=== PATIENT | male | born 1940 | race Caucasian/White ===

== ENCOUNTER 2022-01-01 10:52 | Emergency (ER) | payer MEDICARE, SELFPAY ==
[2022-01-01 11:00] VITALS: O2SAT 91
[2022-01-01 11:46] VITALS: BP 137/76; PULSE 91; RESP 20; TEMP 36.6; O2SAT 86; BMI 37.1
[2022-01-01 12:03] VITALS: BP 133/77; PULSE 85; RESP 20; O2SAT 94
--- NOTE | 2022-01-01 12:06 | ED.GENADULT ---
HPI - General Adult General Time Seen by Provider: 12:06 Date Seen: 01/01/22 Chief complaint: Shortness of Breath/Dyspnea Stated complaint: Frequent urination,right arm pain,short of breath Time Seen by Provider: 01/01/22 11:38 Source: patient, family, RN notes reviewed and old records reviewed Mode of arrival: wheelchair History of Present Illness HPI narrative: 81-year-old male who comes in today with urinary frequency. Overnight. Patient was up every hour hour and half with sensation of needing to void. Spouse who takes care of and primarily thinks that he voided about half the time. He has not had any fever chills, no nausea, vomiting, or diarrhea. No abdominal pain. He does complain of a headache on the top of his head, no fall or injury. Patient also has a right forearm injury which occurred while ago and they have been taking care of. He denies chest pain and shortness of breath, no cough. Patient has history of Lewy body dementia and most of the history is provided by spouse. Related Data Home Medications Medication Instructions Recorded Confirmed carbidopa 25 mg-levodopa 100 mg tab 01/01/22 tablet clonazepam 0.5 mg tablet mg 01/01/22 donepezil 10 mg tablet mg 01/01/22 insulin aspart U-100 100 unit/mL SUBCUT 01/01/22 (3 mL) subcutaneous pen (Novolog Flexpen U-100 Insulin aspart) insulin glargine 100 unit/mL (3 unit SUBCUT 01/01/22 mL) subcutaneous pen (Lantus Solostar U-100 Insulin) meclizine 25 mg tablet mg 01/01/22 metformin 500 mg tablet mg 01/01/22 oxybutynin chloride 15 mg mg PO 01/01/22 tablet,extended release 24 hr quetiapine 25 mg tablet mg 01/01/22 rosuvastatin 20 mg tablet mg 01/01/22 sertraline 20 mg/mL oral mg 01/01/22 concentrate Previous Rx's Medication Instructions Recorded cephalexin 250 mg/5 mL oral 500 mg (10 mL) PO BID 7 Days #140 01/01/22 suspension ml phenazopyridine 100 mg tablet 100 mg PO BID PRN 2 Days #4 tab 01/01/22 (Pyridium) Allergies Allergy/AdvReac Type Severity Reaction Status Date / Time bacitracin Allergy Intermediate Verified 01/01/22 11:53 Review of Systems Status of ROS: Reports: 10 or more systems reviewed and unremarkable except as noted in History and below [facility] Medical History (Updated 01/01/22 @ 12:58 by Efraín Singh MD) CKD (chronic kidney disease) Diabetes Hypercholesteremia Hypertension Lewy body dementia MAYA (obstructive sleep apnea) Parkinson disease Prostate cancer Reflux gastritis Spinal stenosis Social History Smoking Status: Unknown if ever smoked How often do you have a drink containing alcohol: never AUDIT-C Alcohol total score: 0 Non-prescribed substance use: denies use Exam Const: Vital Signs, click to edit/add: Vital Signs - 24 hr 01/01/22 11:46 Temperature 98 F Pulse Rate [Pulse Oximeter] 91 Respiratory Rate 20 Blood Pressure [Ri ght Upper Arm] 137/76 Pulse Oximetry 86 L Documenting provider has reviewed patient's vital signs: yes Common normals: no apparent distress, oriented x3, alert and well nourished HENMT: Common normals: normocephalic, head/scalp atraumatic, external ears normal and external nose normal Head and scalp: normocephalic and atraumatic Nose: external nose normal External ear: external ears normal Eye: Common normals: PERRL and conjunctivae normal Conjunctiva: conjunctiva(e) normal Pupil: PERRL Neck & C-Spine: Common normals: full ROM, no lymphadenopathy and supple Chest: Common normals: palpation of chest normal Resp: Common normals: normal respiratory effort and clear to auscultation bilaterally Auscultation: clear to auscultation bilaterally Cardio: Common normals: regular rate, regular rhythm and no murmurs Rate: regular rate Rhythm: regular rhythm GI: Common normals: Normal to inspection, nondistended, normoactive bowel sounds present, soft to palpation and non-tender Palpation: soft : Common normals: no CVA tenderness Bladder/kidney exam: no CVA tenderness Back & Pelvis: Common normals: no CVA tenderness and thoracic and lumbar spine normal to inspection Extremity: Common normals: normal to inspection, full ROM and no pedal edema Other: Right forearm laceration healing well. Intertrigo which actually appears quite good today. Neuro: Common normals: oriented x3, CN's II-XII intact bilaterally and no focal motor deficits Sensorium/orientation: alert Psych: Common normals: mental status grossly normal Skin: Common normals: no rashes or lesions noted General skin exam: no rashes or lesions noted Course Reevaluation(s) Reevaluation #1: Urinalysis today is negative for infection, cultures ordered as on prior visit, urine culture was also negative and throughout greater than 100,000 E coli. Patient will be started on Keflex in the meantime. Stable for discharge Time: 12:54 Vital Signs Vital signs: Initial Vital Signs Temperature 98 F 01/01/22 11:46 Temperature Source Temporal Artery Scan 01/01/22 11:46 Pulse Rate 91 01/01/22 11:46 Respiratory Rate 20 01/01/22 11:46 Blood Pressure 137/76 01/01/22 11:46 Blood Pressure Mean 96 01/01/22 11:46 Blood Pressure Position Supine 01/01/22 11:46 Pulse Oximetry 86 L 01/01/22 11:46 Oxygen Delivery Method 01/01/22 11:46 Vital Signs Temperature 98 F 01/01/22 11:46 Pulse Rate 91 01/01/22 11:46 Respiratory Rate 20 01/01/22 11:46 Blood Pressure 137/76 01/01/22 11:46 Pulse Oximetry 86 L 01/01/22 11:46 Temperature 98 F 01/01/22 11:46 Pulse Rate 91 01/01/22 11:46 Respiratory Rate 20 01/01/22 11:46 Blood Pressure 137/76 01/01/22 11:46 Pulse Oximetry 86 L 01/01/22 11:46 Medical Decision Making MDM Narrative Medical decision making narrative: Patient seen and examined, prior records reviewed. Patient presents with urinary frequency today, concern for UTI and so urinalysis is ordered. No abdominal pain or distension, no tenderness on exam, urinary retention is less likely. Straight cath for sample and so will evaluate output to make sure patient is not retaining. Initial triage complaint including shortness of breath which patient and spouse deny, they do note that he became a little short of breath when he got in the car to come in but he has to have this with anxiety currently has no complaints. Chronic lab 3 L of oxygen and no respiratory distress with clear lungs today. Medical Records Medical records reviewed: Yes I reviewed the patient's medical records Lab Data Lab results reviewed: Yes I reviewed the patient's lab results Labs: Lab Results 01/01/22 Range/Units 12:15 Urine Color Yellow (Yellow) Urine Appearance Clear (Clear) Urine pH 8.5 (5.0-8.5) Ur Specific Fleming 1.015 (1.000-1.030) Urine Protein Trace A (Negative) Urine Glucose (UA) Negative (Negative) Urine Ketones Negative (Negative) Urine Blood Negative (Negative) Urine Nitrite Negative (Negative) Urine Bilirubin Negative (Negative) Urine Urobilinogen 1.0 (0.2-1.0) Ur Leukocyte Esterase Negative (Negative) Urine RBC 0-2 (0-2) Urine WBC 0-2 (0-5) Ur Squamous Epith Cells None (None-Few) Amorphous Sediment Few A (None) Other Sediment 0 (None) Urine Bacteria None (None) Urine Mucus (None) Discharge Plan Discharge Clinical Impression: Urinary frequency Patient Disposition: Home w/ Parent or Adult Condition: Stable Instructions: Urinary Urgency and Frequency (DC) Additional Instructions: Start antibiotics as prescribed. Take Pyridium as needed for frequency. Activity Level: No Restrictions Discharge Diet: Regular Prescriptions: New cephalexin 250 mg/5 mL suspension for reconstitution 500 mg PO BID 7 Days Qty: 140 0RF phenazopyridine [Pyridium] 100 mg tablet 100 mg PO BID PRN (Reason: urinary frequency) 2 Days Qty: 4 0RF No Action quetiapine 25 mg tablet 0RF metformin 500 mg tablet 0RF oxybutynin chloride 15 mg tablet extended release 24hr PO 0RF donepezil 10 mg tablet 0RF clonazepam 0.5 mg tablet 0RF meclizine 25 mg tablet 0RF carbidopa-levodopa 25-100 mg tablet 0RF Label Comments: TAKE ONE TABLET BY MOUTH THREE TIMES A DAY WITH FOOD sertraline 20 mg/mL concentrate 0RF insulin aspart U-100 [Novolog Flexpen U-100 Insulin] 100 unit/mL (3 mL) insulin pen SUBCUT 0RF rosuvastatin 20 mg tablet 0RF insulin glargine [Lantus Solostar U-100 Insulin] 100 unit/mL (3 mL) insulin pen SUBCUT 0RF Follow Up/Referrals: Joi Zavala MD [Primary Care Provider] - Stand Alone [facility]: [facility] Info Inst[facility]
[2022-01-01] MEDS: lidocaine HCL 2 % JELLY (TOP) STERILE 6 ML UR (12:15)
[2022-01-01 12:25] LABS: Appearance Urine Clear (Clear); Bilirubin Urine Negative (Negative); Blood Urine Negative (Negative); Color Urine Yellow (Yellow); Glucose Urine Negative (Negative); Ketones Urine Negative (Negative); Leukocyte Esterase Urine Negative (Negative); Nitrite Urine Negative (Negative); Protein Urine Trace (Negative); Specific Gravity Urine 1.015 (1.000-1.030); pH Urine 8.5 (5.0-8.5)
[2022-01-01 12:40] LABS: Amorphous Sediment Urine Few; Other Sediment Urine 0; RBC Urine 0-2 (0-2); WBC Urine 0-2 (0-5)
[2022-01-01 13:00] VITALS: BP 137/69; PULSE 88; RESP 20; O2SAT 95
--- NOTE | 2022-01-01 13:28 | ED.NURSE ---
pt heavy assist of 2, attempted to use urinal but did not urinate. changed depends, dressed pt, pt to vehicle via wheelchair.
== END 2022-01-01 13:25 | disposition home or self-care (01) ==
PROVIDERS: Emergency Provider Family Medicine; PCP Family Medicine
DX: R35.0 Frequency of micturition (principal); R06.02 Shortness of breath; Z99.81 Dependence on supplemental oxygen; F41.9 Anxiety disorder, unspecified
CPT/HCPCS: 51701; 81001; 87086; 99283; 99284

== ENCOUNTER 2022-02-14 18:50 | Inpatient (IN) | payer MEDICARE, SELFPAY ==
[2022-02-14] VITALS (7 sets, daily range): BP systolic 148–180; BP diastolic 89–106; PULSE 51–67; RESP 16; TEMP 36.3; O2SAT 98–100; BMI 37.1
--- NOTE | 2022-02-14 20:35 | CRLHL7_ITS ---
For Patients: As a result of the Century Cures Act, medical imaging exams and procedure reports are released immediately into your electronic medical record. You may view this report before your referring provider. If you have questions, please contact your health care provider. INDICATION: Right arm weakness. COMPARISON: CT of the head without contrast from 07/25/2019 TECHNIQUE: CT examination of the head is performed after the CT pulmonary angiogram and intravenous contrast is seen in the vascular pole. This makes it difficult to exclude acute thrombosis of the arterial system in the brain. This examination should be considered a contrast enhanced CT of the head for diagnostic purposes. CT examination of the head was performed with 3 mm thick axial sections without additional intravenous contrast. Images were obtained from the vertex of the skull through the skull base, and I examined the images with the brain and bone windows. Please note that all CT scans at this facility use dose modulation, iterative reconstruction, and/or weight-based dosing when appropriate to reduce radiation dose to as low as reasonably achievable. FINDINGS: The contrast enhanced brain is normal in appearance for the patient`s age on today`s study, with no sign of mass lesion, mass effect, hemorrhage, or edema. There is stable mild dilatation of the ventricles and sulci representing stable mild, age-appropriate atrophy. There is stable mild patchy periventricular and subcortical white matter hypodensity from mild, age-appropriate small-vessel ischemia. The visualized portions of the orbits are normal in appearance. The visualized paranasal sinuses and mastoids are clear. The osseous structures are normal in their appearance with no sign of abnormality in the skull base or calvarium. IMPRESSION: No sign of acute injury to the brain. Stable mild, age-appropriate atrophy and mild, age-appropriate small-vessel ischemic change. Intravenous contrast is present from the proceeding CT pulmonary angiogram. Please note that all CT scans at this facility use dose modulation, iterative reconstruction, and/or weight-based dosing when appropriate to reduce radiation dose to as low as reasonably achievable. Dictated by Estevan Walker MD @ 02/15/2022 12:32:59 AM (Electronically Signed)
--- NOTE | 2022-02-14 20:54 | ED_ITS ---
HPI - General Adult General Chief complaint: Unspecified Complaint, Adult <Leonardo Parks MD - Last Filed: 02/15/22 00:03> Stated complaint: Shortness of Breath Right arm mobility problems <Leonardo Parks MD - Last Filed: 02/15/22 00:03> Time Seen by Provider: 02/14/22 20:22 <Leonardo Parks MD - Last Filed: 02/15/22 00:03> History of Present Illness HPI narrative: P is a 81 year old gentleman with a history of Parkinson's with Lewy Body Dementia who presents with increased generalized weakness. He also states that he has had increased difficulty with movement of his R hand over the past 2 days. He attributes the difficulty to trouble with his right shoulder which is chronic. Of note, he has good dexterity of the right hand and fingers but does not have the leverage to move his arm up. Pt has had no fever, chills or lower extremity edema. No rashes. No cough. Pt is chronically on 2 liters of oxygen which is unchanged. Pt still is able to get around with a walker but is having increased difficulty. No pain. <Leonardo Parks MD - Last Filed: 02/15/22 00:03> Related Data Home medications: Home Medications Medication Instructions Recorded Confirmed carbidopa 25 mg-levodopa 100 mg tab 01/01/22 tablet clonazepam 0.5 mg tablet mg 01/01/22 donepezil 10 mg tablet mg 01/01/22 insulin aspart U-100 100 unit/mL subcut 01/01/22 (3 mL) subcutaneous pen (Novolog Flexpen U-100 Insulin aspart) insulin glargine 100 unit/mL (3 unit subcut 01/01/22 mL) subcutaneous pen (Lantus Solostar U-100 Insulin) meclizine 25 mg tablet mg 01/01/22 metformin 500 mg tablet mg 01/01/22 oxybutynin chloride 15 mg mg PO 01/01/22 tablet,extended release 24 hr quetiapine 25 mg tablet mg 01/01/22 rosuvastatin 20 mg tablet mg 01/01/22 sertraline 20 mg/mL oral mg 01/01/22 concentrate aspirin 81 mg tablet,delayed 81 mg PO DAILY 02/14/22 02/14/22 release (Adult Aspirin Regimen) glycopyrrolate 1 mg tablet mg 02/14/22 Previous Rx's Medication Instructions Recorded cephalexin 250 mg/5 mL oral 500 mg (10 mL) PO BID 7 days #140 01/01/22 suspension mL phenazopyridine 100 mg tablet 100 mg PO BID PRN urinary 01/01/22 (Pyridium) frequency 2 days #4 tabs <Leonardo Parks MD - Last Filed: 02/15/22 00:03> Allergies/adverse reactions: Allergies Allergy/AdvReac Type Severity Reaction Status Date / Time bacitracin Allergy Intermediate Verified 02/14/22 23:44 <Leonardo Parks MD - Last Filed: 02/15/22 00:03> Review of Systems Status of ROS: Reports: 10 or more systems reviewed and unremarkable except as noted in History and below <Leonardo Parks MD - Last Filed: 02/15/22 00:03> [facility] Medical History: Medical History (Updated 01/16/22 @ 00:01 by ) CKD (chronic kidney disease) Diabetes Hypercholesteremia Hypertension Lewy body dementia MAYA (obstructive sleep apnea) Parkinson disease Prostate cancer Reflux gastritis Spinal stenosis <Leonardo Parks MD - Last Filed: 02/15/22 00:03> Social History: Social History Smoking Status: Former smoker How often do you have a drink containing alcohol: never AUDIT-C Alcohol total score: 0 Non-prescribed substance use: denies use <Leonardo Parks MD - Last Filed: 02/15/22 00:03> Exam Narrative: Exam Narrative: EXAM GENERAL: Patient appears elderly and frail. No tremor. EYES: No scleral icterus. THYROID: no thyroid nodules or thyromegaly. LYMPH: No supraclavicular or cervical lymphadenopathy. SKIN: Visible skin seen during exam normal or with benign process only. EXT: No dependent lower extremity pedal edema. HEART: Regular rate and rhythm with no murmurs, rubs, or gallops. LUNGS: Clear to auscultation bilaterally with no crackles or wheezes. ABD: Soft, non tender, non distended. PSYCH: Good eye contact, speech is not pressured. Neuro: Chronic parkinson's noted. Pt has good sensation and movement of hand and wrist but difficulty abducting the right arm. No other neurological findings. <Leonardo Parks MD - Last Filed: 02/15/22 00:03> Const: Vital Signs, click to edit/add: Vital Signs - 24 hr 02/14/22 19:42 02/14/22 21:16 02/14/22 21:30 Temperature 97.3 F L Pulse Rate Pulse Rate [Right Pulse Oximeter] 67 54 L 56 L Respiratory Rate 16 Blood Pressure Blood Pressure [Ri ght Upper Arm] 176/106 H 180/90 H 175/95 H Pulse Oximetry 99 99 100 Oxygen Delivery Me thod Nasal Cannula Nasal Cannula Nasal Cannula Oxygen Flow Rate 3 3 02/14/22 22:30 02/14/22 22:30 02/14/22 23:00 Temperature Pulse Rate 63 60 Pulse Rate [Right Pulse Oximeter] Respiratory Rate Blood Pressure Blood Pressure [Ri ght Upper Arm] 153/89 H Pulse Oximetry 100 100 Oxygen Delivery Me thod Nasal Cannula Oxygen Flow Rate 3 02/14/22 23:30 02/14/22 23:41 02/15/22 00:00 Temperature Pulse Rate 51 L 54 L 51 L Pulse Rate [Right Pulse Oximeter] Respiratory Rate Blood Pressure 148/97 H Blood Pressure [Ri ght Upper Arm] Pulse Oximetry 100 98 100 Oxygen Delivery Me thod Nasal Cannula Nasal Cannula Oxygen Flow Rate 3 3 02/15/22 00:01 02/15/22 00:02 02/15/22 00:30 Temperature Pulse Rate 52 L 51 L 52 L Pulse Rate [Right Pulse Oximeter] Respiratory Rate Blood Pressure 138/94 H Blood Pressure [Ri ght Upper Arm] Pulse Oximetry 99 99 99 Oxygen Delivery Me thod Nasal Cannula Oxygen Flow Rate 3 02/15/22 00:31 Temperature Pulse Rate 53 L Pulse Rate [Right Pulse Oximeter] Respiratory Rate Blood Pressure 140/93 H Blood Pressure [Ri ght Upper Arm] Pulse Oximetry 99 Oxygen Delivery Me thod Oxygen Flow Rate <Leonardo Parks MD - Last Filed: 02/15/22 00:03> Vital Signs, click to edit/add: Vital Signs - 24 hr 02/14/22 19:42 02/14/22 21:16 02/14/22 21:30 Temperature 97.3 F L Pulse Rate Pulse Rate [Right Pulse Oximeter] 67 54 L 56 L Respiratory Rate 16 Blood Pressure Blood Pressure [Ri ght Upper Arm] 176/106 H 180/90 H 175/95 H Pulse Oximetry 99 99 100 Oxygen Delivery Me thod Nasal Cannula Nasal Cannula Nasal Cannula Oxygen Flow Rate 3 3 02/14/22 22:30 02/14/22 22:30 02/14/22 23:00 Temperature Pulse Rate 63 60 Pulse Rate [Right Pulse Oximeter] Respiratory Rate Blood Pressure Blood Pressure [Ri ght Upper Arm] 153/89 H Pulse Oximetry 100 100 Oxygen Delivery Me thod Nasal Cannula Oxygen Flow Rate 3 02/14/22 23:30 02/14/22 23:41 02/15/22 00:00 Temperature Pulse Rate 51 L 54 L 51 L Pulse Rate [Right Pulse Oximeter] Respiratory Rate Blood Pressure 148/97 H Blood Pressure [Ri ght Upper Arm] Pulse Oximetry 100 98 100 Oxygen Delivery Me thod Nasal Cannula Nasal Cannula Oxygen Flow Rate 3 3 02/15/22 00:01 02/15/22 00:02 02/15/22 00:30 Temperature Pulse Rate 52 L 51 L 52 L Pulse Rate [Right Pulse Oximeter] Respiratory Rate Blood Pressure 138/94 H Blood Pressure [Ri ght Upper Arm] Pulse Oximetry 99 99 99 Oxygen Delivery Me thod Nasal Cannula Oxygen Flow Rate 3 02/15/22 00:31 Temperature Pulse Rate 53 L Pulse Rate [Right Pulse Oximeter] Respiratory Rate Blood Pressure 140/93 H Blood Pressure [Ri ght Upper Arm] Pulse Oximetry 99 Oxygen Delivery Me thod Oxygen Flow Rate <Bucky Reid MD - Last Filed: 02/15/22 01:14> Course Course Hospital Course: CT of head with CT angio head and neck, BNP, D dimer, cbc, ua, bmp, lactate ordered. Pt resting comfortably <Leonardo Parks MD - Last Filed: 02/15/22 00:03> Reevaluation(s) Reevaluation #1: Pt unchanged. Unable to do CTA head and neck as we need to do PE study due to high D-dimer. Radiology states too much contrast to do both. I choose to do PE study as CTA would be lower yield due to chronic nature of right arm weakness. <Leonardo Parks MD - Last Filed: 02/15/22 00:03> Time: 23:07 <Leonardo Parks MD - Last Filed: 02/15/22 00:03> Reevaluation #2: Pt medically stable. Labs show D dimer of 3.37, negative COVID, BNP 641, Hgb 13.2. Case signed out end of shift. <Leonardo Parks MD - Last Filed: 02/15/22 00:03> Reevaluation #3: CT of the head came back unremarkable. CT of the chest shows pulmonary emboli in all three lobes of the right lung. Clot burden is moderate. No pulmonary infarction. Patient is not hypoxic. Is chronically on 2 L of oxygen to treat obstructive sleep apnea, excessive drooling, and dementia. No known lung disease. Decision was made to admit the patient. I spoke with the E hospitalist who agrees. He is started on IV heparin. <Bucky Reid MD - Last Filed: 02/15/22 01:14> Vital Signs Vital signs: Initial Vital Signs Temperature 97.3 F L 02/14/22 19:42 Temperature Source Temporal Artery Scan 02/14/22 19:42 Pulse Rate 67 02/14/22 19:42 Respiratory Rate 16 02/14/22 19:42 Blood Pressure 176/106 H 02/14/22 19:42 Blood Pressure Mean 129 02/14/22 19:42 Blood Pressure Position Sitting 02/14/22 19:42 Pulse Oximetry 99 02/14/22 19:42 Oxygen Delivery Method 02/14/22 19:42 Vital Signs Temperature 97.3 F L 02/14/22 19:42 Pulse Rate 67 02/14/22 19:42 Respiratory Rate 16 02/14/22 19:42 Blood Pressure 176/106 H 02/14/22 19:42 Pulse Oximetry 99 02/14/22 19:42 Oxygen Delivery Method 02/14/22 19:42 Temperature 97.3 F L 02/14/22 19:42 Pulse Rate 53 L 02/15/22 00:31 Respiratory Rate 16 02/14/22 19:42 Blood Pressure 140/93 H 02/15/22 00:31 Pulse Oximetry 99 02/15/22 00:31 Oxygen Delivery Method 02/15/22 00:01 Oxygen Flow Rate 3 02/15/22 00:01 <Leonardo Parks MD - Last Filed: 02/15/22 00:03> Initial Vital Signs Temperature 97.3 F L 02/14/22 19:42 Temperature Source Temporal Artery Scan 02/14/22 19:42 Pulse Rate 67 02/14/22 19:42 Respiratory Rate 16 02/14/22 19:42 Blood Pressure 176/106 H 02/14/22 19:42 Blood Pressure Mean 129 02/14/22 19:42 Blood Pressure Position Sitting 02/14/22 19:42 Pulse Oximetry 99 02/14/22 19:42 Oxygen Delivery Method 02/14/22 19:42 Vital Signs Temperature 97.3 F L 02/14/22 19:42 Pulse Rate 67 02/14/22 19:42 Respiratory Rate 16 02/14/22 19:42 Blood Pressure 176/106 H 02/14/22 19:42 Pulse Oximetry 99 02/14/22 19:42 Oxygen Delivery Method 02/14/22 19:42 Temperature 97.3 F L 02/14/22 19:42 Pulse Rate 53 L 02/15/22 00:31 Respiratory Rate 16 02/14/22 19:42 Blood Pressure 140/93 H 02/15/22 00:31 Pulse Oximetry 99 02/15/22 00:31 Oxygen Delivery Method 02/15/22 00:01 Oxygen Flow Rate 3 02/15/22 00:01 <Bucky Reid MD - Last Filed: 02/15/22 01:14> Medical Decision Making Lab Data Labs: Lab Results 02/14/22 02/14/22 02/14/22 Range/Units 20:40 21:00 21:00 WBC 9.46 (4.50-11.00) K/uL RBC 4.33 (4.30-5.90) m/uL Hgb 13.2 L (13.5-17.5) gm/dL Hct 41.1 (37.0-53.0) % MCV 95 (80-100) fL MCH 31 (26-34) pg MCHC 32 (32-36) gm/dL RDW Coeff of Jorge 14.1 (11.5-15.5) % Plt Count 191 (140-440) K/uL Neut % (Auto) 49.7 (42.0-72.0) % Lymph % (Auto) 42.0 (20-44) % [place] % (Auto) 6.4 (0.0-11.0) % Eos % (Auto) 1.4 (0.0-7.0) % Baso % (Auto) 0.2 (0.0-3.0) % Neut # (Auto) 4.70 (1.7-7.0) K/uL Lymph # (Auto) 3.97 H (0.90-2.90) K/uL [place] # (Auto) 0.60 (0.00-0.90) K/UL Eos # (Auto) 0.13 (0.00-0.50) K/uL Baso # (Auto) 0.02 (0.00-0.30) K/uL Abs Immat Gran (auto) 0.03 (0.00-0.30) K/uL D-Dimer Quant (PE/DVT) (0.00-0.50) ug/ml Sodium (135-149) mmol/L Potassium (3.6-5.1) mmol/L Chloride (96-114) mmol/L Carbon Dioxide (20-32) mmol/L BUN (7-30) mg/dL Creatinine (0.5-1.5) mg/dL Estimated Creat Clear Estimated GFR ml/min Glucose (60-115) mg/dL Lactate 1.8 (0.5-1.9) mmol/L Calcium (8.4-10.6) mg/dL NT-Pro-B Natriuret Pep (0-450) PG/mL Urine Color (Yellow) Urine Appearance (Clear) Urine pH (5.0-8.5) Ur Specific [place] (1.000-1.030) Urine Protein (Negative) Urine Glucose (UA) (Negative) Urine Ketones (Negative) Urine Blood (Negative) Urine Nitrite (Negative) Urine Bilirubin (Negative) Urine Urobilinogen (0.2-1.0) Ur Leukocyte Esterase (Negative) Urine RBC (0-2) Urine WBC (0-5) Ur Squamous Epith Cells (None-Few) Urine Bacteria (None) SARS-CoV-2 (PCR) Negative SARS-CoV-2 (Negative) Influenza Type A (PCR) Negative PCR FLU A (Negative) Influenza Type B (PCR) Negative PCR FLU B (Negative) 02/14/22 02/14/22 02/14/22 Range/Units 21:00 21:00 23:49 WBC (4.50-11.00) K/uL RBC (4.30-5.90) m/uL Hgb (13.5-17.5) gm/dL Hct (37.0-53.0) % MCV (80-100) fL MCH (26-34) pg MCHC (32-36) gm/dL RDW Coeff of Jorge (11.5-15.5) % Plt Count (140-440) K/uL Neut % (Auto) (42.0-72.0) % Lymph % (Auto) (20-44) % [place] % (Auto) (0.0-11.0) % Eos % (Auto) (0.0-7.0) % Baso % (Auto) (0.0-3.0) % Neut # (Auto) (1.7-7.0) K/uL Lymph # (Auto) (0.90-2.90) K/uL [place] # (Auto) (0.00-0.90) K/UL Eos # (Auto) (0.00-0.50) K/uL Baso # (Auto) (0.00-0.30) K/uL Abs Immat Gran (auto) (0.00-0.30) K/uL D-Dimer Quant (PE/DVT) 3.37 H (0.00-0.50) ug/ml Sodium 139 (135-149) mmol/L Potassium 4.8 (3.6-5.1) mmol/L Chloride 101 (96-114) mmol/L Carbon Dioxide 30 (20-32) mmol/L BUN 24 (7-30) mg/dL Creatinine 1.0 (0.5-1.5) mg/dL Estimated Creat Clear 53.17 Estimated GFR 76 ml/min Glucose 223 H (60-115) mg/dL Lactate (0.5-1.9) mmol/L Calcium 8.5 (8.4-10.6) mg/dL NT-Pro-B Natriuret Pep 641 H (0-450) PG/mL Urine Color Yellow (Yellow) Urine Appearance Clear (Clear) Urine pH 7.0 (5.0-8.5) Ur Specific [place] 1.015 (1.000-1.030) Urine Protein Trace A (Negative) Urine Glucose (UA) Negative (Negative) Urine Ketones Negative (Negative) Urine Blood Negative (Negative) Urine Nitrite Negative (Negative) Urine Bilirubin Negative (Negative) Urine Urobilinogen 1.0 (0.2-1.0) Ur Leukocyte Esterase Negative (Negative) Urine RBC 0-2 (0-2) Urine WBC 0-2 (0-5) Ur Squamous Epith Cells Few (None-Few) Urine Bacteria None (None) SARS-CoV-2 (PCR) (Negative) Influenza Type A (PCR) (Negative) Influenza Type B (PCR) (Negative) <Leonardo Parks MD - Last Filed: 02/15/22 00:03> Lab Results 02/14/22 02/14/22 02/14/22 Range/Units 20:40 21:00 21:00 WBC 9.46 (4.50-11.00) K/uL RBC 4.33 (4.30-5.90) m/uL Hgb 13.2 L (13.5-17.5) gm/dL Hct 41.1 (37.0-53.0) % MCV 95 (80-100) fL MCH 31 (26-34) pg MCHC 32 (32-36) gm/dL RDW Coeff of Jorge 14.1 (11.5-15.5) % Plt Count 191 (140-440) K/uL Neut % (Auto) 49.7 (42.0-72.0) % Lymph % (Auto) 42.0 (20-44) % [place] % (Auto) 6.4 (0.0-11.0) % Eos % (Auto) 1.4 (0.0-7.0) % Baso % (Auto) 0.2 (0.0-3.0) % Neut # (Auto) 4.70 (1.7-7.0) K/uL Lymph # (Auto) 3.97 H (0.90-2.90) K/uL [place] # (Auto) 0.60 (0.00-0.90) K/UL Eos # (Auto) 0.13 (0.00-0.50) K/uL Baso # (Auto) 0.02 (0.00-0.30) K/uL Abs Immat Gran (auto) 0.03 (0.00-0.30) K/uL D-Dimer Quant (PE/DVT) (0.00-0.50) ug/ml Sodium (135-149) mmol/L Potassium (3.6-5.1) mmol/L Chloride (96-114) mmol/L Carbon Dioxide (20-32) mmol/L BUN (7-30) mg/dL Creatinine (0.5-1.5) mg/dL Estimated Creat Clear Estimated GFR ml/min Glucose (60-115) mg/dL Lactate 1.8 (0.5-1.9) mmol/L Calcium (8.4-10.6) mg/dL NT-Pro-B Natriuret Pep (0-450) PG/mL Urine Color (Yellow) Urine Appearance (Clear) Urine pH (5.0-8.5) Ur Specific [place] (1.000-1.030) Urine Protein (Negative) Urine Glucose (UA) (Negative) Urine Ketones (Negative) Urine Blood (Negative) Urine Nitrite (Negative) Urine Bilirubin (Negative) Urine Urobilinogen (0.2-1.0) Ur Leukocyte Esterase (Negative) Urine RBC (0-2) Urine WBC (0-5) Ur Squamous Epith Cells (None-Few) Urine Bacteria (None) SARS-CoV-2 (PCR) Negative SARS-CoV-2 (Negative) Influenza Type A (PCR) Negative PCR FLU A (Negative) Influenza Type B (PCR) Negative PCR FLU B (Negative) 02/14/22 02/14/22 02/14/22 Range/Units 21:00 21:00 23:49 WBC (4.50-11.00) K/uL RBC (4.30-5.90) m/uL Hgb (13.5-17.5) gm/dL Hct (37.0-53.0) % MCV (80-100) fL MCH (26-34) pg MCHC (32-36) gm/dL RDW Coeff of Jorge (11.5-15.5) % Plt Count (140-440) K/uL Neut % (Auto) (42.0-72.0) % Lymph % (Auto) (20-44) % [place] % (Auto) (0.0-11.0) % Eos % (Auto) (0.0-7.0) % Baso % (Auto) (0.0-3.0) % Neut # (Auto) (1.7-7.0) K/uL Lymph # (Auto) (0.90-2.90) K/uL [place] # (Auto) (0.00-0.90) K/UL Eos # (Auto) (0.00-0.50) K/uL Baso # (Auto) (0.00-0.30) K/uL Abs Immat Gran (auto) (0.00-0.30) K/uL D-Dimer Quant (PE/DVT) 3.37 H (0.00-0.50) ug/ml Sodium 139 (135-149) mmol/L Potassium 4.8 (3.6-5.1) mmol/L Chloride 101 (96-114) mmol/L Carbon Dioxide 30 (20-32) mmol/L BUN 24 (7-30) mg/dL Creatinine 1.0 (0.5-1.5) mg/dL Estimated Creat Clear 53.17 Estimated GFR 76 ml/min Glucose 223 H (60-115) mg/dL Lactate (0.5-1.9) mmol/L Calcium 8.5 (8.4-10.6) mg/dL NT-Pro-B Natriuret Pep 641 H (0-450) PG/mL Urine Color Yellow (Yellow) Urine Appearance Clear (Clear) Urine pH 7.0 (5.0-8.5) Ur Specific [place] 1.015 (1.000-1.030) Urine Protein Trace A (Negative) Urine Glucose (UA) Negative (Negative) Urine Ketones Negative (Negative) Urine Blood Negative (Negative) Urine Nitrite Negative (Negative) Urine Bilirubin Negative (Negative) Urine Urobilinogen 1.0 (0.2-1.0) Ur Leukocyte Esterase Negative (Negative) Urine RBC 0-2 (0-2) Urine WBC 0-2 (0-5) Ur Squamous Epith Cells Few (None-Few) Urine Bacteria None (None) SARS-CoV-2 (PCR) (Negative) Influenza Type A (PCR) (Negative) Influenza Type B (PCR) (Negative) <Bucky Reid MD - Last Filed: 02/15/22 01:14> Discharge Plan Discharge Prescriptions: No Action aspirin [Adult Aspirin Regimen] 81 mg tablet,delayed release (DR/EC) 81 mg PO DAILY glycopyrrolate 1 mg tablet quetiapine 25 mg tablet metformin 500 mg tablet oxybutynin chloride 15 mg tablet extended release 24hr PO donepezil 10 mg tablet clonazepam 0.5 mg tablet meclizine 25 mg tablet carbidopa-levodopa 25-100 mg tablet Label Comments: TAKE ONE TABLET BY MOUTH THREE TIMES A DAY WITH FOOD sertraline 20 mg/mL concentrate insulin aspart U-100 [Novolog Flexpen U-100 Insulin] 100 unit/mL (3 mL) insulin pen SUBCUT rosuvastatin 20 mg tablet insulin glargine [Lantus Solostar U-100 Insulin] 100 unit/mL (3 mL) insulin pen SUBCUT cephalexin 250 mg/5 mL suspension for reconstitution 500 mg PO BID 7 Days Qty: 140 0RF phenazopyridine [Pyridium] 100 mg tablet 100 mg PO BID PRN (Reason: urinary frequency) 2 Days Qty: 4 0RF <Leonardo Parks MD - Last Filed: 02/15/22 00:03> Follow Up/Referrals: Joi Zavala MD [Primary Care Provider] - <Leonardo Parks MD - Last Filed: 02/15/22 00:03>
[2022-02-14 21:10] LABS: Lactate* 1.8 mmol/L (0.5-1.9)
[2022-02-14 21:13] LABS: Basophils Absolute Auto 0.02 K/uL (0.00-0.30); Basophils Percent Auto 0.2 % (0.0-3.0); Eosinophils Absolute Auto 0.13 K/uL (0.00-0.50); Eosinophils Percent Auto 1.4 % (0.0-7.0); Hematocrit 41.1 % (37.0-53.0); Hemoglobin* 13.2 gm/dL (13.5-17.5); Immature Granulocytes Abs Auto 0.03 K/uL (0.00-0.30); Lymphocytes Absolute Auto 3.97 K/uL (0.90-2.90); Mean Corpuscular HGB Conc 32 gm/dL (32-36); Mean Corpuscular Hemoglobin 31 pg (26-34); Mean Corpuscular Volume 95 fL (80-100); Monocytes Percent Auto 6.4 % (0.0-11.0); Neutrophils Percent Auto 49.7 % (42.0-72.0); Platelet Count* 191 K/uL (140-440); RDW Coefficient of Variation % 14.1 % (11.5-15.5); Red Blood Count 4.33 m/uL (4.30-5.90); White Blood Count* 9.46 K/uL (4.50-11.00)
[2022-02-14 21:18] LABS: Slide Review Reflex No
[2022-02-14 21:28] LABS: PCR FLU A Negative PCR FLU A (Negative); PCR FLU B Negative PCR FLU B (Negative)
[2022-02-14 21:31] LABS: Chloride* 101 mmol/L (96-114); Potassium* 4.8 mmol/L (3.6-5.1); Sodium* 139 mmol/L (135-149)
[2022-02-14 21:34] LABS: Blood Urea Nitrogen* 24 mg/dL (7-30); Carbon Dioxide* 30 mmol/L (20-32); Est. Creatinine Clearance* 53.17; Estimated Glomerular Filt Rate 76 ml/min; Glucose* 223 mg/dL (60-115)
[2022-02-14 21:35] LABS: Calcium* 8.5 mg/dL (8.4-10.6)
[2022-02-14 21:36] LABS: D Dimer Quantitative* 3.37 ug/ml (0.00-0.50)
[2022-02-14 21:43] LABS: NT Pro B Type NatriureticPept* 641 PG/mL (0-450)
[2022-02-14 21:47] LABS: SARS PCR* Negative SARS-CoV-2 (Negative)
--- NOTE | 2022-02-14 21:52 | CRLHL7_ITS ---
For Patients: As a result of the Century Cures Act, medical imaging exams and procedure reports are released immediately into your electronic medical record. You may view this report before your referring provider. If you have questions, please contact your health care provider. INDICATION: Right arm weakness. Elevated D-dimer. COMPARISON: CT of the chest, abdomen, and pelvis without contrast from 11/27/2021 TECHNIQUE: CT examination of the chest was performed with the uneventful intravenous administration of 95 cc of Isovue 370 while 1.5 mm thick axial sections were obtained from above the apices of the lungs through the mid renal level. Please note that all CT scans at this facility use dose modulation, iterative reconstruction, and/or weight-based dosing when appropriate to reduce radiation dose to as low as reasonably achievable. FINDINGS: : There is moderate pulmonary embolism involving the right lung, with nonocclusive thrombus seen in the right upper, middle, and lower lobe pulmonary arteries. Thrombus extends into the medial and posterior basilar segments of the right lower lobe and the medial segment of the right middle lobe. There is no sign of pulmonary infarction. Clot burden is moderate. There is no sign of right ventricular strain, with a normal RV/LV ratio of 0.87. There is mild patchy atelectasis in the dependent portions of both lower lobes. There is mild linear atelectasis in the posterior-lateral left lower lobe. The lungs are otherwise clear. There is no sign of mediastinal or hilar mass or adenopathy. There is no change in mild triple-vessel coronary calcification. The heart remains normal in size. There is age appropriate appearance of the thoracic aorta and ascending great vessels. There is no sign of supraclavicular or axillary mass or adenopathy. The visualized superior liver, spleen, pancreas, and adrenals are normal in appearance. The osseous structures are normal in appearance for the patient`s age. IMPRESSION: Moderate pulmonary embolism involving the right lung. No sign of right ventricular strain. Mild patchy atelectasis in the dependent portions of both lower lobes, with no sign of any active infiltrates or pulmonary infarction. Please note that all CT scans at this facility use dose modulation, iterative reconstruction, and/or weight-based dosing when appropriate to reduce radiation dose to as low as reasonably achievable. Dictated by Estevan Walker MD @ 02/15/2022 12:26:37 AM (Electronically Signed)
--- NOTE | 2022-02-14 23:53 | ED.NURSE ---
Pt assisted to sit at the bedside, then assisted to stand to use urinal. UA collected. Pt very weak and unsteady, unable to sit up or stand without assist of 2. notified.
[2022-02-14 23:57] LABS: Appearance Urine Clear (Clear); Bilirubin Urine Negative (Negative); Blood Urine Negative (Negative); Color Urine Yellow (Yellow); Glucose Urine Negative (Negative); Ketones Urine Negative (Negative); Leukocyte Esterase Urine Negative (Negative); Nitrite Urine Negative (Negative); Protein Urine Trace (Negative); Specific Gravity Urine 1.015 (1.000-1.030)
[2022-02-15] VITALS (23 sets, daily range): BP systolic 138–177; BP diastolic 66–94; PULSE 50–61; RESP 14–20; TEMP 36.1–36.6; O2SAT 92–100; BMI 32.7
[2022-02-15 00:14] LABS: RBC Urine 0-2 (0-2); Squamous Epithelial Cell Urine Few (None-Few); WBC Urine 0-2 (0-5)
--- NOTE | 2022-02-15 01:18 | W.PC.EDHO ---
Primary Language: Preferred Language: Orientation Status: [x] Alert & Oriented [] Slight Confusion [] Known Dx Dementia Transfers By: [] Assist of 1 [x] Assist of 2 [] Lift Description of Symptoms ED Triage Present Problem sob getting worse last 2-3 weeks, uses walker, is Description getting more sob with activity. difficulty at stairway for example. today woke with R arm unable to lift, did work yesterday. has 'junk' shoulder, however concerned about stroke. at breakfast this am didn't eat because R arm didn't work and isn't L handed. blood sugar was found to be 50. admin glucose. bs is 163 now in waiting room. chronically supposed to use oxygen per [place] 3L, didn't bring to breakfast this am. also whatever is going on, voice is raspy. pt was weak to get into vehicle. IV Insertion/Site Date of IV Line Insertion [ 02/14/22 Left Antecubital] Date of IV Line Insertion [ 02/14/22 Left Antecubital] Oxygen Administration Pulse Oximetry 99 Pulse Oximetry 99 Pulse Oximetry 99 Pulse Oximetry 99 Pulse Oximetry 100 Pulse Oximetry 98 Pulse Oximetry 100 Pulse Oximetry 100 Pulse Oximetry 100 Pulse Oximetry 100 Pulse Oximetry 99 Pulse Oximetry 99 Oxygen Delivery Method Nasal Cannula Oxygen Delivery Method Nasal Cannula Oxygen Delivery Method Nasal Cannula Oxygen Delivery Method Nasal Cannula Oxygen Delivery Method Nasal Cannula Oxygen Delivery Method Nasal Cannula Oxygen Delivery Method Nasal Cannula Oxygen Flow Rate 3 Oxygen Flow Rate 3 Oxygen Flow Rate 3 Oxygen Flow Rate 3 Oxygen Flow Rate 3 Oxygen Flow Rate 3
[2022-02-15] MEDS: HEPARIN 25,000 UNIT/500 ML BAG 30 UNIT IV (02:03)
[2022-02-15 02:10] LABS: INR 0.87 (0.91-1.10); Partial Thromboplastin Time* 29 Seconds (23-33); Prothrombin Time 12.3 Seconds
[2022-02-15] MEDS: HEPARIN 5,000 UNIT/0.5 ML INJ 8300 UNIT IVP (02:13)
--- NOTE | 2022-02-15 04:04 | PM.IMCN1 ---
Date of Consult Consult date: 02/15/22 Primary Care Provider: Joi Zavala MD Consult Narrative Narrative: [facility] Hospitalist ADMISSION SUPPORT NOTE eHospitalist was contacted by Dr. Reid with request of admission support. Chief complaint: SOB HPI: The history was obtained from the patient and his were present at bedside. On Sunday the patient just seemed less active and seemed weaker. Today he had more difficulty raising his right arm. At baseline he is unable to abduct his right arm above the 90 degree angle however he was not even able to feed himself which she is able to do normally. He felt that his right leg was a bit more unsteady than usual. His reports he seemed short of breath and complained of indigestion. Within the past 6 weeks he has had about 2 falls and she does report that over the past several months he has been progressively more weak. He seemed more unsteady on his feet with difficulty ambulating today. CT scan of chest revealed pulmonary embolism with moderate clot burden. Review of systems other mention above is negative. Home Medications/Pertinent Medical History/Pertinent Social History: Reviewed see EMR for details Review of Systems Status of ROS: Reports: 10 or more systems reviewed and unremarkable except as noted in History and below [facility] Medical History (Updated 02/15/22 @ 05:48 by Ara Shields MD) CKD (chronic kidney disease) Diabetes Hypercholesteremia Hypertension Lewy body dementia MAYA (obstructive sleep apnea) Parkinson disease Prostate cancer Reflux gastritis Spinal stenosis Social History Highest level of school completed/degree received: 12th grade, no diploma Smoking Status: Former smoker Do you use any of these nicotine containing products: None Second hand tobacco smoke exposure: No How often do you have a drink containing alcohol: never How often do you have six or more drinks on one occasion: Never AUDIT-C Alcohol total score: 0 Non-prescribed substance use: marijuana (any form) Non-prescribed substance use details: Marijuana in liquid form orally Caffeine: Yes service: Yes Meds Home Medications and Allergies Home Medications Medication Instructions Recorded Confirmed Type carbidopa 25 mg-levodopa 100 mg tab 01/01/22 History tablet clonazepam 0.5 mg tablet mg 01/01/22 History donepezil 10 mg tablet mg 01/01/22 History insulin aspart U-100 100 unit/mL subcut 01/01/22 History (3 mL) subcutaneous pen (Novolog Flexpen U-100 Insulin aspart) insulin glargine 100 unit/mL (3 unit subcut 01/01/22 History mL) subcutaneous pen (Lantus Solostar U-100 Insulin) meclizine 25 mg tablet mg 01/01/22 History metformin 500 mg tablet mg 01/01/22 History oxybutynin chloride 15 mg mg PO 01/01/22 History tablet,extended release 24 hr quetiapine 25 mg tablet mg 01/01/22 History rosuvastatin 20 mg tablet mg 01/01/22 History sertraline 20 mg/mL oral mg 01/01/22 History concentrate aspirin 81 mg tablet,delayed 81 mg PO DAILY 02/14/22 02/14/22 History release (Adult Aspirin Regimen) glycopyrrolate 1 mg tablet mg 02/14/22 History Allergies Allergy/AdvReac Type Severity Reaction Status Date / Time bacitracin Allergy Intermediate Verified 02/14/22 23:44 Exam Narrative: Exam Narrative: Exam (performed via interactive video with assistance of bedside nurse): General: Alert, cooperative, no acute distress HEENT: Oral mucosa pink and moist without erythema, dentures Lungs: Clear to auscultation bilaterally without crackle or wheeze CV: Regular rate and rhythm without loud murmur rub or gallop, distant heart sounds Ext: No pitting edema noted Skin: Skin tear on buttocks per bedside nurse report, purpura on arms, skin tear on right hand, erythema around lower leg which is chronic per report Neuro: Alert, oriented x 3. CN III -VII, XI, XII grossly intact, strength in bilateral lower extremity 4/5, upper extremity strength was weaker on the right appreciated by nurse Const: Vital Signs, click to edit/add: Vital Signs - 24 hr 02/14/22 19:42 02/14/22 21:16 02/14/22 21:30 Temperature 97.3 F L Pulse Rate Pulse Rate [Right Pulse Oximeter] 67 54 L 56 L Respiratory Rate 16 Blood Pressure Blood Pressure [Ri ght Upper Arm] 176/106 H 180/90 H 175/95 H Pulse Oximetry 99 99 100 Oxygen Delivery Me thod Nasal Cannula Nasal Cannula Nasal Cannula Oxygen Flow Rate 3 3 02/14/22 22:30 02/14/22 22:30 02/14/22 23:00 Temperature Pulse Rate 63 60 Pulse Rate [Right Pulse Oximeter] Respiratory Rate Blood Pressure Blood Pressure [Ri ght Upper Arm] 153/89 H Pulse Oximetry 100 100 Oxygen Delivery Me thod Nasal Cannula Oxygen Flow Rate 3 02/14/22 23:30 02/14/22 23:41 02/15/22 00:00 Temperature Pulse Rate 51 L 54 L 51 L Pulse Rate [Right Pulse Oximeter] Respiratory Rate Blood Pressure 148/97 H Blood Pressure [Ri ght Upper Arm] Pulse Oximetry 100 98 100 Oxygen Delivery Me thod Nasal Cannula Nasal Cannula Oxygen Flow Rate 3 3 02/15/22 00:01 02/15/22 00:02 02/15/22 00:30 Temperature Pulse Rate 52 L 51 L 52 L Pulse Rate [Right Pulse Oximeter] Respiratory Rate Blood Pressure 138/94 H Blood Pressure [Ri ght Upper Arm] Pulse Oximetry 99 99 99 Oxygen Delivery Me thod Nasal Cannula Oxygen Flow Rate 3 02/15/22 00:31 02/15/22 00:32 02/15/22 01:13 Temperature Pulse Rate 53 L 52 L 58 L Pulse Rate [Right Pulse Oximeter] Respiratory Rate Blood Pressure 140/93 H Blood Pressure [Ri ght Upper Arm] Pulse Oximetry 99 98 99 Oxygen Delivery Me thod Oxygen Flow Rate 02/15/22 01:30 02/15/22 02:00 02/15/22 02:30 Temperature Pulse Rate 55 L 54 L 57 L Pulse Rate [Right Pulse Oximeter] Respiratory Rate Blood Pressure Blood Pressure [Ri t Upper Arm] Pulse Oximetry 100 99 99 Oxygen Delivery Me thod Oxygen Flow Rate Labs Labs: Short CBC 02/14/22 Range/Units 21:00 WBC 9.46 (4.50-11.00) K/uL Hgb 13.2 L (13.5-17.5) gm/dL Hct 41.1 (37.0-53.0) % Plt Count 191 (140-440) K/uL BMP 02/14/22 21:00 Sodium 139 Potassium 4.8 Chloride 101 Carbon Dioxide 30 BUN 24 Creatinine 1.0 Glucose 223 H Calcium 8.5 Urine 02/14/22 Range/Units 23:49 Urine Color Yellow (Yellow) Urine Appearance Clear (Clear) Urine pH 7.0 (5.0-8.5) Ur Specific [place] 1.015 (1.000-1.030) Urine Protein Trace A (Negative) Urine Glucose (UA) Negative (Negative) Assessment and Plan Assessment and plan (1) Pulmonary embolism: Status: Acute Plan Assessment and Plan: 1. Pulmonary embolism-moderate clot burden. Oxygen at baseline. Likely secondary to limited mobility. Continue heparin drip. Rounding provider to place on oral anticoagulants. 2. Right upper extremity weakness-I think this is more a peripheral nerve injury. Per report he was sleeping on his right side significantly before the weakness occurred. Physical therapy can assess and then rounding provider can determine whether they think this essentially do further work-up to rule out stroke. 3. DM2-continue Lantus and placed on sliding scale insulin 4. Chronic hypoxemic respiratory failure-at baseline. Continue supplemental oxygen 5. Hypertension-documented in chart however not on any antihypertensive agents 6. Parkinson's disease-stable continue Sinemet 7. Reflux gastritis-documented in chart however not on Protonix 8. Urinary incontinence-stable continue oxybutynin 9. Dyslipidemia-stable on rosuvastatin 10. Depression/depression-stable on Seroquel, sertraline, clonazepam 11. Dementia-stable on Aricept 12. DVT prophylaxis-current thromboembolism on heparin 13. CODE STATUS full code per documentation Chart review was performed as well as evaluation of the patient via video. Thank you for involving ehospitalist. Please contact [phone] if further assistance is needed.
[2022-02-15] MEDS: CARBIDOPA-LEVODOPA 25-100 TABLET 1 TAB PO ×3 (05:07→21:12)
--- NOTE | 2022-02-15 06:14 | PC.NURSE ---
Shift 7p-7a: Pt. AO, cooperative, following commands, VSS on 3L NC (chronic). Pt. admitted to unit on heparin gtt @ 1500 units/hr, recheck PTT scheduled for 8AM. Pt.'s at bedside, helped give pt. admission history. Pt. non-laborered breathing, diminshed LS in bases, sleeping comfortably in room. Pt. states he has been non-ambulatory and sits in a recliner all day at home since the past 6 weeks. Prior to that, pt. was ambulatory with wheelchair/walker assist. Pt. reports he also fell at home 2 weeks ago, CT head (-) for hemorrhage/stroke. Pt. reports RT arm weakness, states he was able to feed himself until yesterday evening, unable to lift above shoulder. Dr. Shields on [facility], noted deficits. Pt. has LT arm blood glucose monitor, BGL 128 covered with insulin. Pt. incontinent x2 with diaper on, no BM noted. Pt. on Tele and continuous pulse ox monitoring. MD noted LT hand skin tear, sacral skin tear covered with Mepilex dressing, LT lower extremity redness which pt.'s reports has been there for several weeks.
[2022-02-15 08:28] LABS: Basophils Percent Auto 0.3 % (0.0-3.0); Hematocrit 46.2 % (37.0-53.0); Hemoglobin* 14.9 gm/dL (13.5-17.5); Immature Granulocytes Abs Auto 0.02 K/uL (0.00-0.30); Lymphocytes Percent Auto 40.7 % (20-44); Mean Corpuscular HGB Conc 32 gm/dL (32-36); Mean Corpuscular Hemoglobin 30 pg (26-34); Mean Corpuscular Volume 94 fL (80-100); Monocytes Percent Auto 6.1 % (0.0-11.0); Neutrophils Percent Auto 51.7 % (42.0-72.0); Platelet Count* 198 K/uL (140-440); White Blood Count* 11.46 K/uL (4.50-11.00)
[2022-02-15 08:45] LABS: Slide Review Reflex No
[2022-02-15 09:01] LABS: Albumin* 4.5 g/dL (3.3-5.0); Chloride* 99 mmol/L (96-114); INR 1.08 (0.91-1.10); Prothrombin Time 14.4 Seconds; Sodium* 138 mmol/L (135-149)
[2022-02-15 09:02] LABS: Potassium* 3.9 mmol/L (3.6-5.1)
[2022-02-15 09:04] LABS: Alkaline Phosphatase* 118 U/L (40-150); Aspartate Amino Transferase* 19 U/L (12-35); Bilirubin Total* 0.5 mg/dL (0.1-1.5); Blood Urea Nitrogen* 19 mg/dL (7-30); Carbon Dioxide* 27 mmol/L (20-32); Creatinine* 0.9 mg/dL (0.5-1.5); Est. Creatinine Clearance* 53.17; Estimated Glomerular Filt Rate 86 ml/min; Total Protein* 7.5 g/dL (6.0-8.3)
[2022-02-15 09:05] LABS: Alanine Aminotransferase* 5 U/L (4-50); Calcium* 8.7 mg/dL (8.4-10.6); Glucose* 237 mg/dL (60-115)
[2022-02-15 09:32] LABS: Magnesium* 1.5 mg/dL (1.5-2.6)
[2022-02-15 09:35] LABS: C Reactive Protein* 1.4 mg/dL (0.5-1.0)
[2022-02-15 09:35] LABS: HCO3 VBG 31 mmol/L (21-28); Ionized Calcium* 1.03 mmol/L (1.11-1.30); Lactate* 1.7 mmol/L (0.5-1.9); PCO2 VBG 49 mmHG (40-50); PO2 VBG 42.5 mmHG (25-47)
[2022-02-15 09:44] LABS: Troponin I* 0.05 ng/mL (0.01-0.04)
[2022-02-15 10:03] LABS: pH VBG 7.403 (7.32-7.43)
--- NOTE | 2022-02-15 10:09 | P.IMHP_ITS ---
Hospitalist- H&P: HPI History of Present Illness Date Seen: 02/15/22 Chief complaint: Shortness of Breath Right arm mobility problems Narrative: Bucky Turpin is a 81 year old male who presented to the emergency room with his on 02/14 evaluation of 2-3 days of weakness. There were no other notable associated symptoms; patient specifically denies chest pain or dyspnea. He is chronically oxygen dependent on 2-3 L by nasal cannula at home for history of restrictive lung disease and OHS, and home oxygen saturations had been stable. No evidence of acute infectious process or other concerning symptoms. Patient's right side seemed to be primarily affected for his weakness (history of right-sided weakness secondary to Lewy body dementia). ER course and findings: - elevated D-dimer - CTA of chest exhibited moderate right-sided pulmonary embolism Patient was initiated on heparin by ER physician, admitted overnight by the E- Hospitalist. This morning, he denies any concerns for the hospitalist team. and daughter are present for H&P and assist with history and medication reconciliation. Deejay's notable past medical history includes progressive Lewy body dementia. He is a fall risk, is primary caregiver at home. Follows with Neurology as an outpatient. He also has insulin-dependent type 2 diabetes (most recent A1c 6.8), prostate cancer (2018, s/p XRT and hormone therapy), CKD, CLL, and primary open-angle glaucoma, in addition to comorbidities noted below. PCP is Dr. Zavala locally. 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 She would be his primary decision maker if needed, and he requests full code status. Deejay has 5 adult children, quit smoking in 1995. Review of Systems Status of ROS: Reports: 10 or more systems reviewed and unremarkable except as noted in History and below [facility] Medical History (Updated 02/15/22 @ 12:55 by Madison Pizarro MD) CKD (chronic kidney disease) Diabetes Hypercholesteremia Hypertension Insulin dependent type 2 diabetes mellitus Lewy body dementia MAYA (obstructive sleep apnea) Parkinson disease Prostate cancer Reflux gastritis Spinal stenosis Social History Highest level of school completed/degree received: 12th grade, no diploma Smoking Status: Former smoker Do you use any of these nicotine containing products: None Second hand tobacco smoke exposure: No How often do you have a drink containing alcohol: never How often do you have six or more drinks on one occasion: Never AUDIT-C Alcohol total score: 0 Non-prescribed substance use: marijuana (any form) Non-prescribed substance use details: Marijuana in liquid form orally Caffeine: Yes service: Yes Meds Home Medications and Allergies Home Medications Medication Instructions Recorded Confirmed Type carbidopa 25 mg-levodopa 100 mg 1 tab PO TID 01/01/22 02/15/22 History tablet clonazepam 0.5 mg tablet 0.5 mg PO HS 01/01/22 02/15/22 History donepezil 10 mg tablet 10 mg PO HS 01/01/22 02/15/22 History insulin aspart U-100 100 unit/mL 5 - 6 unit subcut BID@08,12 01/01/22 02/15/22 History (3 mL) subcutaneous pen (Novolog Flexpen U-100 Insulin aspart) insulin glargine 100 unit/mL (3 12 unit subcut HS 01/01/22 02/15/22 History mL) subcutaneous pen (Lantus Solostar U-100 Insulin) meclizine 25 mg tablet 25 mg PO BID 01/01/22 02/15/22 History metformin 500 mg tablet 500 mg PO BIDWM 01/01/22 02/15/22 History oxybutynin chloride 15 mg 15 mg PO DAILY PRN 01/01/22 02/15/22 History tablet,extended release 24 hr quetiapine 25 mg tablet 50 mg PO HS 01/01/22 02/15/22 History rosuvastatin 20 mg tablet 20 mg PO HS 01/01/22 02/15/22 History glycopyrrolate 1 mg tablet 1 mg PO DAILY 02/14/22 02/15/22 History Lactobacillus acidophilus 10 10 mg PO DAILY 02/15/22 02/15/22 History billion cell capsule (Probiotic) aspirin 81 mg chewable tablet 81 mg PO DAILY 02/15/22 02/15/22 History (Aspirin Childrens) cyanocobalamin (vitamin B-12) 1,000 mcg PO DAILY 02/15/22 02/15/22 History 1,000 mcg tablet nystatin 100,000 unit/gram topical 1 applic topical BID 02/15/22 02/15/22 History ointment Home Medication Comments: Confirmed with , medication reconciliation completed by pharmacist. Allergies Allergy/AdvReac Type Severity Reaction Status Date / Time bacitracin Allergy Intermediate Verified 02/14/22 23:44 Exam Narrative: Exam Narrative: GEN: Alert and oriented, answering questions appropriately HEENT: Normal external ears, EOMIs bilaterally, no scleral icterus. Dentition is poor without evidence of acute oral infection CV: RRR, No concerning murmurs, rubs, or gallops R: LCTA bilaterally without concerning wheezing, rales, or rhonchi. Air movement decreased but adequate Ext: wwp, mild edema bilateral ankles Skin: Erythematous changes of BLE consistent with PVD, no other concerning skin lesions or rashes on exposed skin. Wound on sacrum noted by nursing staff, no formally examined by me today Neuro: Mild right-sided weakness per baseline, gait not observed Psych: Appropriate for chronic conditions Const: Vital Signs, click to edit/add: Vital Signs - 24 hr 02/14/22 19:42 02/14/22 21:16 02/14/22 21:30 Temperature 97.3 F L Pulse Rate Pulse Rate [Left R adial] Pulse Rate [Pulse Oximeter] Pulse Rate [Right Pulse Oximeter] 67 54 L 56 L Respiratory Rate 16 Blood Pressure Blood Pressure [Ri ght Arm] Blood Pressure [Ri ght Upper Arm] 176/106 H 180/90 H 175/95 H Pulse Oximetry 99 99 100 Oxygen Delivery Me thod Nasal Cannula Nasal Cannula Nasal Cannula Oxygen Flow Rate 3 3 02/14/22 22:30 02/14/22 22:30 02/14/22 23:00 Temperature Pulse Rate 63 60 Pulse Rate [Left R adial] Pulse Rate [Pulse Oximeter] Pulse Rate [Right Pulse Oximeter] Respiratory Rate Blood Pressure Blood Pressure [Ri ght Arm] Blood Pressure [Ri ght Upper Arm] 153/89 H Pulse Oximetry 100 100 Oxygen Delivery Me thod Nasal Cannula Oxygen Flow Rate 3 02/14/22 23:30 02/14/22 23:41 02/15/22 00:00 Temperature Pulse Rate 51 L 54 L 51 L Pulse Rate [Left R adial] Pulse Rate [Pulse Oximeter] Pulse Rate [Right Pulse Oximeter] Respiratory Rate Blood Pressure 148/97 H Blood Pressure [Ri ght Arm] Blood Pressure [Ri ght Upper Arm] Pulse Oximetry 100 98 100 Oxygen Delivery Me thod Nasal Cannula Nasal Cannula Oxygen Flow Rate 3 3 02/15/22 00:01 02/15/22 00:02 02/15/22 00:30 Temperature Pulse Rate 52 L 51 L 52 L Pulse Rate [Left R adial] Pulse Rate [Pulse Oximeter] Pulse Rate [Right Pulse Oximeter] Respiratory Rate Blood Pressure 138/94 H Blood Pressure [Ri ght Arm] Blood Pressure [Ri ght Upper Arm] Pulse Oximetry 99 99 99 Oxygen Delivery Me thod Nasal Cannula Oxygen Flow Rate 3 02/15/22 00:31 02/15/22 00:32 02/15/22 01:13 Temperature Pulse Rate 53 L 52 L 58 L Pulse Rate [Left R adial] Pulse Rate [Pulse Oximeter] Pulse Rate [Right Pulse Oximeter] Respiratory Rate Blood Pressure 140/93 H Blood Pressure [Ri ght Arm] Blood Pressure [Ri ght Upper Arm] Pulse Oximetry 99 98 99 Oxygen Delivery Me thod Oxygen Flow Rate 02/15/22 01:30 02/15/22 02:00 02/15/22 02:30 Temperature Pulse Rate 55 L 54 L 57 L Pulse Rate [Left R adial] Pulse Rate [Pulse Oximeter] Pulse Rate [Right Pulse Oximeter] Respiratory Rate Blood Pressure Blood Pressure [Ri ght Arm] Blood Pressure [Ri ght Upper Arm] Pulse Oximetry 100 99 99 Oxygen Delivery Me thod Oxygen Flow Rate 02/15/22 03:44 02/15/22 03:44 02/15/22 04:04 Temperature 97.7 F 97.7 F Pulse Rate Pulse Rate [Left R adial] Pulse Rate [Pulse Oximeter] 50 L 55 L Pulse Rate [Right Pulse Oximeter] Respiratory Rate 16 16 16 Blood Pressure Blood Pressure [Ri ght Arm] 177/89 H 177/89 H Blood Pressure [Ri ght Upper Arm] Pulse Oximetry 98 98 98 Oxygen Delivery Me thod Nasal Cannula Nasal Cannula Nasal Cannula Oxygen Flow Rate 3 3 3 02/15/22 04:07 02/15/22 04:09 02/15/22 04:09 Temperature Pulse Rate 55 L Pulse Rate [Left R adial] Pulse Rate [Pulse Oximeter] Pulse Rate [Right Pulse Oximeter] Respiratory Rate 18 Blood Pressure Blood Pressure [Ri ght Arm] Blood Pressure [Ri ght Upper Arm] Pulse Oximetry 98 98 Oxygen Delivery Me thod Nasal Cannula Oxygen Flow Rate 3 02/15/22 08:12 02/15/22 08:16 02/15/22 08:57 Temperature 97.6 F Pulse Rate 57 L Pulse Rate [Left R adial] 56 L 56 L Pulse Rate [Pulse Oximeter] Pulse Rate [Right Pulse Oximeter] Respiratory Rate 14 Blood Pressure Blood Pressure [Ri ght Arm] 152/66 H Blood Pressure [Ri ght Upper Arm] Pulse Oximetry 98 Oxygen Delivery Me thod Nasal Cannula Oxygen Flow Rate 3 Hospitalist - H&P: Result Labs Labs: Short CBC 02/14/22 02/15/22 Range/Units 21:00 08:16 WBC 9.46 11.46 H (4.50-11.00) K/uL Hgb 13.2 L 14.9 (13.5-17.5) gm/dL Hct 41.1 46.2 (37.0-53.0) % Plt Count 191 198 (140-440) K/uL BMP 02/14/22 02/15/22 21:00 08:16 Sodium 139 138 Potassium 4.8 3.9 Chloride 101 99 Carbon Dioxide 30 27 BUN 24 19 Creatinine 1.0 0.9 Glucose 223 H 237 H Calcium 8.5 8.7 Cardiac Enzymes 02/15/22 Range/Units 08:16 Troponin I 0.05 H (0.01-0.04) ng/mL Liver Function 02/15/22 Range/Units 08:16 Total Bilirubin 0.5 (0.1-1.5) mg/dL AST 19 (12-35) U/L ALT 5 (4-50) U/L Alkaline Phosphatase 118 (40-150) U/L Albumin 4.5 (3.3-5.0) g/dL Urine 02/14/22 Range/Units 23:49 Urine Color Yellow (Yellow) Urine Appearance Clear (Clear) Urine pH 7.0 (5.0-8.5) Ur Specific [place] 1.015 (1.000-1.030) Urine Protein Trace A (Negative) Urine Glucose (UA) Negative (Negative) Assessment and Plan Assessment and plan (1) Pulmonary embolism: Status: Acute Assessment and Plan: Reviewed anticoagulant options with family. Initiate Xarelto today, stop heparin drip. Patient remains hemodynamically stable. (2) Insulin dependent type 2 diabetes mellitus: Status: Acute Assessment and Plan: Accu-Cheks and sliding scale insulin, in addition to home insulin therapy. (3) Skin breakdown: Status: Acute Assessment and Plan: Referral to wound care. (4) Lewy body dementia: Status: Acute Assessment and Plan: At baseline. (5) Elevated troponin: Status: Acute Assessment and Plan: No chest pain or evidence of cardiac strain on imaging; will continue to follow and obtain TTE. Plan Per above. Xarelto for prophylaxis. Patient hopes to return home when medically stable. Appreciate input from PT, OT, and social work.
[2022-02-15] MEDS: NYSTATIN CREAM 30 GM 1 APPLIC TOPICAL ×3 (11:09→21:14)
--- NOTE | 2022-02-15 11:10 | PC.SOCIAL ---
Went into pt room with OT worker, Randee. Had a conversation with pt, pt's , and pt's daughter. Discussed the concern that pt is transferring with 2 to 3 assist and if the family is able to safely care for pt at home. Pt's daughter states that she lives nearby and has been helping with transferring. Family stated that the plan was to take pt home with them and have family assist. OT will do an assessment on how pt is transferring today and update social work.
[2022-02-15] MEDS: RIVAROXABAN 10 MG TABLET 15 MG PO ×2 (12:03→21:13)
[2022-02-15 15:30] LABS: Troponin I* 0.04 ng/mL (0.01-0.04)
--- NOTE | 2022-02-15 15:58 | PM.WSCN ---
Date of Consult Consult date: 02/15/22 Requesting Physician: Hospitalist Primary Care Provider: Joi Zavala MD Consult Narrative Reason for consult: New admission with skin breakdown Narrative: Bucky Turpin is a 81 year old male newly admitted to hospital for PEs to right lung. Type 2 diabetic. Being seen by wound services for skin exam/evaluation of wounds- part of admission to hospital. who is at bedside confers skin breakdown was present prior to admission, community acquired. Parkinson, incontinence. shares patient has utilizing compression wraps to BLE in the past. Review of Systems Const: Reports: fatigue Endo: Reports: fatigue PFSH PFSH Medical History CKD (chronic kidney disease) Diabetes Hypercholesteremia Hypertension Insulin dependent type 2 diabetes mellitus Lewy body dementia MAYA (obstructive sleep apnea) Parkinson disease Prostate cancer Reflux gastritis Spinal stenosis Social History Highest level of school completed/degree received: 12th grade, no diploma Smoking Status: Former smoker Do you use any of these nicotine containing products: None Second hand tobacco smoke exposure: No How often do you have a drink containing alcohol: never How often do you have six or more drinks on one occasion: Never AUDIT-C Alcohol total score: 0 Non-prescribed substance use: marijuana (any form) Non-prescribed substance use details: Marijuana in liquid form orally Caffeine: Yes service: Yes Meds Home Medications and Allergies Home Medications Medication Instructions Recorded Confirmed Type carbidopa 25 mg-levodopa 100 mg 1 tab PO TID 01/01/22 02/15/22 History tablet clonazepam 0.5 mg tablet 0.5 mg PO HS 01/01/22 02/15/22 History donepezil 10 mg tablet 10 mg PO HS 01/01/22 02/15/22 History meclizine 25 mg tablet 25 mg PO BID 01/01/22 02/15/22 History metformin 500 mg tablet 500 mg PO BIDWM 01/01/22 02/15/22 History oxybutynin chloride 15 mg 15 mg PO DAILY PRN 01/01/22 02/15/22 History tablet,extended release 24 hr quetiapine 25 mg tablet 50 mg PO HS 01/01/22 02/15/22 History rosuvastatin 20 mg tablet 20 mg PO HS 01/01/22 02/15/22 History glycopyrrolate 1 mg tablet 1 mg PO DAILY 02/14/22 02/15/22 History Lactobacillus acidophilus 10 10 mg PO DAILY 02/15/22 02/15/22 History billion cell capsule (Probiotic) cyanocobalamin (vitamin B-12) 1,000 mcg PO DAILY 02/15/22 02/15/22 History 1,000 mcg tablet nystatin 100,000 unit/gram topical 1 applic topical BID 02/15/22 02/15/22 History ointment Allergies Allergy/AdvReac Type Severity Reaction Status Date / Time bacitracin Allergy Intermediate Verified 02/14/22 23:44 Exam Narrative: Exam Narrative: General: NAD, fatigued Head: NC/AT, wearing glasses. Pulmonary: Nasal canula in place, unlabored breathing. Skin: Coccyx/sacral stage 2 Pressure ulcer, measuring 2cmX0.3cmX0.2 cm, periwound with diffuse erythema without induration. Drainage serosanguineous, small amount. Fungal related intertriginous dermatis to abd and groin folds: superficial diffuse erythema with scaling and satellite lesions Bilateral heels with blanchable erythema, likely evolving DTIs. Lower extremities: pedal pulses palpable, cap refill WNL. BLE with generalized 2+ edema, hemosiderin staining with hyperkeratosis-consistent with chronic venous insufficiency lymphedema cutaneous manifestations. Const: Vital Signs, click to edit/add: Vital Signs - 24 hr 02/14/22 19:42 02/14/22 21:16 02/14/22 21:30 Temperature 97.3 F L Pulse Rate Pulse Rate [Left R adial] Pulse Rate [Pulse Oximeter] Pulse Rate [Right Pulse Oximeter] 67 54 L 56 L Respiratory Rate 16 Blood Pressure Blood Pressure [Ri ght Arm] Blood Pressure [Ri ght Upper Arm] 176/106 H 180/90 H 175/95 H Pulse Oximetry 99 99 100 Oxygen Delivery Me thod Nasal Cannula Nasal Cannula Nasal Cannula Oxygen Flow Rate 3 3 02/14/22 22:30 02/14/22 22:30 02/14/22 23:00 Temperature Pulse Rate 63 60 Pulse Rate [Left R adial] Pulse Rate [Pulse Oximeter] Pulse Rate [Right Pulse Oximeter] Respiratory Rate Blood Pressure Blood Pressure [Ri ght Arm] Blood Pressure [Ri ght Upper Arm] 153/89 H Pulse Oximetry 100 100 Oxygen Delivery Me thod Nasal Cannula Oxygen Flow Rate 3 02/14/22 23:30 02/14/22 23:41 02/15/22 00:00 Temperature Pulse Rate 51 L 54 L 51 L Pulse Rate [Left R adial] Pulse Rate [Pulse Oximeter] Pulse Rate [Right Pulse Oximeter] Respiratory Rate Blood Pressure 148/97 H Blood Pressure [Ri ght Arm] Blood Pressure [Ri ght Upper Arm] Pulse Oximetry 100 98 100 Oxygen Delivery Me thod Nasal Cannula Nasal Cannula Oxygen Flow Rate 3 3 02/15/22 00:01 02/15/22 00:02 02/15/22 00:30 Temperature Pulse Rate 52 L 51 L 52 L Pulse Rate [Left R adial] Pulse Rate [Pulse Oximeter] Pulse Rate [Right Pulse Oximeter] Respiratory Rate Blood Pressure 138/94 H Blood Pressure [Ri ght Arm] Blood Pressure [Ri ght Upper Arm] Pulse Oximetry 99 99 99 Oxygen Delivery Me thod Nasal Cannula Oxygen Flow Rate 3 02/15/22 00:31 02/15/22 00:32 02/15/22 01:13 Temperature Pulse Rate 53 L 52 L 58 L Pulse Rate [Left R adial] Pulse Rate [Pulse Oximeter] Pulse Rate [Right Pulse Oximeter] Respiratory Rate Blood Pressure 140/93 H Blood Pressure [Ri ght Arm] Blood Pressure [Ri ght Upper Arm] Pulse Oximetry 99 98 99 Oxygen Delivery Me thod Oxygen Flow Rate 02/15/22 01:30 02/15/22 02:00 02/15/22 02:30 Temperature Pulse Rate 55 L 54 L 57 L Pulse Rate [Left R adial] Pulse Rate [Pulse Oximeter] Pulse Rate [Right Pulse Oximeter] Respiratory Rate Blood Pressure Blood Pressure [Ri ght Arm] Blood Pressure [Ri ght Upper Arm] Pulse Oximetry 100 99 99 Oxygen Delivery Me thod Oxygen Flow Rate 02/15/22 03:44 02/15/22 03:44 02/15/22 04:04 Temperature 97.7 F 97.7 F Pulse Rate Pulse Rate [Left R adial] Pulse Rate [Pulse Oximeter] 50 L 55 L Pulse Rate [Right Pulse Oximeter] Respiratory Rate 16 16 16 Blood Pressure Blood Pressure [Ri ght Arm] 177/89 H 177/89 H Blood Pressure [Ri ght Upper Arm] Pulse Oximetry 98 98 98 Oxygen Delivery Me thod Nasal Cannula Nasal Cannula Nasal Cannula Oxygen Flow Rate 3 3 3 02/15/22 04:07 02/15/22 04:09 02/15/22 04:09 Temperature Pulse Rate 55 L Pulse Rate [Left R adial] Pulse Rate [Pulse Oximeter] Pulse Rate [Right Pulse Oximeter] Respiratory Rate 18 Blood Pressure Blood Pressure [Ri ght Arm] Blood Pressure [Ri ght Upper Arm] Pulse Oximetry 98 98 Oxygen Delivery Me thod Nasal Cannula Oxygen Flow Rate 3 02/15/22 08:12 02/15/22 08:16 02/15/22 08:57 Temperature 97.6 F Pulse Rate 57 L Pulse Rate [Left R adial] 56 L 56 L Pulse Rate [Pulse Oximeter] Pulse Rate [Right Pulse Oximeter] Respiratory Rate 14 Blood Pressure Blood Pressure [Ri ght Arm] 152/66 H Blood Pressure [Ri ght Upper Arm] Pulse Oximetry 98 Oxygen Delivery Me thod Nasal Cannula Oxygen Flow Rate 3 02/15/22 11:19 02/15/22 14:33 02/15/22 15:26 Temperature 97.5 F L 97 F L Pulse Rate 54 L Pulse Rate [Left R adial] 61 60 Pulse Rate [Pulse Oximeter] Pulse Rate [Right Pulse Oximeter] Respiratory Rate 18 14 Blood Pressure Blood Pressure [Ri ght Arm] 170/89 H 177/84 H Blood Pressure [Ri ght Upper Arm] Pulse Oximetry 93 94 Oxygen Delivery Me thod Nasal Cannula Nasal Cannula Oxygen Flow Rate 3 3 Chest: Chest: symmetrical chest wall rise Labs Labs: Short CBC 02/14/22 02/15/22 Range/Units 21:00 08:16 WBC 9.46 11.46 H (4.50-11.00) K/uL Hgb 13.2 L 14.9 (13.5-17.5) gm/dL Hct 41.1 46.2 (37.0-53.0) % Plt Count 191 198 (140-440) K/uL BMP 02/14/22 02/15/22 21:00 08:16 Sodium 139 138 Potassium 4.8 3.9 Chloride 101 99 Carbon Dioxide 30 27 BUN 24 19 Creatinine 1.0 0.9 Glucose 223 H 237 H Calcium 8.5 8.7 Cardiac Enzymes 02/15/22 02/15/22 Range/Units 08:16 14:41 Troponin I 0.05 H 0.04 (0.01-0.04) ng/mL Liver Function 02/15/22 Range/Units 08:16 Total Bilirubin 0.5 (0.1-1.5) mg/dL AST 19 (12-35) U/L ALT 5 (4-50) U/L Alkaline Phosphatase 118 (40-150) U/L Albumin 4.5 (3.3-5.0) g/dL Urine 02/14/22 Range/Units 23:49 Urine Color Yellow (Yellow) Urine Appearance Clear (Clear) Urine pH 7.0 (5.0-8.5) Ur Specific Candor 1.015 (1.000-1.030) Urine Protein Trace A (Negative) Urine Glucose (UA) Negative (Negative) Assessment and Plan Assessment and plan (1) Insulin dependent type 2 diabetes mellitus: Status: Chronic (2) Stage 2 skin ulcer of sacral region: Status: Acute (3) Venous insufficiency of both lower extremities: Status: Acute (4) Lymphedema: Status: Acute (5) Intertriginous dermatitis associated with moisture: Status: Acute (6) Pressure-induced deep tissue damage of right heel: Status: Acute (7) Pressure-induced deep tissue damage of left heel: Status: Acute Plan Offloading will be wood along with increased nutrition intake of protein, vitamin C, Zinc, etc. Consider protein supplement. Reposition Q2hrs. Coccyx with stage 2 Pressure ulcer: cleanse, apply medihoney, and cover with Mepilex. Change EOD & PRN if soiled. Fungal related intertriginous dermatis to abd and groin folds: Cleanse with normal saline, dry area well, apply nystatin powder TID to folds. Consider interdry to deep folds leaving a tail to wick, change EOD. Bilateral heels with blanchable erythema, likely evolving DTIs. Please float heels, cover with foam dressing to protect if unable to procure heel pillows. Change every EOD & PRN Venous insufficiency/lymphedema: keep legs elevated, encourage walking 3x daily. 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 Encourage blood sugars to be kept below 170, ideally 150 at all times to help facilitate wound healing. plan discussed with bedside nursing, patient and his .
[2022-02-15] MEDS: CARBOXYMETHYLCELLULOSE (REFRESH PLUS) TEARS 1 DROP EYE-BOTH (16:30)
[2022-02-15] MEDS: METFORMIN 500 MG TABLET PO (17:41)
--- NOTE | 2022-02-15 17:44 | PC.NURSE ---
Shift Summary: Patient pleasant and cooperative. in room and is supportive. Requiring two assist with walker and gait belt to BS and recliner for meals. No longer has heparin drip going. Wound clinic consult earlier, recommended medihoney over coccyx with mepilex, groin cleansed and covered with nystatin cream and intradry between folds, heels floated with two pillows and mepilex applied with tubigrip as compression. O2 sats dropped to 85% this afternoon, encouraged to cough and do incentive spirometer, treatment was effective in getting o2 sats >90% again. Continues to have o2 @ 3L/NC. Lung sounds clear, slightly diminished in lower lobes due to inability to take a deep breath.
[2022-02-15] MEDS: DONEPEZIL 10 MG TABLET PO (21:12)
[2022-02-15] MEDS: MECLIZINE HCL 25 MG TABLET PO (21:12)
[2022-02-15] MEDS: clonazePAM 0.5 MG TABLET PO (21:12)
[2022-02-15] MEDS: QUETIAPINE 25 MG TABLET 50 MG PO (21:12)
[2022-02-15] MEDS: ROSUVASTATIN CALCIUM 10 MG TABLET 20 MG PO (21:13)
[2022-02-16] VITALS (9 sets, daily range): BP systolic 116–161; BP diastolic 60–84; PULSE 47–97; RESP 16–20; TEMP 36.3–36.6; O2SAT 90–98; BMI 32.5
[2022-02-16 05:03] LABS: Partial Thromboplastin Time* > 120 Seconds (23-33)
--- NOTE | 2022-02-16 05:07 | PC.NURSE ---
[id number]: patient turn and repo in bed approx. Q2H, offload heals with pillows. HR sinus christina most of the night with rates 40s-50s. 3L NC overnight with sats ranging from low 90s to high 90s. slept in recliner overnight at the patients bedside.
[2022-02-16 07:41] LABS: Albumin* 3.7 g/dL (3.3-5.0); Chloride* 102 mmol/L (96-114); Sodium* 135 mmol/L (135-149)
[2022-02-16 07:44] LABS: Alanine Aminotransferase* 4 U/L (4-50); Alkaline Phosphatase* 72 U/L (40-150); Aspartate Amino Transferase* 30 U/L (12-35); Bilirubin Total* 0.9 mg/dL (0.1-1.5); Blood Urea Nitrogen* 19 mg/dL (7-30); Carbon Dioxide* 22 mmol/L (20-32); Creatinine* 0.8 mg/dL (0.5-1.5); Est. Creatinine Clearance* 53.17; Estimated Glomerular Filt Rate 89 ml/min; Glucose* 167 mg/dL (60-115); Total Protein* 6.7 g/dL (6.0-8.3)
[2022-02-16 07:45] LABS: Calcium* 8.6 mg/dL (8.4-10.6)
[2022-02-16 07:48] LABS: Basophils Percent Auto 0.3 % (0.0-3.0); Eosinophils Percent Auto 1.3 % (0.0-7.0); Hematocrit 43.4 % (37.0-53.0); Hemoglobin* 14.3 gm/dL (13.5-17.5); Immature Granulocytes Abs Auto 0.15 K/uL (0.00-0.30); Lymphocytes Percent Auto 49.1 % (20-44); Mean Corpuscular HGB Conc 33 gm/dL (32-36); Mean Corpuscular Hemoglobin 30 pg (26-34); Mean Corpuscular Volume 92 fL (80-100); Monocytes Percent Auto 12.3 % (0.0-11.0); Neutrophils Percent Auto 35.8 % (42.0-72.0); Platelet Count* 179 K/uL (140-440); RDW Coefficient of Variation % 13.7 % (11.5-15.5); Red Blood Count 4.73 m/uL (4.30-5.90); White Blood Count* 12.94 K/uL (4.50-11.00)
[2022-02-16 08:02] LABS: Slide Review Reflex Yes
[2022-02-16 08:16] LABS: Slide Review Acceptable Review (Acceptable)
[2022-02-16] MEDS: GLYCOPYRROLATE 1 MG TABLET PO (08:43)
[2022-02-16] MEDS: CYANOCOBALAMIN (VITAMIN B-12) 500 MCG TABLET 1000 MCG PO (08:43)
[2022-02-16] MEDS: LACTOBACILLUS ACIDOPHILUS 1 TABLET 1 TAB PO (08:44)
[2022-02-16] MEDS: METFORMIN 500 MG TABLET PO ×2 (08:44→17:56)
[2022-02-16] MEDS: MECLIZINE HCL 25 MG TABLET PO ×2 (08:44→20:12)
[2022-02-16] MEDS: CARBIDOPA-LEVODOPA 25-100 TABLET 1 TAB PO ×3 (08:44→20:11)
[2022-02-16] MEDS: RIVAROXABAN 10 MG TABLET 15 MG PO ×2 (08:46→20:13)
[2022-02-16] MEDS: SODIUM CHLORIDE 0.9 % (FLUSH) 10 ML SYRINGE 5 ML IVF ×2 (08:47→23:42)
[2022-02-16 08:48] LABS: Potassium* 4.3 mmol/L (3.6-5.1)
[2022-02-16 09:04] LABS: Troponin I* 0.02 ng/mL (0.01-0.04)
--- NOTE | 2022-02-16 09:25 | PM.IMPN1 ---
Progress Note: A&P Assessment and plan (1) Pulmonary embolism: Problem details: Started on Rivaroxaban on 02/15 Status: Acute Assessment and Plan: Remains hemodynamically stable, on baseline oxygen (on 3 L per nasal cannula as an outpatient for history of chronic restrictive lung disease). (2) Weakness: Status: Acute Assessment and Plan: Appreciate input from PT, OT, and SW regarding dispo. Considering SNF placement. (3) Insulin dependent type 2 diabetes mellitus: Status: Acute Assessment and Plan: BG 126-213, continue home insulin + SSI. (4) Stage 2 skin ulcer of sacral region: Status: Acute Assessment and Plan: Appreciate input from wound care. Nutrition consult today as well. (5) Elevated troponin: Problem details: Peak at 0.05 Status: Acute Assessment and Plan: TTE today. (6) Lewy body dementia: Status: Acute Assessment and Plan: At baseline, minimal deficits with no behavioral concerns. Plan Per above. Rivaroxaban for prophylaxis. Likely discharge to SNF when medically stable. Subjective Date Seen: 02/16/22 Interval history: No acute events overnight. VS have remained stable. Deejay has no concerns of CP, dyspnea, or pain for hospitalist. His and daughter are present for visit today, they also have no questions for hospitalist team. They would like to talk with the social work team regarding SNF placement. Seen by wound care team yesterday for PVD, sacral skin tear, and intertrigo. Exam Narrative: Exam Narrative: GEN: Alert and oriented, answering questions appropriately. Sitting comfortably in bedside chair HEENT: Normal external ears, EOMIs bilaterally, no scleral icterus.? Dentition poor, baseline CV: RRR, No concerning murmurs, rubs, or gallops R: LCTA bilaterally without concerning wheezing. Rhonchi bilateral bases Ext: wwp, 1+ edema bilateral ankles Skin: Erythematous changes of BLE consistent with PVD, scattered bruising of extremities. Formal skin exam performed by wound care team yesterday Neuro:? Mild right-sided weakness per baseline, gait not observed Psych: Appropriate for chronic conditions Const: Vital Signs, click to edit/add: Vital Signs - 24 hr 02/15/22 11:19 02/15/22 14:33 02/15/22 15:26 Temperature 97.5 F L 97 F L Pulse Rate 54 L Pulse Rate [Left R adial] 61 60 Pulse Rate [Pulse Oximeter] Respiratory Rate 18 14 Blood Pressure [Ri ght Arm] 170/89 H 177/84 H Pulse Oximetry 93 94 Oxygen Delivery Me thod Nasal Cannula Nasal Cannula Oxygen Flow Rate 3 3 02/15/22 19:00 02/15/22 19:45 02/15/22 23:00 Temperature 97.9 F Pulse Rate 60 Pulse Rate [Left R adial] 58 L Pulse Rate [Pulse Oximeter] 58 L Respiratory Rate 20 Blood Pressure [Ri ght Arm] 143/76 H Pulse Oximetry 98 93 Oxygen Delivery Me thod Nasal Cannula Oxygen Flow Rate 3 02/15/22 23:00 02/15/22 23:00 02/16/22 00:13 Temperature 97.6 F Pulse Rate 50 L Pulse Rate [Left R adial] 53 L 53 L Pulse Rate [Pulse Oximeter] 53 L 53 L Respiratory Rate 20 20 Blood Pressure [Ri ght Arm] 138/68 Pulse Oximetry 92 Oxygen Delivery Me thod Nasal Cannula Oxygen Flow Rate 3 02/16/22 02:47 02/16/22 07:32 02/16/22 07:32 Temperature 97.7 F Pulse Rate Pulse Rate [Left R adial] 51 L 47 L Pulse Rate [Pulse Oximeter] 51 L Respiratory Rate 20 Blood Pressure [Ri ght Arm] 116/60 Pulse Oximetry 90 97 Oxygen Delivery Me thod Nasal Cannula Oxygen Flow Rate 3 02/16/22 07:32 02/16/22 08:04 Temperature 97.5 F L Pulse Rate 50 L Pulse Rate [Left R adial] 47 L Pulse Rate [Pulse Oximeter] Respiratory Rate 16 Blood Pressure [Ri ght Arm] 122/75 Pulse Oximetry 97 Oxygen Delivery Me thod Nasal Cannula Oxygen Flow Rate 3 Labs Labs: Laboratory Results - last 24 hr 02/15/22 02/15/22 02/15/22 08:16 08:16 09:24 WBC RBC Hgb Hct MCV MCH MCHC RDW Coeff of Jorge Plt Count Neut % (Auto) Lymph % (Auto) [place] % (Auto) Eos % (Auto) Baso % (Auto) Neut # (Auto) Lymph # (Auto) [place] # (Auto) Eos # (Auto) Baso # (Auto) Abs Immat Gran (auto) Diff Slide Review APTT > 120 H* VBG pH 7.403 VBG pCO2 49 VBG pO2 42.5 VBG HCO3 31 H Sodium Potassium Chloride Carbon Dioxide BUN Creatinine Estimated Creat Clear Estimated GFR Glucose Lactate 1.7 Calcium Ionized Calcium Fadi 1.03 L Magnesium 1.5 Total Bilirubin AST ALT Alkaline Phosphatase Troponin I 0.05 H C-Reactive Protein 1.4 H Total Protein Albumin TSH 02/15/22 02/15/22 02/16/22 09:24 14:41 07:06 WBC 12.94 H RBC 4.73 Hgb 14.3 Hct 43.4 MCV 92 MCH 30 MCHC 33 RDW Coeff of Jorge 13.7 Plt Count 179 Neut % (Auto) 35.8 L Lymph % (Auto) 49.1 H [place] % (Auto) 12.3 H Eos % (Auto) 1.3 Baso % (Auto) 0.3 Neut # (Auto) 4.60 Lymph # (Auto) 6.40 H [place] # (Auto) 1.60 H Eos # (Auto) 0.20 Baso # (Auto) 0.00 Abs Immat Gran (auto) 0.15 Diff Slide Review Acceptable Review APTT VBG pH VBG pCO2 VBG pO2 VBG HCO3 Sodium Potassium Chloride Carbon Dioxide BUN Creatinine Estimated Creat Clear Estimated GFR Glucose Lactate Calcium Ionized Calcium Fadi Magnesium Total Bilirubin AST ALT Alkaline Phosphatase Troponin I 0.04 C-Reactive Protein Total Protein Albumin TSH 2.720 02/16/22 02/16/22 07:06 08:18 WBC RBC Hgb Hct MCV MCH MCHC RDW Coeff of Jorge Plt Count Neut % (Auto) Lymph % (Auto) [place] % (Auto) Eos % (Auto) Baso % (Auto) Neut # (Auto) Lymph # (Auto) [place] # (Auto) Eos # (Auto) Baso # (Auto) Abs Immat Gran (auto) Diff Slide Review APTT VBG pH VBG pCO2 VBG pO2 VBG HCO3 Sodium 135 Potassium 6.0 H 4.3 Chloride 102 Carbon Dioxide 22 BUN 19 Creatinine 0.8 Estimated Creat Clear 53.17 Estimated GFR 89 Glucose 167 H Lactate Calcium 8.6 Ionized Calcium Fadi Magnesium Total Bilirubin 0.9 AST 30 ALT 4 Alkaline Phosphatase 72 Troponin I Cancelled 0.02 C-Reactive Protein Total Protein 6.7 Albumin 3.7 TSH
--- NOTE | 2022-02-16 10:42 | CRLHL7_ITS ---
For Patients: As a result of the Century Cures Act, medical imaging exams and procedure reports are released immediately into your electronic medical record. You may view this report before your referring provider. If you have questions, please contact your health care provider. INDICATION: Pulmonary embolus. COMPARISON: The data examination clerk image of a CT dated February 14, 2022 TECHNIQUE: A single view was acquired. FINDINGS: TUBES AND LINES: None. HEART AND MEDIASTINUM: The heart size is normal. The mediastinal contour appears normal for patient age. LUNGS AND PLEURAL SPACES: Bibasilar airspace process, left greater than right, probably atelectasis.No pleural effusion or pneumothorax. OSSEOUS STRUCTURES: Age-appropriate appearance. No acute focal finding. IMPRESSION: Bibasilar airspace process, left greater than right, probably atelectasis. No pleural effusion or pneumothorax. Dictated by Eric Bradford MD @ 02/16/2022 11:47:39 AM (Electronically Signed)
[2022-02-16] MEDS: NYSTATIN CREAM 30 GM 1 APPLIC TOPICAL ×3 (11:14→20:12)
--- NOTE | 2022-02-16 11:59 | PC.SOCIAL ---
Met with patient's daughter and pt in the room. Daughter states that the family would like pt to go to SNF for short-term rehab. Preferences are in [place] and [place] area. Daughter states that [place] closest to the pt's home. Phone call to [facility] in [place] and spoke with admissions. Admissions states they do have an open bed and requested a referral to be faxed to them. Sent initial information to [facility] at fax #[phone].
--- NOTE | 2022-02-16 13:15 | PC.SOCIAL ---
Phone call to [facility] in [place] at [phone]. Left a voicemail with the music coordinator inquiring if they had any open beds for pt.
--- NOTE | 2022-02-16 13:21 | PC.SOCIAL ---
Discharge planning- phone call to [facility] at [phone] to inquire on open beds. Celeste in Admissions informed that they have one opening and will assess for admission if the initial information is faxed to the facility. Sent initial pt information to [facility] at [phone].
--- NOTE | 2022-02-16 14:07 | PC.NURSE ---
Shift Summary: Patient pleasant and cooperative. Continues to require two assist, walker and gait belt with transfer and ambulation. Tolerating regular diet, good appetite. Denies nausea or pain. Continues to have nystatin and intradry applied to groin. O2 sats >90% with o2 @ 3L/NC. Vitals stable and WNL.
--- NOTE | 2022-02-16 14:40 | PC.SOCIAL ---
Phone call from Celeste in Admissions at [facility]. Celeste informed that she is declining admission for pt due to not having staffing to meet pt's needs.
--- NOTE | 2022-02-16 14:43 | PC.SOCIAL ---
Met with pt, pt's , and pt's daughters in pt's room. Provided an update on placement referrals. Daughter stated she would also be interested in SNF placement at [facility] in [place]. Family requested for pt to be placed on the waiting list for [facility]. Completed form for waiting list for [facility].
--- NOTE | 2022-02-16 16:44 | PC.SOCIAL ---
Received a phone call from [facility] in [place]. [facility] has an open bed and will accept initial information via fax ([phone]) to assess for possible admission. Sent fax of initial information on pt to [facility]. Made a phone call to [facility] in [place] to inquire on bed availability. There are no open beds at this time. Made a phone call to [facility] and left a voicemail with Ruthie inquiring on bed availability.
[2022-02-16] MEDS: clonazePAM 0.5 MG TABLET PO (20:12)
[2022-02-16] MEDS: DONEPEZIL 10 MG TABLET PO (20:12)
[2022-02-16] MEDS: QUETIAPINE 25 MG TABLET 50 MG PO (20:13)
[2022-02-16] MEDS: ACETAMINOPHEN 325 MG TABLET 650 MG PO (20:14)
[2022-02-16] MEDS: ROSUVASTATIN CALCIUM 10 MG TABLET 20 MG PO (20:14)
[2022-02-17] VITALS (10 sets, daily range): BP systolic 137–154; BP diastolic 59–75; PULSE 49–79; RESP 16–18; TEMP 36.4–36.7; O2SAT 96–996
[2022-02-17] MEDS: ACETAMINOPHEN 325 MG TABLET 650 MG PO (03:17)
--- NOTE | 2022-02-17 06:02 | PC.NURSE ---
Shift note 23-: Pt rested comfortably w/ supportive @ bedside. Repositioned Q2h, refuses side-lying d/t back surgeries, Tylenol given x1 to promote comfort. Hopes to DC to [facility] today.
[2022-02-17 07:00] LABS: Basophils Absolute Auto 0.02 K/uL (0.00-0.30); Basophils Percent Auto 0.2 % (0.0-3.0); Eosinophils Absolute Auto 0.13 K/uL (0.00-0.50); Eosinophils Percent Auto 1.6 % (0.0-7.0); Hematocrit 42.9 % (37.0-53.0); Hemoglobin* 13.9 gm/dL (13.5-17.5); Immature Granulocytes Abs Auto 0.02 K/uL (0.00-0.30); Lymphocytes Absolute Auto 3.61 K/uL (0.90-2.90); Lymphocytes Percent Auto 43.1 % (20-44); Mean Corpuscular HGB Conc 32 gm/dL (32-36); Mean Corpuscular Hemoglobin 30 pg (26-34); Mean Corpuscular Volume 94 fL (80-100); Monocytes Percent Auto 7.3 % (0.0-11.0); Neutrophils Absolute Auto 3.99 K/uL (1.7-7.0); Neutrophils Percent Auto 47.6 % (42.0-72.0); Platelet Count* 178 K/uL (140-440); RDW Coefficient of Variation % 13.7 % (11.5-15.5); Red Blood Count 4.58 m/uL (4.30-5.90); White Blood Count* 8.38 K/uL (4.50-11.00)
[2022-02-17 07:13] LABS: Albumin* 3.9 g/dL (3.3-5.0); Chloride* 99 mmol/L (96-114); Sodium* 135 mmol/L (135-149)
[2022-02-17 07:15] LABS: Creatinine* 0.9 mg/dL (0.5-1.5); Est. Creatinine Clearance* 53.17; Estimated Glomerular Filt Rate 86 ml/min
[2022-02-17 07:16] LABS: Alanine Aminotransferase* 7 U/L (4-50); Alkaline Phosphatase* 98 U/L (40-150); Aspartate Amino Transferase* 17 U/L (12-35); Bilirubin Total* 0.5 mg/dL (0.1-1.5); Blood Urea Nitrogen* 18 mg/dL (7-30); Calcium* 8.6 mg/dL (8.4-10.6); Carbon Dioxide* 27 mmol/L (20-32); Glucose* 143 mg/dL (60-115); Total Protein* 6.5 g/dL (6.0-8.3)
[2022-02-17 07:27] LABS: Slide Review Reflex No
[2022-02-17] MEDS: RIVAROXABAN 10 MG TABLET 15 MG PO ×2 (09:18→21:30)
[2022-02-17] MEDS: CARBIDOPA-LEVODOPA 25-100 TABLET 1 TAB PO ×3 (09:18→21:30)
[2022-02-17] MEDS: MECLIZINE HCL 25 MG TABLET PO ×2 (09:19→21:29)
[2022-02-17] MEDS: CYANOCOBALAMIN (VITAMIN B-12) 500 MCG TABLET 1000 MCG PO (09:19)
[2022-02-17] MEDS: LACTOBACILLUS ACIDOPHILUS 1 TABLET 1 TAB PO (09:19)
[2022-02-17] MEDS: NYSTATIN CREAM 30 GM 1 APPLIC TOPICAL ×3 (09:20→20:30)
[2022-02-17] MEDS: METFORMIN 500 MG TABLET PO ×2 (09:20→18:27)
[2022-02-17] MEDS: GLYCOPYRROLATE 1 MG TABLET PO (09:20)
--- NOTE | 2022-02-17 10:28 | P.IMPN_ITS ---
Progress Note: A&P Assessment and plan (1) Pulmonary embolism: Problem details: Started on Rivaroxaban on 02/15 Status: Acute Assessment and Plan: Hemodynamically stable, on baseline oxygen (on 3 L per nasal cannula as an outpatient for history of chronic restrictive lung disease). No CP. Continue rivaroxaban. (2) Weakness: Status: Acute Assessment and Plan: Due to weakness, which is newer, will need SNF and rehab. Seeking SNF placement. Currently no safe discharge option. (3) Insulin dependent type 2 diabetes mellitus: Status: Acute Assessment and Plan: BG within reasonable levels for inpatient, 120's to low 200's, continue home insulin + SSI. (4) Stage 2 skin ulcer of sacral region: Status: Acute Assessment and Plan: Appreciate wound and nutrition consults. (5) Elevated troponin: Problem details: Peak at 0.05 Status: Acute Assessment and Plan: TTE 02/15/2022 Normal LV size, moderately increased wall thickness, estimated EF 65-70%. No significant valve disease detected. No significant pericardial effusion detected. No subcostal window. Troponin has now normalized. Suspect this was secondary to PE. (6) Lewy body dementia: Status: Acute Assessment and Plan: At baseline, no behavioral concerns. (7) Hypocalcemia: Status: Acute Assessment and Plan: May be contributing to weakness. Replace IV and start oral replacement. Recheck ionized calcium in am. Check Mg level. Subjective Time Seen by Provider: 10:10 Date Seen: 02/17/22 Interval history: Deejay was at the end of his physical therapy session when I arrived. He seemed worn out and the therapist and nurse helped get him from a chair into his recliner. His , Serena, was also in the room and had some questions about rehab and insurance. I advised her to call his insurance providers regarding her questions. He denied pain. He noted that his right arm seemed a bit stronger than when he came in. He had a normal BM yesterday. Exam Narrative: Exam Narrative: General: Fatigued, no respiratory distress. Awake, oriented x3. No pallor. No jaundice. Oropharynx: Clear. Mucous membranes moist. Cardiovascular: Regular rate and rhythm. No murmurs, gallops, or rubs. Respiratory: Clear to auscultation bilaterally. No wheezes or crackles. Abdomen: Bowel sounds present. Soft, nondistended, nontender. Extremities: 1+ bilateral pretibial edema. Const: Vital Signs, click to edit/add: Vital Signs - 24 hr 02/16/22 11:25 02/16/22 15:00 02/16/22 15:00 Temperature 97.5 F L Pulse Rate Pulse Rate [Left R adial] 85 97 Pulse Rate [Pulse Oximeter] Respiratory Rate 16 16 Blood Pressure [Ri ght Arm] 142/84 H Pulse Oximetry 98 96 Oxygen Delivery Me thod Nasal Cannula Oxygen Flow Rate 3 02/16/22 15:00 02/16/22 16:00 02/16/22 19:00 Temperature 97.9 F 97.9 F Pulse Rate 97 Pulse Rate [Left R adial] 62 53 L Pulse Rate [Pulse Oximeter] 62 53 L Respiratory Rate 16 16 Blood Pressure [Ri ght Arm] 129/78 161/78 H Pulse Oximetry 96 97 Oxygen Delivery Me thod Nasal Cannula Nasal Cannula Oxygen Flow Rate 3 3 02/17/22 00:00 02/17/22 03:00 Temperature 97.9 F Pulse Rate 49 L Pulse Rate [Left R adial] Pulse Rate [Pulse Oximeter] 50 L Respiratory Rate 16 Blood Pressure [Ri ght Arm] 145/63 H Pulse Oximetry 97 Oxygen Delivery Me thod Nasal Cannula Oxygen Flow Rate 3 Labs Labs: Laboratory Results - last 24 hr 02/17/22 02/17/22 06:29 06:29 WBC 8.38 RBC 4.58 Hgb 13.9 Hct 42.9 MCV 94 MCH 30 MCHC 32 RDW Coeff of Jorge 13.7 Plt Count 178 Neut % (Auto) 47.6 Lymph % (Auto) 43.1 [place] % (Auto) 7.3 Eos % (Auto) 1.6 Baso % (Auto) 0.2 Neut # (Auto) 3.99 Lymph # (Auto) 3.61 H [place] # (Auto) 0.60 Eos # (Auto) 0.13 Baso # (Auto) 0.02 Abs Immat Gran (auto) 0.02 Sodium 135 Potassium 4.0 Chloride 99 Carbon Dioxide 27 BUN 18 Creatinine 0.9 Estimated Creat Clear 53.17 Estimated GFR 86 Glucose 143 H Calcium 8.6 Total Bilirubin 0.5 AST 17 ALT 7 Alkaline Phosphatase 98 Total Protein 6.5 Albumin 3.9
[2022-02-17] MEDS: CALCIUM CARBONATE 500 MG TABLET PO ×2 (11:12→21:29)
--- NOTE | 2022-02-17 17:43 | PC.SOCIAL ---
Met with Pt, pt's , pt's daughter (Bella Galan- [phone]), and pt's son in pt's room. Provided an update to family that [facility] declined admission because they did not feel they could meet the pt's needs due to staffing. Discussed options of other SNF facilities in the area. Family is ok with sending referrals to [facility] in [place], [facility], [place], and [facility]. The following contacts were made. 1. Phone call to Cha in Admissions at [facility] in [place]. Cha states there will be an opening next week on Sunday/Sunday. Faxed initial information to [facility] at [phone]. 2. Phone call to Jose in Admissions at [facility]. Left a voicemail and faxed referral of initial information to [phone]. 3. Phone call to Admissions at [facility]. There are open beds. Faxed referral of initial information to [phone]. 4. Phone call to [facility] at [phone] and left a voicemail with [employer], Joselin inquiring on open beds. Still waiting for replies from the following SNF's. 1. [facility] - Open beds and information was faxed on 02-16-22. 2. [facility] - Open beds and information was faxed on 02-16-22. *Family has stated that they do not want information sent to [facility]. Family also stated they are not impressed with the reviews from [facility] in [place]. Informed family that there are a limited number of beds in SNF's in the area.
[2022-02-17] MEDS: DONEPEZIL 10 MG TABLET PO (21:29)
[2022-02-17] MEDS: SENNOSIDES/DOCUSATE TABLET 1 TAB PO (21:30)
[2022-02-17] MEDS: clonazePAM 0.5 MG TABLET PO (21:30)
[2022-02-17] MEDS: ROSUVASTATIN CALCIUM 10 MG TABLET 20 MG PO (21:30)
[2022-02-17] MEDS: QUETIAPINE 25 MG TABLET 50 MG PO (21:30)
[2022-02-17] MEDS: SODIUM CHLORIDE 0.9 % (FLUSH) 10 ML SYRINGE 5 ML IVF (21:33)
[2022-02-18] VITALS (7 sets, daily range): BP systolic 105–145; BP diastolic 53–77; PULSE 61–88; RESP 16–18; TEMP 36.4–36.9; O2SAT 92–99
--- NOTE | 2022-02-18 05:40 | PC.NURSE ---
Shift note 19-: Pt pleasant and cooperative with POC, VSS, afebrile, denies pain, tolerating frequent repositioning well. Pt frequently repositioned and off loaded of coccyx with heels floated. See eMAR for medication administration.
[2022-02-18 06:52] LABS: Ionized Calcium* 1.17 mmol/L (1.11-1.30)
[2022-02-18 07:16] LABS: Magnesium* 1.5 mg/dL (1.5-2.6)
[2022-02-18] MEDS: METFORMIN 500 MG TABLET PO ×2 (08:30→18:09)
[2022-02-18] MEDS: RIVAROXABAN 10 MG TABLET 15 MG PO ×2 (08:30→21:22)
[2022-02-18] MEDS: CALCIUM CARBONATE 500 MG TABLET PO ×2 (08:31→21:22)
[2022-02-18] MEDS: CYANOCOBALAMIN (VITAMIN B-12) 500 MCG TABLET 1000 MCG PO (08:31)
[2022-02-18] MEDS: MECLIZINE HCL 25 MG TABLET PO ×2 (08:31→21:25)
[2022-02-18] MEDS: CARBIDOPA-LEVODOPA 25-100 TABLET 1 TAB PO ×3 (08:31→21:23)
[2022-02-18] MEDS: LACTOBACILLUS ACIDOPHILUS 1 TABLET 1 TAB PO (08:31)
[2022-02-18] MEDS: GLYCOPYRROLATE 1 MG TABLET PO (08:32)
[2022-02-18] MEDS: SODIUM CHLORIDE 0.9 % (FLUSH) 10 ML SYRINGE 5 ML IVF ×3 (08:32→21:35)
[2022-02-18] MEDS: SENNOSIDES/DOCUSATE TABLET 1 TAB PO (08:33)
[2022-02-18] MEDS: NYSTATIN CREAM 30 GM 1 APPLIC TOPICAL ×3 (08:33→21:33)
--- NOTE | 2022-02-18 14:19 | PM.IMPN1 ---
Progress Note: A&P Assessment and plan (1) Pulmonary embolism: Problem details: Started on Rivaroxaban on 02/15 Status: Acute Assessment and Plan: Hemodynamically stable, on baseline oxygen (on 3 L per nasal cannula as an outpatient for history of chronic restrictive lung disease). No CP. Continue rivaroxaban. (2) Weakness: Status: Acute Assessment and Plan: Due to weakness, which is newer, will need SNF and rehab. Seeking SNF placement. Currently no safe discharge option. (3) Insulin dependent type 2 diabetes mellitus: Status: Acute Assessment and Plan: BG within reasonable levels for inpatient, 120's to low 190's, continue home insulin + SSI. (4) Stage 2 skin ulcer of sacral region: Status: Acute Assessment and Plan: Appreciate wound and nutrition consults. (5) Elevated troponin: Problem details: Peak at 0.05 Status: Acute Assessment and Plan: TTE 02/15/2022 Normal LV size, moderately increased wall thickness, estimated EF 65-70%. No significant valve disease detected. No significant pericardial effusion detected. No subcostal window. Troponin has now normalized. Suspect this was secondary to PE. (6) Lewy body dementia: Status: Acute Assessment and Plan: At baseline, no behavioral concerns. (7) Hypocalcemia: Status: Acute Assessment and Plan: Resolved. Subjective Time Seen by Provider: 11:00 Date Seen: 02/18/22 Interval history: Deejay tells me he is feeling a bit better today. He did have a long nap this morning, so I had to stop by several times before I could see him while awake. He wants to take [place] plus twice a day here because he uses that at home for his sinuses and phlegm. EXAM General: NAD, no respiratory distress. Awake, oriented x3. No pallor. No jaundice. Oropharynx: Clear. Mucous membranes moist. Cardiovascular: Regular rate and rhythm. No murmurs, gallops, or rubs. Respiratory: Clear to auscultation bilaterally. No wheezes or crackles. Abdomen: Bowel sounds present. Soft, nondistended, nontender. Extremities: 1+ bilateral pretibial edema. Exam Const: Vital Signs, click to edit/add: Vital Signs - 24 hr 02/17/22 15:00 02/17/22 15:00 02/17/22 15:00 Temperature 98.0 F Pulse Rate Pulse Rate [Left R adial] Pulse Rate [Pulse Oximeter] 78 78 Respiratory Rate 18 18 Blood Pressure [Ri ght Arm] 145/75 H Pulse Oximetry 96 99 Oxygen Delivery Me thod Nasal Cannula Oxygen Flow Rate 3 02/17/22 16:00 02/17/22 19:00 02/17/22 21:56 Temperature 97.7 F 98.0 F Pulse Rate 73 Pulse Rate [Left R adial] Pulse Rate [Pulse Oximeter] 57 L 56 L Respiratory Rate 16 16 Blood Pressure [Ri ght Arm] 154/70 H 145/59 H Pulse Oximetry 97 96 Oxygen Delivery Me thod Nasal Cannula Nasal Cannula Oxygen Flow Rate 3 3 02/17/22 22:52 02/18/22 03:00 02/18/22 07:00 Temperature 97.5 F L Pulse Rate Pulse Rate [Left R adial] 61 63 Pulse Rate [Pulse Oximeter] 56 L Respiratory Rate 16 16 18 Blood Pressure [Ri ght Arm] 139/53 L 129/77 Pulse Oximetry 92 92 Oxygen Delivery Me thod Nasal Cannula Nasal Cannula Oxygen Flow Rate 3 3 02/18/22 07:00 02/18/22 11:00 Temperature 97.5 F L Pulse Rate Pulse Rate [Left R adial] 63 88 Pulse Rate [Pulse Oximeter] Respiratory Rate 18 18 Blood Pressure [Ri ght Arm] 127/70 Pulse Oximetry 99 Oxygen Delivery Me thod Nasal Cannula Oxygen Flow Rate 3 Labs Labs: Laboratory Results - last 24 hr 02/18/22 02/18/22 06:12 06:12 Ionized Calcium Fadi 1.17 Magnesium 1.5
--- NOTE | 2022-02-18 18:57 | PC.NURSE ---
End of Shift: Patient pleasant and cooperative. Afebrile. Denies pain. Up to chair and BSC with 2 assist, walker and gait belt. Tolerating regular diet with no nausea.
[2022-02-18] MEDS: clonazePAM 0.5 MG TABLET PO (21:23)
[2022-02-18] MEDS: QUETIAPINE 25 MG TABLET 50 MG PO (21:24)
[2022-02-18] MEDS: ROSUVASTATIN CALCIUM 10 MG TABLET 20 MG PO (21:25)
[2022-02-18] MEDS: DONEPEZIL 10 MG TABLET PO (21:32)
[2022-02-19] VITALS (8 sets, daily range): BP systolic 123–160; BP diastolic 48–75; PULSE 54–74; RESP 16–20; TEMP 36.2–36.8; O2SAT 93–99
--- NOTE | 2022-02-19 04:42 | PC.NURSE ---
Pt rested well this night in chair. stayed in bed. No pain reported. Pt cooperative and pleasant. Afebrile. On 3L NC. A2 to Stand and pivot.
[2022-02-19] MEDS: METFORMIN 500 MG TABLET PO ×2 (09:31→18:05)
[2022-02-19] MEDS: MECLIZINE HCL 25 MG TABLET PO ×2 (09:31→20:48)
[2022-02-19] MEDS: CYANOCOBALAMIN (VITAMIN B-12) 500 MCG TABLET 1000 MCG PO (09:32)
[2022-02-19] MEDS: CALCIUM CARBONATE 500 MG TABLET PO ×2 (09:32→20:48)
[2022-02-19] MEDS: CARBIDOPA-LEVODOPA 25-100 TABLET 1 TAB PO ×3 (09:32→20:48)
[2022-02-19] MEDS: NYSTATIN CREAM 30 GM 1 APPLIC TOPICAL ×3 (09:33→20:54)
[2022-02-19] MEDS: SENNOSIDES/DOCUSATE TABLET 1 TAB PO ×2 (09:33→20:48)
[2022-02-19] MEDS: RIVAROXABAN 10 MG TABLET 15 MG PO ×2 (09:33→20:48)
[2022-02-19] MEDS: LACTOBACILLUS ACIDOPHILUS 1 TABLET 1 TAB PO (09:33)
[2022-02-19] MEDS: GLYCOPYRROLATE 1 MG TABLET PO (09:34)
[2022-02-19] MEDS: SODIUM CHLORIDE 0.9 % (FLUSH) 10 ML SYRINGE 5 ML IVF ×2 (09:35→23:55)
--- NOTE | 2022-02-19 10:12 | P.IMPN_ITS ---
Progress Note: A&P Assessment and plan (1) Pulmonary embolism: Problem details: Started on Rivaroxaban on 02/15 Status: Acute Assessment and Plan: Hemodynamically stable, on baseline oxygen (on 3 L per nasal cannula as an outpatient for history of chronic restrictive lung disease). No CP. Continue rivaroxaban. (2) Weakness: Status: Acute Assessment and Plan: Continue PT/OT. SNF placement. Awaiting SNF bed. Currently no safe discharge option. (3) Insulin dependent type 2 diabetes mellitus: Status: Acute Assessment and Plan: BG within reasonable levels for inpatient, 120's, in am. Higher, into the 190- 250's in afternoon/evening. Increase noon mealtime insulin and long acting insulin. Continue supper aspart at current dose and ISS at current level. (4) Stage 2 skin ulcer of sacral region: Status: Acute Assessment and Plan: Appreciate wound and nutrition consults and recommendations. Continue Offloading and frequent repositioning. Will adjust insulin for tighter glucose control. Nutrition's recommendations: Diabetic diet, and live or snacks such as crackers and cheese, yogurt, cottage cheese, etc. once a day to help meet estimated protein needs for wound healing. Wound Care's recommendations: Offloading will be wood along with increased nutrition intake of protein, vitamin C, Zinc, etc. Consider protein supplement. Reposition Q2hrs. Coccyx with stage 2 Pressure ulcer: cleanse, apply medihoney, and cover with Mepilex. Change EOD & PRN if soiled. Fungal related intertriginous dermatis to abd and groin folds: Cleanse with normal saline, dry area well, apply nystatin powder TID to folds. Consider interdry to deep folds leaving a tail to wick, change EOD. Bilateral heels with blanchable erythema, likely evolving DTIs. Please float heels, cover with foam dressing to protect if unable to procure heel pillows. Change every EOD & PRN Venous insufficiency/lymphedema: keep legs elevated, encourage walking 3x daily. 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 Encourage blood sugars to be kept below 170, ideally 150 at all times to help facilitate wound healing. (5) Elevated troponin: Problem details: Peak at 0.05 Status: Acute Assessment and Plan: TTE 02/15/2022 Normal LV size, moderately increased wall thickness, estimated EF 65-70%. No significant valve disease detected. No significant pericardial effusion detected. No subcostal window. Troponin has now normalized. Suspect this was secondary to PE. (6) Lewy body dementia: Status: Acute Assessment and Plan: At baseline, no behavioral concerns. (7) Hypocalcemia: Status: Acute Assessment and Plan: Resolved. Subjective Time Seen by Provider: 08:44 Date Seen: 02/19/22 Interval history: Deejay says he is just waking up and still feels tired, but otherwise okay. He has an itchy scalp which is not unusual for him and for which he uses ketoconazole shampoo at home. His brought that in for him to use. He and his are anticipating him going to SNF tomorrow. EXAM General: NAD, no respiratory distress. Sleepy, arousable, oriented x 3. No pallor. No jaundice. Oropharynx: Clear. Mucous membranes moist. Cardiovascular: Regular rate and rhythm. No murmurs, gallops, or rubs. Respiratory: Clear to auscultation bilaterally. No wheezes or crackles. Exam Const: Vital Signs, click to edit/add: Vital Signs - 24 hr 02/18/22 11:00 02/18/22 15:00 02/18/22 15:00 Temperature 97.5 F L 98.0 F Pulse Rate [Left R adial] 88 Pulse Rate [Pulse Oximeter] 88 88 Respiratory Rate 18 18 18 Blood Pressure [Ri [facility] Arm] 127/70 124/72 Pulse Oximetry 99 96 Oxygen Delivery Me thod Nasal Cannula Nasal Cannula Oxygen Flow Rate 3 3 02/18/22 19:37 02/18/22 23:14 02/18/22 23:19 Temperature 98.4 F 97.6 F Pulse Rate [Left R adial] 76 64 64 Pulse Rate [Pulse Oximeter] 84 Respiratory Rate 16 16 16 Blood Pressure [Ri t Arm] 145/76 H 105/58 L Pulse Oximetry 96 93 Oxygen Delivery Me thod Nasal Cannula Nasal Cannula Oxygen Flow Rate 3 3 02/19/22 02:29 Temperature 97.2 F L Pulse Rate [Left R adial] Pulse Rate [Pulse Oximeter] 58 L Respiratory Rate 16 Blood Pressure [Ri t Arm] 131/75 Pulse Oximetry 95 Oxygen Delivery Me thod Nasal Cannula Oxygen Flow Rate 3
--- NOTE | 2022-02-19 11:30 | P.DS_ITS ---
DS: Providers Provider Time Seen by Provider: 08:25 Date Seen: 02/21/22 Date of admission: 02/15/22 01:25 Primary care physician: Joi Zavala MD Admitting Clinician: Adilson Bray MD Consults: 02/15/22 04:25 Consult to Physical Therapy [CONS] Routine Comment: Reason(s) for PT Consult:: Evaluate and Treat Any Restrictions?:: No Restrictions 02/15/22 04:34 Consult to Occupational Therapy [CONS] Routine Comment: Reason(s) for OT Consult:: Difficulty Managing ADLs Any Restrictions?:: No Restrictions Consult to Physical Therapy [CONS] Routine Comment: Reason(s) for PT Consult:: Recent Falls Any Restrictions?:: No Restrictions 02/15/22 11:00 Consult to Wound Care [CONS] Routine Comment: Consulting Provider: Cecy Tan 02/15/22 17:28 Consult to Automatic Bow Maker Machine Tender [CONS] Routine Comment: Reason for Consult:: Discharge Planning Needs 02/16/22 09:02 Consult to Nutrition [CONS] Routine Comment: Reason for consult:: Nutritional Consult Comment: wound on sacrum, high protein options Attending Physician on discharge: Kell Obrien MD Date of Discharge: 02/21/22 DS: Diagnosis Discharge Diagnosis (1) Pulmonary embolism: Status: Acute Problem details: Started on Rivaroxaban on 02/15 (2) Hypocalcemia: Status: Acute (3) Lewy body dementia: Status: Chronic Problem details: Very pleasant. No behavioral problems. 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 He is chronically oxygen dependent with 2-3 liters/minute by nasal cannula continuously. Although he has a history of right-sided weakness secondary to Lewy body dementia, his right side seem weaker than usual. He had an elevated D-dimer, CT head showed nothing acute, CT chest showed a right-sided pulmonary embolism. He was initially started on heparin drip, and then transition to Xarelto after further discussion with the family and admitted to the hospital. A TTE was a obtained. He had skin breakdown that was present on admission, and known about prior to admission. Wound care and nutrition were consulted for that reason. Recommendations are below. He and his family would like for him to be in a jail facility. Over the weekend weakness remained stable with some slight improvement especially on the right side. Status at Discharge Functional status at discharge: uses cane/walker Overall status at discharge: patient is progressing back to baseline Time Spent with Patient Time attestation: Total time spent providing and/or coordinating discharge services: Exam Narrative: Exam Narrative: General: No acute distress, no respiratory distress. Awake, oriented x3. No pallor. No jaundice. Oropharynx: Clear. Mucous membranes moist. Cardiovascular: Regular rate and rhythm. No murmurs, gallops, or rubs. Respiratory: Clear to auscultation bilaterally. No wheezes or crackles. Abdomen: Bowel sounds present. Soft, nondistended, nontender. Back: Linear sacral ulcer without drainage or erythema, stage 2. Extremities: 1+ bilateral pretibial edema. Const: Vital Signs, click to edit/add: Vital Signs - 24 hr 02/18/22 15:00 02/18/22 15:00 02/18/22 19:37 Temperature 98.0 F 98.4 F Pulse Rate [Left R adial] 76 Pulse Rate [Pulse Oximeter] 88 88 Respiratory Rate 18 18 16 Blood Pressure [Ri t Arm] 124/72 145/76 H Pulse Oximetry 96 96 Oxygen Delivery Me thod Nasal Cannula Nasal Cannula Oxygen Flow Rate 3 3 02/18/22 23:14 02/18/22 23:19 02/19/22 02:29 Temperature 97.6 F 97.2 F L Pulse Rate [Left R adial] 64 64 Pulse Rate [Pulse Oximeter] 84 58 L Respiratory Rate 16 16 16 Blood Pressure [Ri ght Arm] 105/58 L 131/75 Pulse Oximetry 93 95 Oxygen Delivery Me thod Nasal Cannula Nasal Cannula Oxygen Flow Rate 3 3 02/19/22 10:40 02/19/22 07:00 02/19/22 07:00 Temperature 97.4 F L Pulse Rate [Left R adial] 74 74 Pulse Rate [Pulse Oximeter] Respiratory Rate 20 20 18 Blood Pressure [Ri ght Arm] 160/62 H Pulse Oximetry 93 Oxygen Delivery Me thod Room Air Nasal Can nula OxyMask Nasal Cannula Oxygen Flow Rate 2 3 DS: Data Data Completed and Pending Completed studies during hospitalization: Ordering Physician: Leonardo Parks M.D. Date of Service: 02/14/22 Procedure(s): CT head/brain wo con Accession Number(s): [id number] cc: Leonardo Parks M.D.; Joi Zavala M.D.~ For Patients: As a result of the Cures Act, medical imaging exams and procedure reports are released immediately into your electronic medical record. You may view this report before your referring provider. If you have questions, please contact your health care provider. INDICATION: Right arm weakness. COMPARISON: CT of the head without contrast from 07/25/2019 TECHNIQUE: CT examination of the head is performed after the CT pulmonary angiogram and intravenous contrast is seen in the vascular pole. This makes it difficult to exclude acute thrombosis of the arterial system in the brain. This examination should be considered a contrast enhanced CT of the head for diagnostic purposes. CT examination of the head was performed with 3 mm thick axial sections without additional intravenous contrast. Images were obtained from the vertex of the skull through the skull base, and I examined the images with the brain and bone windows. Please note that all CT scans at this facility use dose modulation, iterative reconstruction, and/or weight-based dosing when appropriate to reduce radiation dose to as low as reasonably achievable. FINDINGS: The contrast enhanced brain is normal in appearance for the patient`s age on today`s study, with no sign of mass lesion, mass effect, hemorrhage, or edema. There is stable mild dilatation of the ventricles and sulci representing stable mild, age-appropriate atrophy. There is stable mild patchy periventricular and subcortical white matter hypodensity from mild, age-appropriate small-vessel ischemia. The visualized portions of the orbits are normal in appearance. The visualized paranasal sinuses and mastoids are clear. The osseous structures are normal in their appearance with no sign of abnormality in the skull base or calvarium. IMPRESSION: No sign of acute injury to the brain. Stable mild, age-appropriate atrophy and mild, age-appropriate small-vessel ischemic change. Intravenous contrast is present from the proceeding CT pulmonary angiogram. Please note that all CT scans at this facility use dose modulation, iterative reconstruction, and/or weight-based dosing when appropriate to reduce radiation dose to as low as reasonably achievable. Dictated by Estevan Walker MD @ 02/15/2022 12:32:59 AM (Electronically Signed) Ordering Physician: Leonardo Parks M.D. Date of Service: 02/14/22 Procedure(s): CT angio chest PE protocol Accession Number(s): [id number] cc: Leonardo Parks M.D.; Joi Zavala M.D.~ For Patients: As a result of the Cures Act, medical imaging exams and procedure reports are released immediately into your electronic medical record. You may view this report before your referring provider. If you have questions, please contact your health care provider. INDICATION: Right arm weakness. Elevated D-dimer. COMPARISON: CT of the chest, abdomen, and pelvis without contrast from 11/27/2021 TECHNIQUE: CT examination of the chest was performed with the uneventful intravenous administration of 95 cc of Isovue 370 while 1.5 mm thick axial sections were obtained from above the apices of the lungs through the mid renal level. Please note that all CT scans at this facility use dose modulation, iterative reconstruction, and/or weight-based dosing when appropriate to reduce radiation dose to as low as reasonably achievable. FINDINGS: : There is moderate pulmonary embolism involving the right lung, with nonocclusive thrombus seen in the right upper, middle, and lower lobe pulmonary arteries. Thrombus extends into the medial and posterior basilar segments of the right lower lobe and the medial segment of the right middle lobe. There is no sign of pulmonary infarction. Clot burden is moderate. There is no sign of right ventricular strain, with a normal RV/LV ratio of 0.87. There is mild patchy atelectasis in the dependent portions of both lower lobes. There is mild linear atelectasis in the posterior-lateral left lower lobe. The lungs are otherwise clear. There is no sign of mediastinal or hilar mass or adenopathy. There is no change in mild triple-vessel coronary calcification. The heart remains normal in size. There is age appropriate appearance of the thoracic aorta and ascending great vessels. There is no sign of supraclavicular or axillary mass or adenopathy. The visualized superior liver, spleen, pancreas, and adrenals are normal in appearance. The osseous structures are normal in appearance for the patient`s age. IMPRESSION: Moderate pulmonary embolism involving the right lung. No sign of right ventricular strain. Mild patchy atelectasis in the dependent portions of both lower lobes, with no sign of any active infiltrates or pulmonary infarction. Please note that all CT scans at this facility use dose modulation, iterative reconstruction, and/or weight-based dosing when appropriate to reduce radiation dose to as low as reasonably achievable. Dictated by Estevan Walker MD @ 02/15/2022 12:26:37 AM (Electronically Signed) 02/16/2022 Echocardiogram: Normal LV size, moderately increased wall thickness, estimated EF of 65-70%. No significant valve disease detected. No significant pericardial effusion detected. No subcostal window. Ordering Physician: Madison Pizarro M.D. Date of Service: 02/16/22 Procedure(s): XR chest 1V portable Accession Number(s): [id number] cc: Madison Pizarro M.D.; Joi Zavala M.D.~ For Patients: As a result of the Century Cures Act, medical imaging exams and procedure reports are released immediately into your electronic medical record. You may view this report before your referring provider. If you have questions, please contact your health care provider. INDICATION: Pulmonary embolus. COMPARISON: The brown sourer image of a CT dated February 14, 2022 TECHNIQUE: A single view was acquired. FINDINGS: TUBES AND LINES: None. HEART AND MEDIASTINUM: The heart size is normal. The mediastinal contour appears normal for patient age. LUNGS AND PLEURAL SPACES: Bibasilar airspace process, left greater than right, probably atelectasis.No pleural effusion or pneumothorax. OSSEOUS STRUCTURES: Age-appropriate appearance. No acute focal finding. IMPRESSION: Bibasilar airspace process, left greater than right, probably atelectasis. No pleural effusion or pneumothorax. Dictated by Eric Bradford MD @ 02/16/2022 11:47:39 AM (Electronically Signed) Discharge Plan Discharge Disposition: Xfer Other Date of Admission: 02/15/22 01:25 Attending Provider on Discharge: Kell Obrien Consulting Providers: Cecy Tan Primary Care Provider: Joi Zavala Condition: Stable Discharge Medications: New Xarelto 10 mg Tablet 15 mg PO BID 19 Days Qty: 57 0RF Rx Instructions: AFTER 03/08, WILL NEED TO START 20mg ONCE/DAY. WILL NEED A NEW RX FROM PCP FOR THIS insulin aspart U-100 [Novolog Flexpen U-100 Insulin] 100 unit/mL (3 mL) Insulin Pen 6 unit subcut DAILY@1800 Qty: 15 0RF insulin aspart U-100 [Novolog Flexpen U-100 Insulin] 100 unit/mL (3 mL) Insulin Pen See Rx Instructions .ROUTE .COMPLEX Qty: 15 0RF Rx Instructions: Blood Glucose 150 or less No coverage Blood Glucose 151-200 1 unit Blood Glucose 201-250 2 units Blood Glucose 251-300 3 units Blood Glucose 301-350 4 units Blood Glucose 351 to 400 5 units Blood Glucose 401 and greater 6 units and recheck in 2 hours nystatin 100,000 unit/gram Powder 1 applic topical TID Qty: 15 0RF sennosides-docusate sodium [Stool Softener-Laxative] 8.6-50 mg Tablet 1 tab PO BID Qty: 60 0RF insulin aspart U-100 [Novolog Flexpen U-100 Insulin] 100 unit/mL (3 mL) Insulin Pen 6 unit subcut DAILY@1200 Qty: 15 0RF insulin aspart U-100 [Novolog Flexpen U-100 Insulin] 100 unit/mL (3 mL) Insulin Pen 8 unit subcut DAILY@0800 Qty: 15 0RF Levemir FlexTouch U-100 Insuln 100 unit/mL (3 mL) Insulin Pen 16 unit subcut HS Qty: 3 0RF Continued glycopyrrolate 1 mg tablet 1 mg PO DAILY nystatin 100,000 unit/gram ointment 1 applic TOPICAL BID Rx Instructions: MIXED WITH DESITIN AND A0 OINTMENT cyanocobalamin (vitamin B-12) 1,000 mcg tablet 1,000 mcg PO DAILY Probiotic 10 billion cell capsule 10 mg PO DAILY quetiapine 25 mg tablet 50 mg PO HS metformin 500 mg tablet 500 mg PO BIDWM oxybutynin chloride 15 mg tablet extended release 24hr 15 mg PO DAILY PRN donepezil 10 mg tablet 10 mg PO HS clonazepam 0.5 mg tablet 0.5 mg PO HS meclizine 25 mg tablet 25 mg PO BID carbidopa-levodopa 25-100 mg tablet 1 tab PO TID rosuvastatin 20 mg tablet 20 mg PO HS Discontinued aspirin [Aspirin Childrens] 81 mg tablet,chewable 81 mg PO DAILY insulin aspart U-100 [Novolog Flexpen U-100 Insulin] 100 unit/mL (3 mL) insulin pen 5 - 6 unit SUBCUT BID@08,12 Rx Instructions: 6 UNITS IN AM, 5 UNITS AT NOON, PLUS SLIDING SCALE 1 UNIT FOR > 200 BG insulin glargine [Lantus Solostar U-100 Insulin] 100 unit/mL (3 mL) insulin pen 12 unit SUBCUT HS Discharge Orders: Discharge Order (Routine); Ordered 02/21/22 Ordered By: Kell Obrien Activity Restrictions/Additional Instructions: Wound Care's recommendations: Offloading will be wood along with increased nutrition intake of protein, vitamin C, Zinc, etc. Consider protein supplement. Reposition Q2hrs. Coccyx with stage 2 Pressure ulcer: cleanse, apply medihoney, and cover with Mepilex. Change EOD & PRN if soiled. Fungal related intertriginous dermatis to abd and groin folds: Cleanse with normal saline, dry area well, apply nystatin powder TID to folds. Consider interdry to deep folds leaving a tail to wick, change EOD. Bilateral heels with blanchable erythema, likely evolving DTIs. Please float heels, cover with foam dressing to protect if unable to procure heel pillows. Change every EOD & PRN Venous insufficiency/lymphedema: keep legs elevated, encourage walking 3x daily. Tubi-combat systems engineer compressions to BLE, daily. Encourage blood sugars to be kept below 170, ideally 150 at all times to help facilitate wound healing. Activity Level: Up with assist and Use Walker Discharge Diet: Diabetic Diet Detail: Nutrition's recommendations: Diabetic diet, and live or snacks such as crackers and cheese, yogurt, cottage cheese, etc. once a day to help meet estimated protein needs for wound healing. Follow Up Appointments: Joi Zavala MD [Primary Care Provider] - Forms: [employer] Info Instructions Hospital Course: This is an 81-year-old male with Lewy body dementia who has been living at home with his caring for him and presented through the emergency department for 2-3 days of weakness. He is chronically oxygen dependent with 2-3 liters/minute by nasal cannula continuously. Although he has a history of right-sided weakness secondary to Lewy body dementia, his right side seem weaker than usual. He had an elevated D-dimer, CT head showed nothing acute, CT chest showed a right-sided pulmonary embolism. He was initially started on heparin drip, and then transition to Xarelto after further discussion with the family and admitted to the hospital. A TTE was a obtained. He had skin breakdown that was present on admission, and known about prior to admission. Wound care and nutrition were consulted for that reason. Recommendations are below. He and his family would like for him to be in a jail facility. Over the weekend weakness remained stable with some slight improvement especially on the right side.
--- NOTE | 2022-02-19 19:22 | PC.NURSE ---
End of Shift: Patient pleasant and cooperative. Afebrile. Denies pain. Up to chair and BSC with 2 assist, walker and gait belt. Tolerating regular diet with no nausea. Patient had a shower this afternoon and dressings changed to coccyx and left hand. Skin folds cleansed, dried, and nystatin and interdry applied.
[2022-02-19] MEDS: DONEPEZIL 10 MG TABLET PO (20:48)
[2022-02-19] MEDS: clonazePAM 0.5 MG TABLET PO (20:48)
[2022-02-19] MEDS: QUETIAPINE 25 MG TABLET 50 MG PO (20:48)
[2022-02-19] MEDS: ROSUVASTATIN CALCIUM 10 MG TABLET 20 MG PO (20:53)
[2022-02-20] VITALS (9 sets, daily range): BP systolic 114–149; BP diastolic 51–79; PULSE 57–91; RESP 18–20; TEMP 36.4–36.9; O2SAT 93–97
--- NOTE | 2022-02-20 05:50 | PC.NURSE ---
Shift Note 19-: Pt pleasant and cooperative, VSS, afbrile, denies pain, denies SOB, intermittent cough. Pt slept in recliner, reposition and off-loading Q2h throughout the night, Pt tolerated well. See eMAR for medication administration. present in room.
[2022-02-20] MEDS: METFORMIN 500 MG TABLET PO ×2 (08:07→17:45)
[2022-02-20] MEDS: SENNOSIDES/DOCUSATE TABLET 1 TAB PO ×2 (09:17→21:11)
[2022-02-20] MEDS: LACTOBACILLUS ACIDOPHILUS 1 TABLET 1 TAB PO (09:17)
[2022-02-20] MEDS: CARBIDOPA-LEVODOPA 25-100 TABLET 1 TAB PO ×3 (09:17→21:12)
[2022-02-20] MEDS: CALCIUM CARBONATE 500 MG TABLET PO ×2 (09:17→21:11)
[2022-02-20] MEDS: CYANOCOBALAMIN (VITAMIN B-12) 500 MCG TABLET 1000 MCG PO (09:17)
[2022-02-20] MEDS: MECLIZINE HCL 25 MG TABLET PO ×2 (09:17→21:11)
[2022-02-20] MEDS: RIVAROXABAN 10 MG TABLET 15 MG PO ×2 (09:17→21:11)
[2022-02-20] MEDS: GLYCOPYRROLATE 1 MG TABLET PO (09:18)
[2022-02-20] MEDS: NYSTATIN CREAM 30 GM 1 APPLIC TOPICAL ×2 (09:18→14:08)
[2022-02-20] MEDS: SODIUM CHLORIDE 0.9 % (FLUSH) 10 ML SYRINGE 5 ML IVF ×2 (09:19→21:36)
--- NOTE | 2022-02-20 13:38 | PM.IMPN1 ---
Progress Note: A&P Assessment and plan (1) Pulmonary embolism: Problem details: Started on Rivaroxaban on 02/15 Status: Acute Assessment and Plan: Stable. Continue rivaroxaban. (2) Weakness: Status: Acute Assessment and Plan: Continue PT/OT. SNF placement. Awaiting SNF bed. Currently no safe discharge option. 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 Will increase LA insulin and adjust mealtime insulin. (4) Stage 2 skin ulcer of sacral region: Status: Acute Assessment and Plan: Appreciate wound and nutrition consults and recommendations. Continue Offloading and frequent repositioning. Will adjust insulin for tighter glucose control. Nutrition's recommendations: Diabetic diet, and live or snacks such as crackers and cheese, yogurt, cottage cheese, etc. once a day to help meet estimated protein needs for wound healing. Wound Care's recommendations: Offloading will be wood along with increased nutrition intake of protein, vitamin C, Zinc, etc. Consider protein supplement. Reposition Q2hrs. Coccyx with stage 2 Pressure ulcer: cleanse, apply medihoney, and cover with Mepilex. Change EOD & PRN if soiled. Fungal related intertriginous dermatis to abd and groin folds: Cleanse with normal saline, dry area well, apply nystatin powder TID to folds. Consider interdry to deep folds leaving a tail to wick, change EOD. Bilateral heels with blanchable erythema, likely evolving DTIs. Please float heels, cover with foam dressing to protect if unable to procure heel pillows. Change every EOD & PRN Venous insufficiency/lymphedema: keep legs elevated, encourage walking 3x daily. Tubi-field representative/health education compressions to BLE, daily. Encourage blood sugars to be kept below 170, ideally 150 at all times to help facilitate wound healing. (5) Elevated troponin: Problem details: Peak at 0.05 Status: Acute Assessment and Plan: TTE 02/15/2022 Normal LV size, moderately increased wall thickness, estimated EF 65-70%. No significant valve disease detected. No significant pericardial effusion detected. No subcostal window. Troponin has now normalized. Suspect this was secondary to PE. (6) Lewy body dementia: Status: Chronic Assessment and Plan: At baseline, no behavioral concerns. (7) Hypocalcemia: Status: Acute Assessment and Plan: Resolved. Subjective Time Seen by Provider: 08:45 Date Seen: 02/20/22 Interval history: Deejay has no complaints. His , Serena, and daughter, Jose, were in the room with him today. EXAM General: NAD, no respiratory distress. Awake, alert, oriented x 3. No pallor. No jaundice. Oropharynx: Clear. Mucous membranes moist. Cardiovascular: Regular rate and rhythm. No murmurs, gallops, or rubs. Respiratory: Clear to auscultation bilaterally. No wheezes or crackles. Exam Const: Vital Signs, click to edit/add: Vital Signs - 24 hr 02/19/22 15:00 02/19/22 16:00 02/19/22 20:00 Temperature 98.1 F 98.2 F Pulse Rate [Pulse Oximeter] 56 L 56 L 54 L Respiratory Rate 20 18 18 Blood Pressure [Ri ght Arm] 148/62 H 149/63 H Pulse Oximetry 96 99 Oxygen Delivery Me thod Nasal Cannula Nasal Cannula Oxygen Flow Rate 3 3 02/19/22 23:35 02/19/22 23:53 02/20/22 04:32 Temperature Pulse Rate [Pulse Oximeter] 54 L 57 L 57 L Respiratory Rate 18 20 18 Blood Pressure [Ri ght Arm] 123/48 L 122/51 L Pulse Oximetry 97 96 Oxygen Delivery Me thod Room Air Room Air Oxygen Flow Rate 02/20/22 07:00 02/20/22 07:55 02/20/22 07:55 Temperature 98.2 F Pulse Rate [Pulse Oximeter] 57 L 70 70 Respiratory Rate 18 20 20 Blood Pressure [Ri ght Arm] 149/77 H Pulse Oximetry 95 Oxygen Delivery Me thod Room Air Oxygen Flow Rate 3 02/20/22 11:32 Temperature 97.6 F Pulse Rate [Pulse Oximeter] 70 Respiratory Rate 18 Blood Pressure [Ri ght Arm] 114/64 Pulse Oximetry 93 Oxygen Delivery Me thod Nasal Cannula Oxygen Flow Rate 3
[2022-02-20] MEDS: polyethylene glycoL 3350 17 GM PACK PO (15:48)
--- NOTE | 2022-02-20 16:24 | PC.SOCIAL ---
Discharge planning: Called facilities faxed or called regarding referral on Sunday for decision on admit with the following results: 1. [facility] received information but did not evaluate as the next available bed is not until Sunday. 2. [facility] does not have a bed. 3. [facility] did not receive the fax on Sunday but can assess for a bed. Re-sent information and confirmed receipt. Awaiting decision on admit. 4. [facility] ([facility]), called and left message and awaiting call back. 5. [facility] ([facility]), did not receive information sent Sunday. Information was re-faxed today. Awaiting decision on admit. 6. [facility], left message and awaiting call back. Family is not interested in this facility at this time. 7. [facility], no beds available. 8. [facility], called but call to multiple facility numbers did not go through. machine operator farmworker called [facility], and shared update on which facilities are evaluating pt for admission. Turnerr states she has no other facilities to add to the list at this time. Sccial worker to continue to follow up as needed.
--- NOTE | 2022-02-20 17:29 | PC.NURSE ---
PATIENT PLEASANT AND COOPERATIVE, HX DEMENTIA BUT ANSWERS QUESTIONS APPROPRIATELY, TOLERATING REGULAR DIET DOES NEED TO BE FED, HIS HAS BEEN AT BEDSIDE AND WILLING TO HELP AND PATIENT PREFERS HIS 'S HELP WITH FOOD, INCONTINENT OF BLADDER, UP TO BSC WITHOUT ANY BM ONCE MIRALAX ORDER GIVEN, DRESSING INTACT TO BOTTOM, GROIN FOLDS CLEANSED AND INTERDRY PLACED ALONG WITH NYSTATIN, OFF LOADING COCCYX IN CHAIR, PATIENT DECLINING TO GET INTO BED THE CHAIR IS MORE COMFORTABLE.
[2022-02-20] MEDS: ROSUVASTATIN CALCIUM 10 MG TABLET 20 MG PO (21:11)
[2022-02-20] MEDS: QUETIAPINE 25 MG TABLET 50 MG PO (21:11)
[2022-02-20] MEDS: clonazePAM 0.5 MG TABLET PO (21:11)
[2022-02-20] MEDS: DONEPEZIL 10 MG TABLET PO (21:12)
[2022-02-20] MEDS: NYSTATIN POWDER 1 APPLIC TOPICAL (21:12)
[2022-02-21] VITALS (11 sets, daily range): BP systolic 103–138; BP diastolic 52–69; PULSE 61–100; RESP 16–20; TEMP 36.3–36.8; O2SAT 90–94
--- NOTE | 2022-02-21 06:19 | NUTR.NU ---
Alert and oriented x3. vitals are stable. Pain managed with repositioning. Stable blood sugars; no signs of hypo/hyperglycemia. Refused last night Levemir full dosing; will discuss with MD today. Agreed to going to bed after sitting up for the most part of the night. No concerns noted
[2022-02-21] MEDS: METFORMIN 500 MG TABLET PO ×2 (09:33→18:10)
[2022-02-21] MEDS: CALCIUM CARBONATE 500 MG TABLET PO ×2 (09:37→20:34)
[2022-02-21] MEDS: CARBIDOPA-LEVODOPA 25-100 TABLET 1 TAB PO ×3 (09:38→20:35)
[2022-02-21] MEDS: GLYCOPYRROLATE 1 MG TABLET PO (09:38)
[2022-02-21] MEDS: LACTOBACILLUS ACIDOPHILUS 1 TABLET 1 TAB PO (09:39)
[2022-02-21] MEDS: MECLIZINE HCL 25 MG TABLET PO ×2 (09:39→20:34)
[2022-02-21] MEDS: RIVAROXABAN 10 MG TABLET 15 MG PO ×2 (09:40→20:33)
[2022-02-21] MEDS: CYANOCOBALAMIN (VITAMIN B-12) 500 MCG TABLET 1000 MCG PO (09:41)
[2022-02-21] MEDS: SENNOSIDES/DOCUSATE TABLET 1 TAB PO ×2 (09:43→20:33)
[2022-02-21] MEDS: SODIUM CHLORIDE 0.9 % (FLUSH) 10 ML SYRINGE 5 ML IVF (09:43)
[2022-02-21] MEDS: NYSTATIN POWDER 1 APPLIC TOPICAL ×3 (09:44→20:33)
--- NOTE | 2022-02-21 15:31 | PC.SOCIAL ---
Discharge planning: Followed up on referrals made to [facility] facilities yesterday for rehab placement. The only facility with a bed available and able to accept pt is [facility]. Met with dtr, and pt regarding acceptance to [facility] and discharge plan. Answered questions on facility and discharge. Pt has been accepted to a shared room at [facility] with the option of moving to a private room next week when a private room opens up. Pt appears to meet criteria for non-emergency transport as he is requiring significant assistance and oxygen for transport. Family is requesting hospital arrange for transport at discharge and is aware of private pay cost if not covered by insurance. Provided family with copy of Important Message from Medicare and explained the appeal process. Family decided to accept discharge to [facility] today and will not appeal discharge. During confirmation with [facility] regarding discharge timing today, was informed by the outpatient coordinator that they are no longer able to accept pt today due to IT connection problems that are preventing them from receiving faxed or emailed information needed to complete process prior to admission. Per facility, pt can be admitted tomorrow morning at 10:00am. If anything changes and they are able to accept pt today, facility will contact social worker clinical. Informed family of this situation. Family is aware pt may still be transferred today or may be transferred tomorrow when problem at accepting facility is resolved. BIGG completed and submitted, confirmation #[id number]. drying can worker to follow up as needed.
--- NOTE | 2022-02-21 16:08 | PC.NURSE ---
This service writer gave nurse to nurse report to Shante at [facility].
--- NOTE | 2022-02-21 18:13 | PC.SOCIAL ---
Discharge planning: Received call back from Topher at [facility] stating the IT issue has been resolved and requesting pt be sent today for admit. Discharge orders were faxed and transportation was arranged for non-emergency ambulance transport at 7:00pm. Met with and pt who are aware and agree with this plan. RN provided nurse to nurse report. Called facility and informed admissions of transportation arrangements.
[2022-02-21] MEDS: ACETAMINOPHEN 325 MG TABLET 650 MG PO (19:07)
--- NOTE | 2022-02-21 19:29 | PC.NURSE ---
End of Shift: Patient pleasant and cooperative. Patient vitally stable, lungs clear, BS WNL, IV removed catheter intact. Patient sleeping today, ate less than usual but drank a good amount of fluids. Syringe used for drinking when not able to suck from straw. Patient urinating and had 1 mod BM, incontinent. Patient is not clear if pain is present when asked. Tylenol given once for headache. Wound cleaned and changed. Nystatin and interdry applied to abdominal fold. Patient on 3 L of oxygen with sats in low 90s. Discharge form and belongings sheet signed. Patient awaiting EMS.
[2022-02-21] MEDS: ROSUVASTATIN CALCIUM 10 MG TABLET 20 MG PO (20:33)
[2022-02-21] MEDS: clonazePAM 0.5 MG TABLET PO (20:34)
[2022-02-21] MEDS: DONEPEZIL 10 MG TABLET PO (20:34)
[2022-02-21] MEDS: QUETIAPINE 25 MG TABLET 50 MG PO (20:34)
[2022-02-22 04:00] VITALS: BP 117/57; PULSE 66; RESP 16; TEMP 36.7; O2SAT 89
--- NOTE | 2022-02-22 06:54 | PC.NURSE ---
No new neuro changes noted overnight. Vitals stable. Too late to discharge last night. SNF had a cut-off time of 2100. Transport was not here past 2100 so was called to cancel. Plan is to reschedule transport this morning. No further concerns noted
[2022-02-22 07:00] VITALS: PULSE 81; RESP 16
[2022-02-22 08:00] VITALS: BP 147/61; PULSE 81; RESP 16; TEMP 36.4; O2SAT 89
[2022-02-22] MEDS: CALCIUM CARBONATE 500 MG TABLET PO (08:41)
[2022-02-22] MEDS: CARBIDOPA-LEVODOPA 25-100 TABLET 1 TAB PO (08:41)
[2022-02-22] MEDS: LACTOBACILLUS ACIDOPHILUS 1 TABLET 1 TAB PO (08:41)
[2022-02-22] MEDS: RIVAROXABAN 10 MG TABLET 15 MG PO (08:41)
[2022-02-22] MEDS: CYANOCOBALAMIN (VITAMIN B-12) 500 MCG TABLET 1000 MCG PO (08:41)
[2022-02-22] MEDS: METFORMIN 500 MG TABLET PO (08:42)
[2022-02-22] MEDS: MECLIZINE HCL 25 MG TABLET PO (08:42)
[2022-02-22] MEDS: GLYCOPYRROLATE 1 MG TABLET PO (08:45)
[2022-02-22] MEDS: LIDOCAINE 5% PATCH 1 PATCH TRANSDERMA (08:45)
[2022-02-22] MEDS: NYSTATIN POWDER 1 APPLIC TOPICAL (09:03)
[2022-02-22] MEDS: SODIUM CHLORIDE 0.9 % (FLUSH) 10 ML SYRINGE 5 ML IVF (09:07)
[2022-02-22] MEDS: SENNOSIDES/DOCUSATE TABLET 1 TAB PO (09:11)
--- NOTE | 2022-02-22 09:41 | PM.IMPN1 ---
Progress Note: A&P Assessment and plan (1) Pulmonary embolism: Problem details: Started on Rivaroxaban on 02/15 Status: Acute Assessment and Plan: Stable. Continue rivaroxaban. (2) Weakness: Status: Acute Assessment and Plan: SNF today, continue PT/OT there. 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 Will increase LA insulin and adjust mealtime insulin. (4) Stage 2 skin ulcer of sacral region: Status: Acute Assessment and Plan: Recommendations sent to [facility] as part of discharge orders. Nutrition's recommendations: Diabetic diet, and live or snacks such as crackers and cheese, yogurt, cottage cheese, etc. once a day to help meet estimated protein needs for wound healing. Wound Care's recommendations: Offloading will be wood along with increased nutrition intake of protein, vitamin C, Zinc, etc. Consider protein supplement. Reposition Q2hrs. Coccyx with stage 2 Pressure ulcer: cleanse, apply medihoney, and cover with Mepilex. Change EOD & PRN if soiled. Fungal related intertriginous dermatis to abd and groin folds: Cleanse with normal saline, dry area well, apply nystatin powder TID to folds. Consider interdry to deep folds leaving a tail to wick, change EOD. Bilateral heels with blanchable erythema, likely evolving DTIs. Please float heels, cover with foam dressing to protect if unable to procure heel pillows. Change every EOD & PRN Venous insufficiency/lymphedema: keep legs elevated, encourage walking 3x daily. Tubi-molder punch compressions to BLE, daily. Encourage blood sugars to be kept below 170, ideally 150 at all times to help facilitate wound healing. (5) Elevated troponin: Problem details: Peak at 0.05 TTE 02/15/2022 Normal LV size, moderately increased wall thickness, estimated EF 65-70%. No significant valve disease detected. No significant pericardial effusion detected. No subcostal window. Troponin has now normalized. Suspect this was secondary to PE. Status: Acute (6) Lewy body dementia: Problem details: Very pleasant. No behavioral problems. Status: Chronic Assessment and Plan: At baseline, no behavioral concerns. (7) Hypocalcemia: Status: Acute Assessment and Plan: Resolved. Plan SNF today. Subjective Time Seen by Provider: : Date Seen: 02/22/22 Interval history: Deejay is feeling much better again today. Got caught back up on sleep. Almost back to his usual self, according to his . She mentioned that he hasn't really been up moving much in the last 24 hours. The ambulance arrived while I was with him to take him to rehab at [facility]. EXAM General: NAD, no respiratory distress. Awake, alert, oriented x 3. No pallor. No jaundice. Oropharynx: Clear. Mucous membranes moist. Cardiovascular: Regular rate and rhythm. No murmurs, gallops, or rubs. Respiratory: Clear to auscultation bilaterally. No wheezes or crackles. Exam Const: Vital Signs, click to edit/add: Vital Signs - 24 hr 02/21/22 12:00 02/21/22 15:00 02/21/22 16:00 Temperature 97.4 F L 97.5 F L Pulse Rate Pulse Rate [Pulse Oximeter] 61 71 69 Respiratory Rate 16 20 16 Blood Pressure Blood Pressure [Ri ght Arm] 126/63 117/55 L Pulse Oximetry 90 91 Oxygen Delivery Me thod Nasal Cannula Nasal Cannula Oxygen Flow Rate 3 3 02/21/22 18:26 02/21/22 20:51 02/21/22 20:00 Temperature 97.5 F L 97.5 F L 97.5 F L Pulse Rate 69 Pulse Rate [Pulse Oximeter] 62 Respiratory Rate 16 16 Blood Pressure 117/55 L Blood Pressure [Ri ght Arm] 138/66 Pulse Oximetry 91 Oxygen Delivery Me thod Nasal Cannula Oxygen Flow Rate 3 02/21/22 23:00 02/21/22 23:33 02/22/22 04:00 Temperature 98.1 F 98.1 F Pulse Rate Pulse Rate [Pulse Oximeter] 64 64 66 Respiratory Rate 16 16 16 Blood Pressure Blood Pressure [Ri ght Arm] 103/52 L 117/57 L Pulse Oximetry 91 89 Oxygen Delivery Me thod Nasal Cannula Nasal Cannula Oxygen Flow Rate 3 3
--- NOTE | 2022-02-22 09:53 | PC.NURSE ---
EMS transport arrived for d/c at 919. 8U insulin given this AM with breakfast tray. Lido patch to left flank/low back. Spouse present for d/c. pt discharged at 924 to [facility] in [place]. Supervisor [employer] placed call to facility at [phone] for nurse to nurse, left message with front desk receptionist for call back if there are any questions. Pt was initially to d/c yesterday 02/21 so nurse to nurse was called yesterday as well as SS speaking to facility today prior to pt d/c. Pt and spouse denied questions at d/c. pt off unit at 924.
== END 2022-02-22 09:25 | DRG 176 ==
LOC: ED 21:06 → MEDSURG 02-15 01:26
PROVIDERS: Family Medicine; Internal Medicine; Admitting Provider Internal Medicine; Emergency Provider Internal Medicine; PCP Family Medicine; Visit Provider Internal Medicine
DX: I26.99 Other pulmonary embolism without acute cor pulmonale (principal); J96.11 Chronic respiratory failure with hypoxia; F02.80 Dementia in other diseases classified elsewhere, unspecified severity, without behavioral disturbance, psychotic disturbance, mood disturbance, and anxiety; G31.83 Neurocognitive disorder with Lewy bodies; G47.33 Obstructive sleep apnea (adult) (pediatric); E11.9 Type 2 diabetes mellitus without complications; Z79.4 Long term (current) use of insulin; Z79.84 Long term (current) use of oral hypoglycemic drugs; Z99.81 Dependence on supplemental oxygen; L89.152 Pressure ulcer of sacral region, stage 2; R53.1 Weakness; E83.51 Hypocalcemia; L30.4 Erythema intertrigo; I89.0 Lymphedema, not elsewhere classified; I87.2 Venous insufficiency (chronic) (peripheral); L89.626 Pressure-induced deep tissue damage of left heel; L89.616 Pressure-induced deep tissue damage of right heel; I12.9 Hypertensive chronic kidney disease with stage 1 through stage 4 chronic kidney disease, or unspecified chronic kidney disease; E11.22 Type 2 diabetes mellitus with diabetic chronic kidney disease; N18.9 Chronic kidney disease, unspecified; F32.A Depression, unspecified; R32 Unspecified urinary incontinence; K29.70 Gastritis, unspecified, without bleeding; E78.00 Pure hypercholesterolemia, unspecified; K21.9 Gastro-esophageal reflux disease without esophagitis
CPT/HCPCS: 36415; 70450; 71045; 71260; 80048; 80053; 81003; 81015; 82330; 82803; 82947; 82962; 83605; 83735; 83880; 84132; 84443; 84484; 85025; 85027; 85379; 85610; 85730; 86140; 87631; 87635; 93306; 94664; 94761; 97110; 97116; 97162; 97165; 97530; 97535; 99285; A9270; J0610; J1644; Q9967

== ENCOUNTER 2022-02-22 09:18 | Outpatient (CLI) | payer MEDICARE, SELFPAY | END 2022-02-22 09:19 | disposition home or self-care (01) | LOC: AMB 03-22 16:10 | PROVIDERS: PCP Family Medicine; Visit Provider Family Medicine | DX: I26.99 Other pulmonary embolism without acute cor pulmonale (principal); E83.51 Hypocalcemia; G31.83 Neurocognitive disorder with Lewy bodies; R53.1 Weakness | CPT/HCPCS: A0425; A0428 ==

== ENCOUNTER 2022-05-24 12:15 | Emergency (ER) | payer MEDICARE, SELFPAY ==
[2022-05-24 12:23] VITALS: BP 143/67; PULSE 76; RESP 20; TEMP 36.6; O2SAT 93; BMI 34.9
--- NOTE | 2022-05-24 13:21 | ED_ITS ---
HPI - General Adult General Time Seen by Provider: 13:21 Date Seen: 05/24/22 Chief complaint: Diabetic Related Problem Stated complaint: Weak, high blood sugar Time Seen by Provider: 05/24/22 13:20 Source: patient, RN notes reviewed and old records reviewed Mode of arrival: ambulatory Limitations: no limitations History of Present Illness HPI narrative: Bucky is a very pleasant gentleman with a history of PE on anticoagulation, Lewy body dementia, diabetes who comes to the emergency room with his for evaluation regarding persistently elevated blood sugars. They have noted at home that Bucky has had elevated blood sugars on his stents or and backed up by Accu-Cheks in the 200s. They note this is been going on for 2 weeks. They spoke to Sayra and Sayra sent into the [facility] ER. Now in the ER patient also notes that he has had urinary frequency but no pain with urination. He has not had any respiratory symptoms to include runny nose sore throat or cough. He does have history of skin irritation treated with topical steroids in the past month but nothing by mouth. He also has a history of skin breakdown on his sacrum but they have not noticed any infection. He has not had any fever chills vomiting or diarrhea. Patient has lost 100 lb over the last year. He has had no recent changes in his other medications. He typically takes 16 units of Lantus daily NovoLog for meals with added dosing based on a sliding scale. Bucky's tells me about a Sensor that had been malfunctioning after having been hospitalized here in February for PE, discharged from transitional care into respite care. That issue has now been resolved and unfortunately the elevated blood sugars are persistent and true. Patient does have chronically edematous lower extremities. Usually uses Lasix on an as needed basis. Typically this is about once a week. Tends to not use it if he is going out as this causes urinary frequency. Related Data Home Medications Medication Instructions Recorded Confirmed carbidopa 25 mg-levodopa 100 mg 1 tab PO TID 01/01/22 02/15/22 tablet clonazepam 0.5 mg tablet 0.5 mg PO HS 01/01/22 02/15/22 donepezil 10 mg tablet 10 mg PO HS 01/01/22 02/15/22 meclizine 25 mg tablet 25 mg PO BID 01/01/22 02/15/22 metformin 500 mg tablet 500 mg PO BIDWM 01/01/22 02/15/22 oxybutynin chloride 15 mg 15 mg PO DAILY PRN 01/01/22 02/15/22 tablet,extended release 24 hr quetiapine 25 mg tablet 50 mg PO HS 01/01/22 02/15/22 rosuvastatin 20 mg tablet 20 mg PO HS 01/01/22 02/15/22 glycopyrrolate 1 mg tablet 1 mg PO DAILY 02/14/22 02/15/22 Lactobacillus acidophilus 10 10 mg PO DAILY 02/15/22 02/15/22 billion cell capsule (Probiotic) cyanocobalamin (vitamin B-12) 1,000 mcg PO DAILY 02/15/22 02/15/22 1,000 mcg tablet nystatin 100,000 unit/gram topical 1 applic topical BID 02/15/22 02/15/22 ointment Previous Rx's Medication Instructions Recorded rivaroxaban 10 mg tablet (Xarelto) 15 mg PO BID 19 days #57 tabs 02/16/22 insulin aspart U-100 100 unit/mL 6 unit (0.06 mL) subcut DAILY@1200 02/21/22 (3 mL) subcutaneous pen (Novolog #15 mL Flexpen U-100 Insulin aspart) insulin aspart U-100 100 unit/mL 6 unit (0.06 mL) subcut DAILY@1800 02/21/22 (3 mL) subcutaneous pen (Novolog #15 mL Flexpen U-100 Insulin aspart) insulin aspart U-100 100 unit/mL 8 unit (0.08 mL) subcut DAILY@0800 02/21/22 (3 mL) subcutaneous pen (Novolog #15 mL Flexpen U-100 Insulin aspart) insulin aspart U-100 100 unit/mL See Rx Instructions .Route 02/21/22 (3 mL) subcutaneous pen (Novolog .COMPLEX #15 mL Flexpen U-100 Insulin aspart) insulin detemir U-100 100 unit/mL 16 unit (0.16 mL) subcut HS #3 mL 02/21/22 (3 mL) subcutaneous pen (Levemir FlexTouch U-100 Insulin) nystatin 100,000 unit/gram topical 1 applic topical TID #15 grams 02/21/22 powder sennosides 8.6 mg-docusate sodium 1 tab PO BID #60 tabs 02/21/22 50 mg tablet (Stool Softener-Laxative) lidocaine 5 % topical patch 1 patch topical DAILY #30 ea 02/22/22 Allergies Allergy/AdvReac Type Severity Reaction Status Date / Time bacitracin Allergy Intermediate Verified 02/14/22 23:44 Review of Systems Status of ROS: Reports: 6 or more systems reviewed and unremarkable except as noted in History and below Const: Denies: fever or chills Eyes: Denies: change in vision ENMT: Denies: throat pain or hoarseness Cardio: Reports: edema (Chronic); Denies: chest pain or shortness of breath with exertion Resp: Denies: shortness of breath, cough or wheezing GI: Denies: abdominal pain, nausea, vomiting or diarrhea : Reports: urinary frequency and urinary urgency; Denies: painful urination Musculo: Denies: back pain Integ/Breast: Denies: rash Allergy/Immuno: Denies: wheezing PFSH PFSH Medical History CKD (chronic kidney disease) Diabetes Hypercholesteremia Hypertension Insulin dependent type 2 diabetes mellitus Lewy body dementia MAYA (obstructive sleep apnea) Parkinson disease Prostate cancer Reflux gastritis Spinal stenosis Social History Highest level of school completed/degree received: 12th grade, no diploma Smoking Status: Former smoker Do you use any of these nicotine containing products: None Second hand tobacco smoke exposure: No How often do you have a drink containing alcohol: never How often do you have six or more drinks on one occasion: Never AUDIT-C Alcohol total score: 0 Non-prescribed substance use: marijuana (any form) Non-prescribed substance use details: Marijuana in liquid form orally Caffeine: Yes service: Yes Exam Narrative: Exam Narrative: Patient is awake and oriented. Very pleasant. Makes good eye contact. Head is atraumatic normocephalic. Neck is supple. Heart with regular rate and rhythm. Lungs show decreased breath sounds in the bases but otherwise no crackles. Abdomen is soft and nontender. No chest wall pain with palpation. Pelvis is stable. Lower extremities with scant peripheral edema. With assistance from nursing staff we do roll patient. I do not see any evidence of skin breakdown but do see is small scar above the gluteal cleft. I do have Bucky's also look to ensure I am not missing any areas of erythema. Examination of the abdomen does show a few areas of redness more consistent with the skin pannus irritation rather than an infection. Removal of the stockings note patient to have a red left 2nd toe. There is dried blood at the distal aspect. It is not markedly swollen. It is not more warm to the touch than the other skin. It does not appear to be tender. On the lower shins there is areas of erythema and I do consult with Bucky's and she states that this is been the same for quite some time and is not abnormal. The area of erythema on the anterior shins especially on the left is not warm to the touch. Const: Vital Signs, click to edit/add: Vital Signs - 24 hr 05/24/22 12:23 05/24/22 15:50 Temperature 97.8 F 97.2 F L Pulse Rate [Right Pulse Oximeter] 76 Respiratory Rate 20 18 Blood Pressure [Ri ght Upper Arm] 143/67 H 130/72 Pulse Oximetry 93 91 Oxygen Delivery Me thod Room Air Room Air Documenting provider has reviewed patient's vital signs: yes Course Course Hospital Course: At this time we do confirm that patient has not been taking any oral steroids. He has no history of infections but we will be of course checking a chest x-ray, COVID/influenza/RSV swab as well as checking a urine. Will check a CBC, comprehensive panel and CRP as well. Reevaluation(s) Reevaluation #1: Patient continues to do well. Vital Signs Vital signs: Initial Vital Signs Temperature 97.8 F 05/24/22 12:23 Temperature Source Temporal Artery Scan 05/24/22 12:23 Pulse Rate 76 05/24/22 12:23 Respiratory Rate 20 05/24/22 12:23 Blood Pressure 143/67 H 05/24/22 12:23 Blood Pressure Mean 92 05/24/22 12:23 Blood Pressure Position Semi-Fowlers 05/24/22 12:23 Pulse Oximetry 93 05/24/22 12:23 Oxygen Delivery Method 05/24/22 12:23 Vital Signs Temperature 97.8 F 05/24/22 12:23 Pulse Rate 76 05/24/22 12:23 Respiratory Rate 20 05/24/22 12:23 Blood Pressure 143/67 H 05/24/22 12:23 Pulse Oximetry 93 05/24/22 12:23 Oxygen Delivery Method 05/24/22 12:23 Temperature 97.2 F L 05/24/22 15:50 Pulse Rate 76 05/24/22 12:23 Respiratory Rate 18 05/24/22 15:50 Blood Pressure 130/72 05/24/22 15:50 Pulse Oximetry 91 05/24/22 15:50 Oxygen Delivery Method 05/24/22 15:50 Medical Decision Making MDM Narrative Medical decision making narrative: 1. Hyperglycemia-at this time we have done an extensive look at possible infection being the underlying reason that patient's blood sugars have been elevated. Chest x-ray, COVID/influenza test, is white count all reassuring. In addition patient has a normal urinalysis. CRP slightly elevated at 1.3. The only abnormality that we have found is a slightly reddened 2nd toe. Will have Bucky's increase Lantus to 18 units tonight. I would suggest continuing same dosing of NovoLog including the sliding scale. If this is indeed an infection issue I would have them monitor for decreasing blood sugar and go back down to 16 units as needed. 2. Cellulitis- Bucky's tells me that Bucky had a pedicure approximately 2 weeks ago. They note that the person doing the pedicure had slipped and actually caused an injury to his great toe. She does not remember that there was an injury to the 2nd toe but suddenly noted there was blood on it later during that time frame. The great toe looks fine at this time. The 2nd toe does not. An x-ray does not show any evidence of underlying osteomyelitis. Patient does have a history of previous MRSA infection. The toe looks more irritated than infected at this point but I do feel in light of corresponding possible injury, no other evidence of infection and increased blood sugar over the past 2 weeks we should treat for possible cellulitis. We will use doxycycline 100 mg p.o. b.i.d. in light of history of MRSA. Bucky's will continue to monitor this area and will follow up with primary MD if not improving. Of course, for fever, worsening symptoms, redness spreading onto the top of the foot would like them to return to the emergency room for evaluation. 3. Disposition-home at this time. Return to the emergency room for fever, worsening symptoms and as needed. Prior to discharge Bucky's has requested that we do an Accu-Chek in order to calibrate her stay sent sore and make sure that it is working. Medical Records Medical records reviewed: Yes I reviewed the patient's medical records Lab Data Lab results reviewed: Yes I reviewed the patient's lab results Labs: Lab Results 05/24/22 05/24/22 05/24/22 Range/Units 13:41 13:41 14:02 WBC 8.82 (4.50-11.00) K/uL RBC 4.21 L (4.30-5.90) m/uL Hgb 13.1 L (13.5-17.5) gm/dL Hct 40.1 (37.0-53.0) % MCV 95 (80-100) fL MCH 31 (26-34) pg MCHC 33 (32-36) gm/dL RDW Coeff of Jorge 13.6 (11.5-15.5) % Plt Count 199 (140-440) K/uL Neut % (Auto) 59.5 (42.0-72.0) % Lymph % (Auto) 31.6 (20-44) % [place] % (Auto) 6.3 (0.0-11.0) % Eos % (Auto) 2.3 (0.0-7.0) % Baso % (Auto) 0.2 (0.0-3.0) % Neut # (Auto) 5.24 (1.7-7.0) K/uL Lymph # (Auto) 2.79 (0.90-2.90) K/uL [place] # (Auto) 0.60 (0.00-0.90) K/UL Eos # (Auto) 0.20 (0.00-0.50) K/uL Baso # (Auto) 0.02 (0.00-0.30) K/uL Sodium (135-149) mmol/L Potassium (3.6-5.1) mmol/L Chloride (96-114) mmol/L Carbon Dioxide (20-32) mmol/L BUN (7-30) mg/dL Creatinine (0.5-1.5) mg/dL Estimated Creat Clear Estimated GFR ml/min Glucose (60-115) mg/dL Calcium (8.4-10.6) mg/dL Total Bilirubin (0.1-1.5) mg/dL AST (12-35) U/L ALT (4-50) U/L Alkaline Phosphatase (40-150) U/L C-Reactive Protein (0.5-1.0) mg/dL Total Protein (6.0-8.3) g/dL Albumin (3.3-5.0) g/dL Urine Color Yellow (Yellow) Urine Appearance Clear (Clear) Urine pH 5.5 (5.0-8.5) Ur Specific [place] 1.020 (1.000-1.030) Urine Protein Negative (Negative) Urine Glucose (UA) 2+ A (Negative) Urine Ketones Negative (Negative) Urine Blood Negative (Negative) Urine Nitrite Negative (Negative) Urine Bilirubin Negative (Negative) Urine Urobilinogen 0.2 (0.2-1.0) Ur Leukocyte Esterase Negative (Negative) Urine RBC 0-2 (0-2) Urine WBC 0-2 (0-5) Ur Squamous Epith Cells None (None-Few) Urine Bacteria None (None) SARS-CoV-2 (PCR) Negative SARS-CoV-2 (Negative) Influenza Type A (PCR) Negative PCR FLU A (Negative) Influenza Type B (PCR) Negative PCR FLU B (Negative) RSV (PCR) Negative PCR RSV (Negative) 05/24/22 05/24/22 Range/Units 14:02 14:02 WBC (4.50-11.00) K/uL RBC (4.30-5.90) m/uL Hgb (13.5-17.5) gm/dL Hct (37.0-53.0) % MCV (80-100) fL MCH (26-34) pg MCHC (32-36) gm/dL RDW Coeff of Jorge (11.5-15.5) % Plt Count (140-440) K/uL Neut % (Auto) (42.0-72.0) % Lymph % (Auto) (20-44) % [place] % (Auto) (0.0-11.0) % Eos % (Auto) (0.0-7.0) % Baso % (Auto) (0.0-3.0) % Neut # (Auto) (1.7-7.0) K/uL Lymph # (Auto) (0.90-2.90) K/uL [place] # (Auto) (0.00-0.90) K/UL Eos # (Auto) (0.00-0.50) K/uL Baso # (Auto) (0.00-0.30) K/uL Sodium 138 (135-149) mmol/L Potassium 4.8 (3.6-5.1) mmol/L Chloride 105 (96-114) mmol/L Carbon Dioxide 27 (20-32) mmol/L BUN 22 (7-30) mg/dL Creatinine 0.9 (0.5-1.5) mg/dL Estimated Creat Clear 53.17 Estimated GFR 86 ml/min Glucose 248 H (60-115) mg/dL Calcium 8.9 (8.4-10.6) mg/dL Total Bilirubin 0.6 (0.1-1.5) mg/dL AST 15 (12-35) U/L ALT 9 (4-50) U/L Alkaline Phosphatase 90 (40-150) U/L C-Reactive Protein 1.3 H (0.5-1.0) mg/dL Total Protein 6.7 (6.0-8.3) g/dL Albumin 4.1 (3.3-5.0) g/dL Urine Color (Yellow) Urine Appearance (Clear) Urine pH (5.0-8.5) Ur Specific [place] (1.000-1.030) Urine Protein (Negative) Urine Glucose (UA) (Negative) Urine Ketones (Negative) Urine Blood (Negative) Urine Nitrite (Negative) Urine Bilirubin (Negative) Urine Urobilinogen (0.2-1.0) Ur Leukocyte Esterase (Negative) Urine RBC (0-2) Urine WBC (0-5) Ur Squamous Epith Cells (None-Few) Urine Bacteria (None) SARS-CoV-2 (PCR) (Negative) Influenza Type A (PCR) (Negative) Influenza Type B (PCR) (Negative) RSV (PCR) (Negative) Imaging Data Chest x-ray: Attestation: I have reviewed the pertinent imaging results. My impression: No obvious infiltrates. Radiologist's impression: Cardiovascular and mediastinum:? Stable heart size and vasculature. Lungs and pleural spaces:? Low lung volumes. Lungs are clear.? No sign of infiltrate or mass.? No sign of pleural effusion.? No pneumothorax.? Bones and soft tissues:? No significant findings. IMPRESSION: No acute findings and no significant changes from the prior exam. Discharge Plan Discharge Clinical Impression: Hyperglycemia, Cellulitis of second toe of left foot Patient Disposition: Home w/ Parent or Adult Condition: Improved Additional Instructions: Start the antibiotic doxycycline tonight. Continue to watch toe. Please seek medical attention for fever, worsening redness traveling up the foot, discharge that looks like pus. Temporarily increase Lantus to 18 units. Use the same NovoLog dosing and sliding scale as needed. He if you notice blood sugars starting to come back town you may decrease the Lantus back to 16 units. Seek medical attention for fever, worsening symptoms and as needed. Prescriptions: No Action glycopyrrolate 1 mg tablet 1 mg PO DAILY nystatin 100,000 unit/gram ointment 1 applic TOPICAL BID Rx Instructions: MIXED WITH DESITIN AND A0 OINTMENT cyanocobalamin (vitamin B-12) 1,000 mcg tablet 1,000 mcg PO DAILY Probiotic 10 billion cell capsule 10 mg PO DAILY Xarelto 10 mg Tablet 15 mg PO BID 19 Days Qty: 57 0RF Rx Instructions: AFTER 03/08, WILL NEED TO START 20mg ONCE/DAY. WILL NEED A NEW RX FROM PCP FOR THIS insulin aspart U-100 [Novolog Flexpen U-100 Insulin] 100 unit/mL (3 mL) Insulin Pen 6 unit subcut DAILY@1800 Qty: 15 0RF insulin aspart U-100 [Novolog Flexpen U-100 Insulin] 100 unit/mL (3 mL) Insulin Pen See Rx Instructions .ROUTE .COMPLEX Qty: 15 0RF Rx Instructions: Blood Glucose 150 or less No coverage Blood Glucose 151-200 1 unit Blood Glucose 201-250 2 units Blood Glucose 251-300 3 units Blood Glucose 301-350 4 units Blood Glucose 351 to 400 5 units Blood Glucose 401 and greater 6 units and recheck in 2 hours nystatin 100,000 unit/gram Powder 1 applic topical TID Qty: 15 0RF sennosides-docusate sodium [Stool Softener-Laxative] 8.6-50 mg Tablet 1 tab PO BID Qty: 60 0RF insulin aspart U-100 [Novolog Flexpen U-100 Insulin] 100 unit/mL (3 mL) Insulin Pen 6 unit subcut DAILY@1200 Qty: 15 0RF insulin aspart U-100 [Novolog Flexpen U-100 Insulin] 100 unit/mL (3 mL) Insulin Pen 8 unit subcut DAILY@0800 Qty: 15 0RF Levemir FlexTouch U-100 Insuln 100 unit/mL (3 mL) Insulin Pen 16 unit subcut HS Qty: 3 0RF lidocaine 5 % adhesive patch,medicated 1 patch topical DAILY Qty: 30 0RF Rx Instructions: leave on most painful area for up to 12 hrs quetiapine 25 mg tablet 50 mg PO HS metformin 500 mg tablet 500 mg PO BIDWM oxybutynin chloride 15 mg tablet extended release 24hr 15 mg PO DAILY PRN donepezil 10 mg tablet 10 mg PO HS clonazepam 0.5 mg tablet 0.5 mg PO HS meclizine 25 mg tablet 25 mg PO BID carbidopa-levodopa 25-100 mg tablet 1 tab PO TID rosuvastatin 20 mg tablet 20 mg PO HS Follow Up/Referrals: Joi Zavala MD [Primary Care Provider] - Stand Alone Forms: [facility] Info Inst[facility]
--- NOTE | 2022-05-24 13:41 | CRLHL7_ITS ---
For Patients: As a result of the Cures Act, medical imaging exams and procedure reports are released immediately into your electronic medical record. You may view this report before your referring provider. If you have questions, please contact your health care provider. INDICATION: Elevated blood sugars. TECHNIQUE: Chest 1 views. COMPARISON: February 16, 2022. FINDINGS: Cardiovascular and mediastinum: Stable heart size and vasculature. Lungs and pleural spaces: Low lung volumes. Lungs are clear. No sign of infiltrate or mass. No sign of pleural effusion. No pneumothorax. Bones and soft tissues: No significant findings. IMPRESSION: No acute findings and no significant changes from the prior exam. Dictated by Luke Quan MD @ 05/24/2022 2:04:11 PM (Electronically Signed)
[2022-05-24 14:22] LABS: Basophils Absolute Auto 0.02 K/uL (0.00-0.30); Basophils Percent Auto 0.2 % (0.0-3.0); Eosinophils Percent Auto 2.3 % (0.0-7.0); Hematocrit 40.1 % (37.0-53.0); Hemoglobin* 13.1 gm/dL (13.5-17.5); Immature Granulocytes Abs Auto 0.01 K/uL (0.00-0.30); Immature Granulocytes Pct Auto 0.1 %; Lymphocytes Absolute Auto 2.79 K/uL (0.90-2.90); Lymphocytes Percent Auto 31.6 % (20-44); Mean Corpuscular HGB Conc 33 gm/dL (32-36); Mean Corpuscular Hemoglobin 31 pg (26-34); Mean Corpuscular Volume 95 fL (80-100); Monocytes Percent Auto 6.3 % (0.0-11.0); Neutrophils Absolute Auto 5.24 K/uL (1.7-7.0); Neutrophils Percent Auto 59.5 % (42.0-72.0); Platelet Count* 199 K/uL (140-440); RDW Coefficient of Variation % 13.6 % (11.5-15.5); Red Blood Count 4.21 m/uL (4.30-5.90); White Blood Count* 8.82 K/uL (4.50-11.00)
[2022-05-24 14:29] LABS: Albumin* 4.1 g/dL (3.3-5.0); Chloride* 105 mmol/L (96-114); Potassium* 4.8 mmol/L (3.6-5.1); Sodium* 138 mmol/L (135-149)
[2022-05-24 14:30] LABS: Slide Review Reflex No
[2022-05-24 14:31] LABS: Creatinine* 0.9 mg/dL (0.5-1.5); Est. Creatinine Clearance* 53.17; Estimated Glomerular Filt Rate 86 ml/min
[2022-05-24 14:32] LABS: Alanine Aminotransferase* 9 U/L (4-50); Alkaline Phosphatase* 90 U/L (40-150); Aspartate Amino Transferase* 15 U/L (12-35); Bilirubin Total* 0.6 mg/dL (0.1-1.5); Blood Urea Nitrogen* 22 mg/dL (7-30); Calcium* 8.9 mg/dL (8.4-10.6); Carbon Dioxide* 27 mmol/L (20-32); Glucose* 248 mg/dL (60-115); Total Protein* 6.7 g/dL (6.0-8.3)
[2022-05-24 14:49] LABS: PCR FLU A Negative PCR FLU A (Negative); PCR FLU B Negative PCR FLU B (Negative); PCR RSV Negative PCR RSV (Negative)
[2022-05-24 14:52] LABS: C Reactive Protein* 1.3 mg/dL (0.5-1.0)
[2022-05-24 15:05] LABS: SARS PCR* Negative SARS-CoV-2 (Negative)
[2022-05-24 15:50] VITALS: BP 130/72; RESP 18; TEMP 36.2; O2SAT 91
[2022-05-24 16:07] LABS: Appearance Urine Clear (Clear); Bilirubin Urine Negative (Negative); Blood Urine Negative (Negative); Color Urine Yellow (Yellow); Glucose Urine 2+ (Negative); Ketones Urine Negative (Negative); Leukocyte Esterase Urine Negative (Negative); Nitrite Urine Negative (Negative); Protein Urine Negative (Negative); Urobilinogen Urine 0.2 (0.2-1.0); pH Urine 5.5 (5.0-8.5)
--- NOTE | 2022-05-24 16:17 | CRLHL7_ITS ---
For Patients: As a result of the Cures Act, medical imaging exams and procedure reports are released immediately into your electronic medical record. You may view this report before your referring provider. If you have questions, please contact your health care provider. Indication: Erythema. Technique: Left 2nd toe, 3 views. Comparison: None. Findings: Bones: Alignment is normal. No fractures or bone lesions. Joint spaces: Moderate degenerative changes.. Soft tissues: Soft tissue swelling at the distal portion of the 2nd phalanx.. Impression: No acute fractures or dislocations. No erosive changes. Soft tissue swelling of the distal portion of the 2nd phalanx. Dictated by Geneva Ellis MD @ 05/24/2022 4:53:57 PM (Electronically Signed)
[2022-05-24 16:40] LABS: RBC Urine 0-2 (0-2); WBC Urine 0-2 (0-5)
== END 2022-05-24 18:10 | disposition home or self-care (01) ==
PROVIDERS: Emergency Provider Family Medicine; PCP Family Medicine
DX: E11.65 Type 2 diabetes mellitus with hyperglycemia (principal); Z79.4 Long term (current) use of insulin; L03.032 Cellulitis of left toe
CPT/HCPCS: 36415; 71045; 73660; 80053; 81001; 85025; 86140; 87502; 87634; 87635; 99284

== ENCOUNTER 2022-08-22 15:43 | Emergency (ER) | payer MEDICARE, SELFPAY ==
[2022-08-22] VITALS (12 sets, daily range): BP systolic 147–169; BP diastolic 86–114; PULSE 52–82; RESP 18; TEMP 36.4; O2SAT 94–97
--- NOTE | 2022-08-22 15:45 | ED_ITS ---
HPI - General Adult General Time Seen by Provider: 15:46 Date Seen: 08/22/22 Chief complaint: Weakness Stated complaint: headache Time Seen by Provider: 08/22/22 15:45 Source: patient and EMS Limitations: physical limitation History of Present Illness HPI narrative: Bucky is a 81-year-old male past medical history includes Lewy body dementia, diabetes mellitus type 2, PE on anticoagulation presents emerged department by EMS from physical therapy with a syncope and headache. Per , EMS staff staff at the physical therapy establishment, stated that he had an episode of blacking out or blank stare lasting a few seconds to minutes, eyes open not responding, no seizure activity. Per patient he goes to therapy every Sunday, he will ride the exercise bike, then he will do sitting up and down using his wheelchair. Last week had an episode where there was a blank stare, he had 1 prior as well. Patient does not remember this. He feels that when he gets up from his wheelchair in transfers he gets this void as he calls it. No history of any CAD, per he has had mini strokes in the past. He denied any chest pain, shortness of breath, he did have a headache which is resolved, he has some chest tightness that resolved. Denies any nausea vomiting, no diaphoresis, there was no postictal state, he did have a little bit of slurred speech coming to. Denies any focal weakness or numbness.. He has been eating and drinking normally, usually gets around with his wheelchair. No history of any seizure disorder. Patient is asymptomatic at this time. Related Data Home Medications Medication Instructions Recorded Confirmed carbidopa 25 mg-levodopa 100 mg 1 tab PO TID 01/01/22 02/15/22 tablet clonazepam 0.5 mg tablet 0.5 mg PO HS 01/01/22 02/15/22 donepezil 10 mg tablet 10 mg PO HS 01/01/22 02/15/22 meclizine 25 mg tablet 25 mg PO BID 01/01/22 02/15/22 metformin 500 mg tablet 500 mg PO BIDWM 01/01/22 02/15/22 oxybutynin chloride 15 mg 15 mg PO DAILY PRN 01/01/22 02/15/22 tablet,extended release 24 hr quetiapine 25 mg tablet 50 mg PO HS 01/01/22 02/15/22 rosuvastatin 20 mg tablet 20 mg PO HS 01/01/22 02/15/22 glycopyrrolate 1 mg tablet 1 mg PO DAILY 02/14/22 02/15/22 Lactobacillus acidophilus 10 10 mg PO DAILY 02/15/22 02/15/22 billion cell capsule (Probiotic) cyanocobalamin (vitamin B-12) 1,000 mcg PO DAILY 02/15/22 02/15/22 1,000 mcg tablet nystatin 100,000 unit/gram topical 1 applic topical BID 02/15/22 02/15/22 ointment Previous Rx's Medication Instructions Recorded rivaroxaban 10 mg tablet (Xarelto) 15 mg PO BID 19 days #57 tabs 02/16/22 insulin aspart U-100 100 unit/mL 6 unit (0.06 mL) subcut DAILY@1200 02/21/22 (3 mL) subcutaneous pen (Novolog #15 mL FlexPen U-100 Insulin aspart) insulin aspart U-100 100 unit/mL 6 unit (0.06 mL) subcut DAILY@1800 02/21/22 (3 mL) subcutaneous pen (Novolog #15 mL FlexPen U-100 Insulin aspart) insulin aspart U-100 100 unit/mL 8 unit (0.08 mL) subcut DAILY@0800 02/21/22 (3 mL) subcutaneous pen (Novolog #15 mL FlexPen U-100 Insulin aspart) insulin aspart U-100 100 unit/mL See Rx Instructions .Route 02/21/22 (3 mL) subcutaneous pen (Novolog .COMPLEX #15 mL FlexPen U-100 Insulin aspart) insulin detemir U-100 100 unit/mL 16 unit (0.16 mL) subcut HS #3 mL 02/21/22 (3 mL) subcutaneous pen (Levemir FlexTouch U-100 Insulin) nystatin 100,000 unit/gram topical 1 applic topical TID #15 grams 02/21/22 powder sennosides 8.6 mg-docusate sodium 1 tab PO BID #60 tabs 02/21/22 50 mg tablet (Stool Softener-Laxative) lidocaine 5 % topical patch 1 patch topical DAILY #30 ea 02/22/22 Allergies Allergy/AdvReac Type Severity Reaction Status Date / Time bacitracin Allergy Intermediate Verified 08/22/22 15:48 Review of Systems Status of ROS: Reports: 10 or more systems reviewed and unremarkable except as noted in History and below PFSH PFS Medical History CKD (chronic kidney disease) Diabetes Hypercholesteremia Hypertension Insulin dependent type 2 diabetes mellitus Lewy body dementia MAYA (obstructive sleep apnea) Parkinson disease Prostate cancer Reflux gastritis Spinal stenosis Social History Highest level of school completed/degree received: 12th grade, no diploma Smoking Status: Former smoker Do you use any of these nicotine containing products: None Second hand tobacco smoke exposure: No How often do you have a drink containing alcohol: never How often do you have six or more drinks on one occasion: Never AUDIT-C Alcohol total score: 0 Non-prescribed substance use: marijuana (any form) Non-prescribed substance use details: Marijuana in liquid form orally Caffeine: Yes service: Yes Exam Narrative: Exam Narrative: General: No obvious distress sitting comfortably HEENT: Pupils equal round reactive to light, extraocular muscles intact Neck supple full range of motion Lungs: Clear to auscultation bilaterally Heart: Normal sinus rhythm, S1-S2 Abdomen: Obese, nontender to palpation, bowel sounds positive Muscle skeletal: +2 pitting edema lower extremities bilaterally internal external rotation hips normal, nontender to palpation lower extremity Neuro: GCS 15, alert awake and oriented x3, NIH Stroke Scale of 0. Baseline per Const: Vital Signs, click to edit/add: Vital Signs - 24 hr 08/22/22 15:45 08/22/22 18:14 08/22/22 16:58 Temperature 97.5 F L Pulse Rate 54 L Pulse Rate [orthos tatic lying Apical ] 53 L Pulse Rate [orthos tatic standing] 82 Respiratory Rate 18 Blood Pressure Blood Pressure [Ri ght Upper Arm] 148/93 H Blood Pressure [or thostatic lying Ri ght Arm] 147/86 H Blood Pressure [or thostatic standing Right Arm] 169/114 H Pulse Oximetry 94 95 Oxygen Delivery Me thod Room Air 08/22/22 17:00 08/22/22 17:02 08/22/22 17:15 Temperature Pulse Rate 56 L 58 L 53 L Pulse Rate [orthos tatic lying Apical ] Pulse Rate [orthos tatic standing] Respiratory Rate Blood Pressure 155/97 H Blood Pressure [Ri ght Upper Arm] Blood Pressure [or thostatic lying Ri ght Arm] Blood Pressure [or thostatic standing Right Arm] Pulse Oximetry 94 96 94 Oxygen Delivery Me thod 08/22/22 17:30 08/22/22 17:32 08/22/22 17:45 Temperature Pulse Rate 55 L 54 L 52 L Pulse Rate [orthos tatic lying Apical ] Pulse Rate [orthos tatic standing] Respiratory Rate Blood Pressure 147/96 H Blood Pressure [Ri ght Upper Arm] Blood Pressure [or thostatic lying Ri ght Arm] Blood Pressure [or thostatic standing Right Arm] Pulse Oximetry 97 96 94 Oxygen Delivery Me thod 08/22/22 18:00 08/22/22 18:02 08/22/22 18:10 Temperature Pulse Rate 53 L 53 L Pulse Rate [orthos tatic lying Apical ] Pulse Rate [orthos tatic standing] Respiratory Rate Blood Pressure 147/86 H 169/114 H Blood Pressure [Ri ght Upper Arm] Blood Pressure [or thostatic lying Ri ght Arm] Blood Pressure [or thostatic standing Right Arm] Pulse Oximetry 95 97 Oxygen Delivery Me thod Course Course Hospital Course: 4:00 PM: AIDET performed, workup will include CT head without IV contrast, will obtain EKG orthostatics, CBC, troponin point of care, lactate CMP, 500 mL bolus, less likely CVA, possible arrhythmia versus seizure activity versus vasovagal, patient is asymptomatic at this time, back to baseline. Differential diagnosis include but not limited to life-threatening of cardiac arrhythmia, acute blood loss and or intracranial bleed. Other differential diagnosis include are vasovagal syncope, orthostatic syncope, seizure activity, as well as all etiologies. Reevaluation(s) Reevaluation #1: CT head without IV contrast: IMPRESSION: 1. No acute intracranial findings. 2. Mild to moderate generalized cerebral volume loss and mild chronic small vessel ischemic disease. CBC showed mild leukocytosis of 11.01, metabolic panel was within normal limits, lactate normal, eating seizure activity less likely, point of care troponin within normal limits, EKG did show a sinus bradycardia with first-degree AV block, right bundle-branch block, no comparisons, patient denied any chest pain. Patient was monitored in the emergency department and did well, is less likely PE since patient is on Xarelto and has been samaritan about taking his med ications, likely discharged with a Holter monitor during PT since this is when symptoms occur, still possibly related to vasovagal, patient was not orthostatic here in the emergency department. He has close follow-up early next month, return precautions given. Time: 17:33 Vital Signs Vital signs: Initial Vital Signs Temperature 97.5 F L 08/22/22 15:45 Temperature Source Temporal Artery Scan 08/22/22 15:45 Respiratory Rate 18 08/22/22 15:45 Blood Pressure 148/93 H 08/22/22 15:45 Blood Pressure Mean 111 08/22/22 15:45 Pulse Oximetry 94 08/22/22 15:45 Oxygen Delivery Method 08/22/22 15:45 Vital Signs Temperature 97.5 F L 08/22/22 15:45 Respiratory Rate 18 08/22/22 15:45 Blood Pressure 148/93 H 08/22/22 15:45 Pulse Oximetry 94 08/22/22 15:45 Oxygen Delivery Method 08/22/22 15:45 Temperature 97.5 F L 08/22/22 15:45 Pulse Rate 53 L 08/22/22 18:14 Respiratory Rate 18 08/22/22 15:45 Blood Pressure 147/86 H 08/22/22 18:14 Pulse Oximetry 97 08/22/22 18:02 Oxygen Delivery Method 08/22/22 15:45 Medical Decision Making Lab Data Labs: Lab Results 08/22/22 08/22/22 08/22/22 Range/Units 16:20 16:20 16:20 WBC 11.08 H (4.50-11.00) K/uL RBC 4.59 (4.30-5.90) m/uL Hgb 13.9 (13.5-17.5) gm/dL Hct 43.4 (37.0-53.0) % MCV 95 (80-100) fL MCH 30 (26-34) pg MCHC 32 (32-36) gm/dL RDW Coeff of Jorge 13.3 (11.5-15.5) % Plt Count 251 (140-440) K/uL Neut % (Auto) 62.8 (42.0-72.0) % Lymph % (Auto) 28.2 (20-44) % [facility] % (Auto) 7.3 (0.0-11.0) % Eos % (Auto) 1.2 (0.0-7.0) % Baso % (Auto) 0.3 (0.0-3.0) % Neut # (Auto) 7.00 (1.7-7.0) K/uL Lymph # (Auto) 3.10 H (0.90-2.90) K/uL [facility] # (Auto) 0.80 (0.00-0.90) K/UL Eos # (Auto) 0.10 (0.00-0.50) K/uL Baso # (Auto) 0.00 (0.00-0.30) K/uL Sodium 139 (135-149) mmol/L Potassium 4.8 (3.6-5.1) mmol/L Chloride 106 (96-114) mmol/L Carbon Dioxide 26 (20-32) mmol/L BUN 23 (7-30) mg/dL Creatinine 1.0 (0.5-1.5) mg/dL Estimated GFR 76 ml/min Glucose 157 H (60-115) mg/dL Lactate 1.3 (0.5-1.9) mmol/L Calcium 8.7 (8.4-10.6) mg/dL Total Bilirubin 0.4 (0.1-1.5) mg/dL AST 18 (12-35) U/L ALT 16 (4-50) U/L Alkaline Phosphatase 82 (40-150) U/L Total Protein 7.2 (6.0-8.3) g/dL Albumin 4.1 (3.3-5.0) g/dL POC Troponin I (0.01-0.04) ng/ml 08/22/22 08/22/22 Range/Units 16:20 18:22 WBC (4.50-11.00) K/uL RBC (4.30-5.90) m/uL Hgb (13.5-17.5) gm/dL Hct (37.0-53.0) % MCV (80-100) fL MCH (26-34) pg MCHC (32-36) gm/dL RDW Coeff of Jorge (11.5-15.5) % Plt Count (140-440) K/uL Neut % (Auto) (42.0-72.0) % Lymph % (Auto) (20-44) % [facility] % (Auto) (0.0-11.0) % Eos % (Auto) (0.0-7.0) % Baso % (Auto) (0.0-3.0) % Neut # (Auto) (1.7-7.0) K/uL Lymph # (Auto) (0.90-2.90) K/uL [facility] # (Auto) (0.00-0.90) K/UL Eos # (Auto) (0.00-0.50) K/uL Baso # (Auto) (0.00-0.30) K/uL Sodium (135-149) mmol/L Potassium (3.6-5.1) mmol/L Chloride (96-114) mmol/L Carbon Dioxide (20-32) mmol/L BUN (7-30) mg/dL Creatinine (0.5-1.5) mg/dL Estimated GFR ml/min Glucose (60-115) mg/dL Lactate (0.5-1.9) mmol/L Calcium (8.4-10.6) mg/dL Total Bilirubin (0.1-1.5) mg/dL AST (12-35) U/L ALT (4-50) U/L Alkaline Phosphatase (40-150) U/L Total Protein (6.0-8.3) g/dL Albumin (3.3-5.0) g/dL POC Troponin I 0.01 0.02 (0.01-0.04) ng/ml Discharge Plan Discharge Clinical Impression: Syncope, Lewy body dementia, Chronic anticoagulation Patient Disposition: Home, Self-Care Instructions: Syncope (ED) Additional Instructions: To reach out to primary care provider, have him set up a Holter monitor to be used during PT, follow-up with him as scheduled, return if worsening symptoms. Prescriptions: No Action glycopyrrolate 1 mg tablet 1 mg PO DAILY nystatin 100,000 unit/gram ointment 1 applic TOPICAL BID Rx Instructions: MIXED WITH DESITIN AND A0 OINTMENT cyanocobalamin (vitamin B-12) 1,000 mcg tablet 1,000 mcg PO DAILY Probiotic 10 billion cell capsule 10 mg PO DAILY Xarelto 10 mg Tablet 15 mg PO BID 19 Days Qty: 57 0RF Rx Instructions: AFTER 03/08, WILL NEED TO START 20mg ONCE/DAY. WILL NEED A NEW RX FROM PCP FOR THIS insulin aspart U-100 [Novolog FlexPen U-100 Insulin] 100 unit/mL (3 mL) Insulin Pen 6 unit subcut DAILY@1800 Qty: 15 0RF insulin aspart U-100 [Novolog FlexPen U-100 Insulin] 100 unit/mL (3 mL) Insulin Pen See Rx Instructions .ROUTE .COMPLEX Qty: 15 0RF Rx Instructions: Blood Glucose 150 or less No coverage Blood Glucose 151-200 1 unit Blood Glucose 201-250 2 units Blood Glucose 251-300 3 units Blood Glucose 301-350 4 units Blood Glucose 351 to 400 5 units Blood Glucose 401 and greater 6 units and recheck in 2 hours nystatin 100,000 unit/gram Powder 1 applic topical TID Qty: 15 0RF sennosides-docusate sodium [Stool Softener-Laxative] 8.6-50 mg Tablet 1 tab PO BID Qty: 60 0RF insulin aspart U-100 [Novolog FlexPen U-100 Insulin] 100 unit/mL (3 mL) Insulin Pen 6 unit subcut DAILY@1200 Qty: 15 0RF insulin aspart U-100 [Novolog FlexPen U-100 Insulin] 100 unit/mL (3 mL) Insulin Pen 8 unit subcut DAILY@0800 Qty: 15 0RF Levemir FlexTouch U-100 Insuln 100 unit/mL (3 mL) Insulin Pen 16 unit subcut HS Qty: 3 0RF lidocaine 5 % adhesive patch,medicated 1 patch topical DAILY Qty: 30 0RF Rx Instructions: leave on most painful area for up to 12 hrs quetiapine 25 mg tablet 50 mg PO HS metformin 500 mg tablet 500 mg PO BIDWM oxybutynin chloride 15 mg tablet extended release 24hr 15 mg PO DAILY PRN donepezil 10 mg tablet 10 mg PO HS clonazepam 0.5 mg tablet 0.5 mg PO HS meclizine 25 mg tablet 25 mg PO BID carbidopa-levodopa 25-100 mg tablet 1 tab PO TID rosuvastatin 20 mg tablet 20 mg PO HS Follow Up/Referrals: Joi Zavala MD [Primary Care Provider] - Stand Alone Forms: [facility] Info Instructions
--- NOTE | 2022-08-22 16:00 | CRLHL7_ITS ---
For Patients: As a result of the Cures Act, medical imaging exams and procedure reports are released immediately into your electronic medical record. You may view this report before your referring provider. If you have questions, please contact your health care provider. INDICATION: Syncope, slurred speech, history of Lewy body dementia. COMPARISON: CT head 02/14/2022. TECHNIQUE: CT of the head without IV contrast. Coronal and sagittal reconstructions. FINDINGS: No intracranial hemorrhage, mass effect, or evidence of acute infarct. No midline shift. No abnormal extra-axial fluid collections. Mild to moderate generalized cerebral and cerebellar volume loss with associated ex vacuo dilation of the lateral ventricles. Mild chronic small vessel ischemic disease. Orbits and extraocular muscles are symmetric. Opacification of a few right middle ethmoid air cells. Mild mucosal thickening in the right maxillary sinus. The mastoid air cells are clear. No acute fracture identified. Soft tissues are unremarkable. IMPRESSION: 1. No acute intracranial findings. 2. Mild to moderate generalized cerebral volume loss and mild chronic small vessel ischemic disease. Please note that all CT scans at this facility use dose modulation, iterative reconstruction, and/or weight-based dosing when appropriate to reduce radiation dose to as low as reasonably achievable. Dictated by Colette Garcia MD @ 08/22/2022 5:27:13 PM (Electronically Signed)
[2022-08-22 16:29] LABS: Lactate* 1.3 mmol/L (0.5-1.9)
[2022-08-22 16:31] LABS: Basophils Percent Auto 0.3 % (0.0-3.0); Eosinophils Percent Auto 1.2 % (0.0-7.0); Hematocrit 43.4 % (37.0-53.0); Hemoglobin* 13.9 gm/dL (13.5-17.5); Immature Granulocytes Pct Auto 0.2 %; Lymphocytes Percent Auto 28.2 % (20-44); Mean Corpuscular HGB Conc 32 gm/dL (32-36); Mean Corpuscular Hemoglobin 30 pg (26-34); Mean Corpuscular Volume 95 fL (80-100); Monocytes Percent Auto 7.3 % (0.0-11.0); Neutrophils Percent Auto 62.8 % (42.0-72.0); Platelet Count* 251 K/uL (140-440); RDW Coefficient of Variation % 13.3 % (11.5-15.5); Red Blood Count 4.59 m/uL (4.30-5.90); White Blood Count* 11.08 K/uL (4.50-11.00)
[2022-08-22 16:33] LABS: Slide Review Reflex No
[2022-08-22 16:37] LABS: Troponin, Point-of-Care* 0.01 ng/ml (0.01-0.04)
[2022-08-22 16:47] LABS: Albumin* 4.1 g/dL (3.3-5.0); Chloride* 106 mmol/L (96-114); Potassium* 4.8 mmol/L (3.6-5.1); Sodium* 139 mmol/L (135-149)
[2022-08-22 16:50] LABS: Alanine Aminotransferase* 16 U/L (4-50); Alkaline Phosphatase* 82 U/L (40-150); Aspartate Amino Transferase* 18 U/L (12-35); Bilirubin Total* 0.4 mg/dL (0.1-1.5); Blood Urea Nitrogen* 23 mg/dL (7-30); Carbon Dioxide* 26 mmol/L (20-32); Estimated Glomerular Filt Rate 76 ml/min; Glucose* 157 mg/dL (60-115); Total Protein* 7.2 g/dL (6.0-8.3)
[2022-08-22 16:51] LABS: Calcium* 8.7 mg/dL (8.4-10.6)
[2022-08-22] MEDS: 0.9 % SODIUM CHLORIDE 500 ML 500 ML IV (16:55)
--- NOTE | 2022-08-22 18:29 | ED.NURSE ---
is sitting on the side of the bed. dr oropeza was in to see. did order meal-eating sweet potatoes and meatloaf. uses adaptive silverware. is very loving and concerned.
[2022-08-22 18:48] LABS: Troponin, Point-of-Care* 0.02 ng/ml (0.01-0.04)
== END 2022-08-22 19:12 | disposition home or self-care (01) ==
PROVIDERS: Emergency Provider Student in an Organized Health Care Education/Training Program; PCP Family Medicine
DX: R55 Syncope and collapse (principal); G31.83 Neurocognitive disorder with Lewy bodies; F02.80 Dementia in other diseases classified elsewhere, unspecified severity, without behavioral disturbance, psychotic disturbance, mood disturbance, and anxiety; Z79.01 Long term (current) use of anticoagulants
CPT/HCPCS: 36415; 70450; 80053; 83605; 84484; 85025; 93005; 99283; 99284; J7120

== ENCOUNTER 2022-12-29 17:02 | Emergency (ER) | payer MEDICARE, SELFPAY ==
[2022-12-29 17:25] VITALS: BP 169/97; PULSE 52; RESP 18; TEMP 35.9; O2SAT 95; BMI 36.3
--- NOTE | 2022-12-29 17:37 | ED.MALEGU ---
HPI - Male Genitourinary General Time Seen by Provider: 17:37 Date Seen: 12/29/22 Chief complaint: Urogenital Problems, Male Stated complaint: Blood in urine Time Seen by Provider: 12/29/22 17:27 Source: patient, RN notes reviewed and old records reviewed Mode of arrival: ambulatory Limitations: no limitations History of Present Illness HPI Narrative: Patient is a very pleasant 82-year-old gentleman with history of PE on anticoagulation, history of Lewy body dementia who comes to the emergency room with his for evaluation of blood in his urine. He notes this is never happened to him in the past. He noticed this starting this morning and a healthcare consultant also noticed that he had some clots hanging from the rim of the toilet. He notes that it does cause some discomfort to urinate. He is only going small bits of urine at a time. He has had a history of prostate cancer and TURP. Patient denies fever chills vomiting abdominal pain or distension. Related Data Home Medications Medication Instructions Recorded Confirmed carbidopa 25 mg-levodopa 100 mg 1 tab PO TID 01/01/22 12/29/22 tablet clonazepam 0.5 mg tablet 0.5 mg PO HS 01/01/22 12/29/22 donepezil 10 mg tablet 10 mg PO HS 01/01/22 12/29/22 meclizine 25 mg tablet 25 mg PO BID 01/01/22 12/29/22 metformin 500 mg tablet 500 mg PO BIDWM 01/01/22 12/29/22 oxybutynin chloride 15 mg 15 mg PO DAILY PRN 01/01/22 12/29/22 tablet,extended release 24 hr quetiapine 25 mg tablet 50 mg PO HS 01/01/22 12/29/22 rosuvastatin 20 mg tablet 20 mg PO HS 01/01/22 12/29/22 glycopyrrolate 1 mg tablet 1 mg PO DAILY 02/14/22 02/15/22 Lactobacillus acidophilus 10 10 mg PO DAILY 02/15/22 02/15/22 billion cell capsule (Probiotic) cyanocobalamin (vitamin B-12) 1,000 mcg PO DAILY 02/15/22 12/29/22 1,000 mcg tablet nystatin 100,000 unit/gram topical 1 applic topical BID 02/15/22 02/15/22 ointment Previous Rx's Medication Instructions Recorded rivaroxaban 10 mg tablet (Xarelto) 15 mg (1.5 x 10 mg) PO BID 19 days 02/16/22 #57 tabs insulin aspart U-100 100 unit/mL 6 unit (0.06 mL) subcut DAILY@1200 02/21/22 (3 mL) subcutaneous pen (Novolog #15 mL FlexPen U-100 Insulin aspart) insulin aspart U-100 100 unit/mL 6 unit (0.06 mL) subcut DAILY@1800 02/21/22 (3 mL) subcutaneous pen (Novolog #15 mL FlexPen U-100 Insulin aspart) insulin aspart U-100 100 unit/mL 8 unit (0.08 mL) subcut DAILY@0800 02/21/22 (3 mL) subcutaneous pen (Novolog #15 mL FlexPen U-100 Insulin aspart) insulin aspart U-100 100 unit/mL See Rx Instructions .Route 02/21/22 (3 mL) subcutaneous pen (Novolog .COMPLEX #15 mL FlexPen U-100 Insulin aspart) insulin detemir U-100 100 unit/mL 16 unit (0.16 mL) subcut HS #3 mL 02/21/22 (3 mL) subcutaneous pen (Levemir FlexTouch U-100 Insulin) nystatin 100,000 unit/gram topical 1 applic topical TID #15 grams 02/21/22 powder sennosides 8.6 mg-docusate sodium 1 tab PO BID #60 tabs 02/21/22 50 mg tablet (Stool Softener-Laxative) lidocaine 5 % topical patch 1 patch topical DAILY #30 ea 02/22/22 Allergies Allergy/AdvReac Type Severity Reaction Status Date / Time bacitracin Allergy Intermediate Verified 08/22/22 15:48 Review of Systems Status of ROS: Reports: 10 or more systems reviewed and unremarkable except as noted in History and below Const: Denies: fever, chills or fatigue ENMT: Denies: difficulty swallowing Cardio: Denies: chest pain, lightheadedness or shortness of breath with exertion Resp: Denies: shortness of breath or cough GI: Denies: abdominal pain, nausea, vomiting or difficulty swallowing : Reports: painful urination, urinary frequency, urinary urgency and blood in urine Musculo: Denies: back pain Endo: Denies: fatigue PFSH PFS Medical History CKD (chronic kidney disease) Diabetes Hypercholesteremia Hypertension Insulin dependent type 2 diabetes mellitus Lewy body dementia MAYA (obstructive sleep apnea) Parkinson disease Prostate cancer Reflux gastritis Spinal stenosis Social History Highest level of school completed/degree received: 12th grade, no diploma Smoking Status: Former smoker Do you use any of these nicotine containing products: None Second hand tobacco smoke exposure: No How often do you have a drink containing alcohol: never How often do you have six or more drinks on one occasion: Never AUDIT-C Alcohol total score: 0 Non-prescribed substance use: marijuana (any form) Non-prescribed substance use details: Marijuana in liquid form orally Caffeine: Yes service: Yes Exam Narrative: Exam Narrative: Alert and oriented. No acute distress. Very pleasant gentleman. His is present very loving and supportive. EOM is full. Heart with a bradycardic rate but normal rhythm. Lungs are clear. Abdomen is soft nontender. Noted dribbling of bloody urine from penis. Moving all extremities. Const: Vital Signs, click to edit/add: Vital Signs - 24 hr 12/29/22 17:25 Temperature 96.6 F L Pulse Rate [Pulse Oximeter] 52 L Respiratory Rate 18 Blood Pressure [Ri ght Upper Arm] 169/97 H Pulse Oximetry 95 Oxygen Delivery Me thod Room Air Documenting provider has reviewed patient's vital signs: yes Course Course Hospital Course: Differential diagnosis includes UTI, bladder tumor, kidney stone. At this time patient has no back or abdominal pain. Urine may pearson appears to be the 1 thing that causes him discomfort. Given the amount of blood we are going to place a catheter after doing bladder scan. Will also check a CBC and basic panel as well as urinalysis. Uro jet ordered for placement of catheter. Reevaluation(s) Reevaluation #1: Per nursing report urinary retention was 89 but over 200 mL of urine drained as soon as the catheter was placed. Suspect mild urinary retention. Vital Signs Vital signs: Initial Vital Signs Temperature 96.6 F L 12/29/22 17:25 Temperature Source Temporal Artery Scan 12/29/22 17:25 Pulse Rate 52 L 12/29/22 17:25 Respiratory Rate 18 12/29/22 17:25 Blood Pressure 169/97 H 12/29/22 17:25 Blood Pressure Mean 121 H 12/29/22 17:25 Blood Pressure Position Supine 12/29/22 17:25 Pulse Oximetry 95 12/29/22 17:25 Oxygen Delivery Method Room Air 12/29/22 17:25 Vital Signs Temperature 96.6 F L 12/29/22 17:25 Pulse Rate 52 L 12/29/22 17:25 Respiratory Rate 18 12/29/22 17:25 Blood Pressure 169/97 H 12/29/22 17:25 Pulse Oximetry 95 12/29/22 17:25 Oxygen Delivery Method Room Air 12/29/22 17:25 Temperature 96.6 F L 12/29/22 17:25 Pulse Rate 52 L 12/29/22 17:25 Respiratory Rate 18 12/29/22 17:25 Blood Pressure 169/97 H 12/29/22 17:25 Pulse Oximetry 95 12/29/22 17:25 Oxygen Delivery Method Room Air 12/29/22 17:25 MDM - Male Genitourinary MDM Narrative Medical decision making narrative: 1. UTI-patient has both red and white cells noted on the urinalysis. Will treat with Keflex 500 mg p.o. t.i.d. x7 days. Will await the official culture and contact Bucky and his if we need to change that medication. Patient will need to return to the emergency room for vomiting, fever, worsening symptoms and as needed. 2. Urinary retention-although mild I do think that patient is forming clots in this may be inhibiting drainage. I did speak to them that the urinary retention was not a very large number but leaving the catheter in to ensure drainage with a UTI is an option. They have elected to leave the catheter in. Will convert to a leg bag. Recommend follow-up on SundayJanuary 01 her SundayJanuary 02 with their primary clinic for removal of the catheter. 3. Disposition-home at this time. Keflex via [employer]. Return as needed for worsening symptoms. Medical Records Attestation: I reviewed the patient's medical records. Lab Data Attestation: I reviewed the patient's lab results. Labs: Lab Results 12/29/22 12/29/22 Range/Units 18:20 18:28 WBC 8.49 (4.50-11.00) K/uL RBC 4.23 L (4.30-5.90) m/uL Hgb 13.1 L (13.5-17.5) gm/dL Hct 40.2 (37.0-53.0) % MCV 95 (80-100) fL MCH 31 (26-34) pg MCHC 33 (32-36) gm/dL RDW Coeff of Jorge 13.2 (11.5-15.5) % Plt Count 197 (140-440) K/uL Neut % (Auto) 53.2 (42.0-72.0) % Lymph % (Auto) 35.3 (20-44) % [place] % (Auto) 9.4 (0.0-11.0) % Eos % (Auto) 1.4 (0.0-7.0) % Baso % (Auto) 0.5 (0.0-3.0) % Neut # (Auto) 4.51 (1.7-7.0) K/uL Lymph # (Auto) 3.00 H (0.90-2.90) K/uL [place] # (Auto) 0.80 (0.00-0.90) K/UL Eos # (Auto) 0.12 (0.00-0.50) K/uL Baso # (Auto) 0.04 (0.00-0.30) K/uL Abs Immat Gran (auto) 0.02 (0.00-0.30) K/uL Imm/Tot Granulo (auto) 0.2 % Sodium 136 (135-149) mmol/L Potassium 4.1 (3.6-5.1) mmol/L Chloride 101 (96-114) mmol/L Carbon Dioxide 29 (20-32) mmol/L BUN 18 (7-30) mg/dL Creatinine 1.0 (0.5-1.5) mg/dL Estimated Creat Clear 52.28 Estimated GFR 76 ml/min Glucose 124 H (60-115) mg/dL Calcium 8.2 L (8.4-10.6) mg/dL C-Reactive Protein 1.5 H (0.5-1.0) mg/dL Urine Color Red A (Yellow) Urine Appearance Cloudy A (Clear) Urine pH 6.0 (5.0-8.5) Ur Specific [place] 1.025 (1.000-1.030) Urine Protein 3+ A (Negative) Urine Glucose (UA) Negative (Negative) Urine Ketones Negative (Negative) Urine Blood 3+ A (Negative) Urine Nitrite Negative (Negative) Urine Bilirubin Negative (Negative) Urine Urobilinogen 1.0 (0.2-1.0) Ur Leukocyte Esterase Negative (Negative) Urine RBC 10-25 A (0-2) Urine WBC 25-50 A (0-5) Ur Squamous Epith Cells None (None-Few) Urine Bacteria Few A (None) Urine Yeast Few A (None) Discharge Plan Discharge Clinical Impression: Acute UTI, Acute urinary retention Patient Disposition: Home, Self-Care Condition: Improved Additional Instructions: Start antibiotic Keflex tonight. We will wait on the urine culture and contact you if this antibiotic does not work against your particular type of infection. Increase her fluids so that your urine is more dilute. Return to the emergency room for fever, vomiting, catheter not draining, abdominal pain. Follow-up on Sunday or Sunday at the [facility] for removal of your catheter if symptoms are improved. Prescriptions: No Action glycopyrrolate 1 mg tablet 1 mg PO DAILY nystatin 100,000 unit/gram ointment 1 applic TOPICAL BID Rx Instructions: MIXED WITH DESITIN AND A0 OINTMENT cyanocobalamin (vitamin B-12) 1,000 mcg tablet 1,000 mcg PO DAILY Probiotic 10 billion cell capsule 10 mg PO DAILY Xarelto 10 mg Tablet 15 mg PO BID 19 Days Qty: 57 0RF Rx Instructions: AFTER 03/08, WILL NEED TO START 20mg ONCE/DAY. WILL NEED A NEW RX FROM PCP FOR THIS insulin aspart U-100 [Novolog FlexPen U-100 Insulin] 100 unit/mL (3 mL) Insulin Pen 6 unit subcut DAILY@1800 Qty: 15 0RF insulin aspart U-100 [Novolog FlexPen U-100 Insulin] 100 unit/mL (3 mL) Insulin Pen See Rx Instructions .ROUTE .COMPLEX Qty: 15 0RF Rx Instructions: Blood Glucose 150 or less No coverage Blood Glucose 151-200 1 unit Blood Glucose 201-250 2 units Blood Glucose 251-300 3 units Blood Glucose 301-350 4 units Blood Glucose 351 to 400 5 units Blood Glucose 401 and greater 6 units and recheck in 2 hours nystatin 100,000 unit/gram Powder 1 applic topical TID Qty: 15 0RF sennosides-docusate sodium [Stool Softener-Laxative] 8.6-50 mg Tablet 1 tab PO BID Qty: 60 0RF insulin aspart U-100 [Novolog FlexPen U-100 Insulin] 100 unit/mL (3 mL) Insulin Pen 6 unit subcut DAILY@1200 Qty: 15 0RF insulin aspart U-100 [Novolog FlexPen U-100 Insulin] 100 unit/mL (3 mL) Insulin Pen 8 unit subcut DAILY@0800 Qty: 15 0RF Levemir FlexTouch U100 Insulin 100 unit/mL (3 mL) Insulin Pen 16 unit subcut HS Qty: 3 0RF lidocaine 5 % adhesive patch,medicated 1 patch topical DAILY Qty: 30 0RF Rx Instructions: leave on most painful area for up to 12 hrs quetiapine 25 mg tablet 50 mg PO HS metformin 500 mg tablet 500 mg PO BIDWM oxybutynin chloride 15 mg tablet extended release 24hr 15 mg PO DAILY PRN donepezil 10 mg tablet 10 mg PO HS clonazepam 0.5 mg tablet 0.5 mg PO HS meclizine 25 mg tablet 25 mg PO BID carbidopa-levodopa 25-100 mg tablet 1 tab PO TID rosuvastatin 20 mg tablet 20 mg PO HS Follow Up/Referrals: Joi Zavala MD [Primary Care Provider] - Stand Alone Forms: [facility] Info Instructions
--- OUTSIDE RECORDS SUMMARY | 2022-12-29 18:00 | XMS_ITS | Continuity of Care Document ---
Author Name Unknown Organization [facility] Address [address] [place] [address] Phone Care Team Providers Care Patient Services Technician Name Role Phone Judy FERREIRA, PhD, John Paul Unavailable Unavai lable Allergies, Adverse Reactions, Alerts Substance Reaction Status Criticality MUPIROCIN CALCIUM Active No Informa tion mupirocin Active No Information bacitracin contact dermatitis Active No Inform ation Medications Medication Instructions Dosage Effective Dates (start - stop) Status Comments AMMONIUM LACTATE (unknown strength) Not Available - Active CLOTRIMAZOLE-BETAMETHAS ONE (unknown strength) Not Available - Active VITAMIN B-12 (unknown strength) Not Available - Active DITROPAN XL (unknown strength) Not Available - Active LACTULOSE (unknown strength) Not Available - Active LANTUS SOLOSTAR (unknown strength) Not Available - Active MECLIZINE HCL (unknown strength) Not Available - Active METOPROLOL SUCCINATE (unknown strength) Not Available - Active NYSTATIN (unknown strength) Not Available - Active NYSTATIN-TRIAMCINOLONE (unknown strength) Not Available - Active OZEMPIC (unknown strength) Not Available - Active PIOGLITAZONE HCL (unknown strength) Not Available - Active QUETIAPINE FUMARATE (unknown strength) Not Available - Active SILVER SULFADIAZINE (unknown strength) Not Available - Active TAMSULOSIN HCL (unknown strength) Not Available - Active TORSEMIDE (unknown strength) Not Available - Active TYLENOL EXTRA STRENGTH (unknown strength) Not Available - Active VITAMIN D2 (unknown strength) Not Available - Active RIOMET (unknown strength) Not Available - Active SIMVASTATIN (unknown strength) Not Available - Active NOVOLOG PENFILL (unknown strength) Not Available - Active Procedures Procedure Date Office/Outpatient Visit,[facility] [facility] [place] Advance Directives Directive Yes / No Effective Date File Name No Information Encounters Encounter Description Practice Location Reason(s) For Visit Diagnoses Date Provider Providers Copied on Encounter [facility], [address], [place], [place], [id number], [place] tel:[phone] [facility] No Information 9 Judy Coker. [facility] [place], [address], [place], [address], [place]. [phone] Office/Outpa tient Visit,[place], [place] [facility], [address], [place], [place], [id number], [place] tel:[phone] [facility] [place] Spinal stenosis, lumbar region with neurogenic claudication 9 Lit Richards. [facility] [place], [address] [place] [address] [address], [place], [place], [id number] , [place]. [phone] Referring Provider: Robbi Martin, [facility] [address], [place], [address]. [phone] [facility], [address], [place], [place], [id number], [place] [phone] [facility] [place] Radiculopathy , lumbar region 9 Judy Coker. [facility] [place], [address] [place] [address] [address], [place], [address], [place]. tel:[phone] Z [facility] [place], [address] [place], [place] [address], [place], [address], [place] [phone] [facility] [place] Diabetes Mellitus Type 2, Uncomplicated Hypercholeste rolemia 3 Mehbod Amir. [facility] [place], [address] [place] [address] [address], [place], [place], [id number] , [place]. [phone] Family History Family Member Type Diagnosis Age At Onset No Information Payers Payer name Insurance type Covered democrat ID Authoriza tion(s) No Information Social History Type Description Quantity Date Captured Comments Sex Male Smoking Status No Information Chief Complaint And Reason For Visit No Information Reason For Referral Reason For Referral No Information History Of Present Illness Encounter Date Complaint History Of Prese nt Illness No Information Functional Status Date Functional Assessmen t No Information Instructions Date Instruction Additional Infor mation No Information Assessments Type Assessment Date No Information Patient Care Teams Name Effective Dates (start - stop) Status Members No Information
[2022-12-29] MEDS: lidocaine HCL 2 % JELLY (TOP) STERILE 6 ML UR (18:10)
[2022-12-29 18:33] LABS: Basophils Absolute Auto 0.04 K/uL (0.00-0.30); Basophils Percent Auto 0.5 % (0.0-3.0); Eosinophils Absolute Auto 0.12 K/uL (0.00-0.50); Eosinophils Percent Auto 1.4 % (0.0-7.0); Hematocrit 40.2 % (37.0-53.0); Hemoglobin* 13.1 gm/dL (13.5-17.5); Immature Granulocytes Abs Auto 0.02 K/uL (0.00-0.30); Immature Granulocytes Pct Auto 0.2 %; Lymphocytes Percent Auto 35.3 % (20-44); Mean Corpuscular HGB Conc 33 gm/dL (32-36); Mean Corpuscular Hemoglobin 31 pg (26-34); Mean Corpuscular Volume 95 fL (80-100); Monocytes Percent Auto 9.4 % (0.0-11.0); Neutrophils Absolute Auto 4.51 K/uL (1.7-7.0); Neutrophils Percent Auto 53.2 % (42.0-72.0); Platelet Count* 197 K/uL (140-440); RDW Coefficient of Variation % 13.2 % (11.5-15.5); Red Blood Count 4.23 m/uL (4.30-5.90); White Blood Count* 8.49 K/uL (4.50-11.00)
[2022-12-29 18:35] LABS: Appearance Urine Cloudy (Clear); Bilirubin Urine Negative (Negative); Blood Urine 3+ (Negative); Color Urine Red (Yellow); Glucose Urine Negative (Negative); Ketones Urine Negative (Negative); Leukocyte Esterase Urine Negative (Negative); Nitrite Urine Negative (Negative); Protein Urine 3+ (Negative); Specific Gravity Urine 1.025 (1.000-1.030)
[2022-12-29 18:38] LABS: Slide Review Reflex No
[2022-12-29 18:45] LABS: Chloride* 101 mmol/L (96-114); Potassium* 4.1 mmol/L (3.6-5.1); Sodium* 136 mmol/L (135-149)
[2022-12-29 18:47] LABS: WBC Urine 25-50 (0-5)
[2022-12-29 18:48] LABS: Bacteria Urine Few
[2022-12-29 18:48] LABS: Est. Creatinine Clearance* 52.28; Estimated Glomerular Filt Rate 76 ml/min
[2022-12-29 18:49] LABS: Blood Urea Nitrogen* 18 mg/dL (7-30); Calcium* 8.2 mg/dL (8.4-10.6); Carbon Dioxide* 29 mmol/L (20-32); Glucose* 124 mg/dL (60-115)
[2022-12-29 18:51] LABS: C Reactive Protein* 1.5 mg/dL (0.5-1.0)
== END 2022-12-29 19:25 | disposition home or self-care (01) ==
PROVIDERS: Emergency Provider Family Medicine; PCP Family Medicine
DX: N39.0 Urinary tract infection, site not specified (principal); R33.9 Retention of urine, unspecified
CPT/HCPCS: 36415; 51702; 80048; 81001; 81003; 81015; 85025; 86140; 87086; 99283; 99284

== ENCOUNTER 2022-12-30 09:48 | Emergency (ER) | payer MEDICARE, SELFPAY ==
[2022-12-30] VITALS (18 sets, daily range): BP systolic 121–156; BP diastolic 66–106; PULSE 35–63; RESP 16; TEMP 36.1; O2SAT 85–98
[2022-12-30 10:38] LABS: Basophils Absolute Auto 0.02 K/uL (0.00-0.30); Basophils Percent Auto 0.2 % (0.0-3.0); Eosinophils Absolute Auto 0.12 K/uL (0.00-0.50); Eosinophils Percent Auto 1.2 % (0.0-7.0); Hematocrit 42.4 % (37.0-53.0); Hemoglobin* 13.8 gm/dL (13.5-17.5); Immature Granulocytes Abs Auto 0.02 K/uL (0.00-0.30); Immature Granulocytes Pct Auto 0.2 %; Lymphocytes Absolute Auto 2.67 K/uL (0.90-2.90); Lymphocytes Percent Auto 25.7 % (20-44); Mean Corpuscular HGB Conc 33 gm/dL (32-36); Mean Corpuscular Hemoglobin 31 pg (26-34); Mean Corpuscular Volume 94 fL (80-100); Monocytes Percent Auto 8.2 % (0.0-11.0); Neutrophils Absolute Auto 6.69 K/uL (1.7-7.0); Neutrophils Percent Auto 64.5 % (42.0-72.0); Platelet Count* 200 K/uL (140-440); RDW Coefficient of Variation % 13.1 % (11.5-15.5); White Blood Count* 10.37 K/uL (4.50-11.00)
[2022-12-30] MEDS: 0.9 % SODIUM CHLORIDE 1000 ml 1,000 ML IV ×2 (10:38→11:44)
--- OUTSIDE RECORDS SUMMARY | 2022-12-30 10:47 | XMS_ITS | Continuity of Care Document ---
Author Name Unknown Organization [facility] Address [address] [place] [address] Phone Care Team Providers Care Delicatessen Manager Name Role Phone Judy FERREIRA, PhD, John [...] Available - Active Procedures Procedure Date Office/Outpatient Visit,[facility] [place] 2018 Advance Directives Directive Yes / No Effective Date File Name No Information Encounters Encounter Description Practice Location Reason(s) For Visit Diagnoses Date Provider Providers Copied on Encounter [facility], [address], [place], [place], [id number], [place] tel:[phone] [facility] No Information 9 Judy Coker. [facility] [place], [address], [place], [address], [place]. [phone] Office/Outpa tient Visit,New, Mod [facility], [address], [place], [place], [id number], [place] tel:[phone] [facility] [place] Spinal stenosis, lumbar region with neurogenic claudication 9 Lit Richards. [facility] [place], [address] [place] [address] [address], [place], [place], [id number] , [place]. [phone] Referring Provider: Robbi Martin, [facility] [address], [place], [address]. [phone] [facility], [address], [place], [place], [id number], [place] [phone] [facility] [place] Radiculopathy , lumbar region 9 Judy Coker. [facility] [place], [address] [place] [address] [address], [place], [address], [place]. tel:[phone] Z [facility] [place], [address] [place], [place] [address], [place], [address], [place] [phone] [facility] [place] Diabetes Mellitus Type 2, Uncomplicated Hypercholeste rolemia 3 Mehbod Amir. [facility] [place], [address] [place] [address] [address], [place], [place], [id number] , [place]. [phone] Family History Family Member Type Diagnosis Age At Onset No Information Payers Payer name Insurance type Covered libertarian ID Authoriza tion(s) No Information Social History [...]
[2022-12-30 10:48] LABS: Slide Review Reflex No
[2022-12-30 10:54] LABS: Chloride* 101 mmol/L (96-114); Sodium* 137 mmol/L (135-149)
[2022-12-30 10:55] LABS: Potassium* 3.9 mmol/L (3.6-5.1)
[2022-12-30 10:57] LABS: Carbon Dioxide* 26 mmol/L (20-32); Estimated Glomerular Filt Rate 76 ml/min
[2022-12-30 10:58] LABS: Blood Urea Nitrogen* 17 mg/dL (7-30); Calcium* 8.6 mg/dL (8.4-10.6); Glucose* 200 mg/dL (60-115)
--- NOTE | 2022-12-30 11:02 | ED_ITS ---
HPI - Male Genitourinary General Date Seen: 12/30/22 Chief complaint: Urogenital Problems, Male Stated complaint: Blood in catheter Time Seen by Provider: 12/30/22 10:05 Source: patient and family Mode of arrival: ambulatory Limitations: no limitations History of Present Illness HPI Narrative: Patient is 82-year-old gentleman who was seen here yesterday for hematuria, catheter was placed, and he was also treated for a bladder infection. Since this is done he has had a little bit more blood coming out of his catheter, he has been changing his bags, and they appear to be not plugging, nor is the been clots he also felt a little bit of lower abdominal discomfort. He continues to take his Xarelto which he is on for pulmonary emboli which for greater than 6 months ago. No history previously of his urinary tract issues, bladder cancer. Denies any syncope weakness, chest pain shortness of breath or other issues Related Data Home Medications Medication Instructions Recorded Confirmed carbidopa 25 mg-levodopa 100 mg 1 tab PO TID 01/01/22 12/29/22 tablet clonazepam 0.5 mg tablet 0.5 mg PO HS 01/01/22 12/29/22 donepezil 10 mg tablet 10 mg PO HS 01/01/22 12/29/22 meclizine 25 mg tablet 25 mg PO BID 01/01/22 12/29/22 metformin 500 mg tablet 500 mg PO BIDWM 01/01/22 12/29/22 oxybutynin chloride 15 mg 15 mg PO DAILY PRN 01/01/22 12/29/22 tablet,extended release 24 hr quetiapine 25 mg tablet 50 mg PO HS 01/01/22 12/29/22 rosuvastatin 20 mg tablet 20 mg PO HS 01/01/22 12/29/22 glycopyrrolate 1 mg tablet 1 mg PO DAILY 02/14/22 02/15/22 Lactobacillus acidophilus 10 10 mg PO DAILY 02/15/22 02/15/22 billion cell capsule (Probiotic) cyanocobalamin (vitamin B-12) 1,000 mcg PO DAILY 02/15/22 12/29/22 1,000 mcg tablet nystatin 100,000 unit/gram topical 1 applic topical BID 02/15/22 02/15/22 ointment Previous Rx's Medication Instructions Recorded rivaroxaban 10 mg tablet (Xarelto) 15 mg (1.5 x 10 mg) PO BID 19 days 02/16/22 #57 tabs insulin aspart U-100 100 unit/mL 6 unit (0.06 mL) subcut DAILY@1200 02/21/22 (3 mL) subcutaneous pen (Novolog #15 mL FlexPen U-100 Insulin aspart) insulin aspart U-100 100 unit/mL 6 unit (0.06 mL) subcut DAILY@1800 02/21/22 (3 mL) subcutaneous pen (Novolog #15 mL FlexPen U-100 Insulin aspart) insulin aspart U-100 100 unit/mL 8 unit (0.08 mL) subcut DAILY@0800 02/21/22 (3 mL) subcutaneous pen (Novolog #15 mL FlexPen U-100 Insulin aspart) insulin aspart U-100 100 unit/mL See Rx Instructions .Route 02/21/22 (3 mL) subcutaneous pen (Novolog .COMPLEX #15 mL FlexPen U-100 Insulin aspart) insulin detemir U-100 100 unit/mL 16 unit (0.16 mL) subcut HS #3 mL 02/21/22 (3 mL) subcutaneous pen (Levemir FlexTouch U-100 Insulin) nystatin 100,000 unit/gram topical 1 applic topical TID #15 grams 02/21/22 powder sennosides 8.6 mg-docusate sodium 1 tab PO BID #60 tabs 02/21/22 50 mg tablet (Stool Softener-Laxative) lidocaine 5 % topical patch 1 patch topical DAILY #30 ea 02/22/22 Allergies Allergy/AdvReac Type Severity Reaction Status Date / Time bacitracin Allergy Intermediate Verified 12/30/22 10:00 Review of Systems Status of ROS: Reports: 10 or more systems reviewed and unremarkable except as noted in History and below [facility] Medical History Insulin dependent type 2 diabetes mellitus ?E11.9 - Type 2 diabetes mellitus without complications (ICD-10) ?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 (ICD-10) Prostate cancer ?C61 - Malignant neoplasm of prostate (ICD-10) CKD (chronic kidney disease) ?N18.9 - Chronic kidney disease, unspecified (ICD-10) MAYA (obstructive sleep apnea) ?G47.33 - Obstructive sleep apnea (adult) (pediatric) (ICD-10) Parkinson disease ?G20 - Parkinson's disease (ICD-10) Lewy body dementia ?G31.83 - Dementia with Lewy bodies (ICD-10) ?F02.80 - Dementia in other diseases classified elsewhere without behavioral disturbance (ICD-10) Spinal stenosis ?M48.00 - Spinal stenosis, site unspecified (ICD-10) Reflux gastritis ?K29.60 - Other gastritis without bleeding (ICD-10) Diabetes ?E11.9 - Type 2 diabetes mellitus without complications (ICD-10) Hypercholesteremia ?E78.00 - Pure hypercholesterolemia, unspecified (ICD-10) Hypertension ?I10 - Essential (primary) hypertension (ICD-10) Social History Highest level of school completed/degree received: 12th grade, no diploma Smoking Status: Former smoker Do you use any of these nicotine containing products: None Second hand tobacco smoke exposure: No How often do you have a drink containing alcohol: never How often do you have six or more drinks on one occasion: Never AUDIT-C Alcohol total score: 0 Non-prescribed substance use: marijuana (any form) Non-prescribed substance use details: Marijuana in liquid form orally Caffeine: Yes service: Yes Exam Narrative: Exam Narrative: On examination in room 6 he is in no apparent distress, right-sided facial droop is noted, which is chronic. His abdomen is soft, umbilical hernias noted, which is easily reducible. He has a catheter protruding from his penis, it is draining urine that is red stain, on that he has terence blood appears to be in his leg bag. Const: Vital Signs, click to edit/add: Vital Signs - 24 hr 12/30/22 10:00 12/30/22 10:36 12/30/22 10:45 Temperature 96.9 F L Pulse Rate 63 60 Pulse Rate [Pulse Oximeter] 61 Respiratory Rate 16 Blood Pressure Blood Pressure [Ri ght Upper Arm] 123/67 Pulse Oximetry 90 91 92 Oxygen Delivery Me thod Room Air 12/30/22 11:00 12/30/22 11:03 12/30/22 11:04 Temperature Pulse Rate 54 L 55 L 53 L Pulse Rate [Pulse Oximeter] Respiratory Rate Blood Pressure 136/73 Blood Pressure [Ri ght Upper Arm] Pulse Oximetry 95 95 95 Oxygen Delivery Me thod 12/30/22 11:15 12/30/22 11:30 12/30/22 11:32 Temperature Pulse Rate 51 L 54 L 53 L Pulse Rate [Pulse Oximeter] Respiratory Rate Blood Pressure 121/106 H Blood Pressure [Ri ght Upper Arm] Pulse Oximetry 97 98 98 Oxygen Delivery Me thod 12/30/22 11:45 12/30/22 12:00 12/30/22 12:02 Temperature Pulse Rate 52 L 48 L 48 L Pulse Rate [Pulse Oximeter] Respiratory Rate Blood Pressure 147/66 H Blood Pressure [Ri ght Upper Arm] Pulse Oximetry 98 94 94 Oxygen Delivery Me thod 12/30/22 12:15 12/30/22 12:32 12/30/22 13:02 Temperature Pulse Rate 52 L Pulse Rate [Pulse Oximeter] Respiratory Rate Blood Pressure 145/102 H 145/70 H Blood Pressure [Ri ght Upper Arm] Pulse Oximetry 95 Oxygen Delivery Me thod 12/30/22 13:32 12/30/22 14:02 12/30/22 14:21 Temperature Pulse Rate 35 L Pulse Rate [Pulse Oximeter] 60 Respiratory Rate Blood Pressure 156/75 H Blood Pressure [Ri ght Upper Arm] Pulse Oximetry 85 L Oxygen Delivery Me thod Course Reevaluation(s) Time of Reevaluation #1: 12:09 Reevaluation #1: Reexamined the patient, he is putting clearer urine of, although it is still very blood tinged. We will have to re ultrasound of the make sure that he is not having retention, but there clearly is more urine coming out. Will give a 2 L of fluid, I reassured him that his hemoglobin was normal, and no evidence of significant dehydration. I also think given the course of the bleeding, and what I know about his history we should probably have him hold his Xarelto for now. Vital Signs Vital signs: Initial Vital Signs Temperature 96.9 F L 12/30/22 10:00 Temperature Source Temporal Artery Scan 12/30/22 10:00 Pulse Rate 61 12/30/22 10:00 Respiratory Rate 16 12/30/22 10:00 Blood Pressure 123/67 12/30/22 10:00 Blood Pressure Mean 85 12/30/22 10:00 Blood Pressure Position Sitting 12/30/22 10:00 Pulse Oximetry 90 12/30/22 10:00 Oxygen Delivery Method Room Air 12/30/22 10:00 Vital Signs Temperature 96.9 F L 12/30/22 10:00 Pulse Rate 61 12/30/22 10:00 Respiratory Rate 16 12/30/22 10:00 Blood Pressure 123/67 12/30/22 10:00 Pulse Oximetry 90 12/30/22 10:00 Oxygen Delivery Method Room Air 12/30/22 10:00 Temperature 96.9 F L 12/30/22 10:00 Pulse Rate 60 12/30/22 14:21 Respiratory Rate 16 12/30/22 10:00 Blood Pressure 156/75 H 12/30/22 14:02 Pulse Oximetry 85 L 12/30/22 13:32 Oxygen Delivery Method Room Air 12/30/22 10:00 MDM - Male Genitourinary MDM Narrative Medical decision making narrative: This hemoglobin was 13.1 yesterday, we will recheck his hemoglobin today, I will give him a couple L of fluids, and see how this flushes out, we did do a residual in his bladder, that showed less than 50 mL so I think he is emptying, this was reassuring to him. Review of yesterday's visit is done. Medical Records Attestation: I reviewed the patient's medical records. Lab Data Attestation: I reviewed the patient's lab results. Labs: Lab Results 12/30/22 Range/Units 10:30 WBC 10.37 (4.50-11.00) K/uL RBC 4.50 (4.30-5.90) m/uL Hgb 13.8 (13.5-17.5) gm/dL Hct 42.4 (37.0-53.0) % MCV 94 (80-100) fL MCH 31 (26-34) pg MCHC 33 (32-36) gm/dL RDW Coeff of Jorge 13.1 (11.5-15.5) % Plt Count 200 (140-440) K/uL Neut % (Auto) 64.5 (42.0-72.0) % Lymph % (Auto) 25.7 (20-44) % [place] % (Auto) 8.2 (0.0-11.0) % Eos % (Auto) 1.2 (0.0-7.0) % Baso % (Auto) 0.2 (0.0-3.0) % Neut # (Auto) 6.69 (1.7-7.0) K/uL Lymph # (Auto) 2.67 (0.90-2.90) K/uL [place] # (Auto) 0.90 (0.00-0.90) K/UL Eos # (Auto) 0.12 (0.00-0.50) K/uL Baso # (Auto) 0.02 (0.00-0.30) K/uL Abs Immat Gran (auto) 0.02 (0.00-0.30) K/uL Imm/Tot Granulo (auto) 0.2 % Sodium 137 (135-149) mmol/L Potassium 3.9 (3.6-5.1) mmol/L Chloride 101 (96-114) mmol/L Carbon Dioxide 26 (20-32) mmol/L BUN 17 (7-30) mg/dL Creatinine 1.0 (0.5-1.5) mg/dL Estimated GFR 76 ml/min Glucose 200 H (60-115) mg/dL Calcium 8.6 (8.4-10.6) mg/dL Discharge Plan Discharge Clinical Impression: Hematuria, Acute UTI Patient Disposition: Home w/ Parent or Adult Condition: Improved Instructions: Urinary Tract Infection in Men (DC), Hematuria (ED) Additional Instructions: Home rest stop taking the Xarelto, follow-up early in the with her primary care physician or at least call them to figure out they can see you. Return here if there is nothing coming out of your catheter, is that it is likely plug, lots of general fluids!!! Activity Level: Light activity Prescriptions: No Action glycopyrrolate 1 mg tablet 1 mg PO DAILY nystatin 100,000 unit/gram ointment 1 applic TOPICAL BID Rx Instructions: MIXED WITH DESITIN AND A0 OINTMENT cyanocobalamin (vitamin B-12) 1,000 mcg tablet 1,000 mcg PO DAILY Probiotic 10 billion cell capsule 10 mg PO DAILY Xarelto 10 mg Tablet 15 mg PO BID 19 Days Qty: 57 0RF Rx Instructions: AFTER 03/08, WILL NEED TO START 20mg ONCE/DAY. WILL NEED A NEW RX FROM PCP FOR THIS insulin aspart U-100 [Novolog FlexPen U-100 Insulin] 100 unit/mL (3 mL) Insulin Pen 6 unit subcut DAILY@1800 Qty: 15 0RF insulin aspart U-100 [Novolog FlexPen U-100 Insulin] 100 unit/mL (3 mL) Insulin Pen See Rx Instructions .ROUTE .COMPLEX Qty: 15 0RF Rx Instructions: Blood Glucose 150 or less No coverage Blood Glucose 151-200 1 unit Blood Glucose 201-250 2 units Blood Glucose 251-300 3 units Blood Glucose 301-350 4 units Blood Glucose 351 to 400 5 units Blood Glucose 401 and greater 6 units and recheck in 2 hours nystatin 100,000 unit/gram Powder 1 applic topical TID Qty: 15 0RF sennosides-docusate sodium [Stool Softener-Laxative] 8.6-50 mg Tablet 1 tab PO BID Qty: 60 0RF insulin aspart U-100 [Novolog FlexPen U-100 Insulin] 100 unit/mL (3 mL) Insulin Pen 6 unit subcut DAILY@1200 Qty: 15 0RF insulin aspart U-100 [Novolog FlexPen U-100 Insulin] 100 unit/mL (3 mL) Insulin Pen 8 unit subcut DAILY@0800 Qty: 15 0RF Levemir FlexTouch U100 Insulin 100 unit/mL (3 mL) Insulin Pen 16 unit subcut HS Qty: 3 0RF lidocaine 5 % adhesive patch,medicated 1 patch topical DAILY Qty: 30 0RF Rx Instructions: leave on most painful area for up to 12 hrs quetiapine 25 mg tablet 50 mg PO HS metformin 500 mg tablet 500 mg PO BIDWM oxybutynin chloride 15 mg tablet extended release 24hr 15 mg PO DAILY PRN donepezil 10 mg tablet 10 mg PO HS clonazepam 0.5 mg tablet 0.5 mg PO HS meclizine 25 mg tablet 25 mg PO BID carbidopa-levodopa 25-100 mg tablet 1 tab PO TID rosuvastatin 20 mg tablet 20 mg PO HS Follow Up/Referrals: Joi Zavala MD [Primary Care Provider] - Stand Alone Forms: [facility] Info Instructions
--- NOTE | 2022-12-30 13:21 | ED.NURSE ---
Pt bladder scanned for 29mL of fluid. Catheter bag emptied with 775mL of bright red urine and clots. Dr. Medina present and aware.
--- NOTE | 2022-12-30 13:31 | ED.NURSE ---
Irrigated bladder gently with 60 cc normal saline, tolerated well. Small clots noted in the tubing. 775 ml output since arrival to the ER.
--- NOTE | 2022-12-30 13:51 | ED.NURSE ---
Changed leg beg to a new one, provided a night bag. Education completed with patient and .
== END 2022-12-30 14:32 | disposition home or self-care (01) ==
PROVIDERS: Emergency Provider Family Medicine; PCP Family Medicine
DX: R31.9 Hematuria, unspecified (principal); N39.0 Urinary tract infection, site not specified
CPT/HCPCS: 36415; 51702; 51798; 80048; 85025; 99283; 99284; J7030

== ENCOUNTER 2022-12-30 22:48 | Observation (INO) | payer MEDICARE, SELFPAY ==
[2022-12-30 23:03] VITALS: BP 135/74; PULSE 74; RESP 18; O2SAT 94; BMI 36.3
--- NOTE | 2022-12-31 01:08 | ED_ITS ---
HPI - General Adult General Chief complaint: Urogenital Problems, Male Stated complaint: catheter not running, bladder pain Time Seen by Provider: 12/30/22 23:38 History of Present Illness HPI narrative: 82-year-old man with a history of pulmonary emboli on Xarelto returns to the emergency department for his 3rd visit in about 30 hours with complaint of urinary catheter that was placed on initial visit being stopped up over the last 7 or 8 hours. And what I think is describing a spasms of pain. Has continued to bleed apparently. Was recommended on 2nd visit to stop Xarelto. Hemoglobin was stable last measured at 13.8. Was initiated on Keflex at 1st visit. Urine cultures are not available yet. It does not look as though there was ever any significant urinary retention but has been clotting off. At most maybe 200 mL. No fever. History of diabetes and Parkinson's. Worried about admission as they have an important event to attend tomorrow afternoon Related Data Home Medications Medication Instructions Recorded Confirmed carbidopa 25 mg-levodopa 100 mg 1 tab PO TID 01/01/22 12/29/22 tablet clonazepam 0.5 mg tablet 0.5 mg PO HS 01/01/22 12/29/22 donepezil 10 mg tablet 10 mg PO HS 01/01/22 12/29/22 meclizine 25 mg tablet 25 mg PO BID 01/01/22 12/29/22 metformin 500 mg tablet 500 mg PO BIDWM 01/01/22 12/29/22 oxybutynin chloride 15 mg 15 mg PO DAILY PRN 01/01/22 12/29/22 tablet,extended release 24 hr quetiapine 25 mg tablet 50 mg PO HS 01/01/22 12/29/22 rosuvastatin 20 mg tablet 20 mg PO HS 01/01/22 12/29/22 glycopyrrolate 1 mg tablet 1 mg PO DAILY 02/14/22 02/15/22 Lactobacillus acidophilus 10 10 mg PO DAILY 02/15/22 02/15/22 billion cell capsule (Probiotic) cyanocobalamin (vitamin B-12) 1,000 mcg PO DAILY 02/15/22 12/29/22 1,000 mcg tablet nystatin 100,000 unit/gram topical 1 applic topical BID 02/15/22 02/15/22 ointment Previous Rx's Medication Instructions Recorded rivaroxaban 10 mg tablet (Xarelto) 15 mg (1.5 x 10 mg) PO BID 19 days 02/16/22 #57 tabs insulin aspart U-100 100 unit/mL 6 unit (0.06 mL) subcut DAILY@1200 02/21/22 (3 mL) subcutaneous pen (Novolog #15 mL FlexPen U-100 Insulin aspart) insulin aspart U-100 100 unit/mL 6 unit (0.06 mL) subcut DAILY@1800 02/21/22 (3 mL) subcutaneous pen (Novolog #15 mL FlexPen U-100 Insulin aspart) insulin aspart U-100 100 unit/mL 8 unit (0.08 mL) subcut DAILY@0800 02/21/22 (3 mL) subcutaneous pen (Novolog #15 mL FlexPen U-100 Insulin aspart) insulin aspart U-100 100 unit/mL See Rx Instructions .Route 02/21/22 (3 mL) subcutaneous pen (Novolog .COMPLEX #15 mL FlexPen U-100 Insulin aspart) insulin detemir U-100 100 unit/mL 16 unit (0.16 mL) subcut HS #3 mL 02/21/22 (3 mL) subcutaneous pen (Levemir FlexTouch U-100 Insulin) nystatin 100,000 unit/gram topical 1 applic topical TID #15 grams 02/21/22 powder sennosides 8.6 mg-docusate sodium 1 tab PO BID #60 tabs 02/21/22 50 mg tablet (Stool Softener-Laxative) lidocaine 5 % topical patch 1 patch topical DAILY #30 ea 02/22/22 Allergies Allergy/AdvReac Type Severity Reaction Status Date / Time bacitracin Allergy Intermediate Verified 12/30/22 10:00 Review of Systems Status of ROS: Reports: 6 or more systems reviewed and unremarkable except as noted in History and below [facility] Medical History Insulin dependent type 2 diabetes mellitus ?E11.9 - Type 2 diabetes mellitus without complications (ICD-10) ?Z79.4 - shelter (current) 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 of insulin (ICD-10) Prostate cancer ?C61 - Malignant neoplasm of prostate (ICD-10) CKD (chronic kidney disease) ?N18.9 - Chronic kidney disease, unspecified (ICD-10) MAYA (obstructive sleep apnea) ?G47.33 - Obstructive sleep apnea (adult) (pediatric) (ICD-10) Parkinson disease ?G20 - Parkinson's disease (ICD-10) Lewy body dementia ?G31.83 - Dementia with Lewy bodies (ICD-10) ?F02.80 - Dementia in other diseases classified elsewhere without behavioral disturbance (ICD-10) Spinal stenosis ?M48.00 - Spinal stenosis, site unspecified (ICD-10) Reflux gastritis ?K29.60 - Other gastritis without bleeding (ICD-10) Diabetes ?E11.9 - Type 2 diabetes mellitus without complications (ICD-10) Hypercholesteremia ?E78.00 - Pure hypercholesterolemia, unspecified (ICD-10) Hypertension ?I10 - Essential (primary) hypertension (ICD-10) Social History Highest level of school completed/degree received: 12th grade, no diploma Smoking Status: Former smoker Do you use any of these nicotine containing products: None Second hand tobacco smoke exposure: No How often do you have a drink containing alcohol: never How often do you have six or more drinks on one occasion: Never AUDIT-C Alcohol total score: 0 Non-prescribed substance use: marijuana (any form) Non-prescribed substance use details: Marijuana in liquid form orally Caffeine: Yes service: Yes Exam Narrative: Exam Narrative: Flatter affect. Interactive though. Tucked up under a blanket. Vitals are noted. By the time I am seeing Mr. Turpin is already been irrigated. Continues to have rather bloody urine although they have noticed now after initial round of irrigation that it has stopped flowing again. Abdomen however is soft and nontender. Is wearing attends. Skin is warm and dry. Const: Vital Signs, click to edit/add: Vital Signs - 24 hr 12/30/22 23:03 Pulse Rate [Left P ulse Oximeter] 74 Respiratory Rate 18 Blood Pressure [Ri ght Upper Arm] 135/74 Pulse Oximetry 94 Oxygen Delivery Me thod Room Air Documenting provider has reviewed patient's vital signs: yes Course Vital Signs Vital signs: Initial Vital Signs Pulse Rate 74 12/30/22 23:03 Respiratory Rate 18 12/30/22 23:03 Blood Pressure 135/74 12/30/22 23:03 Blood Pressure Mean 94 12/30/22 23:03 Blood Pressure Position Sitting 12/30/22 23:03 Pulse Oximetry 94 12/30/22 23:03 Oxygen Delivery Method Room Air 12/30/22 23:03 Vital Signs Pulse Rate 74 12/30/22 23:03 Respiratory Rate 18 12/30/22 23:03 Blood Pressure 135/74 12/30/22 23:03 Pulse Oximetry 94 12/30/22 23:03 Oxygen Delivery Method Room Air 12/30/22 23:03 Pulse Rate 74 12/30/22 23:03 Respiratory Rate 18 12/30/22 23:03 Blood Pressure 135/74 12/30/22 23:03 Pulse Oximetry 94 12/30/22 23:03 Oxygen Delivery Method Room Air 12/30/22 23:03 Medical Decision Making MDM Narrative Medical decision making narrative: Does appears that will need some more time of irrigation and I am thinking at this point would need to be admitted for bladder irrigation on a 3 way. They live about 30 minutes from hospital and it is becoming difficult to go back and forth. Labs were not repeated at this visit. Contacted hospitalist for admission. Discharge Plan Discharge Clinical Impression: Hematuria, Bladder spasm, Cystitis Patient Disposition: Admitted As Observation Condition: Improved
--- OUTSIDE RECORDS SUMMARY | 2022-12-31 01:08 | XMS_ITS | Continuity of Care Document ---
Author Name Unknown Organization [facility] Address [address] [place] [address] Phone Care Team Providers [employer] Prescription Clerk Name Role Phone Judy FERREIRA, PhD, John [...] Available - Active Procedures Procedure Date Office/Outpatient Visit,[place], [facility] 2018 Advance Directives Directive Yes / No Effective Date File Name No Information Encounters Encounter Description Practice Location Reason(s) For Visit Diagnoses Date Provider Providers Copied on Encounter [facility], [address], [place], [place], [id number], [place] tel:[phone] [facility] No Information 9 Judy Coker. [facility] [place], [address], [place], [address], [place]. [phone] Office/Outpa tient Visit,[place], [place] [facility], [address], [place], [place], [id number], [place] tel:[phone] [facility] [place] Spinal stenosis, lumbar region with neurogenic claudication 9 Lit Richards. [facility] [place], [address] [place] [address] [address], [place], [place], [id number] , [place]. [phone] Referring Provider: Robbi Martin, [facility] [address], [place], [address]. [phone] [facility], [address], [place], [place], [id number], [place] [phone] [facility] [place] Radiculopathy , lumbar region 9 Judy Coker. [facility] [place], [address] [place] [address] [address], [place], [address], [place]. tel:[phone] Z [facility] [place], [address] [place], [place] [address], [place], [address], [place] [phone] [facility] [place] Diabetes Mellitus Type 2, Uncomplicated Hypercholeste rolemia 3 Mehbod Amir. [facility] [place], [address] [place] [address] [address], [place], [place], [id number] , [place]. [phone] Family History Family Member Type Diagnosis Age [...]
[2022-12-31 01:38] VITALS: BP 177/66; PULSE 54; RESP 18; TEMP 36.1; O2SAT 97; BMI 37.5
--- NOTE | 2022-12-31 04:36 | PM.IMCN1 ---
Date of Consult Consult date: 12/31/22 Primary Care Provider: Joi Zavala MD Consult Narrative Reason for consult: Hematuria with clot formation and urinary retention. Narrative: [facility] HOSPITALIST CONSULTATION NOTE: The [facility] hospitalist was contacted by the local ER provider with a request for consultation for admission support and cross coverage services for this patient. [facility] Bucky Saeed MD. Chief Complaint: Blood in urine. HPI: This 82-year-old gentleman was diagnosed with a urinary tract infection and hematuria on 12/29/2022. He was experiencing some visible hematuria and was started on Keflex n the ER and discharged home. Pertinent past medical history here includes prostate cancer, BPH, urinary retention, chronic anticoagulation with Xarelto, and history of past pulmonary embolism. He had a couple of additional ER visits, including today's visit to report continued visible hematuria laboratory survey was generally unremarkable. No leukocytosis was seen in the hemoglobin hematocrit levels were in normal range. The blood chemistry panel was normal except for a blood glucose of 200. The urinalysis revealed a negative nitrite and leukocyte Estrace levels, painful urination, his Xarelto was put on hold yesterday. Today he noticed more diminished urine output from his Dimas catheter which was placed on the initial visit. He presented to the ER with no fever and normal vital signs. He was alert and well oriented on presentation and his physical assessment was within normal limits except for the Dimas catheter left indwelling and the bladder. Urinalysis revealed negative nitrite and leukocyte Estrace levels. Microscopy revealed no significant pyuria or bacteriuria, though visible blood was seen in the urine. Because of the persistent hematuria, signs of evolving urinary retention, and blood clot formation in the urine the ER provider felt it prudent to admit the patient for bladder irrigation, and continued treatment for UTI/cystitis. The Xarelto remains on hold. Pertinent PMH: 1. Recent diagnosis of cystitis and UTI; DM type II, HTN, dyslipidemia, CKD, chronic dementia, Parkinson's disease, and MAYA. 2. Also, refer to the problem list in the ER provider's encounter note. History Reviewed In The Medical Record: Home Medications. Pertinent Social History. Recent OPD/ER Progress Notes. EXAM: Performed via an interactive video with the assistance of the bedside nurse. The Bedside RN is Daylin. VS: T 97. P 74. RR 18. BP 135/74. SPO2 94%. FIO2 room air. GENERAL: Alert and oriented x person, time, place, and situation. Answers questions appropriately. Follows commands normally. No distress was seen. Pain level claimed: 0/10. HEENT: NC/AT. Facial features symmetric. PERRL. EOM function WNL. No jaundice seen. No cyanosis seen. Oropharynx is visualized. No erythema or exudates seen. NECK: Supple. No JVD seen. CHEST: Chest wall is not tender. Respiratory motion appears normal. LUNGS: Breath sounds heard in all lung craft, bilaterally. No coarse rhonchi heard. No wheezes heard. No rales heard. HEART: RRR. No murmurs heard. No gallops heard. Full, symmetric pulses palpated. ABD: Bowel sounds present in 4 quadrants. Soft. No rebound rigidity or guarding palpated. : Not examined. EXTREMITIES: No dependent leg edema seen. SKIN: No rashes seen. No primary skin lesions identified. NEUROLOGICAL: Awake. Oriented x 4. Moves all extremities purposefully or on command. Cranial nerve 2-12 function WNL. Strength symmetric. . No tremors seen. No myoclonus seen. LAB Data: Reviewed. Pertinent results discusses above. EKG: None. RADIOLOGY REPORTS: None. ASSESSMENT: 1. Gross hematuria. 2. Recent diagnosis of UTI/cystitis. 3. Chronic anticoagulation therapy with Xarelto. 4. Urinary retention. At the present time this is primarily due to blood clot formation in the bladder. Prior to this there was some mild urinary obstruction due to prostate cancer, and BPH which resulted in a TURP. 4. Other PMH as listed and discussed above. PLANS: 1. [facility] will provide cross coverage care during this hospitalization. 2. CBI. We will continue the irrigation until the urine is cleared of clots and the urine appears clear and pink. 3. Continue empiric antibiotic coverage for UTI. 4. Continue to hold anticoagulation therapy (Xarelto). 5. Monitor for signs and symptoms of systemic infection. RECOMMENDATIONS: 1. DVT prevention steps. 2. Home medication reconciliation. I have reviewed the case in consultation. Information has been gathered from conversations with the local provider, a review of the patient's chart, and by a patient evaluation. Based on the current information and the patient's current medical condition, I certify the patient meets criteria for: [ ] Acute inpatient status with the expectation of a patient stay of more than 2 midnights, but less than 96 hrs. [ ] Swing bed. [XXX] Observation status with an expected stay of less than 2 midnights. Thank you for including [facility] Hospitalist in the patient's care. This service is available for further assistance as requested by your care team by calling [phone]. 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 (ICD-10) Prostate cancer ?C61 - Malignant neoplasm of prostate (ICD-10) CKD (chronic kidney disease) ?N18.9 - Chronic kidney disease, unspecified (ICD-10) MAYA (obstructive sleep apnea) ?G47.33 - Obstructive sleep apnea (adult) (pediatric) (ICD-10) Parkinson disease ?G20 - Parkinson's disease (ICD-10) Lewy body dementia ?G31.83 - Dementia with Lewy bodies (ICD-10) ?F02.80 - Dementia in other diseases classified elsewhere without behavioral disturbance (ICD-10) Spinal stenosis ?M48.00 - Spinal stenosis, site unspecified (ICD-10) Reflux gastritis ?K29.60 - Other gastritis without bleeding (ICD-10) Diabetes ?E11.9 - Type 2 diabetes mellitus without complications (ICD-10) Hypercholesteremia ?E78.00 - Pure hypercholesterolemia, unspecified (ICD-10) Hypertension ?I10 - Essential (primary) hypertension (ICD-10) Social History What is your current living situation?: I presently have a place to live Problems where you live: no known problems Problems where you live details: n/a In the past 12 months, utilities in danger of being shut off: no In the past 12 mos, have been you worried that your food would run out before you had money to buy more?: never true In the past 12 mos, the food you bought just didn't last and you didn't have money to buy more?: never true Highest level of school completed/degree received: 12th grade, no diploma Smoking Status: Former smoker Do you use any of these nicotine containing products: None Second hand tobacco smoke exposure: No How often do you have a drink containing alcohol: never How often do you have six or more drinks on one occasion: Never AUDIT-C Alcohol total score: 0 Non-prescribed substance use: marijuana (any form) Non-prescribed substance use details: Marijuana in liquid form orally Caffeine: Yes How often does anyone, including family, friends and others, physically hurt you: never How often does anyone, including family, friends and others, insult or talk down to you: never How often does anyone, including family, friends and others, threaten you with harm: never How often does anyone, including family, friends and others, scream or curse at you: never service: Yes ([employer]) Meds Home Medications and Allergies Home Medications Medication Instructions Recorded Confirmed Type carbidopa 25 mg-levodopa 100 mg 1 tab PO TID 01/01/22 12/29/22 History tablet clonazepam 0.5 mg tablet 0.5 mg PO HS 01/01/22 12/29/22 History donepezil 10 mg tablet 10 mg PO HS 01/01/22 12/29/22 History meclizine 25 mg tablet 25 mg PO BID 01/01/22 12/29/22 History metformin 500 mg tablet 500 mg PO BIDWM 01/01/22 12/29/22 History oxybutynin chloride 15 mg 15 mg PO DAILY PRN 01/01/22 12/29/22 History tablet,extended release 24 hr quetiapine 25 mg tablet 50 mg PO HS 01/01/22 12/29/22 History rosuvastatin 20 mg tablet 20 mg PO HS 01/01/22 12/29/22 History glycopyrrolate 1 mg tablet 1 mg PO DAILY 02/14/22 02/15/22 History Lactobacillus acidophilus 10 10 mg PO DAILY 02/15/22 02/15/22 History billion cell capsule (Probiotic) cyanocobalamin (vitamin B-12) 1,000 mcg PO DAILY 02/15/22 12/29/22 History 1,000 mcg tablet nystatin 100,000 unit/gram topical 1 applic topical BID 02/15/22 02/15/22 History ointment Allergies Allergy/AdvReac Type Severity Reaction Status Date / Time bacitracin Allergy Intermediate Verified 12/30/22 10:00 Exam Narrative: Exam Narrative: See consultation note above. Const: Vital Signs, click to edit/add: Vital Signs - 24 hr 12/30/22 23:03 12/31/22 01:38 Temperature 97.0 F L Pulse Rate [Left P ulse Oximeter] 74 Pulse Rate [Pulse Oximeter] 54 L Respiratory Rate 18 18 Blood Pressure [Ri ght Arm] 177/66 H Blood Pressure [Ri ght Upper Arm] 135/74 Pulse Oximetry 94 97 Oxygen Delivery Me thod Room Air Room Air Assessment and Plan Assessment and plan (1) Hematuria: Status: Acute (2) Cystitis: Status: Acute (3) Acute UTI: Status: Acute Plan See consultation note above.
[2022-12-31] MEDS: lidocaine HCL 2 % JELLY (TOP) STERILE 6 ML UR (04:46)
--- NOTE | 2022-12-31 06:39 | PC.NURSE ---
Pt arrived to the floor at 0130. A&O, pleasant and cooperative. Pt denies pain. Complains of SOB, but states ?this happens when I?m worried.? CBI in place and patient. Multiple large clots removed and now draining clear. Pt is A1 w/ walker and gait belt. Pt stated use of both wheelchair and walker at home. Home health aide comes into pt?s house x2 a week to assist with bathing per pt. Pt has a DexCom on outer arm. ?
[2022-12-31 08:10] VITALS: BP 178/83; PULSE 55; RESP 18; TEMP 36.6; O2SAT 96
[2022-12-31] MEDS: CYANOCOBALAMIN (VITAMIN B-12) 500 MCG TABLET 1000 MCG PO (10:57)
[2022-12-31 11:00] VITALS: BP 144/62; PULSE 55; RESP 16; TEMP 36.1; O2SAT 96
[2022-12-31] MEDS: CARBIDOPA-LEVODOPA 25-100 TABLET 2 TAB PO ×2 (13:15→21:23)
--- NOTE | 2022-12-31 13:48 | P.IMHP_ITS ---
Hospitalist- H&P: HPI History of Present Illness Date Seen: 12/31/22 Chief complaint: catheter not running, bladder pain Narrative: Bucky Turpin is a 82 year old male with Parkinson's, Lewy body dementia, history of prostate cancer with radiation treatment and TURP, diabetes mellitus and anticoagulation for pulmonary embolism February 2022 who presents with recurrent episodes of hematuria. Patient reports no significant bladder concerns or issues until 2 days ago when he started having gross hematuria. He was seen in our emergency room. He then developed clots which were probably becoming symptomatic causing some discomfort. Catheter was placed. Catheter became blood with clots and so he return for 3rd trip to the emergency room in the last 2 days for evaluation treatment of that. He was admitted to the hospital and started on continuous bladder irrigation. Overnight he has gone from relatively red urine with clots to relatively clear urine with minimal blood tinge. He is having discomfort from the catheter. He was on Xarelto and this was stopped yesterday so his last dose was Sunday evening, a day and a half ago Approximately 5 years ago he had prostate cancer treated with radiation. He had not had any significant bladder problems after that he was aware of. Also has a remote history of a TURP. His PSA has apparently been suppressed since his radiation therapy. He reports no other concerns and reports generally otherwise being at his baseline health status. Review of Systems Narrative: No other significant recent health concerns except as noted above [facility] Medical History (Updated 12/31/22 @ 14:03 by Robbi Rios MD) History of external beam radiation therapy ?Z92.3 - Personal history of irradiation (ICD-10) Insulin dependent type 2 diabetes mellitus ?E11.9 - Type 2 diabetes mellitus without complications (ICD-10) ?Z79.4 - skilled nursing (current) use of insulin (ICD-10) Prostate cancer ?C61 - Malignant neoplasm of prostate (ICD-10) CKD (chronic kidney disease) ?N18.9 - Chronic kidney disease, unspecified (ICD-10) MAYA (obstructive sleep apnea) ?G47.33 - Obstructive sleep apnea (adult) (pediatric) (ICD-10) Parkinson disease ?G20 - Parkinson's disease (ICD-10) Lewy body dementia ?G31.83 - Dementia with Lewy bodies (ICD-10) ?F02.80 - Dementia in other diseases classified elsewhere without behavioral disturbance (ICD-10) Spinal stenosis ?M48.00 - Spinal stenosis, site unspecified (ICD-10) Reflux gastritis ?K29.60 - Other gastritis without bleeding (ICD-10) Diabetes ?E11.9 - Type 2 diabetes mellitus without complications (ICD-10) Hypercholesteremia ?E78.00 - Pure hypercholesterolemia, unspecified (ICD-10) Hypertension ?I10 - Essential (primary) hypertension (ICD-10) Surgical History (Updated 12/31/22 @ 13:56 by Robbi Rios MD) History of cataract surgery ?Z98.49 - Cataract extraction status, unspecified eye (ICD-10) History of meniscectomy of left knee ?Z98.890 - Other specified postprocedural states (ICD-10) History of total left knee replacement ?Z96.652 - Presence of left artificial knee joint (ICD-10) History of lumbar discectomy ?Z98.890 - Other specified postprocedural states (ICD-10) History of transurethral resection of prostate ?Z98.890 - Other specified postprocedural states (ICD-10) ?Z90.79 - Acquired absence of other genital organ(s) (ICD-10) Family History (Updated 12/31/22 @ 13:57 by Robbi Rios MD) Father Diabetes Cardiovascular disease Social History (Updated 12/31/22 @ 13:58 by Robbi Rios MD) Narrative: He lives with his . They live in their own home. She is with him 24 hours a day except for twice a week she casting room helper to come in to give her some respite. He is able to walk with a walker. Often uses a wheelchair as well. He has limited mobility secondary to right-sided weakness and immobility. He does not smoke. Rarely drinks alcohol. What is your current living situation?: I presently have a place to live Problems where you live: no known problems Problems where you live details: n/a In the past 12 months, utilities in danger of being shut off: no In the past 12 mos, have been you worried that your food would run out before you had money to buy more?: never true In the past 12 mos, the food you bought just didn't last and you didn't have money to buy more?: never true Highest level of school completed/degree received: 12th grade, no diploma Smoking Status: Former smoker Do you use any of these nicotine containing products: None Second hand tobacco smoke exposure: No How often do you have a drink containing alcohol: never How often do you have six or more drinks on one occasion: Never AUDIT-C Alcohol total score: 0 Non-prescribed substance use: marijuana (any form) Non-prescribed substance use details: Marijuana in liquid form orally Caffeine: Yes How often does anyone, including family, friends and others, physically hurt you : never How often does anyone, including family, friends and others, insult or talk down to you: never How often does anyone, including family, friends and others, threaten you with harm: never How often does anyone, including family, friends and others, scream or curse at you: never service: Yes ([employer]) Meds Home Medications and Allergies Home Medications Medication Instructions Recorded Confirmed Type carbidopa 25 mg-levodopa 100 mg 2 tab PO TID 01/01/22 12/31/22 History tablet clonazepam 0.5 mg tablet 0.5 mg PO HS 01/01/22 12/29/22 History donepezil 10 mg tablet 10 mg PO HS 01/01/22 12/31/22 History meclizine 25 mg tablet 25 mg PO BID 01/01/22 12/29/22 History metformin 500 mg tablet 500 mg PO BIDWM 01/01/22 12/31/22 History oxybutynin chloride 15 mg 15 mg PO DAILY PRN 01/01/22 12/31/22 History tablet,extended release 24 hr quetiapine 25 mg tablet 50 mg PO HS 01/01/22 12/29/22 History rosuvastatin 20 mg tablet 20 mg PO HS 01/01/22 12/31/22 History glycopyrrolate 1 mg tablet 1 mg PO DAILY 02/14/22 12/31/22 History Lactobacillus acidophilus 10 10 mg PO DAILY 02/15/22 12/31/22 History billion cell capsule (Probiotic) cyanocobalamin (vitamin B-12) 1,000 mcg PO DAILY 02/15/22 12/31/22 History 1,000 mcg tablet nystatin 100,000 unit/gram topical 1 applic topical BID 02/15/22 12/31/22 History ointment insulin aspart U-100 100 unit/mL 5 unit subcut DAILY@1200 12/31/22 12/31/22 History (3 mL) subcutaneous pen (Novolog FlexPen U-100 Insulin aspart) insulin aspart U-100 100 unit/mL 6 unit subcut DAILY@0800 12/31/22 12/31/22 History (3 mL) subcutaneous pen (Novolog FlexPen U-100 Insulin aspart) Allergies Allergy/AdvReac Type Severity Reaction Status Date / Time bacitracin Allergy Intermediate Verified 12/30/22 10:00 Exam Narrative: Exam Narrative: He is alert and appears in no distress. Gives his own history. He is oriented to his circumstances. He has some difficulty recalling significant past medical history. is managing his medications and gives all the details of medical management of those. Head is without trauma. Eyes normal. Oropharynx with small airway. Neck is supple without mass or adenopathy. Respirations are clear to auscultation. Cardiovascular: S1, S2, regular rate and rhythm. No murmur gallop or rub. Abdomen: Bowel sounds active. Abdomen is soft without tenderness or mass. External genitalia normal. Three way irrigation catheter in his penis. Penis appears normal without significant drainage or redness. Catheter is draining a relatively clear yellow urine with a pink tinge to the urine color. Extremities without significant edema. He moves all 4 extremities well. Mild resting tremor Const: Vital Signs, click to edit/add: Vital Signs - 24 hr 12/30/22 23:03 12/31/22 01:38 12/31/22 08:10 Temperature 97.0 F L Pulse Rate [Left P ulse Oximeter] 74 Pulse Rate [Pulse Oximeter] 54 L 55 L Respiratory Rate 18 18 18 Blood Pressure [Ri ght Arm] 177/66 H Blood Pressure [Ri ght Upper Arm] 135/74 Pulse Oximetry 94 97 Oxygen Delivery Me thod Room Air Room Air 12/31/22 08:10 12/31/22 11:00 Temperature 97.8 F 97.0 F L Pulse Rate [Left P ulse Oximeter] Pulse Rate [Pulse Oximeter] 55 L 55 L Respiratory Rate 18 16 Blood Pressure [Ri ght Arm] 178/83 H 144/62 H Blood Pressure [Ri ght Upper Arm] Pulse Oximetry 96 96 Oxygen Delivery Me thod Room Air Room Air Documenting provider has reviewed patient's vital signs: yes Assessment and Plan Assessment and plan (1) Hematuria: Problem comment: Continue 3 way bladder irrigation until clear. Pull catheter in the morning if doing well and assess whether patient can void. Hold rivaroxaban. Likely bleeding will improve off rivaroxaban. Refer to outpatient urology for further evaluation of hematuria. Would like to manage without use of a catheter. Status: Acute (2) Bladder spasm: Problem comment: Having bladder discomfort from bladder outlet obstruction and urethral discomfort from Dimas catheter Status: Acute (3) Acute urinary retention: Problem comment: Due to blood clots. Now improved with successful irrigation Status: Acute (4) Pulmonary embolism: Problem comment: Started on Rivaroxaban on 02/15 for pulmonary embolism. No obvious trigger so high risk for recurrence. Outpatient follow-up with primary care to discuss whether and when rivaroxaban or antiplatelet therapy should be resumed Status: Acute (5) Lewy body dementia: Problem comment: Very pleasant. No behavioral problems. Appears to be relatively mild Status: Chronic (6) Weakness: Problem comment: Significant weakness contributing to immobility. Based on patient's history I wonder whether there was a stroke that occurred last February coincidental with his pulmonary embolism Status: Acute (7) Lymphedema: Problem comment: Minimal today Status: Acute Plan Patient is admitted to the hospital for management of bladder irrigation for his gross hematuria and bladder outlet obstruction from blood clots. Will hold Xarelto and if doing well and able to void without a catheter will discharge tomorrow for outpatient follow-up. Total time spent today is 75 minutes, 50 minutes in coordination of care and discussing with patient and ongoing evaluation management of hematuria and bladder obstruction.
[2022-12-31] MEDS: cephALEXin 500 MG CAPSULE PO ×2 (14:53→21:24)
--- NOTE | 2022-12-31 14:59 | PC.NURSE ---
End of shift nursing note, care provided from [id number]: Pt alert and oriented to questions but intermit forgetful/confused, pt dx of dementia, states is baseline that pt intermit hallucinates and is confused, this afternoon pt stated he thought ngo were outside his window. Pt's vitals stable, on RA. Stated intermit discomfort to penis from catheter, tolerable and secured. Pt up w/ Ax2 for maneuvering IV pole w/ CBI, GB and walker. Pt had continent BM this AM in toilet. Pt tolerating diet, denies nausea. Blood sugars checked, SSI admin. Pt had daughter, son-in-law and visit this shift, remains at bedside. Pt con't on CBI, intermit pink/light red drainage, clears to clear in tubing then pink, no manual irrigation necessary this shift, cath con't to be patent, adequate output this shift. Ok per to not place IV at this time as no indication. Meds crushed in pudding per baseline. Bed/chair alarm on for safety promotion, call light within reach.
[2022-12-31 15:30] VITALS: BP 155/71; PULSE 55; RESP 16; TEMP 36; O2SAT 95
[2022-12-31] MEDS: METFORMIN 500 MG TABLET PO (17:30)
--- NOTE | 2022-12-31 18:52 | PC.NURSE ---
Pt calm and cooperative during shift (15-19). Pt had no complaints of pain. Pt?s at bedside for most of shift. Pt?s CBI is patent and clear drainage with some small clots.? ?
[2022-12-31 19:52] VITALS: BP 143/51; PULSE 52; RESP 18; TEMP 36.4; O2SAT 93
[2022-12-31] MEDS: DONEPEZIL 10 MG TABLET PO (21:23)
[2022-12-31] MEDS: oxyBUTYnin chloride 5 MG TAB.ER.24 15 MG PO (21:23)
[2022-12-31] MEDS: NYSTATIN CREAM 30 GM TOPICAL (21:24)
[2022-12-31] MEDS: ROSUVASTATIN CALCIUM 10 MG TABLET 20 MG PO (21:24)
[2022-12-31] MEDS: SENNOSIDES/DOCUSATE TABLET 1 TAB PO (21:24)
[2022-12-31 23:04] VITALS: BP 134/65; PULSE 53; RESP 18; TEMP 36.3; O2SAT 91
[2023-01-01 03:53] VITALS: BP 136/59; PULSE 54; RESP 18; TEMP 36.3; O2SAT 91
--- NOTE | 2023-01-01 06:57 | PC.NURSE ---
End of shift: Pt alert to self w/ bouts of confusion. Overnight pt was calling out for but was able to be reorientated. VSS w/ sas >90% on RA. Pt denies pain but mentions ?slight discomfort? in groin area where the catheter is placed. CBI has been patent w/ light pink drainage. Catheter pulled this am per MD order. Turn and repo q2h while in bed.
[2023-01-01 08:12] VITALS: BP 136/70; PULSE 55; RESP 18; TEMP 36.4; O2SAT 94
[2023-01-01] MEDS: CYANOCOBALAMIN (VITAMIN B-12) 500 MCG TABLET 1000 MCG PO (08:21)
[2023-01-01] MEDS: SENNOSIDES/DOCUSATE TABLET 1 TAB PO (08:21)
[2023-01-01] MEDS: METFORMIN 500 MG TABLET PO (08:21)
[2023-01-01] MEDS: GLYCOPYRROLATE 1 MG TABLET PO (08:22)
[2023-01-01] MEDS: cephALEXin 500 MG CAPSULE PO (08:22)
[2023-01-01] MEDS: LACTOBACILLUS ACIDOPHILUS 1 TABLET 1 TAB PO (08:22)
[2023-01-01] MEDS: CARBIDOPA-LEVODOPA 25-100 TABLET 2 TAB PO (08:22)
[2023-01-01] MEDS: NYSTATIN CREAM 30 GM TOPICAL (08:22)
--- NOTE | 2023-01-01 09:41 | NUTR.NU ---
RDN with nutrition screen for diabetic diet and dx of type 2 diabetes mellitus. Diabetic diet education provided patient and his designated caregiver. Discussed basics of carbohydrate counting including sources of carbohydrates, serving sizes, and label reading. Discussed using the plate method for carbohydrate-controlled, balanced meals that include ? plate non-starchy vegetables, ? plate protein, and 3-4 servings of carbohydrates per meal (fruit, whole grains, legumes, milk, yogurt) and 1-2 per snack. Patient was also encouraged to keep timing of meals consistent and avoid skipping meals. Handouts provided to support discussion. Patient and designated caregiver report that the patient has had diabetes education in the past and is very familiar with this diet. RDN contact information provided and encouraged patient to call with questions. RDN to follow up as needed.
[2023-01-01 11:15] VITALS: BP 139/83; PULSE 58; RESP 16; TEMP 36.4; O2SAT 94
--- NOTE | 2023-01-01 11:19 | PM.DS1 ---
DS: Providers Provider Date Seen: 01/01/23 Date of admission: 12/31/22 01:22 Primary care physician: Joi Zavala MD Admitting Clinician: Bucky Saeed MD Attending Physician on discharge: Yohan Rios MD Date of Discharge: 01/01/23 DS: Diagnosis Discharge Diagnosis (1) Hematuria: Status: Acute Problem details: Patient seen on recurrent visits to the emergency department for hematuria. Admitted for bladder irrigation. Rivaroxaban discontinued. Hematuria resolved. Catheter removed this morning. Patient was able to void this morning with a 100 mL postvoid residual. (2) Acute urinary retention: Status: Acute Problem details: Due to blood clots. Now improved with successful irrigation. (3) Pulmonary embolism: Status: Acute Problem details: Started on Rivaroxaban on 02/15 for pulmonary embolism. No obvious trigger so high risk for recurrence. Rivaroxaban discontinue the hospital. Outpatient follow-up with primary care to discuss whether and when rivaroxaban or antiplatelet therapy should be resumed (4) Lewy body dementia: Status: Chronic Problem details: Very pleasant. No behavioral problems. Appears to be relatively mild (5) Weakness: Status: Acute Problem details: Significant weakness contributing to immobility. Based on patient's history I wonder whether there was a stroke that occurred last February coincidental with his pulmonary embolism. [place] to be at baseline functioning during this hospital stay DS: Summary Hospital Course Hospital Course: Patient with history of prostate cancer treated with radiation admitted to the hospital with hematuria and bladder outlet obstruction due to blood clots. He had been on Xarelto for a pulmonary embolism in February 2022. This was discontinued. Had continuous bladder irrigation with resolution of hematuria. Catheter was removed this morning. He was able to void this morning with a 100 mL postvoid residual. Otherwise back to baseline. Recommend outpatient follow-up with primary care and Urology. Status at Discharge Functional status at discharge: uses cane/walker Overall status at discharge: patient is back to baseline Time Spent with Patient Time attestation: Total time spent providing and/or coordinating discharge services: Time spent: Greater than 30 minutes Exam Narrative: Exam Narrative: He is alert and appears in no distress. Respirations clear to auscultation. Cardiovascular: S1, S2, regular rate and rhythm. Abdomen is soft without tenderness or mass. Const: Vital Signs, click to edit/add: Vital Signs - 24 hr 12/31/22 15:30 12/31/22 19:52 12/31/22 23:04 Temperature 96.8 F L 97.6 F 97.4 F L Pulse Rate [Pulse Oximeter] 55 L 52 L 53 L Respiratory Rate 16 18 18 Blood Pressure [Ri ght Arm] 155/71 H 143/51 H 134/65 Pulse Oximetry 95 93 91 Oxygen Delivery Me thod Room Air Room Air Room Air 01/01/23 03:53 01/01/23 08:12 Temperature 97.4 F L 97.5 F L Pulse Rate [Pulse Oximeter] 54 L 55 L Respiratory Rate 18 18 Blood Pressure [Ri ght Arm] 136/59 L 136/70 Pulse Oximetry 91 94 Oxygen Delivery Me thod Room Air Room Air Documenting provider has reviewed patient's vital signs: yes Discharge Plan Discharge Disposition: Home w/ Parent or Adult Date of Admission: 12/31/22 01:22 Attending Provider on Discharge: Robbi Rios Primary Care Provider: Joi Zavala Condition: Improved Anticipated Discharge Date/Time: 01/01/23 13:00 Discharge Medications: Continued glycopyrrolate 1 mg tablet 1 mg PO DAILY nystatin 100,000 unit/gram ointment 1 applic TOPICAL BID Rx Instructions: MIXED WITH DESITIN AND A0 OINTMENT cyanocobalamin (vitamin B-12) 1,000 mcg tablet 1,000 mcg PO DAILY Probiotic 10 billion cell capsule 10 mg PO DAILY insulin aspart U-100 [Novolog FlexPen U-100 Insulin] 100 unit/mL (3 mL) Insulin Pen 6 unit subcut DAILY@1800 Qty: 15 0RF insulin aspart U-100 [Novolog FlexPen U-100 Insulin] 100 unit/mL (3 mL) Insulin Pen See Rx Instructions .ROUTE .COMPLEX Qty: 15 0RF Rx Instructions: Blood Glucose 150 or less No coverage Blood Glucose 151-200 1 unit Blood Glucose 201-250 2 units Blood Glucose 251-300 3 units Blood Glucose 301-350 4 units Blood Glucose 351 to 400 5 units Blood Glucose 401 and greater 6 units and recheck in 2 hours nystatin 100,000 unit/gram Powder 1 applic topical TID Qty: 15 0RF sennosides-docusate sodium [Stool Softener-Laxative] 8.6-50 mg Tablet 1 tab PO BID Qty: 60 0RF insulin aspart U-100 [Novolog FlexPen U-100 Insulin] 100 unit/mL (3 mL) Insulin Pen 5 unit subcut DAILY@1200 insulin aspart U-100 [Novolog FlexPen U-100 Insulin] 100 unit/mL (3 mL) Insulin Pen 6 unit subcut DAILY@0800 insulin glargine [Lantus Solostar U-100 Insulin] 100 unit/mL (3 mL) insulin pen 12 unit subcut HS metformin 500 mg tablet 500 mg PO BIDWM oxybutynin chloride 15 mg tablet extended release 24hr 15 mg PO DAILY PRN donepezil 10 mg tablet 10 mg PO HS clonazepam 0.5 mg tablet 0.5 mg PO HS meclizine 25 mg tablet 25 mg PO BID PRN carbidopa-levodopa 25-100 mg tablet 2 tab PO TID rosuvastatin 20 mg tablet 20 mg PO HS Discharge Orders: Discharge Order (Routine); Ordered 01/01/23 Ordered By: Robbi Rios Additional Instructions: See your doctor in one week to recheck your bleeding and bladder problems. You will also need to get an appointment with your urologist at next available appointment. Stop taking rivaroxaban/Xarelto. Activity Level: Up with assist and Use Walker Discharge Diet: Diabetic Follow Up Appointments: Joi Zavala MD [Primary Care Provider] - Forms: [email or web address] Info Instructions
--- NOTE | 2023-01-01 12:58 | PC.NURSE ---
Pt calm and cooperative during shift. VSS. Pt oriented to self and place. Pt SBA with walker. Family at bedside. After the catheter was removed Pt was able to void and have a large bowel movement. Pt bladder scanned after void and captured 100cc residual as highest amount. Pt discharged home and was ?accompanied by his daughter in law.?
== END 2023-01-01 12:45 | disposition home or self-care (01) ==
LOC: ED 12-31 01:06 → MEDSURG 12-31 01:23
PROVIDERS: Admitting Provider Family Medicine; Emergency Provider Family Medicine; PCP Family Medicine; Visit Provider Family Medicine
DX: N30.90 Cystitis, unspecified without hematuria (principal); R31.9 Hematuria, unspecified; R33.8 Other retention of urine; I26.99 Other pulmonary embolism without acute cor pulmonale; G31.83 Neurocognitive disorder with Lewy bodies; F02.80 Dementia in other diseases classified elsewhere, unspecified severity, without behavioral disturbance, psychotic disturbance, mood disturbance, and anxiety; E11.9 Type 2 diabetes mellitus without complications; Z79.84 Long term (current) use of oral hypoglycemic drugs; Z79.4 Long term (current) use of insulin; Z85.46 Personal history of malignant neoplasm of prostate; I89.0 Lymphedema, not elsewhere classified
CPT/HCPCS: 51798; 82962; 99253; 99284; A9270; G0378

== ENCOUNTER 2023-03-13 12:24 | Emergency (ER) | payer MEDICARE, SELFPAY ==
[2023-03-13] VITALS (18 sets, daily range): BP systolic 128–167; BP diastolic 62–81; PULSE 51–87; RESP 19; TEMP 37; O2SAT 87–95; BMI 36.3
[2023-03-13 13:29] LABS: PCR FLU A Negative PCR FLU A (Negative); PCR FLU B Negative PCR FLU B (Negative); PCR RSV Negative PCR RSV (Negative)
--- NOTE | 2023-03-13 13:35 | CRLHL7_ITS ---
For Patients: As a result of the Century Cures Act, medical imaging exams and procedure reports are released immediately into your electronic medical record. You may view this report before your referring provider. If you have questions, please contact your health care provider. Indication: Shortness of breath Technique: Chest 1 view Comparison: Chest x-ray 05/24/2022 Findings/Impression: Cardiovascular and mediastinum: Upper normal heart size with aortic tortuosity and atherosclerotic calcification. Lungs and pleural space: Hyperaeration without pleural effusion or pneumothorax. Some basilar discoid atelectasis as well as slight bronchial wall thickening which can be seen in bronchitis or reactive airways disease. Bones and soft tissues: Attachment hooks partially included within the right proximal humerus. 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 Dictated by John Beal MD @ 03/13/2023 2:48:02 PM (Electronically Signed)
--- NOTE | 2023-03-13 13:36 | ED.SOB ---
HPI - SOB/Dyspnea General Chief Complaint: Shortness of Breath/Dyspnea Stated Complaint: Short of breath Time Seen by Provider: 03/13/23 13:12 History of Present Illness HPI Narrative: This 82-year-old male comes in with family members reporting some increased shortness of breath since yesterday. He does have an occasional cough but no report of fever. He also had some nausea this morning. He does have oxygen at home and family member state that he typically can function without oxygen for a bit when he goes out. Today he did go to a dentist appointment and he had increased shortness of breath and generalized weakness. He does not report any pain but he feels like there is pressure on his diaphragm. The patient has Lewy body dementia and his history giving is decreased. He does have a history of pulmonary embolism about a year ago and is no longer taking any anticoagulants. Related Data Home Medications Medication Instructions Recorded Confirmed carbidopa 25 mg-levodopa 100 mg 2 tab PO TID 01/01/22 12/31/22 tablet clonazepam 0.5 mg tablet 0.5 mg PO HS 01/01/22 01/01/23 donepezil 10 mg tablet 10 mg PO HS 01/01/22 12/31/22 meclizine 25 mg tablet 25 mg PO BID PRN 01/01/22 01/01/23 metformin 500 mg tablet 500 mg PO BIDWM 01/01/22 12/31/22 oxybutynin chloride 15 mg 15 mg PO DAILY PRN 01/01/22 12/31/22 tablet,extended release 24 hr rosuvastatin 20 mg tablet 20 mg PO HS 01/01/22 12/31/22 glycopyrrolate 1 mg tablet 1 mg PO DAILY 02/14/22 12/31/22 Lactobacillus acidophilus 10 10 mg PO DAILY 02/15/22 12/31/22 billion cell capsule (Probiotic) cyanocobalamin (vitamin B-12) 1,000 mcg PO DAILY 02/15/22 12/31/22 1,000 mcg tablet nystatin 100,000 unit/gram topical 1 applic topical BID 02/15/22 12/31/22 ointment insulin aspart U-100 100 unit/mL 5 unit subcut DAILY@1200 12/31/22 12/31/22 (3 mL) subcutaneous pen (Novolog FlexPen U-100 Insulin aspart) insulin aspart U-100 100 unit/mL 6 unit subcut DAILY@0800 12/31/22 12/31/22 (3 mL) subcutaneous pen (Novolog FlexPen U-100 Insulin aspart) insulin glargine 100 unit/mL (3 12 unit subcut HS 01/01/23 01/01/23 mL) subcutaneous pen (Lantus Solostar U-100 Insulin) Previous Rx's Medication Instructions Recorded insulin aspart U-100 100 unit/mL 6 unit (0.06 mL) subcut DAILY@1800 02/21/22 (3 mL) subcutaneous pen (Novolog #15 mL FlexPen U-100 Insulin aspart) insulin aspart U-100 100 unit/mL See Rx Instructions .Route 02/21/22 (3 mL) subcutaneous pen (Novolog .COMPLEX #15 mL FlexPen U-100 Insulin aspart) nystatin 100,000 unit/gram topical 1 applic topical TID #15 grams 02/21/22 powder sennosides 8.6 mg-docusate sodium 1 tab PO BID #60 tabs 02/21/22 50 mg tablet (Stool Softener-Laxative) levofloxacin 500 mg tablet 500 mg PO DAILY 10 days #10 tabs 03/13/23 Allergies Allergy/AdvReac Type Severity Reaction Status Date / Time bacitracin Allergy Intermediate Verified 03/13/23 15:50 Review of Systems Status of ROS: Reports: 10 or more systems reviewed and unremarkable except as noted in History and below Narrative: Constitutional: No fevers, no weight gain or loss. Eyes: No discharge. No vision changes. HENT: No congestion, no sore throat, no ear pain. Cardiovascular: No chest pain, no palpitations. Respiratory: No wheezes, no cough. Shortness of breath that is worsened when bending forward. Gastrointestinal: No abdominal pain, no vomiting, no diarrhea. Genitourinary: No dysuria, no hematuria. Musculoskeletal: Normal range of motion. Skin: No rashes, no pruritis. Neurological: No dizziness, weakness, sensory change, speech change. Endo/Heme/Allergies: No bruising or bleeding. No polydipsia. Pysch: no suicidality, no anxiety, no insomnia. All other systems reviewed and are negative. [facility] Medical History (Updated 03/13/23 @ 17:23 by Rashard Hartman MD) Weakness ?R53.1 - Weakness (ICD-10) Lymphedema ?I89.0 - Lymphedema, not elsewhere classified (ICD-10) Pulmonary embolism ?I26.99 - Other pulmonary embolism without acute cor pulmonale (ICD-10) History of external beam radiation therapy ?Z92.3 - Personal history of irradiation (ICD-10) Insulin dependent type 2 diabetes mellitus ?E11.9 - Type 2 diabetes mellitus without complications (ICD-10) ?Z79.4 - intermediate card tender (current) use of insulin (ICD-10) Prostate cancer ?C61 - Malignant neoplasm of prostate (ICD-10) CKD (chronic kidney disease) ?N18.9 - Chronic kidney disease, unspecified (ICD-10) MAYA (obstructive sleep apnea) ?G47.33 - Obstructive sleep apnea (adult) (pediatric) (ICD-10) Parkinson disease ?G20 - Parkinson's disease (ICD-10) Lewy body dementia ?G31.83 - Dementia with Lewy bodies (ICD-10) ?F02.80 - Dementia in other diseases classified elsewhere without behavioral disturbance (ICD-10) Spinal stenosis ?M48.00 - Spinal stenosis, site unspecified (ICD-10) Reflux gastritis ?K29.60 - Other gastritis without bleeding (ICD-10) Diabetes ?E11.9 - Type 2 diabetes mellitus without complications (ICD-10) Hypercholesteremia ?E78.00 - Pure hypercholesterolemia, unspecified (ICD-10) Hypertension ?I10 - Essential (primary) hypertension (ICD-10) Surgical History (Updated 12/31/22 @ 13:56 by Robbi Rios MD) History of cataract surgery ?Z98.49 - Cataract extraction status, unspecified eye (ICD-10) History of meniscectomy of left knee ?Z98.890 - Other specified postprocedural states (ICD-10) History of total left knee replacement ?Z96.652 - Presence of left artificial knee joint (ICD-10) History of lumbar discectomy ?Z98.890 - Other specified postprocedural states (ICD-10) History of transurethral resection of prostate ?Z98.890 - Other specified postprocedural states (ICD-10) ?Z90.79 - Acquired absence of other genital organ(s) (ICD-10) Family History (Updated 12/31/22 @ 13:57 by Robbi Rios MD) Father Diabetes Cardiovascular disease Social History (Updated 12/31/22 @ 13:58 by Robbi Rios MD) Narrative: He lives with his . They live in their own home. She is with him 24 hours a day except for twice a week she ice cream freezer helper to come in to give her some respite. He is able to walk with a walker. Often uses a wheelchair as well. He has limited mobility secondary to right-sided weakness and immobility. He does not smoke. Rarely drinks alcohol. What is your current living situation?: I presently have a place to live Problems where you live: no known problems Problems where you live details: n/a In the past 12 months, utilities in danger of being shut off: no In past 12 months, lack of transportation kept you from medical appts, meetings, work, or getting things needed for daily living: no In the past 12 mos, have been you worried that your food would run out before you had money to buy more?: never true In the past 12 mos, the food you bought just didn't last and you didn't have money to buy more?: never true Highest level of school completed/degree received: 12th grade, no diploma Smoking Status: Former smoker Do you use any of these nicotine containing products: None Second hand tobacco smoke exposure: No How often do you have a drink containing alcohol: never How often do you have six or more drinks on one occasion: Never AUDIT-C Alcohol total score: 0 Non-prescribed substance use: marijuana (any form) Non-prescribed substance use details: Marijuana in liquid form orally Caffeine: Yes How often does anyone, including family, friends and others, physically hurt you: never How often does anyone, including family, friends and others, insult or talk down to you: never How often does anyone, including family, friends and others, threaten you with harm: never How often does anyone, including family, friends and others, scream or curse at you: never service: Yes ([employer]) Exam Narrative: Exam Narrative: Constitutional: Well-developed, well-nourished, no acute distress. HEENT: Normocephalic, atraumatic. Neck: Normal range of motion. Nontender. Supple. No jugular venous distention. Heart: Regular. No murmurs. Normal rate. Intact distal pulses. Lungs: Clear to auscultation. No chest discomfort. No wheezes, rhonchi, or rales. Abdomen: Normal bowel sounds. Nontender. No rebound tenderness. Genitalia: Deferred. Back: No midline tenderness. Normal range of motion. Extremities: Normal range of motion. No injury. No pedal edema. Skin: Intact. No rash. Warm. No erythema or pallor. Neurologic: No altered sensation. No weakness. Alert. Nursing notes and vitals signs are reviewed. Const: Vital Signs, click to edit/add: Vital Signs - 24 hr 03/13/23 12:31 03/13/23 13:34 03/13/23 13:35 Temperature 98.6 F Pulse Rate 62 71 Pulse Rate [Pulse Oximeter] 87 Respiratory Rate 19 Blood Pressure 136/81 Blood Pressure [Ri ght Upper Arm] 128/62 Pulse Oximetry 89 91 87 L Oxygen Delivery Me thod Room Air 03/13/23 13:45 03/13/23 14:09 03/13/23 14:15 Temperature Pulse Rate 61 60 64 Pulse Rate [Pulse Oximeter] Respiratory Rate Blood Pressure Blood Pressure [Ri ght Upper Arm] Pulse Oximetry 90 92 90 Oxygen Delivery Me thod 03/13/23 14:30 03/13/23 14:45 03/13/23 15:19 Temperature Pulse Rate 59 L 66 60 Pulse Rate [Pulse Oximeter] Respiratory Rate Blood Pressure Blood Pressure [Ri ght Upper Arm] Pulse Oximetry 92 88 91 Oxygen Delivery Me thod 03/13/23 15:30 03/13/23 15:48 03/13/23 16:00 Temperature Pulse Rate 57 L 66 56 L Pulse Rate [Pulse Oximeter] Respiratory Rate Blood Pressure Blood Pressure [Ri ght Upper Arm] Pulse Oximetry 92 95 94 Oxygen Delivery Me thod 03/13/23 16:03 03/13/23 16:31 03/13/23 16:47 Temperature Pulse Rate 56 L 57 L Pulse Rate [Pulse Oximeter] Respiratory Rate Blood Pressure 164/75 H 152/73 H Blood Pressure [Ri ght Upper Arm] Pulse Oximetry 94 94 Oxygen Delivery Me thod Course Vital Signs Vital signs: Initial Vital Signs Temperature 98.6 F 03/13/23 12:31 Temperature Source Temporal Artery Scan 03/13/23 12:31 Pulse Rate 87 03/13/23 12:31 Respiratory Rate 19 03/13/23 12:31 Blood Pressure 128/62 03/13/23 12:31 Blood Pressure Mean 84 03/13/23 12:31 Pulse Oximetry 89 03/13/23 12:31 Oxygen Delivery Method Room Air 03/13/23 12:31 Vital Signs Temperature 98.6 F 03/13/23 12:31 Pulse Rate 87 03/13/23 12:31 Respiratory Rate 19 03/13/23 12:31 Blood Pressure 128/62 03/13/23 12:31 Pulse Oximetry 89 03/13/23 12:31 Oxygen Delivery Method Room Air 03/13/23 12:31 Temperature 98.6 F 03/13/23 12:31 Pulse Rate 57 L 03/13/23 16:47 Respiratory Rate 19 03/13/23 12:31 Blood Pressure 152/73 H 03/13/23 16:31 Pulse Oximetry 94 03/13/23 16:47 Oxygen Delivery Method Room Air 03/13/23 12:31 MDM - SOB/Dyspnea MDM Narrative Medical decision making narrative: This patient comes in with feeling of increased shortness of breath and does have an occasional cough. He does use oxygen at home as needed. At the time of my recheck his oximetry is at 94-95% on room air at rest. An IV was established and labs are acquired. Is notable that his white count returned elevated at around 17,000. Additionally his D-dimer is elevated at around 2. The patient does have a history of pulmonary embolism and is no longer taking anticoagulants. A CT scan of the chest with contrast is an acquired and does not show any sign of pulmonary embolism. There is a possibility of evolving infiltrate. This would concur with his leukocytosis. This patient is interested in returning home. As I said he does have a home oxygen if needed. He did receive an oral tablet of Levaquin 500 mg and a prescription for the same. He does have a follow-up with his primary physician in 3 days. Lab Data Labs: Lab Results 03/13/23 03/13/23 Range/Units 12:40 14:05 WBC 17.21 H (4.50-11.00) K/uL RBC 4.45 (4.30-5.90) m/uL Hgb 13.4 L (13.5-17.5) gm/dL Hct 42.1 (37.0-53.0) % MCV 95 (80-100) fL MCH 30 (26-34) pg MCHC 32 (32-36) gm/dL RDW Coeff of Jorge 13.4 (11.5-15.5) % Plt Count 186 (140-440) K/uL Neut % (Auto) 73.0 H (42.0-72.0) % Lymph % (Auto) 19.9 L (20-44) % Maury % (Auto) 6.7 (0.0-11.0) % Eos % (Auto) 0.1 (0.0-7.0) % Baso % (Auto) 0.1 (0.0-3.0) % Neut # (Auto) 12.60 H (1.7-7.0) K/uL Lymph # (Auto) 3.40 H (0.90-2.90) K/uL Maury # (Auto) 1.20 H (0.00-0.90) K/UL Eos # (Auto) 0.00 (0.00-0.50) K/uL Baso # (Auto) 0.00 (0.00-0.30) K/uL Abs Immat Gran (auto) 0.00 (0.00-0.30) K/uL Imm/Tot Granulo (auto) 0.2 % D-Dimer Quant (PE/DVT) 2.46 H (0.00-0.50) ug/ml Sodium 137 (135-149) mmol/L Potassium 4.5 (3.6-5.1) mmol/L Chloride 104 (96-114) mmol/L Carbon Dioxide 24 (20-32) mmol/L Anion Gap 9 (7-15) mEq/L BUN 25 (7-30) mg/dL Creatinine 1.2 (0.5-1.5) mg/dL Estimated Creat Clear 43.57 Estimated GFR 61 ml/min Glucose 248 H (60-115) mg/dL Calcium 8.6 (8.4-10.6) mg/dL NT-Pro-B Natriuret Pep 708 pg/mL SARS-CoV-2 (PCR) Negative SARS-CoV-2 (Negative) Influenza Type A (PCR) Negative PCR FLU A (Negative) Influenza Type B (PCR) Negative PCR FLU B (Negative) RSV (PCR) Negative PCR RSV (Negative) POC Troponin I 0.00 L (0.01-0.04) ng/ml Imaging Data Chest x-ray: Radiologist's impression: Cardiovascular and mediastinum: Upper normal heart size with aortic tortuosity and atherosclerotic calcification. Lungs and pleural space: Hyperaeration without pleural effusion or pneumothorax. Some basilar discoid atelectasis as well as slight bronchial wall thickening which can be seen in bronchitis or reactive airways disease. Bones and soft tissues: Attachment hooks partially included within the right proximal humerus. 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 CT scan - chest: Radiologist's impression: Patchy airspace opacities in the right lower lobe may reflect aspiration, infection. No pulmonary embolism identified. ECG Data Attestation: I personally reviewed and interpreted this ECG as follows: Interpretation: Normal sinus rhythm. Rate is 62 beats per minute. There are no ST or T-wave abnormalities. First degree AV block. Discharge Plan Discharge Clinical Impression: Pneumonia Patient Disposition: Home w/ Parent or Adult Condition: Stable Additional Instructions: Take medication as prescribed. Hold donezepil while taking Levaquin. Continue current plans otherwise. Follow up with MD as scheduled or return if worsening symptoms occur. Prescriptions: New levofloxacin 500 mg tablet 500 mg PO DAILY 10 Days Qty: 10 0RF No Action glycopyrrolate 1 mg tablet 1 mg PO DAILY nystatin 100,000 unit/gram ointment 1 applic TOPICAL BID Rx Instructions: MIXED WITH DESITIN AND A0 OINTMENT cyanocobalamin (vitamin B-12) 1,000 mcg tablet 1,000 mcg PO DAILY Probiotic 10 billion cell capsule 10 mg PO DAILY insulin aspart U-100 [Novolog FlexPen U-100 Insulin] 100 unit/mL (3 mL) Insulin Pen 6 unit subcut DAILY@1800 Qty: 15 0RF insulin aspart U-100 [Novolog FlexPen U-100 Insulin] 100 unit/mL (3 mL) Insulin Pen See Rx Instructions .ROUTE .COMPLEX Qty: 15 0RF Rx Instructions: Blood Glucose 150 or less No coverage Blood Glucose 151-200 1 unit Blood Glucose 201-250 2 units Blood Glucose 251-300 3 units Blood Glucose 301-350 4 units Blood Glucose 351 to 400 5 units Blood Glucose 401 and greater 6 units and recheck in 2 hours nystatin 100,000 unit/gram Powder 1 applic topical TID Qty: 15 0RF sennosides-docusate sodium [Stool Softener-Laxative] 8.6-50 mg Tablet 1 tab PO BID Qty: 60 0RF insulin aspart U-100 [Novolog FlexPen U-100 Insulin] 100 unit/mL (3 mL) Insulin Pen 5 unit subcut DAILY@1200 insulin aspart U-100 [Novolog FlexPen U-100 Insulin] 100 unit/mL (3 mL) Insulin Pen 6 unit subcut DAILY@0800 insulin glargine [Lantus Solostar U-100 Insulin] 100 unit/mL (3 mL) insulin pen 12 unit subcut HS metformin 500 mg tablet 500 mg PO BIDWM oxybutynin chloride 15 mg tablet extended release 24hr 15 mg PO DAILY PRN donepezil 10 mg tablet 10 mg PO HS clonazepam 0.5 mg tablet 0.5 mg PO HS meclizine 25 mg tablet 25 mg PO BID PRN carbidopa-levodopa 25-100 mg tablet 2 tab PO TID rosuvastatin 20 mg tablet 20 mg PO HS Follow Up/Referrals: Joi Zavala MD [Primary Care Provider] - Stand Alone Forms: [facility] Info Instructions
--- OUTSIDE RECORDS SUMMARY | 2023-03-13 13:38 | XMS_ITS | Continuity of Care Document ---
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 [facility], [address], [place], [address], [place]. [phone] Office/Outpa tient Visit,New, Mod [facility], [address], [place], [place], [id number], [place] tel:[phone] [facility] [place] Spinal stenosis, lumbar region with neurogenic claudication 9 Lit Richards. [facility], [address] [place] [address] [address], [place], [place], [id number] , [place]. [phone] Referring Provider: Robbi Martin, [facility] [address], [place], [address]. [phone] [facility], [address], [place], [place], [id number], [place] [phone] [facility] [place] Radiculopathy , lumbar region 9 Judy Coker. [facility], [address] [place] [address] [address], [place], [address], [place]. tel:[phone] Z [facility], [address] [place], [place] [address] [address], [place], [address], [place] [phone] [facility] [place] Diabetes Mellitus Type 2, Uncomplicated Hypercholeste rolemia 3 Mehbod Amir. [facility], [address] [place] [address] [address], [place], [place], [id number] , [place]. [phone] Family History Family Member Type Diagnosis Age At Onset No Information Payers Payer name Insurance type Covered alliance party ID Authoriza tion(s) No Information Social History [...]
[2023-03-13 13:45] LABS: SARS PCR* Negative SARS-CoV-2 (Negative)
[2023-03-13 14:13] LABS: Basophils Percent Auto 0.1 % (0.0-3.0); Eosinophils Percent Auto 0.1 % (0.0-7.0); Hematocrit 42.1 % (37.0-53.0); Hemoglobin* 13.4 gm/dL (13.5-17.5); Immature Granulocytes Pct Auto 0.2 %; Lymphocytes Percent Auto 19.9 % (20-44); Mean Corpuscular HGB Conc 32 gm/dL (32-36); Mean Corpuscular Hemoglobin 30 pg (26-34); Mean Corpuscular Volume 95 fL (80-100); Monocytes Percent Auto 6.7 % (0.0-11.0); Platelet Count* 186 K/uL (140-440); RDW Coefficient of Variation % 13.4 % (11.5-15.5); Red Blood Count 4.45 m/uL (4.30-5.90); White Blood Count* 17.21 K/uL (4.50-11.00)
[2023-03-13 14:18] LABS: Slide Review Reflex No
[2023-03-13 14:24] LABS: Chloride* 104 mmol/L (96-114); Potassium* 4.5 mmol/L (3.6-5.1); Sodium* 137 mmol/L (135-149)
[2023-03-13 14:26] LABS: Creatinine* 1.2 mg/dL (0.5-1.5); Est. Creatinine Clearance* 43.57; Estimated Glomerular Filt Rate 61 ml/min
[2023-03-13 14:27] LABS: Anion Gap 9 mEq/L (7-15); Blood Urea Nitrogen* 25 mg/dL (7-30); Calcium* 8.6 mg/dL (8.4-10.6); Carbon Dioxide* 24 mmol/L (20-32); Glucose* 248 mg/dL (60-115)
[2023-03-13 14:38] LABS: NT Pro B Type NatriureticPept* 708 pg/mL
[2023-03-13 14:40] LABS: D Dimer Quantitative* 2.46 ug/ml (0.00-0.50)
--- NOTE | 2023-03-13 15:18 | CRLHL7_ITS ---
For Patients: As a result of the Century Cures Act, medical imaging exams and procedure reports are released immediately into your electronic medical record. You may view this report before your referring provider. If you have questions, please contact your health care provider. INDICATION: Shortness of breath, elevated D-dimer.. TECHNIQUE: CT chest PE was acquired with 95 cc Isovue 370 IV contrast. COMPARISON: None. FINDINGS: Heart and vasculature: Contrast opacification of the pulmonary arterial tree is adequate. No sign of pulmonary embolism. Heart size is normal. Thoracic aorta is normal in caliber.Mildly enlarged main pulmonary artery measuring up to 31 millimeters in diameter. Coronary artery calcifications are noted. Lungs and pleura: Patchy airspace opacities in the right lower lobe may reflect aspiration, infection. No pleural effusions, pleural thickening, or pneumothorax. Lymph nodes/mediastinum: No mediastinal, hilar, or axillary adenopathy. Chest wall: No masses. Upper abdomen: Small hiatal hernia. Bones: Unremarkable for age. IMPRESSION: Patchy airspace opacities in the right lower lobe may reflect aspiration, infection. No pulmonary embolism identified. Please note that all CT scans at this facility use dose modulation, iterative reconstruction, and/or weight-based dosing when appropriate to reduce radiation dose to as low as reasonably achievable. Dictated by Geneva Ellis MD @ 03/13/2023 4:34:16 PM (Electronically Signed)
[2023-03-13] MEDS: 0.9 % SODIUM CHLORIDE 500 ML 500 ML IV (16:55)
== END 2023-03-13 17:50 | disposition home or self-care (01) ==
PROVIDERS: Emergency Provider Emergency Medicine Emergency Medical Services; PCP Family Medicine
DX: J18.9 Pneumonia, unspecified organism (principal)
CPT/HCPCS: 36415; 71045; 71275; 80048; 83880; 84484; 85025; 85379; 87631; 93005; 99284; 99285; J7120; Q9967

== ENCOUNTER 2023-05-16 11:00 | Outpatient (RCR) | payer MEDICARE, SELFPAY | END 2023-08-24 10:34 | disposition home or self-care (01) | PROVIDERS: PCP Family Medicine; Visit Provider Family Medicine | DX: G31.83 Neurocognitive disorder with Lewy bodies (principal); F02.80 Dementia in other diseases classified elsewhere, unspecified severity, without behavioral disturbance, psychotic disturbance, mood disturbance, and anxiety; M75.00 Adhesive capsulitis of unspecified shoulder; R26.81 Unsteadiness on feet; R29.6 Repeated falls; Z74.09 Other reduced mobility; Z51.89 Encounter for other specified aftercare | CPT/HCPCS: 97110; 97162 ==

== ENCOUNTER 2023-07-24 15:57 | Emergency (ER) | payer MEDICARE, SELFPAY ==
[2023-07-24] VITALS (14 sets, daily range): BP systolic 143–155; BP diastolic 65–75; PULSE 45–55; RESP 16; TEMP 36.2; O2SAT 83–99; BMI 37.0
--- NOTE | 2023-07-24 16:26 | XR_ITS ---
Final Report Patient: LEIDY GAYLE Facility:?[facility] Patient ID:?[id number] Site Patient ID:?[id number]. Site :?[id number] Study:?XRay Chest 1V-07/24/2023 4:49:01 PM Ordering Physician:?DR. KNIGHT Final Report: INDICATION: Cough, Weak. TECHNIQUE: Chest 1 views. COMPARISON: None. FINDINGS: Cardiovascular and mediastinum: Cardiomediastinal silhouette is within normal limits. Lungs and pleural spaces: Low lung volumes with basilar atelectasis. otherwise Lungs are clear. No sign of pleural effusion. No pneumothorax. Bones and soft tissues: Right shoulder rotator cuff repair changes. Moderate to severe degenerative changes in the right shoulder.. IMPRESSION: No acute cardiopulmonary process identified. Dictated by Geneva Ellis MD @ 07/24/2023 5:52:55 PM (Electronic Signature)
--- NOTE | 2023-07-24 16:29 | ED_ITS ---
HPI - General Adult General Date Seen: 07/24/23 Chief complaint: Weakness Stated complaint: cough, weak Time Seen by Provider: 07/24/23 15:59 Source: patient, family, RN notes reviewed and old records reviewed Mode of arrival: wheelchair Limitations: no limitations History of Present Illness HPI narrative: Patient is an 82-year-old male brought in by his after a visit to the clinic today. He is been more weak than usual over the past couple of days, has felt a ?gurgling in his left chest he says. He has been short of breath when he is up and walking. He has not had chest pain. He has had temps up to 99.1 a couple of days ago but nothing today. He has not had any vomiting or diarrhea. He has been urinating more frequently although does not have any dysuria. No flank pain. No workup was done at clinic, there was concern for possible pneumonia and so he was sent here for further evaluation. He has reportedly been on oxygen at home the past couple of days, room air sats here 92-94% on my initial evaluation. Past medical history notable for Lewy body dementia as well as Parkinson's. He uses a walker at baseline which also functions as wheelchair any says he often uses a wheelchair function. He also has history of diabetes. Does not smoke. Here today with his . Related Data Home Medications Medication Instructions Recorded Confirmed carbidopa 25 mg-levodopa 100 mg 2 tab PO TID 01/01/22 07/24/23 tablet clonazepam 0.5 mg tablet 0.5 mg PO HS 01/01/22 07/24/23 donepezil 10 mg tablet 10 mg PO HS 01/01/22 07/24/23 meclizine 25 mg tablet 25 mg PO BID PRN 01/01/22 07/24/23 metformin 500 mg tablet 500 mg PO BIDWM 01/01/22 07/24/23 oxybutynin chloride 15 mg 15 mg PO DAILY PRN 01/01/22 07/24/23 tablet,extended release 24 hr rosuvastatin 20 mg tablet 20 mg PO 01/01/22 07/24/23 glycopyrrolate 1 mg tablet 1 mg PO DAILY 02/14/22 07/24/23 Lactobacillus acidophilus 10 10 mg PO DAILY 02/15/22 07/24/23 billion cell capsule (Probiotic) cyanocobalamin (vitamin B-12) 1,000 mcg PO DAILY 02/15/22 07/24/23 1,000 mcg tablet nystatin 100,000 unit/gram topical 1 applic topical BID 02/15/22 07/24/23 ointment insulin aspart U-100 100 unit/mL 5 unit subcut DAILY@1200 12/31/22 07/24/23 (3 mL) subcutaneous pen (Novolog FlexPen U-100 Insulin aspart) insulin aspart U-100 100 unit/mL 6 unit subcut DAILY@0800 12/31/22 07/24/23 (3 mL) subcutaneous pen (Novolog FlexPen U-100 Insulin aspart) insulin glargine 100 unit/mL (3 12 unit subcut HS 01/01/23 07/24/23 mL) subcutaneous pen (Lantus Solostar U-100 Insulin) Previous Rx's Medication Instructions Recorded insulin aspart U-100 100 unit/mL 6 unit (0.06 mL) subcut DAILY@1800 02/21/22 (3 mL) subcutaneous pen (Novolog #15 mL FlexPen U-100 Insulin aspart) insulin aspart U-100 100 unit/mL See Rx Instructions .Route 02/21/22 (3 mL) subcutaneous pen (Novolog .COMPLEX #15 mL FlexPen U-100 Insulin aspart) nystatin 100,000 unit/gram topical 1 applic topical TID #15 grams 02/21/22 powder sennosides 8.6 mg-docusate sodium 1 tab PO BID #60 tabs 02/21/22 50 mg tablet (Stool Softener-Laxative) levofloxacin 500 mg tablet 500 mg PO DAILY 10 days #10 tabs 03/13/23 Allergies Allergy/AdvReac Type Severity Reaction Status Date / Time bacitracin Allergy Intermediate Verified 07/24/23 16:18 Review of Systems Status of ROS: Reports: 10 or more systems reviewed and unremarkable except as noted in History and below [facility] Medical History Weakness ?R53.1 - Weakness (ICD-10) Lymphedema ?I89.0 - Lymphedema, not elsewhere classified (ICD-10) Pulmonary embolism ?I26.99 - Other pulmonary embolism without acute cor pulmonale (ICD-10) History of external beam radiation therapy ?Z92.3 - Personal history of irradiation (ICD-10) Insulin dependent type 2 diabetes mellitus ?E11.9 - Type 2 diabetes mellitus without complications (ICD-10) ?Z79.4 - prison (current) use of insulin (ICD-10) Prostate cancer ?C61 - Malignant neoplasm of prostate (ICD-10) CKD (chronic kidney disease) ?N18.9 - Chronic kidney disease, unspecified (ICD-10) MAYA (obstructive sleep apnea) ?G47.33 - Obstructive sleep apnea (adult) (pediatric) (ICD-10) Parkinson disease ?G20 - Parkinson's disease (ICD-10) Lewy body dementia ?G31.83 - Dementia with Lewy bodies (ICD-10) ?F02.80 - Dementia in other diseases classified elsewhere without behavioral disturbance (ICD-10) Spinal stenosis ?M48.00 - Spinal stenosis, site unspecified (ICD-10) Reflux gastritis ?K29.60 - Other gastritis without bleeding (ICD-10) Diabetes ?E11.9 - Type 2 diabetes mellitus without complications (ICD-10) Hypercholesteremia ?E78.00 - Pure hypercholesterolemia, unspecified (ICD-10) Hypertension ?I10 - Essential (primary) hypertension (ICD-10) Surgical History (Updated 12/31/22 @ 13:56 by Robbi Rios MD) History of cataract surgery ?Z98.49 - Cataract extraction status, unspecified eye (ICD-10) History of meniscectomy of left knee ?Z98.890 - Other specified postprocedural states (ICD-10) History of total left knee replacement ?Z96.652 - Presence of left artificial knee joint (ICD-10) History of lumbar discectomy ?Z98.890 - Other specified postprocedural states (ICD-10) History of transurethral resection of prostate ?Z98.890 - Other specified postprocedural states (ICD-10) ?Z90.79 - Acquired absence of other genital organ(s) (ICD-10) Family History (Updated 12/31/22 @ 13:57 by Robbi Rios MD) Father Diabetes Cardiovascular disease Social History (Updated 12/31/22 @ 13:58 by Robbi Rios MD) Narrative: He lives with his . They live in their own home. 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 He is able to walk with a walker. Often uses a wheelchair as well. He has limited mobility secondary to right-sided weakness and immobility. He does not smoke. Rarely drinks alcohol. What is your current living situation?: I presently have a place to live Problems where you live: no known problems Problems where you live details: n/a In the past 12 months, utilities in danger of being shut off: no In past 12 months, lack of transportation kept you from medical appts, meetings, work, or getting things needed for daily living: no In the past 12 mos, have been you worried that your food would run out before you had money to buy more?: never true In the past 12 mos, the food you bought just didn't last and you didn't have money to buy more?: never true Highest level of school completed/degree received: 12th grade, no diploma Smoking Status: Former smoker Do you use any of these nicotine containing products: None Second hand tobacco smoke exposure: No How often do you have a drink containing alcohol: never How often do you have six or more drinks on one occasion: Never AUDIT-C Alcohol total score: 0 Non-prescribed substance use: marijuana (any form) Non-prescribed substance use details: Marijuana in liquid form orally Caffeine: Yes How often does anyone, including family, friends and others, physically hurt you : never How often does anyone, including family, friends and others, insult or talk down to you: never How often does anyone, including family, friends and others, threaten you with harm: never How often does anyone, including family, friends and others, scream or curse at you: never service: Yes ([employer]) Exam Const: Vital Signs, click to edit/add: Vital Signs - 24 hr 07/24/23 16:11 07/24/23 16:11 07/24/23 16:15 Temperature 97.1 F L Pulse Rate 50 L 47 L Pulse Rate [Right Pulse Oximeter] 55 L Respiratory Rate 16 Blood Pressure Blood Pressure [Ri ght Upper Arm] 155/69 H Pulse Oximetry 96 90 93 Oxygen Delivery Me thod Room Air 07/24/23 16:30 07/24/23 16:32 07/24/23 16:32 Temperature Pulse Rate 53 L 52 L 52 L Pulse Rate [Right Pulse Oximeter] Respiratory Rate Blood Pressure 146/66 H 146/66 H Blood Pressure [Ri ght Upper Arm] Pulse Oximetry 89 87 L 87 L Oxygen Delivery Me thod 07/24/23 16:45 07/24/23 17:00 07/24/23 17:02 Temperature Pulse Rate 45 L 51 L 47 L Pulse Rate [Right Pulse Oximeter] Respiratory Rate Blood Pressure 149/65 H Blood Pressure [Ri ght Upper Arm] Pulse Oximetry 97 83 L 96 Oxygen Delivery Me thod 07/24/23 17:02 07/24/23 17:15 Temperature Pulse Rate 47 L 47 L Pulse Rate [Right Pulse Oximeter] Respiratory Rate Blood Pressure 149/65 H Blood Pressure [Ri ght Upper Arm] Pulse Oximetry 96 95 Oxygen Delivery Nv thod Course Course ED Course: Following initial evaluation, patient had an EKG which by my review shows a sinus bradycardia, first-degree AV block. He has been noted to have a bradycardia in the past. No other acute findings. Not on a beta-meliton or calcium channel meliton by review of his medications. His blood pressure has been stable, mildly elevated. Labs are notable for a normal white blood cell count 9.2, unremarkable diff. Hemoglobin is 13.3. Metabolic panel shows that he is mildly hyponatremic with a sodium of 127, potassium and other electrolytes are normal. BUN creatinine normal. Blood sugar 155. Lactate is normal at 1.4. LFTs are unremarkable, CRP is elevated at 8.4. BNP is normal at 371 and point of care troponin was 0. He was positive for influenza A. Chest x-ray by my review was negative, final radiology read is likewise negative. I have reviewed all this with the patient and his . They were reassured to find that he does not have evidence of pneumonia today. I think that influenza a is a reasonable explanation for the symptoms he has had over the past few days. We did discuss Tamiflu and the lack of likely benefit given duration of symptoms. They are comfortable foregoing that. Offered admission if he felt he was not able to function at home right now but he says he feels like he is pretty well set up at home and his concurs. They are comfortable going home at this time, reviewed reasons to return such as high fevers or worsening difficulty breathing. Tylenol if needed. Maintain hydration. Primary care follow-up if needed. Vital Signs Vital signs: Initial Vital Signs Temperature 97.1 F L 07/24/23 16:11 Temperature Source Temporal Artery Scan 07/24/23 16:11 Pulse Rate 50 L 07/24/23 16:11 Respiratory Rate 16 07/24/23 16:11 Blood Pressure 155/69 H 07/24/23 16:11 Blood Pressure Mean 97 07/24/23 16:11 Blood Pressure Position Sitting 07/24/23 16:11 Pulse Oximetry 96 07/24/23 16:11 Oxygen Delivery Method Room Air 07/24/23 16:11 Vital Signs Temperature 97.1 F L 07/24/23 16:11 Pulse Rate 50 L 07/24/23 16:11 Respiratory Rate 16 07/24/23 16:11 Blood Pressure 155/69 H 07/24/23 16:11 Pulse Oximetry 96 07/24/23 16:11 Oxygen Delivery Method Room Air 07/24/23 16:11 Temperature 97.1 F L 07/24/23 16:11 Pulse Rate 47 L 07/24/23 17:15 Respiratory Rate 16 07/24/23 16:11 Blood Pressure 149/65 H 07/24/23 17:02 Pulse Oximetry 95 07/24/23 17:15 Oxygen Delivery Method Room Air 07/24/23 16:11 Medical Decision Making Lab Data Labs: Lab Results 07/24/23 07/24/23 07/24/23 Range/Units 16:27 16:29 16:29 WBC 9.21 (4.50-11.00) K/uL RBC 4.48 (4.30-5.90) m/uL Hgb 13.3 L (13.5-17.5) gm/dL Hct 41.8 (37.0-53.0) % MCV 93 (80-100) fL MCH 30 (26-34) pg MCHC 32 (32-36) gm/dL RDW Coeff of Jorge 13.9 (11.5-15.5) % Plt Count 192 (140-440) K/uL Neut % (Auto) 56.5 (42.0-72.0) % Lymph % (Auto) 28.4 (20-44) % [place] % (Auto) 13.2 H (0.0-11.0) % Eos % (Auto) 1.3 (0.0-7.0) % Baso % (Auto) 0.3 (0.0-3.0) % Neut # (Auto) 5.19 (1.7-7.0) K/uL Lymph # (Auto) 2.62 (0.90-2.90) K/uL [place] # (Auto) 1.20 H (0.00-0.90) K/UL Eos # (Auto) 0.12 (0.00-0.50) K/uL Baso # (Auto) 0.03 (0.00-0.30) K/uL Abs Immat Gran (auto) 0.03 (0.00-0.30) K/uL Imm/Tot Granulo (auto) 0.3 % Sodium Cancelled 127 L Potassium Cancelled Chloride Carbon Dioxide Anion Gap BUN Creatinine Estimated Creat Clear Estimated GFR Glucose Lactate (0.5-1.9) mmol/L Calcium Total Bilirubin (0.1-1.5) mg/dL Direct Bilirubin (0.0-0.5) mg/dL AST (12-35) U/L ALT (4-50) U/L Alkaline Phosphatase (40-150) U/L C-Reactive Protein NT-Pro-B Natriuret Pep pg/mL Total Protein (6.0-8.3) g/dL Albumin (3.3-5.0) g/dL SARS-CoV-2 (PCR) (Negative) Influenza Type A (PCR) (Negative) Influenza Type B (PCR) (Negative) RSV (PCR) (Negative) POC Troponin I 0.00 L (0.01-0.04) ng/ml 07/24/23 07/24/23 07/24/23 Range/Units 16:29 16:29 16:29 WBC (4.50-11.00) K/uL RBC (4.30-5.90) m/uL Hgb (13.5-17.5) gm/dL Hct (37.0-53.0) % MCV (80-100) fL MCH (26-34) pg MCHC (32-36) gm/dL RDW Coeff of Jorge (11.5-15.5) % Plt Count (140-440) K/uL Neut % (Auto) (42.0-72.0) % Lymph % (Auto) (20-44) % Huron % (Auto) (0.0-11.0) % Eos % (Auto) (0.0-7.0) % Baso % (Auto) (0.0-3.0) % Neut # (Auto) (1.7-7.0) K/uL Lymph # (Auto) (0.90-2.90) K/uL [place] # (Auto) (0.00-0.90) K/UL Eos # (Auto) (0.00-0.50) K/uL Baso # (Auto) (0.00-0.30) K/uL Abs Immat Gran (auto) (0.00-0.30) K/uL Imm/Tot Granulo (auto) % Sodium Potassium 4.3 Chloride Cancelled 100 Carbon Dioxide Cancelled 25 Anion Gap Cancelled BUN Creatinine Estimated Creat Clear Estimated GFR Glucose Lactate (0.5-1.9) mmol/L Calcium Total Bilirubin (0.1-1.5) mg/dL Direct Bilirubin (0.0-0.5) mg/dL AST (12-35) U/L ALT (4-50) U/L Alkaline Phosphatase (40-150) U/L C-Reactive Protein NT-Pro-B Natriuret Pep pg/mL Total Protein (6.0-8.3) g/dL Albumin (3.3-5.0) g/dL SARS-CoV-2 (PCR) (Negative) Influenza Type A (PCR) (Negative) Influenza Type B (PCR) (Negative) RSV (PCR) (Negative) POC Troponin I (0.01-0.04) ng/ml 07/24/23 07/24/23 07/24/23 Range/Units 16:29 16:29 16:29 WBC (4.50-11.00) K/uL RBC (4.30-5.90) m/uL Hgb (13.5-17.5) gm/dL Hct (37.0-53.0) % MCV (80-100) fL MCH (26-34) pg MCHC (32-36) gm/dL RDW Coeff of Jorge (11.5-15.5) % Plt Count (140-440) K/uL Neut % (Auto) (42.0-72.0) % Lymph % (Auto) (20-44) % [place] % (Auto) (0.0-11.0) % Eos % (Auto) (0.0-7.0) % Baso % (Auto) (0.0-3.0) % Neut # (Auto) (1.7-7.0) K/uL Lymph # (Auto) (0.90-2.90) K/uL [place] # (Auto) (0.00-0.90) K/UL Eos # (Auto) (0.00-0.50) K/uL Baso # (Auto) (0.00-0.30) K/uL Abs Immat Gran (auto) (0.00-0.30) K/uL Imm/Tot Granulo (auto) % Sodium Potassium Chloride Carbon Dioxide Anion Gap 2 L BUN Cancelled 19 Creatinine Cancelled 1.2 Estimated Creat Clear Cancelled Estimated GFR Glucose Lactate (0.5-1.9) mmol/L Calcium Total Bilirubin (0.1-1.5) mg/dL Direct Bilirubin (0.0-0.5) mg/dL AST (12-35) U/L ALT (4-50) U/L Alkaline Phosphatase (40-150) U/L C-Reactive Protein NT-Pro-B Natriuret Pep pg/mL Total Protein (6.0-8.3) g/dL Albumin (3.3-5.0) g/dL SARS-CoV-2 (PCR) (Negative) Influenza Type A (PCR) (Negative) Influenza Type B (PCR) (Negative) RSV (PCR) (Negative) POC Troponin I (0.01-0.04) ng/ml 07/24/23 07/24/23 07/24/23 Range/Units 16:29 16:29 16:29 WBC (4.50-11.00) K/uL RBC (4.30-5.90) m/uL Hgb (13.5-17.5) gm/dL Hct (37.0-53.0) % MCV (80-100) fL MCH (26-34) pg MCHC (32-36) gm/dL RDW Coeff of Jorge (11.5-15.5) % Plt Count (140-440) K/uL Neut % (Auto) (42.0-72.0) % Lymph % (Auto) (20-44) % Huron % (Auto) (0.0-11.0) % Eos % (Auto) (0.0-7.0) % Baso % (Auto) (0.0-3.0) % Neut # (Auto) (1.7-7.0) K/uL Lymph # (Auto) (0.90-2.90) K/uL Huron # (Auto) (0.00-0.90) K/UL Eos # (Auto) (0.00-0.50) K/uL Baso # (Auto) (0.00-0.30) K/uL Abs Immat Gran (auto) (0.00-0.30) K/uL Imm/Tot Granulo (auto) % Sodium Potassium Chloride Carbon Dioxide Anion Gap BUN Creatinine Estimated Creat Clear 43.57 Estimated GFR Cancelled 61 Glucose Cancelled 155 H Lactate 1.4 (0.5-1.9) mmol/L Calcium Cancelled Total Bilirubin (0.1-1.5) mg/dL Direct Bilirubin (0.0-0.5) mg/dL AST (12-35) U/L ALT (4-50) U/L Alkaline Phosphatase (40-150) U/L C-Reactive Protein NT-Pro-B Natriuret Pep pg/mL Total Protein (6.0-8.3) g/dL Albumin (3.3-5.0) g/dL SARS-CoV-2 (PCR) (Negative) Influenza Type A (PCR) (Negative) Influenza Type B (PCR) (Negative) RSV (PCR) (Negative) POC Troponin I (0.01-0.04) ng/ml 07/24/23 07/24/23 Range/Units 16:29 16:29 WBC (4.50-11.00) K/uL RBC (4.30-5.90) m/uL Hgb (13.5-17.5) gm/dL Hct (37.0-53.0) % MCV (80-100) fL MCH (26-34) pg MCHC (32-36) gm/dL RDW Coeff of Jorge (11.5-15.5) % Plt Count (140-440) K/uL Neut % (Auto) (42.0-72.0) % Lymph % (Auto) (20-44) % [place] % (Auto) (0.0-11.0) % Eos % (Auto) (0.0-7.0) % Baso % (Auto) (0.0-3.0) % Neut # (Auto) (1.7-7.0) K/uL Lymph # (Auto) (0.90-2.90) K/uL [place] # (Auto) (0.00-0.90) K/UL Eos # (Auto) (0.00-0.50) K/uL Baso # (Auto) (0.00-0.30) K/uL Abs Immat Gran (auto) (0.00-0.30) K/uL Imm/Tot Granulo (auto) % Sodium Potassium Chloride Carbon Dioxide Anion Gap BUN Creatinine Estimated Creat Clear Estimated GFR Glucose Lactate (0.5-1.9) mmol/L Calcium 8.7 Total Bilirubin 0.8 (0.1-1.5) mg/dL Direct Bilirubin 0.3 (0.0-0.5) mg/dL AST 18 (12-35) U/L ALT 6 (4-50) U/L Alkaline Phosphatase 85 (40-150) U/L C-Reactive Protein Cancelled 8.4 H NT-Pro-B Natriuret Pep 371 pg/mL Total Protein 6.6 (6.0-8.3) g/dL Albumin 3.7 (3.3-5.0) g/dL SARS-CoV-2 (PCR) Negative SARS-CoV-2 (Negative) Influenza Type A (PCR) POSITIVE PCR FLU A A (Negative) Influenza Type B (PCR) Negative PCR FLU B (Negative) RSV (PCR) Negative PCR RSV (Negative) POC Troponin I (0.01-0.04) ng/ml Discharge Plan Discharge Clinical Impression: Influenza A Patient Disposition: Home w/ Parent or Adult Condition: Stable Instructions: Influenza (ED) Additional Instructions: Tylenol if needed for fevers or aches. Make sure you are staying hydrated. If you are worsening rather than stable to improving return for re-evaluation, particularly in the setting of difficulty breathing or high fevers. Prescriptions: No Action glycopyrrolate 1 mg tablet 1 mg PO DAILY nystatin 100,000 unit/gram ointment 1 applic TOPICAL BID Rx Instructions: MIXED WITH DESITIN AND A0 OINTMENT cyanocobalamin (vitamin B-12) 1,000 mcg tablet 1,000 mcg PO DAILY Probiotic 10 billion cell capsule 10 mg PO DAILY insulin aspart U-100 [Novolog FlexPen U-100 Insulin] 100 unit/mL (3 mL) Insulin Pen 6 unit subcut DAILY@1800 Qty: 15 0RF insulin aspart U-100 [Novolog FlexPen U-100 Insulin] 100 unit/mL (3 mL) Insulin Pen See Rx Instructions .ROUTE .COMPLEX Qty: 15 0RF Rx Instructions: Blood Glucose 150 or less No coverage Blood Glucose 151-200 1 unit Blood Glucose 201-250 2 units Blood Glucose 251-300 3 units Blood Glucose 301-350 4 units Blood Glucose 351 to 400 5 units Blood Glucose 401 and greater 6 units and recheck in 2 hours nystatin 100,000 unit/gram Powder 1 applic topical TID Qty: 15 0RF sennosides-docusate sodium [Stool Softener-Laxative] 8.6-50 mg Tablet 1 tab PO BID Qty: 60 0RF insulin aspart U-100 [Novolog FlexPen U-100 Insulin] 100 unit/mL (3 mL) Insulin Pen 5 unit subcut DAILY@1200 insulin aspart U-100 [Novolog FlexPen U-100 Insulin] 100 unit/mL (3 mL) Insulin Pen 6 unit subcut DAILY@0800 insulin glargine [Lantus Solostar U-100 Insulin] 100 unit/mL (3 mL) insulin pen 12 unit subcut HS levofloxacin 500 mg tablet 500 mg PO DAILY 10 Days Qty: 10 0RF metformin 500 mg tablet 500 mg PO BIDWM oxybutynin chloride 15 mg tablet extended release 24hr 15 mg PO DAILY PRN donepezil 10 mg tablet 10 mg PO HS clonazepam 0.5 mg tablet 0.5 mg PO HS meclizine 25 mg tablet 25 mg PO BID PRN carbidopa-levodopa 25-100 mg tablet 2 tab PO TID rosuvastatin 20 mg tablet 20 mg PO HS Follow Up/Referrals: Joi Zavala MD [Primary Care Provider] - Stand Alone Forms: [facility] Info Instructions
[2023-07-24 16:53] LABS: Lactate Sepsis w/Reflex* 1.4 mmol/L (0.5-1.9)
[2023-07-24 16:55] LABS: Basophils Absolute Auto 0.03 K/uL (0.00-0.30); Basophils Percent Auto 0.3 % (0.0-3.0); Eosinophils Absolute Auto 0.12 K/uL (0.00-0.50); Eosinophils Percent Auto 1.3 % (0.0-7.0); Hematocrit 41.8 % (37.0-53.0); Hemoglobin* 13.3 gm/dL (13.5-17.5); Immature Granulocytes Abs Auto 0.03 K/uL (0.00-0.30); Immature Granulocytes Pct Auto 0.3 %; Lymphocytes Absolute Auto 2.62 K/uL (0.90-2.90); Lymphocytes Percent Auto 28.4 % (20-44); Mean Corpuscular HGB Conc 32 gm/dL (32-36); Mean Corpuscular Hemoglobin 30 pg (26-34); Mean Corpuscular Volume 93 fL (80-100); Monocytes Percent Auto 13.2 % (0.0-11.0); Neutrophils Absolute Auto 5.19 K/uL (1.7-7.0); Neutrophils Percent Auto 56.5 % (42.0-72.0); Platelet Count* 192 K/uL (140-440); RDW Coefficient of Variation % 13.9 % (11.5-15.5); Red Blood Count 4.48 m/uL (4.30-5.90); White Blood Count* 9.21 K/uL (4.50-11.00)
--- OUTSIDE RECORDS SUMMARY | 2023-07-24 17:03 | XMS_ITS | Encounter Summary ---
Author Name Unknown Organization [facility] Address [address] [place] [address] Care Team Providers Care Marketing Operations Assistant Name Role Phone Unavailable Primary Care Provider Unavailabl e Encounter Details Date Type Department Care Team (Late st Contact Info) Description 07/22/2015 Historical Ophthalmology RST OPH Lucina Brady M.D. Social History Tobacco Use Types Packs/Day Years Used Date Smoking Tobacco: Never Assessed Sex and Gender Information Value Date Recorded Sex Assigned at Not on file Gender Identity Not on file Sexual Orientation Not on file documented as of this encounter Progress Notes * Lucina Brady M.D. - 07/22/2015 7:40 AM CST Eye General CHIEF COMPLAINT hematoma right eye; subconjuntival hemarrhage HISTORY OF PRESENT ILLNESS Patient here for hematoma right eye; subconjuntival hemarrhage started Sunday07/22/2015. Patientstates fell on sidewalk yesterday and cut right eye. Pain; right eye; x 1 day; constantly; symptomsreported at level of 3/10, to 6/10. Blurred vision; right eye; x 1 day; constantly; symptoms are moderate. Patient states has glaucoma and treated in [place], [place]. Tearing; right eye; x 1 year; on and off; symptoms are moderate. IMPRESSION / REPORT / PLAN Consult requested by: Ruth Toussaint MD #1 Subconjunctival hemorrhage OD #2 Corneal abrasion OD - lacrilube at night and PRN during the day - RTC here or locally w/in 2 weeks - seen and examined with Dr. Wiseman DIAGNOSIS #1 Subconjunctival hemorrhage OD #2 Corneal abrasion OD CDM Reports - EYEGEN Id: [id number] Status: Fnl documented in this encounter Plan of Treatment Not on file documented as of this encounter Visit Diagnoses Not on filedocumented in this encounter
--- OUTSIDE RECORDS SUMMARY | 2023-07-24 17:03 | XMS_ITS | Referral Summary ---
Author Name Unknown Organization [facility] Address [address] [place] [address] Care Team Providers Care Lot Boss Name Role Phone Unavailable Primary Care Provider Unavailabl e Source Comments Patient records contain information from all sites at [facility]. For routine questions regarding patient records, call [phone] during business hours, M-F 8:00 AM - 5:00 PM Central Time. Record requests for emergency care only can be directed to [phone] at any time.[facility] Allergies Active Allergy Reactions Criticality Noted Date Comments Bacitracin Rash 07/22/2015 water blisters Mupirocin Other (see comments) Low 01/24/2015 Blistering of skin where applied Medications Medication Sig Dispensed Refills Start Date End Date Status ammonium lactate (for_AMLACTIN) 12 % cream Apply 1 application topically 2 (two) times a day. 0 03/01/[address] tablet Take 1 tablet by mouth daily. 0 07/22/2015 Active CALCIUM CARBONATE-VITAMIN D3 ORAL Take by mouth. 0 05/11/2017 Active blood sugar diagnostic strips [employer] Contour strips. Dispense item covered by patient's insurance. 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 0 05/30/2017 Active blood-glucose meter [facility] Dispense glucose meter, test strips and lancets covered by the patient insurance. Test 3-4 times per day DX E11.9 0 09/19/2016 Active clotrimazole-betame thasone (for_LOTRISONE) 1-0.05 % cream Apply 1 application topically 2 (two) times a day. 0 03/01/2017 Active miscellaneous medical supply [facility] Autotitration cpap 4-20cm of H2O, with accessories dx327.23, he will need oxygen 2 liters bled into it 0 05/25/2008 Active miscellaneous medical supply [facility] As directed. Diabetic shoes diagnosis 250.00, 1 pair 0 09/05/2012 Active fluconazole (for_DIFLUCAN) 150 mg tablet Take 1 tablet by mouth daily. 0 03/01/2017 Active pen needle, diabetic 29 gauge x 1/2 needle For administering insulin at home. 0 05/30/2015 Active pen needle, diabetic 31 gauge x 5/16 needle For administering insulin at home. 0 07/20/2014 Active insulin syringe-needle U-100 0.5 mL 31 gauge x 5/16 syringe As directed. For administering insulin at home. o.k. to dispense Relion brand syringe 0 06/29/2011 Active ipratropium HFA (for_ATROVENT HFA) 17 mcg/actuation inhaler Inhale 2 puffs 4 (four) times a day. 0 03/01/2017 Active lactulose (for_CHRONULAC) 10 gram/15 mL solution Take 30 g by mouth daily. Take 30 g (45 mL) by mouth once daily 0 02/23/2017 Active lancets misc 0 07/20/2014 Active insulin glargine 100 unit/mL (3 mL) injection Inject 38 Units under the skin every evening. Inject 38 units before bedtime. 0 07/31/2017 Active latanoprost (for_XALATAN) 0.005 % ophthalmic solution Administer 1 drop into both eyes every evening. 0 06/22/2016 Active magnesium citrate (for_CITROMA) solution Take 75-300 mL by mouth once. May use as a single dose or a divided dose if no BM after Senna, Mirlax and Lactulose 0 05/21/2017 Active meclizine (for_ANTIVERT) 25 mg tablet Take 1 tablet by mouth 2 (two) times a day. 0 03/01/2017 Active metFORMIN (for_GLUCOPHAGE) 500 mg tablet Take 1 tablet by mouth daily. 0 08/30/2013 Active metoprolol tartrate (for_LOPRESSOR) 50 mg tablet Take 0.5 tablets by mouth 2 (two) times a day. 0 03/01/2017 Active polyethylene glycol (MIRALAX) 17 gram/dose oral powder Take 1 Package by mouth 2 (two) times a day as needed. For constipation 0 05/21/2017 Active miscellaneous medical supply misc For personal use. Length: calf Strength: 16-20 mmHg 0 02/26/2012 Active miscellaneous medical supply misc As directed. Automatic blood pressure cuff Large arm cuff Diagnosis: Hypertension,401.1, diabetes mellitus 0 02/24/2010 Active multivitamin tablet Take 1 tablet by mouth daily. 0 04/23/2017 Active insulin aspart U-100 (NovoLOG FlexPen) 100 unit/mL (3 mL) injection Inject 12-15 Units under the skin as directed. 12-15 units 5-15 minutes before each meal 0 03/01/2017 Active nystatin (NYSTOP) 100,000 unit/gram powder Apply 1 application topically 2 (two) times a day. Apply to affected area(s) 0 09/23/2009 Active nystatin-triamcinol one (for_MYCOLOG II) 100,000 Unit/g-0.1 % cream Apply 1 application topically 2 (two) times a day. Apply to affected area(s) - rash in groin 0 11/09/2015 Active oxybutynin (for_DITROPAN) 5 mg tablet Take 1 tablet by mouth 3 (three) times a day as needed. 0 07/22/2015 Active oxybutynin (for_DITROPAN XL) 15 mg 24 hr tablet Take 15 mg by mouth daily. 0 07/17/2017 Active pioglitazone (for_ACTOS) 45 mg tablet Take 1 tablet by mouth daily. 0 03/01/2017 Active omeprazole (PriLOSEC OTC) 20 mg EC tablet Take 1 tablet by mouth daily. 0 03/01/2017 Active sennosides-docusate sodium (SENOKOT-S) 8.6-50 mg per tablet Take 1-3 tablets by mouth 2 (two) times a day. 0 05/21/2017 Active simvastatin (for_ZOCOR) 40 mg tablet Take 1 tablet by mouth every evening. 0 07/22/2015 Active torsemide (for_DEMADEX) 10 mg tablet Take 1 tablet by mouth daily. 0 03/01/2017 Active trospium (for_SANCTURA XR) 60 mg 24 hr capsule Take 1 capsule by mouth daily. Before a meal 0 03/01/2017 Active clonazePAM (KlonoPIN) 0.5 mg tablet 0 03/26/2021 Active cholecalciferol (VITAMIN D3) 25 mcg (1,000 Unit) capsule Take 1 capsule by mouth daily. 0 01/21/2015 Active cyanocobalamin (VITAMIN B12) 1,000 mcg tablet Take 1 tablet by mouth daily. 0 10/04/2018 Active clotrimazole (LOTRIMIN) 1 % cream Apply topically. 0 01/05/2020 Active diabetic supplies, [employer]. [facility] Dispense glucose meter, test strips and lancets covered by patient insurance. Test 3-4 times per day. 0 02/27/2018 Active donepeziL (ARICEPT) 5 mg tablet Take 5 mg by mouth. 0 02/08/2021 Acti ve ferrous gluconate (FERGON) 324 mg (38 mg iron) tablet Take 1 tablet by mouth. 0 12/13/2018 Active FreeStyle [place] 14 [address] [place] [facility] 0 03/10/2021 Active furosemide (LASIX) 40 mg tablet Take 1 tablet by mouth 2 (two) times a day. 0 10/16/2019 Active hyoscyamine (ANASPAZ,LEVSIN) 0.125 mg tablet Take 0.125 mg by mouth. 0 08/21/2019 Active ketoconazole (NIZORAL) 2 % cream Apply topically. 0 04/23/2020 Active carbidopa-levodopa (SINEMET) 25-100 mg per tablet 0 02/23/2021 Active diphenhydrAMINE-jeffrey taminophen (TYLENOL PM) 25-500 mg per tablet Take 1 tablet by mouth. 0 08/20/2018 Active Active Problems Problem Noted Date Diagnosed Date Primary Malignant Neoplasm Of Prostate 7 Immunizations Name Administration Dates Next Due Td (Adult), adsorbed 03/13/2012 Social History Tobacco Use Types Packs/Day Years Used Date Smoking Tobacco: Unknown Nutrition Answer Date Recorded Nutrition: EVOO Fat Source Unknown 07/26 Nutrition: Servings of Fruits/Vegetables per Day Not on file 07/26/2020 Dental Answer Date Recorded Dental: Regular Dentist Unknown 07/26/19 21 Sex and Gender Information Value Date Recorded Sex Assigned at Not on file Gender Identity Not on file Sexual Orientation Not on file Last Filed Vital Signs Vital Sign Reading Time Taken Comments Blood Pressure 169/94 07/17/2022 1:43 PM VAPOR COATER Pulse 57 07/17/2022 1:43 PM VAPOR COATER Temperature 36.2 ??C (97.2 ??F) 07/17/2022 1 :43 PM VAPOR COATER Respiratory Rate 16 07/21/2015 4:13 PM VAPOR COATER Oxygen Saturation - - Inhaled Oxygen Concentration - - Weight 105 kg (230 lb 9.6 oz) 07/17/2022 1:43 PM VAPOR COATER Height 171 cm (5' 7.32) 03/01/2017 8:4 4 AM CDT Vital sign result from Clinical Notes. Body Mass Index 35.77 03/01/2017 8:44 AM CDT Plan of Treatment Not on file
--- OUTSIDE RECORDS SUMMARY | 2023-07-24 17:03 | XMS_ITS | Clinical Summary ---
Author Name Unknown Organization [facility] Address [address] [place] [address] Care Team Providers Care Concession Cashier Name Role Phone Unavailable Primary Care Provider Unavailabl e Source Comments Patient records contain information from all sites at [facility]. For routine questions regarding patient records, call [phone] during business hours, M-F 8:00 AM - 5:00 PM Central Time. Record requests for emergency care only can be directed to [phone] at any time.[facility] Allergies Active Allergy Reactions Criticality Noted Date [...] 2-3 times/day. 0 05/30/2017 Active blood-glucose meter [facility] Dispense glucose meter, test strips and lancets covered by the patient insurance. Test 3-4 times per day DX E11.9 0 09/19/2016 Active clotrimazole-betame thasone (for_LOTRISONE) 1-0.05 % cream Apply 1 application topically 2 (two) times a day. 0 03/01/2017 Active miscellaneous medical supply [facility] Autotitration cpap 4-20cm of H2O, with accessories dx327.23, he will need oxygen 2 liters bled into it 0 05/25/2008 Active miscellaneous medical supply [facility] As directed. Diabetic shoes diagnosis 250.00, 1 [...] topically. 0 01/05/2020 Active diabetic supplies, [employer] Dispense glucose meter, test strips and lancets covered by patient insurance. Test 3-4 times per day. 0 02/27/2018 Active donepeziL (ARICEPT) 5 mg tablet Take 5 mg by mouth. 0 02/08/2021 Acti ve ferrous gluconate (FERGON) 324 mg (38 mg iron) tablet Take 1 tablet by mouth. 0 12/13/2018 Active FreeStyle Corry 14 Day [place] [facility] 0 03/10/2021 Active furosemide (LASIX) 40 mg [...] Comments Blood Pressure 169/94 07/17/2022 1:43 PM MANAGER CONTROL Pulse 57 07/17/2022 1:43 PM MANAGER CONTROL Temperature 36.2 ??C (97.2 ??F) 07/17/2022 1 :43 PM MANAGER CONTROL Respiratory Rate 16 07/21/2015 4:13 PM MANAGER CONTROL Oxygen Saturation - - Inhaled Oxygen Concentration - - Weight 105 kg (230 lb 9.6 oz) 07/17/2022 1:43 PM MANAGER CONTROL Height 171 cm (5' 7.32) 03/01/2017 8:4 4 AM CDT Vital sign result from Clinical Notes. Body Mass Index 35.77 03/01/2017 8:44 AM CDT Plan of Treatment Health Maintenance Due Date Last Done Comments Hepatitis B Vaccines (1 of 3 - Risk 3-dose series) 2001 Zoster Vaccines (2 of 3) 05/30/2007 04/04/2007 DTaP,Tdap,and Td Vaccines (2 - Td or Tdap) 03/14/2022 03/14/2012, 03/13/2012 Depression Screening (Annual PHQ-2) 06/04/2023 Fall Risk Screen (Annual) 06/04/2023 Pneumococcal vaccine (65+ years) Completed 05/04/20 15, 03/14/2012 Influenza Vaccine Completed 02/15/2023, , 04/02/2021, Additional history exists COVID-19 Vaccine Completed 04/13/2023, , 09/09/2021, Additional history exists
--- OUTSIDE RECORDS SUMMARY | 2023-07-24 17:03 | XMS_ITS | Data Portability ---
Author Name Unknown Address [address] [place] [address] Phone [phone] Organization [facility] Address [address] [place] [address] Care Team Providers Care Rouge Miller Name Role Phone [facility] Primary Care Pro vider Assessment No assessment recorded. Plan of Treatment Reminders Order Date Submit Date Provider Last Modified By Organization Details Last Modified Time Details Appointments ESTABLISH ED PHONE VISIT 2023 03:20P Domingo Cai MD Not available Not available Not available Lab PSA, total, serum or plasma 2022 023 [email or web address] Not available 02/23/2023 10:15:46 Referral None recorded. Procedures None recorded. Surgeries None recorded. Imaging None recorded. Medication Orders None recorded. Patient TargetsNo targets recorded. Patient InstructionsNo instructions recorded. Reason for Referral None Reported. Results Created Date Observation Date Name Description Value Unit Range Abnormal Flag LastModifiedBy Organization Detail LastModifiedTime 12/09/19 20 11/03/2019 measu remen t of post- voidi ng resid ual urine and/o r bladd er capac ity (PROC ) No observ ation record ed. BARCODE Rob Cai MD [address], [place], [address], 12/09/2019 11:06:39 Result Notes None recorded. Procedures Surgical History Date Name Laterality Status Provider Name and Address Organization Details Recorded Time 3 Bladder Scan completed Kirsty bailon [facility] 02/19/2023 14:03:04 procedure on back completed Rob Cai MD [address] [facility],[address], [place], [address], [facility] 02/19/2023 14:01:06 procedure on knee completed Rob Cai MD [address] [facility],[address], [place], [address], [facility] 02/19/2023 14:01:12 Imaging Results Imaging Date Name Status LastModified by Organiz ation Details LastModified Time 11/03/2019 measurement of post-voiding residual urine and/or bladder capacity (PROC) completed BARCODE Rob Cai MD [address], [place], [address], 12/09/2019 11:06:39 Procedure Notes None recorded. Medical Equipment None Reported. Allergies Allergen ID Allergen Name Allergen Category Reaction Reaction Severity Criticality Documentation Date Start Date Code Code System Note Provider Name and Address Organization Details Recorded Time 027026 bacitraci n medicatio n Not available Not available Not available 02/19/2023 1291 RxNorm Rob Cai MD [address] [facility],[address], [place], [address], [facility] 3 13:59:39 Medications Name Sig Start Date Stop Date Status Note LastModified by Organization Details LastModified Time quetiapine 25 mg tablet active Not Available Not Available No t Available glycopyrrolat e 1 mg tablet active Not Available Not Availabl e Not Available metformin 500 mg tablet active Not Available Not Available No t Available oxybutynin chloride ER 15 mg tablet,extend ed release 24 hr active Not Available Not Available Not Available ketoconazole 2 % shampoo active Not Available Not Available Not Available albuterol sulfate 2.5 mg/3 mL (0.083 %) solution for nebulization active Not Available Not Available Not Available donepezil 10 mg tablet active Not Available Not Available No t Available clonazepam 0.5 mg tablet active Not Available Not Availabl e Not Available clonazepam 1 mg tablet active Not Available Not Available No t Available doxycycline monohydrate 100 mg tablet active Not Available Not Availabl e Not Available meclizine 25 mg tablet active Not Available Not Available No t Available cephalexin 500 mg capsule 02/19 completed Not Available Not Available Not Available nystatin 100,000 unit/gram topical cream active Not Available Not Availabl e Not Available nystatin 100,000 unit/gram topical powder active Not Available Not Available Not Available triamcinolone acetonide 0.1 % lotion active Not Available Not Available Not Available carbidopa 25 mg-levodopa 100 mg tablet active Not Available Not Availabl e Not Available oxybutynin chloride 5 mg tablet active Not Available Not Available Not Available Novolog FlexPen U-100 Insulin aspart 100 unit/mL (3 mL) subcutaneous active Not Available Not Available Not Available rosuvastatin 20 mg tablet active Not Available Not Available Not Available Novofine Autocover 30 gauge x 1/3 needle active Not Available Not Available Not Available quetiapine 50 mg tablet active Not Available Not Available No t Available Lantus Solostar U-100 Insulin 100 unit/mL (3 mL) subcutaneous pen active Not Available Not Available Not Available Xarelto 10 mg tablet active Not Available Not Available Not Available Xarelto 20 mg tablet active Not Available Not Available Not Available FreeStyle Ocrry 2 Sensor kit TO BE USED TO READ BLOOD SUGARS PER CHAPO ESPINAL'S DIRECTI ONS. active Not Available Not Available No t Available FreeStyle Corry 2 [place] active Not Available Not Available Not Available Vitals Date Recorded Body height Body mass index (BMI) Body weight Provider Name and Address Organization Details Last Updated DateTime 02/19/2023 167.64 cm 36.3 kg/m2 331690.28 g Rob Cai MD [address] [place] [address],[address], [address] 02/19/2023 13:59:20 Social History Question Answer Notes LastModified by Organizat ion Details LastModified Time Tobacco Smoking Status Former Smoker Rob Cai MD [address] [place] [address],[address], [address] 02/19/2023 14:00:27 What Is Your Level Of Alcohol Consumption? None Information not available 02/19/2023 What Is Your Level Of Caffeine Consumption? Occasional Information not available 02/19/2023 When Did You Quit Smoking? 17+yearssinbritany kraus Information not available 02/19/2023 What Was The Date Of Your Most Recent Tobacco Screening? 02/19/2023 Information not available 02/19/2023 Sex: Male Functional Status None recorded. Mental Status None recorded. Family History Relationship Description Onset Age of this Age Resolved Age Notes Mother Family history of cancer Medical History Condition Response High Blood Pressure N Kidney Stones N Depression N Lung Disease N GERD/Acid Reflux N Sexually Transmitted Infection N Cancer N High Cholesterol N Diabetes Y Bleeding Disorder Y Heart Disease N Immunizations Vaccine Type Date Status Provider Name and Address Organization Details Recorded Time influenza, trivalent, adjuvanted 02/23/2017 completed Rob Cai MD [address] [place] [address],[address], [address], [facility] 02/19/2023 13:59:27 influenza, trivalent, adjuvanted 05/23/2019 completed Rob Cai MD [address] [place] [address],[address], [address], [facility] 02/19/2023 13:59:27 influenza, high-dose, quadrivalent 02/24/2020 completed Rob Cai MD [address] [place] [address],[address], [address], [facility] 02/19/2023 13:59:27 influenza, high-dose, quadrivalent 04/02/2021 completed Rob Cai MD [address] [place] [address],[address], [address], [facility] 02/19/2023 13:59:27 Influenza vaccine, quadrivalent, adjuvanted 02/15/2023 completed Rob Cai MD [address] [place] [address],[address], [address], [facility] 02/19/2023 13:59:27 Influenza vaccine, quadrivalent, adjuvanted 03/31/2022 completed Rob Cai MD [address] [place] [address],[address], [address], [facility] 02/19/2023 13:59:27 COVID-19, mRNA, LNP-S, PF, 100 mcg/0.5mL dose or 50 mcg/0.25mL dose 07/08/2020 completed Rob Cai MD [address] [place] [address],[address], [address], [facility] 02/19/2023 13:59:27 COVID-19, mRNA, LNP-S, PF, 100 mcg/0.5mL dose or 50 mcg/0.25mL dose 08/05/2020 completed Rob Cai MD [address] [place] [address],[address], [place], [address], [facility] 02/19/2023 13:59:27 COVID-19, mRNA, LNP-S, PF, 100 mcg/0.5mL dose or 50 mcg/0.25mL dose 04/02/2021 completed Rob Cai MD [address] [place] [address],[address], [place], [address], [facility] 02/19/2023 13:59:27 COVID-19, mRNA, LNP-S, PF, 30 mcg/0.3 mL dose, keo-sucrose 09/09/2021 completed Rob Cai MD [address] [place] [address],[address], [place], [address], [facility] 02/19/2023 13:59:27 COVID-19, mRNA, LNP-S, bivalent, PF, 30 mcg/0.3 mL dose 03/01/2022 completed Rob Cai MD [address] [place] [address],[address] [place] [address], [address], [facility] 02/19/2023 13:59:27 pneumococcal polysaccharide PPV23 03/14/2012 completed Rob Cai MD [address] [place] [address],[place] [address], [place], [address], [facility] 02/19/2023 13:59:27 Tdap 03/14/2012 completed Rob Cai MD [address] [place] [address],[address], [address], [facility] 02/19/2023 13:59:27 Novel Livtffzcy-[id number], all formulations 05/20/2009 completed Rob Cai MD [address] [place] [address],[address], [place], [address], [facility] 02/19/2023 13:59:27 Pneumococcal conjugate PCV 13 05/04/2015 completed Rob Cai MD [address] [place] [address],[address] [place] [address], [address], [facility] 02/19/2023 13:59:27 zoster live 04/04/2007 completed Rob Cai MD [address] [facility],[address], [place], [address], [facility] 02/19/2023 13:59:27 Influenza, high dose seasonal 03/18/2015 completed Rob Cai MD [address] [place] [address],[address], [place], [address], [facility] 02/19/2023 13:59:27 Influenza, high dose seasonal 04/02/2014 completed Rob Cai MD [address] [place] [address],[address], [place], [address], [facility] 02/19/2023 13:59:27 Influenza, high dose seasonal 04/13/2016 completed Rob Cai MD [address] [facility],[address], [place], [address], [facility] 02/19/2023 13:59:27 Influenza, seasonal, injectable 03/05/2013 completed Rob Cai MD [address] [place] [address],[address], [place], [address], [facility] 02/19/2023 13:59:27 Influenza, seasonal, injectable 03/14/2012 completed Rob Cai MD [address] [facility],[address] [place] [address], [address], [facility] 02/19/2023 13:59:27 Influenza, seasonal, injectable 03/31/2004 completed Rob Cai MD [address] [place] [address],[address] [place] [address], [address], [facility] 02/19/2023 13:59:27 Influenza, seasonal, injectable 04/02/2008 completed Rob Cai MD [address] [place] [address],[address] [place] [address], [address], [facility] 02/19/2023 13:59:27 Influenza, seasonal, injectable 04/04/2007 completed Rob Cai MD [address] [facility],[address], [place], [address], [facility] 02/19/2023 13:59:27 Influenza, seasonal, injectable 04/10/2003 completed Rob Cia MD [address] [place] [address],[address], [address], [facility] 02/19/2023 13:59:27 Influenza, seasonal, injectable 04/15/2005 completed Rob Cai MD [address] [place] [address],[address], [address], [facility] 02/19/2023 13:59:27 Influenza, seasonal, injectable 04/17/2006 completed Rob Cai MD [address] [place] [address],[address], [address], [facility] 02/19/2023 13:59:27 Influenza, seasonal, injectable, preservative free 02/24/2010 completed Rob Cai MD [address] [place] [address],[address] [address], [facility] 02/19/2023 13:59:27 Influenza, seasonal, injectable, preservative free 05/04/2011 completed Rob Cai MD [address] [place] [address],[address], [address], [facility] 02/19/2023 13:59:27 influenza, injectable, quadrivalent, preservative free 03/25/2018 completed Rob Cai MD [address] [place] [address],[address], [address], [facility] 02/19/2023 13:59:27 Past Encounters Encounter ID Performer Location Encounter Start Date Encounter Closed Date Diagnosis/Indication [id number] Rob Cai MD [facility] [address] [place] [address] 02/19/2023 13:36:45 02/28/2023 13:12:17 Malignant tumor of prostate Urgent desire to urinate Incomplete emptying of bladder Health Concerns Section Related Observation LastModified by Organization Detai ls LastModified Time None Recorded Concern Status LastModified by Organization Details LastModified Time None Recorded Advance Directives Directive None Recorded Payers Encounter Date Sequence Insurance Name Policy Number Policy Strange Covered Member ID Strange Member ID Guarantor Name 02/19/2023 1 [employer] - DOS ON OR AFTER 19 (MEDICARE REPLACEMENT/ ADVANTAGE - HMO) [id number] Bucky Turpin [id number] Bucky Turpin Notes Date Note Type Note Provider Name and Address Organization Details Recorded Time 02/19/2023 text/html HPI Notes: 82 yo male with Lewy body dementia, HTN, DM (type 2), CLL, CKD (stage 3), and MAYA - diagnosed with prostate cancer - T1c - [place] 4+4 = 8 - (dx 02/06/17) - Left 6/6 cores (60-100%) - s/p EBRT - (completed 07/11/17) - s/p ADT (18 months) - last Lupron - 03/27/18 - s/p TURP - (1996) He was diagnosed with radiation dermatitis. He tried Sanctura ER 60 mg daily (no improvement), Tolterodine (no improvement), Sanctura and Oxybutynin (urgency / incontinence increased) and Myrbetriq (slow stream / elevate PVR). He stopped Flomax 0.8 mg daily for light-headedness. He is on Oxybutynin ER 15 mg daily. He presents for follow-up on prostate cancer and urination. He states his urination is okay. He voids every 1-3 hours during the day and 2-3x/night. + Urgency with leakage (1-2 pads / day). He denies dysuria. He notes less hot flashes. - PVR = 176 mL - PSA - 0.29 (02/15/23) PSA - 8.38 (01/04/17) - 0.33 (04/23/17) - < 0.03 (06/25/17) - < 0.03 (09/14/17) - < 0.03 (12/07/17) - < 0.03 (03/25/18) - < 0.03 ) - < 0.03 (12/19/18) - < 0.03 (07/03/19) - < 0.03 (10/28/19) - 0.05 ((04/19/20) - 0.04 (06/03/20) - 0.04 (07/22/20) - 0.05 (10/06/20) - 0.07 (03/31/21) - 0.08 (08/29/21) - 0.15 (04/28/22) - 0.29 (02/15/23) Renal MRI (08/31/17) - bilateral renal cysts - (benign - Bosniak 1 & 2 cysts) largest was 2.9 cm in Left upper pole. Rob Cai MD [address] [facility],[address], [place], [address], [facility] 02/19/2023 14:50:28
--- OUTSIDE RECORDS SUMMARY | 2023-07-24 17:03 | XMS_ITS | Continuity of Care Document ---
Author Name Unknown Organization [facility] Address [address] [place] [address] Phone Care Team Providers Care Director Of Curriculum Name Role Phone Judy FERREIRA, PhD, John [...] Available - Active Procedures Procedure Date Office/Outpatient Visit,[facility], [facility] 2018 Advance Directives Directive Yes / No Effective Date File Name No Information Encounters Encounter Description Practice Location Reason(s) For Visit Diagnoses Date Provider Providers Copied on Encounter [facility], [address], [place], [place], [id number], [place] tel:[phone] [facility] No Information 9 Judy Coker. [facility], [address], [place], [address], [place]. [phone] Office/Outpa tient Visit,New, [place] [facility], [address], [place], [place], [id number], [place] tel:[phone] [facility] Spinal stenosis, lumbar region with neurogenic claudication 9 Lit Richards. [facility], [address] [place] [address] [address], [place], [place], [id number] , [place]. [phone] Referring Provider: Robbi Martin, [facility] [address], [place], [address]. [phone] [facility], [address], [place], [place], [id number], [place] [phone] [facility] [place] Radiculopathy , lumbar region 9 Judy Coker. [facility], [address] [place] [address] [address], [place], [address], [place]. tel:[phone] Z [facility], [address] [place] [address], [place], [address], [place] [phone] [facility] [place] Diabetes Mellitus Type 2, Uncomplicated Hypercholeste rolemia 3 Mehbod Amir. [facility], [address] [place] [address] [address], [place], [place], [id number] , [place]. [phone] Family History Family Member Type Diagnosis Age At Onset No Information Payers Payer name Insurance type Covered green party ID Authoriza tion(s) No Information Social [...]
--- OUTSIDE RECORDS SUMMARY | 2023-07-24 17:03 | XMS_ITS ---
Author Name Unknown Organization [facility] Address [address] [place] [address] Care Team Providers Care Maintenance Shop Clerk Name Role Phone Unavailable Unavailable Unavailable Surgery Details Not on file Complications Check Surgery Details section. Procedure Estimated Blood Loss Check Surgery Details section. Procedure Findings Check Surgery Details section. Procedure Specimens Taken Check Surgery Details section.
--- OUTSIDE RECORDS SUMMARY | 2023-07-24 17:04 | XMS_ITS | Clinical Summary ---
Author Name Unknown Organization [employer] [facility] Address [place], [place] [address] Care Team Providers Care Nuclear Physics Teacher Name Role Phone Joi Zavala MD Primary Care Provide r Ruben Fernandez MD Unavailable [phone] Allergies Active Allergy Reactions Criticality Noted Date Comments Bacitracin Contact Dermatitis,Rash High 01/02/2008 The suave only. water blisters Mupirocin Other - Describe In Comment Field Low 01/24/2015 Blistering of skin where applied Other reaction(s): Other (see comments) Blistering of skin where applied Medications Medication Sig Dispensed Refills Start Date End Date Status miscellaneous medical supply (DIGITAL BP MONITOR CUFF) MiscIndications:Typ e II or unspecified type diabetes mellitus without mention of complication, not stated as uncontrolled,Edema As directed. Automatic blood pressure cuff Large arm cuff Diagnosis: Hypertension,401. 1, diabetes mellitus 250.00 1 Each 0 0 Active MISCELLANEOUS MEDICAL SUPPLY (GRADUATED COMPRESSION STOCKINGS)Indicatio ns:Pedal edema,Cellulitis and abscess of unspecified site For personal use. Length: calf Strength: 16-20 mmHg Circumference in cm: 2 Packet 2 2 Active insulin needles, disposable, (ULTICARE) 31 X 10/17 Indications:Type II or unspecified type diabetes mellitus without mention of complication, not stated as uncontrolled For administering insulin at home. 400 Each 3 5 Active Insulin Gateway, Disposable, (PEN NEEDLE) 29 gauge x 1/2Indications:IDD M (insulin dependent diabetes mellitus) For administering insulin at home. 400 box 3 5 Active miscellaneous medical supply miscIndications:Spi nal stenosis of lumbar region without neurogenic claudication,Morbid obesity with BMI of 45.0-49.9, adult (HC),Arthritis of knee As directed 1 Each. Bariatric commode . (Patient weight 300lb.). Patient has poor mobility due to knee arthritis, obesity, prostate cancer, lumbar spinal stenosis 1 Each 0 8 Active Insulin Syringe-Needle U-100 (LITE TOUCH INSULIN SYRINGE) 0.5 mL 31 gauge x 10/17Indications:Ins ulin dependent diabetes mellitus As directed. For administering insulin at home. Relion brand syringe 1 box 8 Active blood sugar diagnostic (ONETOUCH ULTRA BLUE TEST STRIP) stripIndications:Ty pe 2 diabetes mellitus with complication, with long-term current use of insulin (HC) Dispense item covered by pt ins. E11.65 IDDM type II, uncontrolled - Test 3 - 4 times/day. Reason: High A1C 400 Each 0 8 Active lancets (ONETOUCH ULTRASOFT LANCETS)Indications :Type 2 diabetes mellitus with complication, with long-term current use of insulin (HC) Dispense item covered by pt ins. E11.65 IDDM type II, uncontrolled - Test 3 - 4 times/day. Reason: High A1C 400 Each 0 8 Active diabetic supplies, miscellan.Indicatio ns:Type 2 diabetes mellitus with complication, with long-term current use of insulin (HC) Dispense glucose meter, test strips and lancets covered by patient insurance. Test 3-4 times per day. 1 Kit 0 8 Active cyanocobalamin (VITAMIN B-12) 1,000 mcg tabletIndications:B 12 deficiency Take 1 tablet by mouth once daily. 90 tablet 3 9 Active medication order composerIndications :Left ischial pressure sore, stage I Donut pillow for home use 1 unit 1 9 Active flash glucose scanning reader (FreeStyle Corry 2 [place]) miscIndications:Ins ulin dependent type 2 diabetes mellitus (HC) As directed. 1 Each 0 1 Active oxygen-air delivery systems (HOME OXYGEN)Indications: Hypoxia,Pickwickian syndrome (HC) Portable conserving oxygen device, POC-Concentrator. Liters per minute: 2 per nasal cannula. Frequency of use: Continuous. Length of need: 99 Months. 1 Each 0 2 Active Diabetic ShoeIndications:Typ e 2 diabetes mellitus with complication, with long-term current use of insulin (HC) As directed. 1 pair 1 Each 0 2 Active wheelchairIndicatio ns:Lewy body dementia without behavioral disturbance (HC) Wheelchair: Standard with leg rests: (Swing away Length of need: 99 months 1 Each 0 2 Active Lactobacillus acidophilus (Probiotic) 10 billion cell cap Take by mouth once daily. 0 Active albuterol (PROVENTIL) 0.083 % neb solution Inhale 2.5 mg via a nebulizer every 4 hours if needed. 0 Active durable medical equipment (DME)Indications:SO B (shortness of breath) Nebulizer and supply kit as covered by insurance 1 Each 0 2 Active nystatin powder (MYCOSTATIN) powderIndications:I ntertrigo APPLY 1 STRIP TOPICALLY TO AFFECTED AREA(S) THREE TIMES DAILY 60 g 3 2 Active zliexrlfn-JX-PO-jeffrey taminophen ([place] Plus Cold/CoughFm) 2-5-10-325 mg cap Take 1 Capsule by mouth 2 times daily if needed (for congestion). 0 2 Active novofine autocover 30 gauge x 1/3 needleIndications:T ype 2 diabetes mellitus with complication, with long-term current use of insulin (HC) USE DIRECTED WITH INSULIN PENS 400 Each 3 2 Active nystatin (MYCOSTATIN) creamIndications:In tertrigo Apply topically to affected area(s) two times daily. 60 g 3 2 Active sennosides-docusate (SENOKOT S) (8.6-50 mg) tablet 1 tablet twice daily as needed for constipation 0 2 Active glycopyrrolate (ROBINUL) 1 mg tabletIndications:D rooling Take 1 tablet by mouth daily 90 Tablet 3 2 Active FreeStyle Corry 2 ReaderIndications:T ype 2 diabetes mellitus with complication, with long-term current use of insulin (HC) To be used to read blood sugars per braille transcriber's directions. 1 Each 0 2 Active Shower ChairIndications:Le wy body dementia without behavioral disturbance, psychotic disturbance, mood disturbance, or anxiety, unspecified dementia severity (HC) For home use. Shower chair with arms 1 Each 0 2 Active tacrolimus 0.1% (PROTOPIC) 0.1 % ointmentIndications :Seborrheic dermatitis Apply topically to affected area(s) two times daily. For eyebrows 60 g 1 3 Active carbidopa-levodopa, 25-100 mg, (SINEMET 25-100) 25-100 mg tabletIndications:L ewy body dementia with behavioral disturbance (HC) Take 3 tablet by mouth three times a day. 270 Tablet 3 3 Active rosuvastatin (CRESTOR) 20 mg tabletIndications:H yperlipidemia, unspecified hyperlipidemia type Take 1 Tablet (20 mg) by mouth at bedtime. 90 Tablet 3 3 Active oxybutynin (DITROPAN XL) 15 mg CR tabletIndications:U rinary urgency TAKE ONE TABLET BY MOUTH ONCE EVERY DAY NEEDED FOR FREQUENT URINATION. 60 Tablet 3 3 Active FreeStyle Corry 2 SensorIndications:T ype 2 diabetes mellitus with complication, with long-term current use of insulin (HC) TO BE USED TO READ BLOOD SUGARS PER KITCHEN CLEANER'S DIRECTIONS. 6 Each 3 3 Active Lantus Solostar U-100 Insulin 100 unit/mL (3 mL) penIndications:Type 2 diabetes mellitus with complication, with long-term current use of insulin (HC) Inject 18 units subcutaneous before bedtime. Product desired: LANTUS SOLOSTAR 3 mL 11 3 Active FreeStyle Corry 14 Day SensorIndications:T ype 2 diabetes mellitus with complication, with long-term current use of insulin (HC) To be used to read blood sugars per braille transcriber's directions. FreeStyle Corry 14 day / FreeStyle Corry 2 CGM sensor 6 boxes is 84 day supply 6 Each 3 3 Active meclizine (ANTIVERT) 25 mg tabletIndications:V ertigo TAKE ONE TABLET BY MOUTH TWICE DAILY NEEDED 180 Tablet 1 3 Active clonazePAM (KLONOPIN) 1 mg tablet Take 0.5 mg by mouth at bedtime. 0 Active insulin aspart, U-100, (NOVOLOG FLEXPEN) 100 unit/mL (3 mL) penIndications:Type 2 diabetes mellitus without complication, with long-term current use of insulin (HC) INJECT 8 UNITS UNDER THE SKIN AT BREAKFAST, INJECT 6 UNITS AT LUNCH AND INJECT 8 UNITS AT SUPPER. HOLD FOR LESS THAN 150. GIVE AN ADDITIONAL 2 UNITS FOR EVERY 50 UNITS OVER 200 (MAX DOSE 25 UNITS PER DAY) 30 mL 5 4 Active donepeziL (ARICEPT) 5 mg tabletIndications:M tree problem Take 2 Tablets (10 mg) by mouth at bedtime. 0 4 Active triamcinolone 0.1% TOPICAL (KENALOG) 0.1 % lotionIndications:R robi Apply topically to affected area(s) three times daily. 60 mL 2 4 Active ketoconazole 2% shampoo (NIZORAL) 2 % shampooIndications: Seborrheic dermatitis Shampoo the hair thoroughly once a week 120 mL 3 4 Active ketoconazole 2% shampoo (NIZORAL) 2 % shampooIndications: Seborrheic dermatitis Shampoo the hair thoroughly once a week 120 mL 3 2 07/24/19 24 Discontinue d(Reorder (E-cancel not sent)) cephalexin (KEFLEX) 500 mg capsule Take 500 mg by mouth three times daily. 0 3 07/24/19 24 Discontinue d(*Patient states no longer taking) QUEtiapine (SEROQUEL) 25 mg tablet Take 25 mg by mouth once daily. 0 3 07/24/19 24 Discontinue d(*Patient states no longer taking) predniSONE (DELTASONE) 10 mg tabletIndications:R robi Take 3 Tablets (30 mg) by mouth once daily with a meal for 2 days, THEN 2 Tablets (20 mg) once daily with a meal for 2 days, THEN 1 Tablet (10 mg) once daily with a meal for 2 days. 12 Tablet 0 4 07/12/19 24 triamcinolone 0.1% TOPICAL (KENALOG) 0.1 % lotionIndications:R robi Apply topically to affected area(s) three times daily. 60 mL 2 4 07/06/19 24 Discontinue d(Reorder (E-cancel not sent)) Active Problems Problem Noted Date Diagnosed Date Acute septic pulmonary embolism without acute co r pulmonale 06/21/2023 Other acute pulmonary embolism with acute cor pu lmonale 06/21/2023 Type 2 diabetes mellitus wit h stage 1 chronic kidney disease, with long-term current use of insulin 05/18/2023 Skin ulcer of sacrum, unspecified ulcer stage Depression, major, single episode, moderate 08/2022 Chronic respiratory failure with hypoxia 023 Pickwickian syndrome 07/07/2022 Parkinsonism 07/01/2021 Lewy body dementia with behavioral disturbance 0 07/01/2021 Lewy body dementia 05/23/2021 Overview: With parkinsonism Cannot walk far May be connected to his difficulty with taking pills and the epiglottis and swallowing trouble he had Myopia of right eye 07/16/2019 Nuclear senile cataract of right eye 07/16/2019 Presbyopia 07/16/2019 Prostate cancer 02/21/2017 Elevated PSA 11/18/2016 PVD (posterior vitreous detachment), left eye Pseudophakia, left eye 06/22/2016 Chronic kidney disease, stage III (moderate) 08/2015 POAG (primary open-angle glaucoma) 05/24/2015 HTN (hypertension) 04/15/2015 Type 2 diabetes mellitus wit h complication, with long-term current use of insulin 03/16/2015 Urinary urgency 10/03/2014 Edema 03/28/2013 Lumbar spinal stenosis 09/25/2012 Degeneration of lumbar or lumbosacral interverte bral disc 08/15/2012 Displacement of lumbar inter vertebral disc without myelopathy 08/15/2012 Lumbar radicular pain - left L5. 08/15/2012 Cluster headache 12/08/2011 Nonulcer dyspepsia 12/07/2011 CLL (chronic lymphocytic leukemia) 10/25/2011 GE reflux 09/06/2010 Personal history of colonic polyps 11/04/2009 MAYA 05/13/2008 AHI-56 05/25/2008 SENSORINEURAL HEARING LOSS, BILATERAL 12/03/2007 Pure hypercholesterolemia 09/04/2006 Resolved Problems Problem Noted Date Diagnosed Date Resolved Date Acute systolic CHF (congestive heart failure) 04/07/2003/31/2021 Obstructive emphysema 11/17/20162020 Morbid obesity with BMI of 45.0-49.9, adult 10/03/2014 03/31/2021 Elevated serum creatinine 09/22/2011 Variants of migraine, not el sewhere classified, without mention of intractable migraine without mention of status migrainosus 09/04/2006 12/08/2011 DIABETES 07/02/2002 03/16/2015 Encounters Date Type Department Care Team Description 07/24/2023 1:50 PM CASH MANAGEMENT CLERK Office Visit [facility] [address] [place] [address] Joi Zavala MD Nutrition (Has not ate since 07/22. O2 has been falling. BS has been managing./Congested and gurgling in the am. Tired and not using the walker./Can not get up with out assistance./Has been going down hill since Sunday./); Hallucinations (Increased in the day- /Stopped QUEtiapine (SEROQUEL) 25 mg tablet on the /Was Rx for night tremors, they have been minimal. ) 07/24/2023 Travel 07/06/2023 10:05 AM CASH MANAGEMENT CLERK Office Visit [facility] [address] [place] [address] Joi Zavala MD Derm Problem (Was red between shoulder blades on 07/03. Developed into a rash, itches a lot. Has started to spread down the back. No new soaps or detergent. Has 2 cat's do not get on Deejay.) 07/06/2023 Travel 07/06/2023 Telephone [facility] [address] [place] [address] Joi Zavala MD Appointment Request (Dr Zavala ) 07/06/2023 Nurse Triage [facility] [address] [place] [id number] Joi Zavala MD Rash 06/21/2023 1:25 PM CASH MANAGEMENT CLERK Office Visit [facility] [address] [place] [id number] Joi Zavala MD Follow Up (Lewy body dementia, Has notice more frequency with confusion. Place and time. Waking at night and thinking it is time to get up.); Diabetes (Has been doing good. Average BS has been 147./Has been in target range 80%); Gi Problem (Loose stools and passing mucus. Using imodium and Gas x) 06/21/2023 Travel 06/14/2023 Refill [facility] [address] [place] [id number] Joi Zavala MD Refill Request (Insulin Aspart (U-100)) 05/18/2023 11:20 AM CASH MANAGEMENT CLERK Office Visit [facility] [address] [facility] [place] [id number] Joi Zavala MD Follow Up (Not one of his better days.) 05/18/2023 Travel 05/14/2023 Refill [facility] [address] [place] [id number] Joi Zavala MD Refill Request (Meclizine) 05/01/2023 Telephone [facility] [address] [place] [id number] Jio Zavala MD Questions from Last 3 Months Immunizations Name Administration Dates Next Due AMB Influenza, IIV3 (Age >=3 years)(Flu Clinic Only) 03/05/2013 AMB Influenza, IIV4 PF (=>6 mos Flulaval,Fluzone Fluarix)(Flu Clinic Only) 03/25/2018 COVID-19 Vaccine Spikevax (M oderna 50mcg/0.5mL) 12YO+ [id number] Formula PF 04/13/2023 COVID-19 vaccine (Moderna 100mcg/0.5mL) PF, MDV 08/05/2020,07/08/2020 COVID-19 vaccine (Kaiima-Bio NTech 30mcg/0.3mL) 12YO+ BEN-SUCROSE PF, MDV 09/09/2021 Influenza A (H1N1), Inactiva winston (Age >=3 Years) 05/20/2009 Influenza Virus, Unspecified 05/04/2011, 02/24/2010,04/17/2006,04/15,03/31/2004,04/10/2003 Influenza, High-dose Inactivated 04/13/2016,03/04,04/02/2014 Influenza, High-dose Quadriv alent Inactivated 04/02/2021,02/24/2020 Influenza, IIV3 (Age >=3 years) 03/14/20 12,05/04/2011,02/24/2010,04/02,04/04/2007 Influenza, Inactivated AIIV4 (Age 65+ Years) Preserv Free 02/15/2023,03/31/2022 Influenza, Inactivated IIV3 (Age 65+ Years) Preserv Free 05/23/2019,02/23/2017 Pneumococcal Poly,23-Valent (Pneumovax) 03/14/2012 Pneumococcal conj 13-Valent (Prevnar 13) 05/04/2015 RSV, Recombinant ADJ Reconst ituted (Arexvy 120MCG/0.5mL) 05/18/2023 Td (Age >=7 Years) 03/13/2012,04/29/2002 Tdap 03/14/2012 Zoster (Zostavax-ZVL, live) 04/04/2007 Family History Medical History Relation Name Comments Unknown Brother Fausto Retinal detachm ent Diabetes Father Heart Disease Father Arthritis Mother Cancer Mother Relation Name Status Comments Brother Fausto Father Mother Social History Tobacco Use Types Packs/Day Years Used Date Smoking Tobacco: Former Cigarettes 1 35 1 07/14/1959 - 05/13/1995 Passive Smoke Exposure: Past Smokeless Tobacco: Never Tobacco Cessation:Counseling Given: Yes Alcohol Use Standard Drinks/Week Comments No 0 (1 standard drink = 0.6 oz pur e alcohol) very little PHQ-2 Answer Date Recorded PHQ-2 TOTAL SCORE 2 06/02/2022 Social Connections Answer Date Recorded Frequency of Communication with Friends and Fami ly 0 12/07/2022 Financial Resource Strain Answer Date R ecorded Difficulty of Paying Living Expenses 3 12/07/2022 Difficulty of Paying Living Expenses Not on file 12/07/2022 Food Insecurity Answer Date Recorded Worried About Running Out of Food in the Last Ye ar 1 12/07/2022 Transportation Needs Answer Date Record ed Lack of Transportation (Medical) 1 12/07/2022 Housing Stability Answer Date Recorded Unable to Pay for Housing in the Last Year 1 12/07/2022 Sex and Gender Information Value Date Recorded Sex Assigned at Not on file Gender Identity Not on file Sexual Orientation Not on file Obstetrics History Last Filed Vital Signs Vital Sign Reading Time Taken Comments Blood Pressure 109/76 07/24/2023 2:23 PM CASH MANAGEMENT CLERK Pulse 63 07/24/2023 2:23 PM CASH MANAGEMENT CLERK Temperature 37.1 ??C (98.8 ??F) 02/03/2022 1 2:20 PM CDT Respiratory Rate 18 01/18/2022 12:2 5 PM CDT Oxygen Saturation 90% 07/24/2023 2:23 PM CASH MANAGEMENT CLERK Inhaled Oxygen Concentration - - Weight 104.2 kg (229 lb 12.8 oz) 07/24/2023 2:23 PM CASH MANAGEMENT CLERK Height 170 cm (5' 6.93) 06/02/2022 9:00 AM CASH MANAGEMENT CLERK Body Mass Index 36.07 06/02/2022 9:00 AM CASH MANAGEMENT CLERK Plan of Treatment Upcoming Encounters Date Type Department Care Team (Late st Contact Info) Description 08/28/2023 2:00 PM CDT Office Visit [facility] [address] [place] [address] Daniel Franks MD [address] [facility] [address] [place] [address] Health Maintenance Due Date Last Done Comments Zoster (shingles) series for age 50+ (1 of 2) 05/30/2007 04/04/2007 Tetanus booster 03/14/2022 03/14/2012, 03/04, 04/29/2002 BMI (ht and wt on same day) for age 18+ 06/02/2023 06/02/2022, 02/08/2021, 05/23/2019, Additional history exists Depression screening for age 12+ 06/02/2023 06/02/2022, 06/02/2022, 03/31/2021, Additional history exists Medicare Wellness for age 65+ 06/03/2023, 03/31/2021, 10/04/2018, Additional history exists COVID-19 vaccine series ( season) 2023 04/13/2023, 03/01/2022, 09/09/2021, Additional history exists Tdap Completed 03/14/2012 Pneumococcal series for age 65+ Completed 5, 03/14/2012 Influenza for age 65+ Completed 02/15/2023 , 03/31/2022, 04/02/2021, Additional history exists Goals Goal Patient Goal Type Associated Problems Recent Progress Patient-Stated? Author BLOOD PRESSURE - Maintains BP less than 140/90 Blood Pressure No Florinda Rodriguez Advance Directives Documents on File Type Date Recorded Patient Laundrette Owner Expl anation Healthcare Directive 09/14/2021 7:36 AM HE ALTH CARE DRE/ 09/14/2021 Care Teams Nuclear Physics Teacher Relationship Specialty Start Date End Date Joi Zavala MD [address] [place] [address] PCP - General 03/08/05 Ruben Fernandez MD [address] [place] [address] Sports Medicine 09/05/12
--- OUTSIDE RECORDS SUMMARY | 2023-07-24 17:04 | XMS_ITS | Clinical Summary ---
Author Name Unknown Organization [facility] Address [address] [place] [address] Care Team Providers Care Paragliding Instructor Name Role Phone Unavailable Primary Care Provider Unavailabl e Source Comments You are receiving this document as you are listed as the primary care provider,follow-up provider, or the patient has been referred to you for consultation.This is in compliance with the Medicare andMedicaid EHR Incentive Program,which states Providers who transition their patient to another setting of careor provider of care or refers their patient to another provider of care shouldprovide summary care record for each transition of care or referral. [facility] Social History Tobacco Use Types Packs/Day Years Used Date Smoking Tobacco: Never Assessed Sex and Gender Information Value Date Recorded Sex Assigned at Not on file Gender Identity Not on file Sexual Orientation Not on file Plan of Treatment Health Maintenance Due Date Last Done Comments Medicare Welcome Visit 1941 Zoster/Shingles (2 of 3) 05/30/2007 04/04/2007 DTaP/Tdap/Td (2 - Tdap) 03/14/2022 03/14/2012 COVID-19 Vaccine ( season) 2023 08/05/2020, 07/08/2020 Influenza (#1) 2023 02/24/2020, 05/05, 03/25/2018, Additional history exists Pneumococcal 65+ Yrs Completed 05/04/2015, 03/14/20 12 HepA Aged Out No longer eligi ble based on patient's age to complete this topic HepB Aged Out No longer eligi ble based on patient's age to complete this topic Hib Aged Out No longer eligi ble based on patient's age to complete this topic IPV (Polio) Aged Out No longer eligi ble based on patient's age to complete this topic MCV4 Aged Out No longer eligi ble based on patient's age to complete this topic
[2023-07-24 17:11] LABS: Albumin* 3.7 g/dL (3.3-5.0); Chloride* 100 mmol/L (96-114); Potassium* 4.3 mmol/L (3.6-5.1); Slide Review Reflex No; Sodium* 127 mmol/L (135-149)
[2023-07-24 17:13] LABS: Creatinine* 1.2 mg/dL (0.5-1.5); Est. Creatinine Clearance* 43.57; Estimated Glomerular Filt Rate 61 ml/min
[2023-07-24 17:14] LABS: Alanine Aminotransferase* 6 U/L (4-50); Alkaline Phosphatase* 85 U/L (40-150); Anion Gap 2 mEq/L (7-15); Aspartate Amino Transferase* 18 U/L (12-35); Bilirubin Direct* 0.3 mg/dL (0.0-0.5); Bilirubin Total* 0.8 mg/dL (0.1-1.5); Blood Urea Nitrogen* 19 mg/dL (7-30); Carbon Dioxide* 25 mmol/L (20-32); Glucose* 155 mg/dL (60-115); Total Protein* 6.6 g/dL (6.0-8.3)
[2023-07-24 17:15] LABS: Calcium* 8.7 mg/dL (8.4-10.6)
[2023-07-24 17:17] LABS: C Reactive Protein* 8.4 mg/dL (0.5-1.0)
[2023-07-24 17:25] LABS: NT Pro B Type NatriureticPept* 371 pg/mL
[2023-07-24 17:31] LABS: PCR FLU A POSITIVE PCR FLU A (Negative); PCR FLU B Negative PCR FLU B (Negative); PCR RSV Negative PCR RSV (Negative); SARS PCR* Negative SARS-CoV-2 (Negative)
== END 2023-07-24 18:27 | disposition home or self-care (01) ==
PROVIDERS: Emergency Provider Emergency Medicine; PCP Family Medicine
DX: J10.1 Influenza due to other identified influenza virus with other respiratory manifestations (principal)
CPT/HCPCS: 36415; 71045; 80048; 80076; 81001; 83605; 83880; 84484; 85025; 86140; 87631; 93005; 99283; 99284; 99285

== ENCOUNTER 2023-09-16 13:23 | Inpatient (IN) | payer MEDICARE, SELFPAY ==
[2023-09-16] VITALS (18 sets, daily range): BP systolic 119–197; BP diastolic 57–87; PULSE 50–87; RESP 16–20; TEMP 36.2–36.9; O2SAT 91–98; BMI 25.1; BMI 36.7
--- NOTE | 2023-09-16 13:31 | ED.GENADULT ---
HPI - General Adult General Chief complaint: Weakness Stated complaint: Poss stroke Time Seen by Provider: 09/16/23 13:30 History of Present Illness HPI narrative: Patient is an 82 year white male who lives in [facility] with his was here with him. He was brought in by his 3 children today at 7:00 a.m. the noticed he had a deterioration where he had difficulty speaking and walking. She really noticed any focal weakness but did seem to be weak generally. He sat down parent leg got better had recurrence of symptoms about 11:00 a.m.. Where he could not walk, had garbled speech. Did not seem to have any facial asymmetry. Seemed generally weak. At that point his family brought him to emergency department. He denies any specific pain no chest pain, no headache. He does still have some limited speech is little bit garbled. He has no obvious facial asymmetry he has obvious no drift with his arms after for 3-5 seconds, he is able to lift his arms and legs for that period of time. He has sensation is extremities. Related Data Home Medications Medication Instructions Recorded Confirmed carbidopa 25 mg-levodopa 100 mg 2 tab PO TID 01/01/22 07/24/23 tablet clonazepam 0.5 mg tablet 0.5 mg PO HS 01/01/22 07/24/23 donepezil 10 mg tablet 10 mg PO HS 01/01/22 07/24/23 meclizine 25 mg tablet 25 mg PO BID PRN 01/01/22 07/24/23 metformin 500 mg tablet 500 mg PO BIDWM 01/01/22 07/24/23 oxybutynin chloride 15 mg 15 mg PO DAILY PRN 01/01/22 07/24/23 tablet,extended release 24 hr rosuvastatin 20 mg tablet 20 mg PO HS 01/01/22 07/24/23 glycopyrrolate 1 mg tablet 1 mg PO DAILY 02/14/22 07/24/23 Lactobacillus acidophilus 10 10 mg PO DAILY 02/15/22 07/24/23 billion cell capsule (Probiotic) cyanocobalamin (vitamin B-12) 1,000 mcg PO DAILY 02/15/22 07/24/23 1,000 mcg tablet nystatin 100,000 unit/gram topical 1 applic topical BID 02/15/22 07/24/23 ointment insulin aspart U-100 100 unit/mL 5 unit subcut DAILY@1200 12/31/22 07/24/23 (3 mL) subcutaneous pen (Novolog FlexPen U-100 Insulin aspart) insulin aspart U-100 100 unit/mL 6 unit subcut DAILY@0800 12/31/22 07/24/23 (3 mL) subcutaneous pen (Novolog FlexPen U-100 Insulin aspart) insulin glargine 100 unit/mL (3 12 unit subcut HS 01/01/23 07/24/23 mL) subcutaneous pen (Lantus Solostar U-100 Insulin) Previous Rx's Medication Instructions Recorded insulin aspart U-100 100 unit/mL 6 unit (0.06 mL) subcut DAILY@1800 02/21/22 (3 mL) subcutaneous pen (Novolog #15 mL FlexPen U-100 Insulin aspart) insulin aspart U-100 100 unit/mL See Rx Instructions .Route 02/21/22 (3 mL) subcutaneous pen (Novolog .COMPLEX #15 mL FlexPen U-100 Insulin aspart) nystatin 100,000 unit/gram topical 1 applic topical TID #15 grams 02/21/22 powder sennosides 8.6 mg-docusate sodium 1 tab PO BID #60 tabs 02/21/22 50 mg tablet (Stool Softener-Laxative) levofloxacin 500 mg tablet 500 mg PO DAILY 10 days #10 tabs 03/13/23 Allergies Allergy/AdvReac Type Severity Reaction Status Date / Time bacitracin Allergy Intermediate Verified 09/16/23 13:40 Review of Systems Status of ROS: Reports: 6 or more systems reviewed and unremarkable except as noted in History and below [facility] Medical History Weakness ?R53.1 - Weakness (ICD-10) Lymphedema ?I89.0 - Lymphedema, not elsewhere classified (ICD-10) Pulmonary embolism ?I26.99 - Other pulmonary embolism without acute cor pulmonale (ICD-10) History of external beam radiation therapy ?Z92.3 - Personal history of irradiation (ICD-10) Insulin dependent type 2 diabetes mellitus ?E11.9 - Type 2 diabetes mellitus without complications (ICD-10) ?Z79.4 - halfway (current) use of insulin (ICD-10) Prostate cancer ?C61 - Malignant neoplasm of prostate (ICD-10) CKD (chronic kidney disease) ?N18.9 - Chronic kidney disease, unspecified (ICD-10) MAYA (obstructive sleep apnea) ?G47.33 - Obstructive sleep apnea (adult) (pediatric) (ICD-10) Parkinson disease ?G20 - Parkinson's disease (ICD-10) Lewy body dementia ?G31.83 - Dementia with Lewy bodies (ICD-10) ?F02.80 - Dementia in other diseases classified elsewhere without behavioral disturbance (ICD-10) Spinal stenosis ?M48.00 - Spinal stenosis, site unspecified (ICD-10) Reflux gastritis ?K29.60 - Other gastritis without bleeding (ICD-10) Diabetes ?E11.9 - Type 2 diabetes mellitus without complications (ICD-10) Hypercholesteremia ?E78.00 - Pure hypercholesterolemia, unspecified (ICD-10) Hypertension ?I10 - Essential (primary) hypertension (ICD-10) Surgical History History of cataract surgery ?Z98.49 - Cataract extraction status, unspecified eye (ICD-10) History of meniscectomy of left knee ?Z98.890 - Other specified postprocedural states (ICD-10) History of total left knee replacement ?Z96.652 - Presence of left artificial knee joint (ICD-10) History of lumbar discectomy ?Z98.890 - Other specified postprocedural states (ICD-10) History of transurethral resection of prostate ?Z98.890 - Other specified postprocedural states (ICD-10) ?Z90.79 - Acquired absence of other genital organ(s) (ICD-10) Family History Father Diabetes Cardiovascular disease Social History Narrative: He lives with his . They live in their own home. She is with him 24 hours a day except for twice a week she dining room helper to come in to give her some respite. He is able to walk with a walker. Often uses a wheelchair as well. He has limited mobility secondary to right-sided weakness and immobility. He does not smoke. Rarely drinks alcohol. What is your current living situation?: I presently have a place to live Problems where you live: no known problems Problems where you live details: n/a In the past 12 months, utilities in danger of being shut off: no In past 12 months, lack of transportation kept you from medical appts, meetings, work, or getting things needed for daily living: no In the past 12 mos, have been you worried that your food would run out before you had money to buy more?: never true In the past 12 mos, the food you bought just didn't last and you didn't have money to buy more?: never true Highest level of school completed/degree received: 12th grade, no diploma Smoking Status: Former smoker Do you use any of these nicotine containing products: None Second hand tobacco smoke exposure: No How often do you have a drink containing alcohol: never How often do you have six or more drinks on one occasion: Never AUDIT-C Alcohol total score: 0 Non-prescribed substance use: marijuana (any form) Non-prescribed substance use details: Marijuana in liquid form orally Caffeine: Yes How often does anyone, including family, friends and others, physically hurt you: never How often does anyone, including family, friends and others, insult or talk down to you: never How often does anyone, including family, friends and others, threaten you with harm: never How often does anyone, including family, friends and others, scream or curse at you: never service: Yes ([employer]) Exam Narrative: Exam Narrative: Objective: Patient is alert orient x3 He does have garbled speech No facial asymmetry, tongue protrudes midline He does appear to have lateral gaze its normal Neck is supple Chest clear Heart rhythm regular with occasional ectopic beat 2/6 systolic murmur Abdomen benign Extremities he does not have drift in either of his extremities he is able to had got good hand grasp bilaterally he has got normal flexion extension of his feet bilaterally normal sensation in his arms and legs Const: Vital Signs, click to edit/add: Vital Signs - 24 hr 09/16/23 13:25 09/16/23 13:57 09/16/23 13:58 Temperature 98.4 F Pulse Rate 84 54 L Pulse Rate [Right Pulse Oximeter] 87 Respiratory Rate 16 Blood Pressure 167/71 H Pulse Oximetry 98 91 98 Oxygen Delivery Me thod Room Air 09/16/23 14:00 09/16/23 14:02 09/16/23 14:12 Temperature Pulse Rate 53 L 52 L 51 L Pulse Rate [Right Pulse Oximeter] Respiratory Rate Blood Pressure 164/78 H 170/79 H Pulse Oximetry 96 94 95 Oxygen Delivery Sc thod 09/16/23 14:15 09/16/23 14:30 09/16/23 14:33 Temperature Pulse Rate 50 L 52 L 52 L Pulse Rate [Right Pulse Oximeter] Respiratory Rate Blood Pressure 171/79 H Pulse Oximetry 95 95 94 Oxygen Delivery Sc thod 09/16/23 14:45 09/16/23 14:47 09/16/23 14:48 Temperature Pulse Rate 55 L 51 L 50 L Pulse Rate [Right Pulse Oximeter] Respiratory Rate Blood Pressure 197/87 H Pulse Oximetry 94 95 [facility] 09/16/23 15:00 09/16/23 15:03 Temperature Pulse Rate 50 L 56 L Pulse Rate [Right Pulse Oximeter] Respiratory Rate Blood Pressure 168/85 H Pulse Oximetry 94 91 Oxygen Delivery Me od Course Vital Signs Vital signs: Initial Vital Signs Temperature 98.4 F 09/16/23 13:25 Temperature Source Temporal Artery Scan 09/16/23 13:25 Pulse Rate 87 09/16/23 13:25 Pulse Rhythm Regular 09/16/23 13:25 Pulse Strength 3+ Normal 09/16/23 13:25 Respiratory Rate 16 09/16/23 13:25 Pulse Oximetry 98 09/16/23 13:25 Oxygen Delivery Method Room Air 09/16/23 13:25 Vital Signs Temperature 98.4 F 09/16/23 13:25 Pulse Rate 87 09/16/23 13:25 Respiratory Rate 16 09/16/23 13:25 Pulse Oximetry 98 09/16/23 13:25 Oxygen Delivery Method Room Air 09/16/23 13:25 Temperature 98.4 F 09/16/23 13:25 Pulse Rate 56 L 09/16/23 15:03 Respiratory Rate 16 09/16/23 13:25 Blood Pressure 168/85 H 09/16/23 15:03 Pulse Oximetry 91 09/16/23 15:03 Oxygen Delivery Method Room Air 09/16/23 13:25 Medications Administered Medications: Discontinued Medications Generic Name Dose Route Start Last Admin Trade Name Freq PRN Reason Stop Dose Admin Sodium Chloride 500 mls @ 500 mls/hr 09/16/23 13:36 04/14/24 14:10 0.9 % Sodium Chloride 500 Ml IV 09/16/23 14:35 500 mls/hr .Q1H ONE Administration Medical Decision Making MDM Narrative Medical decision making narrative: The patient went promptly to CT CTA of his head neck. His head CT was cleared initially by myself and he does have some old calcific process in the falx that appeared to been there before, do not see any obvious bleeding, CT will be done. At this point Dr. Damon tele stroke neurologist was online and will evaluate the patient and give more definitive treatment planning. The patient is DNR DNI does have a history of Lewy body dementia and his reports that he has had some evidence of some type of stroke-like activity in the past. His blood sugar was 116, he is a known insulin-dependent diabetic and he is on Sinemet. As mentioned he has Adhikari to live in their own home. He is DNR DNI by her report. Will get tele Stroke Neurology involvement after the CTA and CT, and will make disposition planning. Addendum 2:24 p.m. the patient's head and neck CT CTA are unremarkable for acute findings. At this point Dr. Damon stroke neurology recommended hospitalization monitoring MRI tomorrow. Symptomatic care, telemetry. PT and OT assessment as per protocol. Will discuss with hospitalist. Patient did have a positive RSV test. Certainly that could contribute to his situation in his significantly challenge state of health. Admission recommended as above. Lab Data Labs: Lab Results 09/16/23 09/16/23 Range/Units 13:41 14:05 WBC 9.59 (4.50-11.00) K/uL RBC 4.63 (4.30-5.90) m/uL Hgb 13.6 (13.5-17.5) gm/dL Hct 42.9 (37.0-53.0) % MCV 93 (80-100) fL MCH 29 (26-34) pg MCHC 32 (32-36) gm/dL RDW Coeff of Jorge 13.7 (11.5-15.5) % Plt Count 234 (140-440) K/uL Neut % (Auto) 56.1 (42.0-72.0) % Lymph % (Auto) 33.4 (20-44) % [place] % (Auto) 8.1 (0.0-11.0) % Eos % (Auto) 1.8 (0.0-7.0) % Baso % (Auto) 0.3 (0.0-3.0) % Neut # (Auto) 5.38 (1.7-7.0) K/uL Lymph # (Auto) 3.20 H (0.90-2.90) K/uL [place] # (Auto) 0.80 (0.00-0.90) K/UL Eos # (Auto) 0.17 (0.00-0.50) K/uL Baso # (Auto) 0.03 (0.00-0.30) K/uL Abs Immat Gran (auto) 0.03 (0.00-0.30) K/uL Imm/Tot Granulo (auto) 0.3 % INR 0.97 (0.91-1.10) APTT 27 (23-33) Seconds Sodium 138 (135-149) mmol/L Potassium 4.2 (3.6-5.1) mmol/L Chloride 107 (96-114) mmol/L Carbon Dioxide 28 (20-32) mmol/L Anion Gap 3 L (7-15) mEq/L BUN 22 (7-30) mg/dL Creatinine 1.0 (0.5-1.5) mg/dL Estimated Creat Clear 56.05 Estimated GFR 76 ml/min Glucose 112 (60-115) mg/dL Calcium 8.6 (8.4-10.6) mg/dL Total Bilirubin 0.6 (0.1-1.5) mg/dL Direct Bilirubin 0.2 (0.0-0.5) mg/dL AST 20 (12-35) U/L ALT 4 (4-50) U/L Alkaline Phosphatase 81 (40-150) U/L Troponin I < 0.01 L (0.01-0.04) ng/mL C-Reactive Protein < 0.5 L (0.5-1.0) mg/dL NT-Pro-B Natriuret Pep 493 pg/mL Total Protein 6.9 (6.0-8.3) g/dL Albumin 3.8 (3.3-5.0) g/dL Ethyl Alcohol < 0.01 L (0.01-0.03) % SARS-CoV-2 (PCR) Negative SARS-CoV-2 (Negative) Influenza Type A (PCR) Negative PCR FLU A (Negative) Influenza Type B (PCR) Negative PCR FLU B (Negative) RSV (PCR) POSITIVE PCR RSV A (Negative) Discharge Plan Discharge Clinical Impression: Insulin dependent type 2 diabetes mellitus, Dementia, Stroke Patient Disposition: Admitted As Observation
--- NOTE | 2023-09-16 13:35 | CT_ITS ---
Patient: LEIDY GAYLE Facility:?[facility] Patient ID:?[id number] Site Patient ID:?[id number]. Site :?1940 Study:?CT-Head Angio CTA HEAD AND NECK [facility] [place] PROTOCOL-09/16/2023 1:57:17 PM Ordering Physician:JAMIR Final Report: INDICATION: Acute stroke. TECHNIQUE: CTA head with contrast bolus tracking, 3D angiographic rendering using maximum intensity projection (MIP) and images permanently archived. FINDINGS: There is scattered intracranial atherosclerotic disease. There is otherwise normal opacification of the intracranial vasculature. There is no large vessel occlusion. No aneurysm is identified. Fluid/mucosal thickening noted in the paranasal sinuses. IMPRESSION: No large vessel occlusion. Please note that all CT scans at this facility use dose modulation, iterative reconstruction, and/or weight-based dosing when appropriate to reduce radiation dose to as low as reasonably achievable. Dictated by Andrews Frey MD @ 09/17/2023 7:18:35 AM Signed by:?Andrews Frey MD @09/17/2023 7:18:35 AM (Electronic Signature)
--- NOTE | 2023-09-16 13:35 | CT_ITS ---
Patient: LEIDY GAYLE Facility:?[facility] Patient ID:?[id number] Site Patient ID:?[id number]. Site :?1940 Study:?CT-Head WO STROKE PROTOCOL-09/16/2023 1:54:36 PM Ordering Physician:JAMIR Final Report: INDICATION: Stroke COMPARISON: 08/22/2022 TECHNIQUE: CT of the head without contrast. Multiplanar reformats are included. FINDINGS: No intracranial hemorrhage. General age-related parenchymal volume loss similar to prior. No acute or subacute cortically based infarct. Scattered white matter hypodensities may be related to chronic microvascular ischemia. Normal ventricles. No skull fractures. No worrisome focal bone lesion. IMPRESSION: No acute intracranial findings. Please note that all CT scans at this facility use dose modulation, iterative reconstruction, and/or weight-based dosing when appropriate to reduce radiation dose to as low as reasonably achievable. Dictated by Joselin Reyes MD @ 09/16/2023 2:14:36 PM Signed by:?Joselin Reyes MD @09/16/2023 2:14:36 PM (Electronic Signature)
--- NOTE | 2023-09-16 13:35 | CT_ITS ---
Patient: LEIDY GAYLE Facility:?[facility] Patient ID:?[id number] Site Patient ID:?[id number]. Site :?1940 Study:?CT-Neck Angio CTA HEAD AND NECK [facility] PROTOCOL-09/16/2023 1:58:11 PM Ordering Physician:JAMIR Final Report: INDICATION: Acute stroke. TECHNIQUE: CTA neck with contrast bolus tracking, 3D angiographic rendering using maximum intensity projection (MIP) and images permanently archived. FINDINGS: There is carotid atherosclerosis. There is no significant carotid artery stenosis or dissection. There is no significant vertebral artery stenosis or dissection. An indeterminate nodule is noted in the right thyroid. Advanced degenerative changes are noted in the cervical spine. IMPRESSION: No significant carotid or vertebral artery stenosis or dissection. Please note that all CT scans at this facility use dose modulation, iterative reconstruction, and/or weight-based dosing when appropriate to reduce radiation dose to as low as reasonably achievable. Dictated by Andrews Frey MD @ 09/17/2023 7:21:36 AM Signed by:?Andrews Frey MD @09/17/2023 7:21:36 AM (Electronic Signature)
[2023-09-16 13:50] LABS: Basophils Absolute Auto 0.03 K/uL (0.00-0.30); Basophils Percent Auto 0.3 % (0.0-3.0); Eosinophils Absolute Auto 0.17 K/uL (0.00-0.50); Eosinophils Percent Auto 1.8 % (0.0-7.0); Hematocrit 42.9 % (37.0-53.0); Hemoglobin* 13.6 gm/dL (13.5-17.5); Immature Granulocytes Abs Auto 0.03 K/uL (0.00-0.30); Immature Granulocytes Pct Auto 0.3 %; Lymphocytes Percent Auto 33.4 % (20-44); Mean Corpuscular HGB Conc 32 gm/dL (32-36); Mean Corpuscular Hemoglobin 29 pg (26-34); Mean Corpuscular Volume 93 fL (80-100); Monocytes Percent Auto 8.1 % (0.0-11.0); Neutrophils Absolute Auto 5.38 K/uL (1.7-7.0); Neutrophils Percent Auto 56.1 % (42.0-72.0); Platelet Count* 234 K/uL (140-440); RDW Coefficient of Variation % 13.7 % (11.5-15.5); Red Blood Count 4.63 m/uL (4.30-5.90); White Blood Count* 9.59 K/uL (4.50-11.00)
[2023-09-16 13:52] LABS: Slide Review Reflex No
[2023-09-16 14:05] LABS: Albumin* 3.8 g/dL (3.3-5.0); Chloride* 107 mmol/L (96-114); INR 0.97 (0.91-1.10); Partial Thromboplastin Time* 27 Seconds (23-33); Prothrombin Time 13.4 Seconds
[2023-09-16 14:06] LABS: Potassium* 4.2 mmol/L (3.6-5.1); Sodium* 138 mmol/L (135-149)
[2023-09-16 14:07] LABS: Bilirubin Direct* 0.2 mg/dL (0.0-0.5); Bilirubin Total* 0.6 mg/dL (0.1-1.5); Total Protein* 6.9 g/dL (6.0-8.3)
[2023-09-16 14:08] LABS: Alanine Aminotransferase* 4 U/L (4-50); Alkaline Phosphatase* 81 U/L (40-150); Aspartate Amino Transferase* 20 U/L (12-35); Est. Creatinine Clearance* 56.05; Estimated Glomerular Filt Rate 76 ml/min
[2023-09-16 14:09] LABS: Anion Gap 3 mEq/L (7-15); Blood Urea Nitrogen* 22 mg/dL (7-30); Calcium* 8.6 mg/dL (8.4-10.6); Carbon Dioxide* 28 mmol/L (20-32); Glucose* 112 mg/dL (60-115)
[2023-09-16] MEDS: 0.9 % SODIUM CHLORIDE 500 ML 500 ML IV (14:10)
[2023-09-16 14:13] LABS: C Reactive Protein* < 0.5 mg/dL (0.5-1.0); Ethanol* < 0.01 % (0.01-0.03)
[2023-09-16 14:22] LABS: NT Pro B Type NatriureticPept* 493 pg/mL; Troponin I* < 0.01 ng/mL (0.01-0.04)
--- OUTSIDE RECORDS SUMMARY | 2023-09-16 14:22 | XMS_ITS | Continuity of Care Document ---
Author Name Unknown Address [address] [place] [address] Phone [phone] Organization [facility], [facility] Address [address] [place] [address] Care Team Providers Care Journeyman Electrician Name Role Phone [facility] Primary Care Pro vider Assessment No assessment recorded. Plan of Treatment Reminders Order Date Submit Date Provider Last Modified By Organization Details Last Modified Time Details Appointments None recorded . Lab PSA, serum or plasma 024 08/22/19 24 [email or web address] 30 [facility], [address], [place], [address], 4 16:07:10 PSA, total, serum or plasma 024 08/22/19 24 daniela [facility], [address], [place], [address], 4 08:04:34 Referral None recorded . Procedures None recorded . Surgeries None recorded . Imaging None recorded . Medication Orders None recorded . Patient TargetsNo targets recorded. Patient InstructionsNo instructions recorded. Reason for Referral None Reported. Results Created Date Observation Date Name Description Value Unit Range Abnormal Flag LastModifiedBy Organization Detail LastModifiedTime 08/22/19 24 08/22/2023 PSA, serum or plasm a PSA 0.40ng /mL 0-4.0 Not Available [facility] [address], [place], [address], 08/22/2023 16:00:20 Result Notes None recorded. Procedures Surgical History Date Name Laterality Status Provider Name and Address Organization Details Recorded Time 4 ANESTHESIOLOGY RESIDENT/blood draw completed Rob Cai MD [address] [place] [address],[address], [place], [address], [facility] 08/22/2023 16:00:16 4 Bladder Scan completed Rob Cai MD [address] [place] [address],[address], [place], [address], [facility] 08/22/2023 16:00:10 3 [facility] 14:03:04 procedure on back completed Rob Cai MD [address] [place] [address],[address], [address], [facility] 02/19/2023 14:01:06 procedure on knee completed Rob Cai MD [address] [place] [address],[address], [place], [address], [facility] 02/19/2023 14:01:12 Imaging Results None recorded. Procedure Notes None recorded. Medical Equipment None Reported. Allergies Allergen ID Allergen Name Allergen Category Reaction Reaction Severity Criticality Documentation Date Start Date Code Code System Note Provider Name and Address Organization Details Recorded Time [id number] bacitraci n medicatio n Not available Not available Not available 02/19/2023 1291 RxNorm Rob Cai MD [address] [place] [address],[address] [place] [address], [address], [facility] 3 13:59:39 Medications Name Sig Start Date Stop Date Status Note LastModified by Organization Details LastModified Time quetiapine 25 mg tablet active Not Available Not Available Not Available glycopyrrol ate 1 mg tablet active Not Available Not Available Not Available metformin 500 mg tablet active Not Available Not Available Not Available oxybutynin chloride ER 15 mg tablet,exte nded release 24 hr active Not Available Not Available Not Available ketoconazol e 2 % shampoo active Not Available Not Available Not Available albuterol sulfate 2.5 mg/3 mL (0.083 %) solution for nebulizatio n active Not Available Not Available Not Available donepezil 10 mg tablet active Not Available Not Available Not Available clonazepam 0.5 mg tablet active Not Available Not Available Not Available clonazepam 1 mg tablet active Not Available Not Available Not Available doxycycline monohydrate 100 mg tablet 08/21 completed Not Available Not Available Not Available meclizine 25 mg tablet active Not Available Not Available Not Available cephalexin 500 mg capsule 02/19 completed Not Available Not Available Not Available nystatin 100,000 unit/gram topical cream active Not Available Not Available Not Available nystatin 100,000 unit/gram topical powder active Not Available Not Available Not Available triamcinolo ne acetonide 0.1 % lotion active Not Available Not Available Not Available levofloxaci n 500 mg tablet 08/21 completed Not Available Not Available Not Available carbidopa 25 mg-levodopa 100 mg tablet active Not Available Not Available Not Available oxybutynin chloride 5 mg tablet active Not Available Not Available No t Available insulin aspart (U-100) 100 unit/mL (3 mL) subcutaneou s pen active Not Available Not Available Not Available rosuvastati n 20 mg tablet active Not Available Not Available Not Available Novofine Autocover 30 gauge x 1/3 needle active Not Available Not Available Not Available quetiapine 50 mg tablet 08/21 completed Not Available Not Available Not Available Lantus Solostar U-100 Insulin 100 unit/mL (3 mL) subcutaneou s pen active Not Available Not Available Not Available Xarelto 10 mg tablet 08/21 completed Not Available Not Available Not Available Xarelto 20 mg tablet 08/21 completed Not Available Not Available Not Available FreeStyle Corry 2 Sensor kit TO BE USED TO READ BLOOD SUGARS PER MANUFACTU RER DIRECTION S active Not Available Not Available No t Available FreeStyle Corry 2 [place] active Not Available Not Available Not Available Vitals Date Recorded Body height Body mass index (BMI) Body weight Provider Name and Address Organization Details Last Updated DateTime 08/22/2023 167.64 cm 36.3 kg/m2 284361.28 g Rob Cai MD [address] [place] [address],[address], [address], [facility] 08/22/2023 15:59:45 Social History Question Answer Notes LastModified by Organizat ion Details LastModified Time Tobacco Smoking Status Former Smoker Rob Cai MD [address] [place] [address],[address], [address], [facility] 02/19/2023 14:00:27 What Is Your Level Of Alcohol Consumption? None Information not available 02/19/2023 What Is Your Level Of Caffeine Consumption? Occasional Information not available 02/19/2023 When Did You Quit Smoking? 16+yearseloise kraus Information not available 02/19/2023 What Was The Date Of Your Most Recent Tobacco Screening? 08/22/2023 Information not available 08/22/2023 Sex: Male Functional Status None recorded. Mental Status None recorded. Family History Relationship Description Onset Age of this Age Resolved Age Notes Mother Family history of cancer Medical History Condition Response High Blood Pressure N Kidney Stones N Depression N Lung Disease N GERD/Acid Reflux N Diabetes Y Sexually Transmitted Infection N Bleeding Disorder Y Cancer N High Cholesterol N Heart Disease N Immunizations Vaccine Type Date Status Provider Name and Address Organization Details Recorded Time influenza, trivalent, adjuvanted 02/23/2017 completed Rob Cai MD [address] [place] [address],[address], [address], [facility] 02/19/2023 13:59:27 influenza, trivalent, adjuvanted 05/23/2019 completed Rob Cai MD [address] [place] [address],[address], [address], [facility] 02/19/2023 13:59:27 influenza, high-dose, quadrivalent 02/24/2020 completed Rbo Cai MD [address] [place] [address], [address], [facility] 02/19/2023 13:59:27 influenza, high-dose, quadrivalent 04/02/2021 completed Rob Cai MD [address] [place] [address],[address], [address], [facility] 02/19/2023 13:59:27 Influenza vaccine, quadrivalent, adjuvanted 02/15/2023 completed Rob Cai MD [address] [place] [address],[address], [address], [facility] 02/19/2023 13:59:27 Influenza vaccine, quadrivalent, adjuvanted 03/31/2022 completed Rob Cai MD [address] [place] [address],[address], [place], [address], [facility] 02/19/2023 13:59:27 COVID-19, mRNA, LNP-S, PF, 100 mcg/0.5mL dose or 50 mcg/0.25mL dose 07/08/2020 completed Rob Cai MD [address] [place] [address],[address], [place], [address], [facility] 02/19/2023 13:59:27 COVID-19, mRNA, LNP-S, PF, 100 mcg/0.5mL dose or 50 mcg/0.25mL dose 08/05/2020 completed Rob Cai MD [address] [place] [address],[address], [place], [address], [facility] 02/19/2023 13:59:27 COVID-19, mRNA, LNP-S, PF, 100 mcg/0.5mL dose or 50 mcg/0.25mL dose 04/02/2021 completed Rob Cai MD [address] [place] [address],[address], [place], [address], [facility] 02/19/2023 13:59:27 COVID-19, mRNA, LNP-S, PF, 30 mcg/0.3 mL dose, keo-sucrose 09/09/2021 completed Rob Cai MD [address] [place] [address],[address], [place], [address], [facility] 02/19/2023 13:59:27 COVID-19, mRNA, LNP-S, bivalent, PF, 30 mcg/0.3 mL dose 03/01/2022 completed Rob Cai MD [address] [place] [address],[address], [place], [address], [facility] 02/19/2023 13:59:27 pneumococcal polysaccharide PPV23 03/14/2012 completed Rob Cai MD [address] [place] [address],[address], [place], [address], [facility] 02/19/2023 13:59:27 Tdap 03/14/2012 completed Rob Cai MD [address] [place] [address],[address], [place], [address], [facility] 02/19/2023 13:59:27 Novel Strkblqem-G0T9-21, all formulations 05/20/2009 completed Rob Cai MD [address] [facility],[address], [place], [address], [facility] 02/19/2023 13:59:27 Pneumococcal conjugate PCV 13 05/04/2015 completed Rob Cai MD [address] [place] [address],[address], [place], [address], [facility] 02/19/2023 13:59:27 zoster live 04/04/2007 completed Rob Cai MD [address] [place] [address],[address], [place], [address], [facility] 02/19/2023 13:59:27 Influenza, high dose seasonal 03/18/2015 completed Rob Cai MD [address] [place] [address],[address], [place], [address], [facility] 02/19/2023 13:59:27 Influenza, high dose seasonal 04/02/2014 completed Rob Cai MD [address] [place] [address],[address], [place], [address], [facility] 02/19/2023 13:59:27 Influenza, high dose seasonal 04/13/2016 completed Rob Cai MD [address] [place] [address],[address], [place], [address], [facility] 02/19/2023 13:59:27 Influenza, seasonal, injectable 03/05/2013 completed Rob Cai MD [address] [place] [address],[address] [place] [address], [address], [facility] 02/19/2023 13:59:27 Influenza, seasonal, injectable 03/14/2012 completed Rob Cai MD [address] [place] [address],[address] [place] [address], [address], [facility] 02/19/2023 13:59:27 Influenza, seasonal, injectable 03/31/2004 completed Rob Cai MD [address] [facility],[address], [place], [address], [facility] 02/19/2023 13:59:27 Influenza, seasonal, injectable 04/02/2008 completed Rob Cai MD [address] [place] [address],[address], [place], [address], [facility] 02/19/2023 13:59:27 Influenza, seasonal, injectable 04/04/2007 completed Rob Cai MD [address] [place] [address],[address], [place], [address], [facility] 02/19/2023 13:59:27 Influenza, seasonal, injectable 04/10/2003 completed Rob Cai MD [address] [place] [address],[address], [place], [address], [facility] 02/19/2023 13:59:27 Influenza, seasonal, injectable 04/15/2005 completed Rob Cai MD [address] [place] [address],[address] [place] [address], [address], [facility] 02/19/2023 13:59:27 Influenza, seasonal, injectable 04/17/2006 completed Rob Cai MD [address] [place] [address],[address] [place] [address], [address], [facility] 02/19/2023 13:59:27 Influenza, seasonal, injectable, preservative free 02/24/2010 completed Rob Cai MD [address] [place] [address],[address] [place] [address], [address], [facility] 02/19/2023 13:59:27 Influenza, seasonal, injectable, preservative free 05/04/2011 completed Rob Cai MD [address] [place] [address],[address], [address], [facility] 02/19/2023 13:59:27 influenza, injectable, quadrivalent, preservative free 03/25/2018 completed Rob Cai MD [address] [place] [address],[address] [place] [address], [address], [facility] 02/19/2023 13:59:27 Past Encounters Encounter ID Performer Location Encounter Start Date Encounter Closed Date Diagnosis/Indication Diagnosis SNOMED-CT Code [id number] Rob Cai MD [facility] [address] [place] [address] 08/22/2023 15:30:43 08/27/2023 11:33:01 Malignant tumor of prostate [id number] Urgent glenna toni to urinate [id number] Incomplete emptying of bladder 581490470 Health Concerns Section Related Observation LastModified by Organization Detai ls LastModified Time None Recorded Concern Status LastModified by Organization Details LastModified Time None Recorded Payers Encounter Date Sequence Insurance Name Policy Number Policy Strange Covered Member ID Strange Member ID Guarantor Name 08/22/2023 1 [employer] - DOS ON OR AFTER 19 (MEDICARE REPLACEMENT/ ADVANTAGE - HMO) [id number] Bucky Turpin [id number] Bucky Turpin Notes Date Note Type Note Provider Name and Address Organization Details Recorded Time 08/22/2023 text/html HPI Notes: 82 yo male with Lewy body dementia, HTN, DM (type 2), CLL, CKD (stage 3), and MAYA - diagnosed with prostate cancer - T1c - Billings 4+4 = 8 - (dx 02/06/17) - [...] denies dysuria. He notes less hot flashes. 08/22/23 - He presents for follow-up on Prostate cancer. He voids every 1-3 hours during the day and 2-3x/night. - PVR = 0mL - PSA - 0.40 PSA - 8.38 (01/04/17) - 0.33 (04/23/17) - < 0.03 (06/25/17) - < 0.03 (09/14/17) - < 0.03 (12/07/17) - < 0.03 (03/25/18) - < 0.03 () - < 0.03 (12/19/18) - < 0.03 (07/03/19) - < 0.03 (10/28/19) - 0.05 ((04/19/20) - 0.04 (06/03/20) - 0.04 (07/22/20) - 0.05 (10/06/20) - 0.07 (03/31/21) - 0.08 (08/29/21) - 0.15 (04/28/22) - 0.29 (02/15/23) - 0.40 (08/22/23) Renal MRI (08/31/17) - bilateral renal cysts - (benign - Bosniak 1 & 2 cysts) largest was 2.9 cm in Left upper pole. Rob Cai MD [address] [facility],[address], [place], [address], [facility] 08/25/2023 17:47:01
--- OUTSIDE RECORDS SUMMARY | 2023-09-16 14:22 | XMS_ITS | Encounter Summary ---
Author Name Unknown Organization [facility] Address [address] [place] [address] Care Team Providers Care Cooling System Operator Name Role Phone Unavailable Primary Care Provider [...] Patient states has glaucoma and treated in [place], [place]. Tearing; right eye; x 1 year; [...] abrasion OD CDM Reports - EYEGEN Id: [id number] Status: Fnl documented in this encounter Plan of Treatment Not on file documented as of this encounter Visit Diagnoses Not on filedocumented in this encounter
--- OUTSIDE RECORDS SUMMARY | 2023-09-16 14:22 | XMS_ITS | Clinical Summary ---
Author Name Unknown Organization [facility] Address [address] [place] [address] Care Team Providers Care Health Outcomes Liaison Name Role Phone Unavailable Primary Care Provider Unavailabl e Source Comments Patient records contain information from all sites at [facility]. For routine questions regarding patient records, call [phone] during business hours, M-F 8:00 AM - 5:00 PM Central Time. Record requests for emergency care only can be directed to [phone] at any time.[facility] Allergies Active Allergy Reactions Criticality Noted Date Comments Bacitracin Rash 07/22/2015 water blisters Mupirocin Other (see comments) Low 01/24/2015 Blistering of skin where applied Medications Medication Sig Dispensed Refills Start Date End Date Status ammonium lactate (for_AMLACTIN) 12 % cream Apply 1 application topically 2 (two) times a day. 03/01/[address] tablet Take 1 tablet by mouth daily. 07/22/2015 Active CALCIUM CARBONATE-VITAMIN D3 ORAL Take by mouth. 05/11/2017 Active blood sugar diagnostic strips [employer] Contour strips. Dispense item covered by patient's insurance. 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 05/30/2017 Active blood-glucose meter [facility] Dispense glucose meter, test strips and lancets covered by the patient insurance. Test 3-4 times per day DX E11.9 09/19/2016 Active clotrimazole-betame thasone (for_LOTRISONE) 1-0.05 % cream Apply 1 application topically 2 (two) times a day. 03/01/2017 Active miscellaneous medical supply [facility] Autotitration cpap 4-20cm of H2O, with accessories dx327.23, he will need oxygen 2 liters bled into it 05/25/2008 Active miscellaneous medical supply [facility] As directed. Diabetic shoes diagnosis 250.00, 1 pair 09/05/2012 Active fluconazole (for_DIFLUCAN) 150 mg tablet Take 1 tablet by mouth daily. 03/01/2017 Active pen needle, diabetic 29 gauge x 1/2 needle For administering insulin at home. 05/30/2015 Active pen needle, diabetic 31 gauge x 5/16 needle For administering insulin at home. 07/20/2014 Active insulin syringe-needle U-100 0.5 mL 31 gauge x 5/16 syringe As directed. For administering insulin at home. o.k. to dispense Relion brand syringe 06/29/2011 Active ipratropium HFA (for_ATROVENT HFA) 17 mcg/actuation inhaler Inhale 2 puffs 4 (four) times a day. 03/01/2017 Active lactulose (for_CHRONULAC) 10 gram/15 mL solution Take 30 g by mouth daily. Take 30 g (45 mL) by mouth once daily 02/23/2017 Active lancets misc 07/20/2014 Active insulin glargine 100 unit/mL (3 mL) injection Inject 38 Units under the skin every evening. Inject 38 units before bedtime. 07/31/2017 Active latanoprost (for_XALATAN) 0.005 % ophthalmic solution Administer 1 drop into both eyes every evening. 06/22/2016 Active magnesium citrate (for_CITROMA) solution Take 75-300 mL by mouth once. May use as a single dose or a divided dose if no BM after Senna, Mirlax and Lactulose 05/21/2017 Active meclizine (for_ANTIVERT) 25 mg tablet Take 1 tablet by mouth 2 (two) times a day. 03/01/2017 Active metFORMIN (for_GLUCOPHAGE) 500 mg tablet Take 1 tablet by mouth daily. 08/30/2013 Active metoprolol tartrate (for_LOPRESSOR) 50 mg tablet Take 0.5 tablets by mouth 2 (two) times a day. 03/01/2017 Active polyethylene glycol (MIRALAX) 17 gram/dose oral powder Take 1 Package by mouth 2 (two) times a day as needed. For constipation 05/21/2017 Active miscellaneous medical supply misc For personal use. Length: calf Strength: 16-20 mmHg 02/26/2012 Active miscellaneous medical supply misc As directed. Automatic blood pressure cuff Large arm cuff Diagnosis: Hypertension,401.1, diabetes mellitus 02/24/2010 Active multivitamin tablet Take 1 tablet by mouth daily. 04/23/2017 Active insulin aspart U-100 (NovoLOG FlexPen) 100 unit/mL (3 mL) injection Inject 12-15 Units under the skin as directed. 12-15 units 5-15 minutes before each meal 03/01/2017 Active nystatin (NYSTOP) 100,000 unit/gram powder Apply 1 application topically 2 (two) times a day. Apply to affected area(s) 09/23/2009 Active nystatin-triamcinol one (for_MYCOLOG II) 100,000 Unit/g-0.1 % cream Apply 1 application topically 2 (two) times a day. Apply to affected area(s) - rash in groin 11/09/2015 Active oxybutynin (for_DITROPAN) 5 mg tablet Take 1 tablet by mouth 3 (three) times a day as needed. 07/22/2015 Active oxybutynin (for_DITROPAN XL) 15 mg 24 hr tablet Take 15 mg by mouth daily. 07/17/2017 Active pioglitazone (for_ACTOS) 45 mg tablet Take 1 tablet by mouth daily. 03/01/2017 Active omeprazole (PriLOSEC OTC) 20 mg EC tablet Take 1 tablet by mouth daily. 03/01/2017 Active sennosides-docusate sodium (SENOKOT-S) 8.6-50 mg per tablet Take 1-3 tablets by mouth 2 (two) times a day. 05/21/2017 Active simvastatin (for_ZOCOR) 40 mg tablet Take 1 tablet by mouth every evening. 07/22/2015 Active torsemide (for_DEMADEX) 10 mg tablet Take 1 tablet by mouth daily. 03/01/2017 Active trospium (for_SANCTURA XR) 60 mg 24 hr capsule Take 1 capsule by mouth daily. Before a meal 03/01/2017 Active clonazePAM (KlonoPIN) 0.5 mg tablet 03/26/2021 Active cholecalciferol (VITAMIN D3) 25 mcg (1,000 Unit) capsule Take 1 capsule by mouth daily. 01/21/2015 Active cyanocobalamin (VITAMIN B12) 1,000 mcg tablet Take 1 tablet by mouth daily. 10/04/2018 Active clotrimazole (LOTRIMIN) 1 % cream Apply topically. 01/05/2020 Active diabetic supplies, [facility]. [facility] Dispense glucose meter, test strips and lancets covered by patient insurance. Test 3-4 times per day. 02/27/2018 Active donepeziL (ARICEPT) 5 mg tablet Take 5 mg by mouth. 02/08/2021 Acti ve ferrous gluconate (FERGON) 324 mg (38 mg iron) tablet Take 1 tablet by mouth. 12/13/2018 Active FreeStyle Corry 14 Day [place] [facility] 03/10/2021 Active furosemide (LASIX) 40 mg tablet Take 1 tablet by mouth 2 (two) times a day. 10/16/2019 Active hyoscyamine (ANASPAZ,LEVSIN) 0.125 mg tablet Take 0.125 mg by mouth. 08/21/2019 Active ketoconazole (NIZORAL) 2 % cream Apply topically. 04/23/2020 Active carbidopa-levodopa (SINEMET) 25-100 mg per tablet 02/23/2021 Active diphenhydrAMINE-jeffrey taminophen (TYLENOL PM) 25-500 mg per tablet Take 1 tablet by mouth. 08/20/2018 Active Active Problems Problem Noted Date [...] Comments Blood Pressure 169/94 07/17/2022 1:43 PM RN L AND D Pulse 57 07/17/2022 1:43 PM RN L AND D Temperature 36.2 ??C (97.2 ??F) 07/17/2022 1 :43 PM RN L AND D Respiratory Rate 16 07/21/2015 4:13 PM RN L AND D Oxygen Saturation - - Inhaled Oxygen Concentration - - Weight 105 kg (230 lb 9.6 oz) 07/17/2022 1:43 PM RN L AND D Height 171 cm (5' 7.32) 03/01/2017 8:4 [...]
--- OUTSIDE RECORDS SUMMARY | 2023-09-16 14:22 | XMS_ITS ---
Author Name Unknown Organization [facility] Address [address] [place] [address] Care Team Providers Care Yarder Name Role Phone Unavailable Unavailable Unavailable Surgery Details Not on file Complications Check Surgery Details section. Procedure Estimated Blood Loss Check Surgery Details section. Procedure Findings Check Surgery Details section. Procedure Specimens Taken Check Surgery Details section.
--- OUTSIDE RECORDS SUMMARY | 2023-09-16 14:22 | XMS_ITS | Referral Summary ---
Author Name Unknown Organization [facility] Address [address] [place] [address] Care Team Providers Care Web Pressman Name Role Phone Unavailable Primary Care Provider Unavailabl e Source Comments Patient records contain information from all sites at [facility]. For routine questions regarding patient records, call [phone] during business hours, M-F 8:00 AM - 5:00 PM Central Time. Record requests for emergency care only can be directed to [phone] at any time.[facility] Allergies Active Allergy Reactions Criticality Noted Date [...] Test 2-3 times/day. 05/30/2017 Active blood-glucose meter [facility] Dispense glucose meter, test strips and lancets covered by the patient insurance. Test 3-4 times per day DX E11.9 09/19/2016 Active clotrimazole-betame thasone (for_LOTRISONE) 1-0.05 % cream Apply 1 application topically 2 (two) times a day. 03/01/2017 Active miscellaneous medical supply [facility] Autotitration cpap 4-20cm of H2O, with accessories dx327.23, he will need oxygen 2 liters bled into it 05/25/2008 Active miscellaneous medical supply [facility] As directed. Diabetic shoes diagnosis 250.00, 1 [...] Apply topically. 01/05/2020 Active diabetic supplies, [employer]. [facility] Dispense glucose meter, test strips and lancets covered by patient insurance. Test 3-4 times per day. 02/27/2018 Active donepeziL (ARICEPT) 5 mg tablet Take 5 mg by mouth. 02/08/2021 Acti ve ferrous gluconate (FERGON) 324 mg (38 mg iron) tablet Take 1 tablet by mouth. 12/13/2018 Active FreeStyle Corry 14 Day [place] [facility] 03/10/2021 Active furosemide (LASIX) 40 mg tablet [...] Comments Blood Pressure 169/94 07/17/2022 1:43 PM SCIENTIFIC RESEARCH MANAGER Pulse 57 07/17/2022 1:43 PM SCIENTIFIC RESEARCH MANAGER Temperature 36.2 ??C (97.2 ??F) 07/17/2022 1 :43 PM SCIENTIFIC RESEARCH MANAGER Respiratory Rate 16 07/21/2015 4:13 PM SCIENTIFIC RESEARCH MANAGER Oxygen Saturation - - Inhaled Oxygen Concentration - - Weight 105 kg (230 lb 9.6 oz) 07/17/2022 1:43 PM SCIENTIFIC RESEARCH MANAGER Height 171 cm (5' 7.32) 03/01/2017 8:4 4 AM CDT Vital sign result from Clinical Notes. Body Mass Index 35.77 03/01/2017 8:44 AM CDT Plan of Treatment Not on file
--- OUTSIDE RECORDS SUMMARY | 2023-09-16 14:22 | XMS_ITS | Continuity of Care Document ---
Author Name Unknown Organization [facility] Address [address] [place] [address] Phone Care Team Providers Care Patient Attendant Name Role Phone Judy FERREIRA, PhD, John Paul Unavailable Unavai lable Allergies, Adverse Reactions, Alerts Substance Reaction Status Criticality MUPIROCIN CALCIUM Active No Informa tion mupirocin Active No Information bacitracin contact dermatitis Active No Inform ation Medications Medication Instructions Dosage Effective Dates (start - stop) Status Comments VITAMIN D2 (unknown strength) Not Available - Active TYLENOL EXTRA STRENGTH (unknown strength) Not Available - Active TORSEMIDE (unknown strength) Not Available - Active TAMSULOSIN HCL (unknown strength) Not Available - Active SILVER SULFADIAZINE (unknown strength) Not Available - Active QUETIAPINE FUMARATE (unknown strength) Not Available - Active PIOGLITAZONE HCL (unknown strength) Not Available - Active OZEMPIC (unknown strength) Not Available - Active NYSTATIN-TRIAMCINOLONE (unknown strength) Not Available - Active NYSTATIN (unknown strength) Not Available - Active METOPROLOL SUCCINATE (unknown strength) Not Available - Active MECLIZINE HCL (unknown strength) Not Available - Active LANTUS SOLOSTAR (unknown strength) Not Available - Active LACTULOSE (unknown strength) Not Available - Active DITROPAN XL (unknown strength) Not Available - Active VITAMIN B-12 (unknown strength) Not Available - Active CLOTRIMAZOLE-BETAMETHAS ONE (unknown strength) Not Available - Active AMMONIUM LACTATE (unknown strength) Not Available - Active NOVOLOG PENFILL (unknown strength) Not Available - Active SIMVASTATIN (unknown strength) Not Available - Active RIOMET (unknown strength) Not Available - Active Procedures Procedure Date Office/Outpatient Visit,[facility], [facility] 2018 Advance Directives Directive Yes / No Effective Date File Name No Information Encounters Encounter Description Practice Location Reason(s) For Visit Diagnoses Date Provider Providers Copied on Encounter [facility], [address], [place], [place], [id number], [place] [phone] [facility] No Information 9 Judy Coker. [facility], [address], [place], [address], [place]. [phone] Office/Outpa tient Visit,New, Mod [facility], [address], [place], [place], [id number], [place] tel:[phone] [facility] [place] Spinal stenosis, lumbar region with neurogenic claudication 9 Lit Richards. [facility], [address] [place] [address] [address], [place], [place], [id number] , [place]. [phone] Referring Provider: Robbi Martin, [facility] [address], [place], [address]. [phone] [facility], [address], [place], [place], [id number], [place] [phone] [facility] [place] Radiculopathy , lumbar region 9 Judy Coker. [facility], [address] [place] [address] [address], [place], [address], [place]. tel:[phone] Z [facility], [address] [place], [place] [address], [place], [address], [place] [phone] [facility] [place] Diabetes Mellitus Type 2, Uncomplicated Hypercholeste rolemia 3 Mehbod Amir. [facility], [address] [place] [address] [address], [place], [place], [id number] , [place]. [phone] Family History Family Member Type Diagnosis Age [...]
--- OUTSIDE RECORDS SUMMARY | 2023-09-16 14:22 | XMS_ITS | Data Portability ---
Author Name Unknown Address [address] [place] [address] Phone [phone] Organization [facility] Address [address] [place] [address] Care Team Providers Care Outpatient Interviewing Clerk Name Role Phone [facility] Primary Care Pro vider Assessment No assessment recorded. Plan of Treatment Reminders Order Date Submit Date Provider Last Modified By Organization Details Last Modified Time Details Appointments None recorded . Lab PSA, serum or plasma 024 08/22/19 24 [email or web address] 30 [facility], [address], [place], [address], 4 16:07:10 PSA, total, serum or plasma 024 08/22/19 24 rebbert [facility], [address], [place], [address], 4 08:04:34 PSA, total, serum or plasma 023 02/20/20 23 [email or web address] Not available 3 10:15:46 Referral None recorded . Procedures None recorded [...] Not Available [facility] [address], [place], [address], 08/22/2023 16:00:20 12/09/19 20 11/03/2019 measu remen t of post- voidi ng resid ual urine and/o r bladd er capac ity (PROC ) No observ ation record ed. BARCODE Rob Cai MD [address], [place], [address], 12/09/2019 11:06:39 Result Notes None recorded. Procedures Surgical History Date Name Laterality Status Provider Name and Address Organization Details Recorded Time 4 KNOBBER/blood draw completed Rob Cai MD [address] [place] [address], [address], [facility] 08/22/2023 16:00:16 4 Bladder Scan completed Rob Cai MD [address] [place] [address], [address], [facility] 08/22/2023 16:00:10 3 Bladder Scan completed Kirsty Li [facility] 02/19/2023 14:03:04 procedure on back completed Rob Cai MD [address] [place] [address], [address], [facility] 02/19/2023 14:01:06 procedure on knee completed Rob Cai MD [address] [place] [address], [address], [facility] 02/19/2023 14:01:12 Imaging Results Imaging Date Name Status LastModified by Organiz ation Details LastModified Time 11/03/2019 measurement of post-voiding residual urine and/or bladder capacity (PROC) completed BATSHEVA Cai MD [address], [place], [address], 12/09/2019 11:06:39 Procedure Notes None recorded. Medical Equipment None Reported. Allergies Allergen ID Allergen Name Allergen Category Reaction Reaction Severity Criticality Documentation Date Start Date Code Code System Note Provider Name and Address Organization Details Recorded Time 616804 bacitraci n medicatio n Not available Not available Not available 02/19/2023 1291 RxNorm Rob Cai MD [address] [facility],[place] [address], [place], [address], [facility] 3 13:59:39 Medications Name Sig Start [...] Available No t Available FreeStyle Corry 2 [place] active Not Available Not Available Not Available Vitals Date Recorded Body height Body mass index (BMI) Body weight Provider Name and Address Organization Details Last Updated DateTime 02/19/2023 167.64 cm 36.3 kg/m2 791970.28 g Rob Cai MD [address] [place] [address],[address] [facility] 02/19/2023 13:59:20 Date Recorded Body height Body mass index (BMI) Body weight Provider Name and Address Organization Details Last Updated DateTime 08/22/2023 167.64 cm 36.3 kg/m2 908613.28 g Rob Cai MD [address] [place] [address] [facility] 08/22/2023 15:59:45 Social History Question Answer Notes LastModified by Organizat ion Details LastModified Time Tobacco Smoking Status Former Smoker Rob Cai MD [address] [place] [address] [facility] 02/19/2023 14:00:27 What Is Your Level [...] history of cancer Medical History Condition Response Sexually Transmitted Infection N Diabetes Y Bleeding Disorder Y High Blood Pressure N Kidney Stones N Cancer N Depression N Lung Disease N High Cholesterol N GERD/Acid Reflux N Heart Disease N Immunizations Vaccine Type Date Status Provider Name and Address Organization Details Recorded Time influenza, trivalent, adjuvanted 02/23/2017 completed Rob Cai MD [address] [place] [address],[address] [place] [address], [address], [facility] 02/19/2023 13:59:27 influenza, trivalent, adjuvanted 05/23/2019 completed Rob Cai MD [address] [place] [address],[address] [place] [address], [address], [facility] 02/19/2023 13:59:27 influenza, high-dose, quadrivalent 02/24/2020 completed Rob Cai MD [address] [place] [address],[address], [place], [address], [facility] 02/19/2023 13:59:27 influenza, high-dose, quadrivalent 04/02/2021 completed Rob Cai MD [address] [place] [address],[address], [place], [address], [facility] 02/19/2023 13:59:27 Influenza vaccine, quadrivalent, adjuvanted 02/15/2023 completed Rob Cai MD [address] [place] [address],[address], [place], [address], [facility] 02/19/2023 13:59:27 Influenza vaccine, quadrivalent, adjuvanted 03/31/2022 completed Rob Cai MD [address] [place] [address],[address] [place] [address], [address], [facility] 02/19/2023 13:59:27 COVID-19, mRNA, LNP-S, PF, 100 mcg/0.5mL dose or 50 mcg/0.25mL dose 07/08/2020 completed Rob Cai MD [address] [place] [address],[address], [place], [address], [facility] 02/19/2023 13:59:27 COVID-19, mRNA, LNP-S, PF, 100 mcg/0.5mL dose or 50 mcg/0.25mL dose 08/05/2020 completed Rob Cai MD [address] [place] [address],[address], [place], [address], [facility] 02/19/2023 13:59:27 COVID-19, mRNA, LNP-S, PF, 100 mcg/0.5mL dose or 50 mcg/0.25mL dose 04/02/2021 completed Rob Cai MD [address] [place] [address],[address], [place], [address], [facility] 02/19/2023 13:59:27 COVID-19, mRNA, LNP-S, PF, 30 mcg/0.3 mL dose, keo-sucrose 09/09/2021 completed Rob Cai MD [address] [place] [address],[address], [place], [address], [facility] 02/19/2023 13:59:27 COVID-19, mRNA, LNP-S, bivalent, PF, 30 mcg/0.3 mL dose 03/01/2022 completed Rob Cai MD [address] [place] [address],[address], [address], [facility] 02/19/2023 13:59:27 pneumococcal polysaccharide PPV23 03/14/2012 completed Rob Cai MD [address] [place] [address],[address], [address], [facility] 02/19/2023 13:59:27 Tdap 03/14/2012 completed Rob Cai MD [address] [place] [address],[address], [address], [facility] 02/19/2023 13:59:27 Novel [id number], all formulations 05/20/2009 completed Rob Cai MD [address] [place] [address],[address], [address], [facility] 02/19/2023 13:59:27 Pneumococcal conjugate PCV 13 05/04/2015 completed Rob Cai MD [address] [place] [address],[address], [address], [facility] 02/19/2023 13:59:27 zoster live 04/04/2007 completed Rob Cai MD [address] [place] [address],[address], [address], [facility] 02/19/2023 13:59:27 Influenza, high dose seasonal 03/18/2015 completed Rob Cai MD [address] [place] [address],[address] [place] [address], [address], [facility] 02/19/2023 13:59:27 Influenza, high dose seasonal 04/02/2014 completed Rob Cai MD [address] [place] [address],[address], [place], [address], [facility] 02/19/2023 13:59:27 Influenza, high dose seasonal 04/13/2016 completed Rob Cai MD [address] [place] [address],[address], [place], [address], [facility] 02/19/2023 13:59:27 Influenza, seasonal, injectable 03/05/2013 completed Rob Cai MD [address] [place] [address],[address], [place], [address], [facility] 02/19/2023 13:59:27 Influenza, seasonal, injectable 03/14/2012 completed Rob Cai MD [address] [place] [address],[address], [place], [address], [facility] 02/19/2023 13:59:27 Influenza, seasonal, injectable 03/31/2004 completed Rob Cai MD [address] [place] [address],[address], [place], [address], [facility] 02/19/2023 13:59:27 Influenza, seasonal, injectable 04/02/2008 completed Rob Cai MD [address] [place] [address],[address], [place], [address], [facility] 02/19/2023 13:59:27 Influenza, seasonal, injectable 04/04/2007 completed Rob Cai MD [address] [place] [address],[address], [place], [address], [facility] 02/19/2023 13:59:27 Influenza, seasonal, injectable 04/10/2003 completed Rob Cai MD [address] [place] [address],[address] [place] [address], [address], [facility] 02/19/2023 13:59:27 Influenza, seasonal, injectable 04/15/2005 completed Rob Cai MD [address] [place] [address],[address], [place], [address], [facility] 02/19/2023 13:59:27 Influenza, seasonal, injectable 04/17/2006 completed Rob Cai MD [address] [facility],[address], [place], [address], [facility] 02/19/2023 13:59:27 Influenza, seasonal, injectable, preservative free 02/24/2010 completed Rob Cai MD [address] [facility],[address], [place], [address], [facility] 02/19/2023 13:59:27 Influenza, seasonal, injectable, preservative free 05/04/2011 completed Rob Cai MD [address] [facility] [facility],[address], [place], [address], [facility] 02/19/2023 13:59:27 influenza, injectable, quadrivalent, preservative free 03/25/2018 completed Rob Cai MD [address] [facility] [facility],[address], [place], [address], [facility] 02/19/2023 13:59:27 Past Encounters Encounter ID Performer Location Encounter Start Date Encounter Closed Date Diagnosis/Indication Diagnosis SNOMED-CT Code [id number] MD ANGEL Carlos_Renetta [address] [place] [address] 02/19/2023 13:36:45 02/28/2023 13:12:17 Malignant tumor of prostate [id number] Urgent glenna toni to urinate [id number] Incomplete emptying of bladder [id number] MD ANGEL Carlos_Renetta [address] [place] [address] 08/22/2023 15:30:43 08/27/2023 11:33:01 Malignant tumor of prostate [id number] Urgent glenna toni to urinate 08002643 Incomplete emptying of bladder [id number] Health Concerns Section Related Observation LastModified by Organization Detai ls LastModified Time None Recorded Concern Status LastModified by Organization Details LastModified Time None Recorded Advance Directives Directive None Recorded Payers Encounter Date Sequence Insurance Name Policy Number Policy Strange Covered Member ID Strange Member ID Guarantor Name 08/22/2023 1 [employer] - DOS ON OR AFTER 19 (MEDICARE REPLACEMENT/ ADVANTAGE - HMO) [id number] Bucky Turpin [id number] Bucky Turpin 02/19/2023 1 [facility] - DOS ON OR AFTER 19 (MEDICARE REPLACEMENT/ ADVANTAGE - HMO) [id number] Matteo Olson [id number] Bucky Turpin Notes Date Note Type Note Provider Name and Address Organization Details Recorded Time 02/19/2023 text/html HPI Notes: 82 yo male with Lewy body dementia, HTN, DM (type 2), CLL, CKD (stage 3), and MAYA - diagnosed with prostate cancer - T1c - Rakesh 4+4 = 8 - (dx 02/06/17) - [...] Left upper pole. Rob Cai MD [address] [facility],[address], [place], [address], [facility] 02/19/2023 14:50:28 08/22/2023 text/html HPI Notes: 82 yo male with Lewy body dementia, HTN, DM (type 2), CLL, CKD (stage 3), and MAYA - diagnosed with prostate cancer - T1c - Rakesh 4+4 = 8 - (dx 02/06/17) - [...] in Left upper pole. Rob Cai MD [address] [place] [address],[address], [place], [address], [facility] 08/25/2023 17:47:01
--- OUTSIDE RECORDS SUMMARY | 2023-09-16 14:23 | XMS_ITS | Clinical Summary ---
Author Name Unknown Organization [facility] Address [place], [place] [address] Care Team Providers Care Sampler First Name Role Phone Joi Zavala MD Primary Care Provide r Ruben Fernandez MD Unavailable [phone] Allergies Active Allergy Reactions Criticality Noted Date Comments Bacitracin Contact Dermatitis,Rash High 01/02/2008 The suave only. water blisters Mupirocin Other - Describe In Comment Field Low 01/24/2015 Blistering of skin where applied Other reaction(s): Other (see comments) Blistering of skin where applied Medications Medication Sig Dispensed Refills Start Date End Date Status miscellaneous medical supply (DIGITAL BP MONITOR CUFF) MiscIndications:Type II or unspecified type diabetes mellitus without mention of complication, not stated as uncontrolled,Edema As directed. Automatic blood pressure cuff Large arm cuff Diagnosis: Hypertension,401.1 , diabetes mellitus 250.00 1 Each 0 02/24/2010 Active MISCELLANEOUS MEDICAL SUPPLY (GRADUATED COMPRESSION STOCKINGS)Indication s:Pedal edema,Cellulitis and abscess of unspecified site For personal use. Length: calf Strength: 16-20 mmHg Circumference in cm: 2 Packet 2 02/26/2012 Active insulin needles, disposable, (ULTICARE) 31 X 5/16 Indications:Type II or unspecified type diabetes mellitus without mention of complication, not stated as uncontrolled For administering insulin at home. 400 Each 3 07/20/2014 Active Insulin Anton, Disposable, (PEN NEEDLE) 29 gauge x 1/2Indications:IDDM (insulin dependent diabetes mellitus) For administering insulin at home. 400 box 3 05/30/2015 Active miscellaneous medical supply miscIndications:Spin al stenosis of lumbar region without neurogenic claudication,Morbid obesity with BMI of 45.0-49.9, adult (HC),Arthritis of knee As directed 1 Each. Bariatric commode . (Patient weight 300lb.). Patient has poor mobility due to knee arthritis, obesity, prostate cancer, lumbar spinal stenosis 1 Each 11/29/2017 Active Insulin Syringe-Needle U-100 (LITE TOUCH INSULIN SYRINGE) 0.5 mL 31 gauge x 10/17Indications:Insu edith dependent diabetes mellitus As directed. For administering insulin at home. Relion brand syringe 1 box 12/27/2017 Active blood sugar diagnostic (ONETOUCH ULTRA BLUE TEST STRIP) stripIndications:Typ e 2 diabetes mellitus with complication, with long-term current use of insulin (HC) Dispense item covered by pt ins. E11.65 IDDM type II, uncontrolled - Test 3 - 4 times/day. Reason: High A1C 400 Each 02/27/2018 Active lancets (ONETOUCH ULTRASOFT LANCETS)Indications: Type 2 diabetes mellitus with complication, with long-term current use of insulin (HC) Dispense item covered by pt ins. E11.65 IDDM type II, uncontrolled - Test 3 - 4 times/day. Reason: High A1C 400 Each 02/27/2018 Active diabetic supplies, miscellan.Indication s:Type 2 diabetes mellitus with complication, with long-term current use of insulin (HC) Dispense glucose meter, test strips and lancets covered by patient insurance. Test 3-4 times per day. 1 Kit 02/27/2018 Active cyanocobalamin (VITAMIN B-12) 1,000 mcg tabletIndications:B1 2 deficiency Take 1 tablet by mouth once daily. 90 tablet 3 10/04/2018 Active medication order composerIndications: Left ischial pressure sore, stage I Donut pillow for home use 1 unit 1 01/01/2019 Active flash glucose scanning reader (FreeStyle Corry 2 Nettie) miscIndications:Insu edith dependent type 2 diabetes mellitus (HC) As directed. 1 Each 08/17/2020 Active oxygen-air delivery systems (HOME OXYGEN)Indications:H ypoxia,Pickwickian syndrome (HC) Portable conserving oxygen device, POC-Concentrator. Liters per minute: 2 per nasal cannula. Frequency of use: Continuous. Length of need: 99 Months. 1 Each 09/15/2021 Active Diabetic ShoeIndications:Type 2 diabetes mellitus with complication, with long-term current use of insulin (HC) As directed. 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 Active albuterol (PROVENTIL) 0.083 % neb solution Inhale 2.5 mg via a nebulizer every 4 hours if needed. Active durable medical equipment (DME)Indications:SOB (shortness of breath) Nebulizer and supply kit as covered by insurance 1 Each 03/16/2022 Active nystatin powder (MYCOSTATIN) powderIndications:In tertrigo APPLY 1 STRIP TOPICALLY TO AFFECTED AREA(S) THREE TIMES DAILY 60 g 3 03/23/2022 Active fvnqvksbf-LK-UI-acet aminophen (Raissa-Southing[place] Plus Cold/CoughFm) 2-5-10-325 mg cap Take 1 Capsule by mouth 2 times daily if needed (for congestion). 0 03/23/2022 Active novofine autocover 30 gauge x 1/3 needleIndications:Ty pe 2 diabetes mellitus with complication, with long-term current use of insulin (HC) USE DIRECTED WITH INSULIN PENS 400 Each 3 03/29/2022 Active nystatin (MYCOSTATIN) creamIndications:Int ertrigo Apply topically to affected area(s) two times daily. 60 g 3 03/28/2022 Active sennosides-docusate (SENOKOT S) (8.6-50 mg) tablet 1 tablet twice daily as needed for constipation 0 03/31/2022 Active glycopyrrolate (ROBINUL) 1 mg tabletIndications:Dr rajput Take 1 tablet by mouth daily 90 Tablet 3 04/12/2022 Active FreeStyle Corry 2 ReaderIndications:Ty pe 2 diabetes mellitus with complication, with long-term current use of insulin (HC) To be used to read blood sugars per integration software engineer's directions. 1 Each 05/22/2022 Active Shower ChairIndications:Yaya y body dementia without behavioral disturbance, psychotic disturbance, mood disturbance, or anxiety, unspecified dementia severity (HC) For home use. Shower chair with arms 1 Each 06/02/2022 Active tacrolimus 0.1% (PROTOPIC) 0.1 % ointmentIndications: Seborrheic dermatitis Apply topically to affected area(s) two times daily. For eyebrows 60 g 1 11/07/2022 Active carbidopa-levodopa, 25-100 mg, (SINEMET 25-100) 25-100 mg tabletIndications:Le wy body dementia with behavioral disturbance (HC) Take 3 tablet by mouth three times a day. 270 Tablet 3 01/02/2023 Active rosuvastatin (CRESTOR) 20 mg tabletIndications:Hy perlipidemia, unspecified hyperlipidemia type Take 1 Tablet (20 mg) by mouth at bedtime. 90 Tablet 3 01/11/2023 Active oxybutynin (DITROPAN XL) 15 mg CR tabletIndications:Ur inary urgency TAKE ONE TABLET BY MOUTH ONCE EVERY DAY NEEDED FOR FREQUENT URINATION. 60 Tablet 3 04/10/2023 Active FreeStyle Corry 2 SensorIndications:Ty pe 2 diabetes mellitus with complication, with long-term current use of insulin (HC) TO BE USED TO READ BLOOD SUGARS PER ALTERATIONS WORKROOM CLERK'S DIRECTIONS. 6 Each 3 04/11/2023 Active FreeStyle Corry 14 Day SensorIndications:Ty pe 2 diabetes mellitus with complication, with long-term current use of insulin (HC) To be used to read blood sugars per integration software engineer's directions. FreeStyle Corry 14 day / FreeStyle Corry 2 CGM sensor 6 boxes is 84 day supply 6 Each 3 04/13/2023 Active meclizine (ANTIVERT) 25 mg tabletIndications:Ve rtigo TAKE ONE TABLET BY MOUTH TWICE DAILY NEEDED 180 Tablet 1 05/15/2023 Active clonazePAM (KLONOPIN) 1 mg tablet Take 0.5 mg by mouth at bedtime. Active insulin aspart, U-100, (NOVOLOG FLEXPEN) 100 [...] 25 UNITS PER DAY) 30 mL 5 06/19/2023 Active donepeziL (ARICEPT) 5 mg tabletIndications:Me erik problem Take 2 Tablets (10 mg) by mouth at bedtime. 07/06/2023 Active triamcinolone 0.1% TOPICAL (KENALOG) 0.1 % lotionIndications:Ra sh Apply topically to affected area(s) three times daily. 60 mL 2 07/06/2023 Active ketoconazole 2% shampoo (NIZORAL) 2 % shampooIndications:S eborrheic dermatitis Shampoo the hair thoroughly once a week 120 mL 3 07/24/2023 Active Lantus Solostar U-100 Insulin 100 unit/mL (3 mL) penIndications:Type 2 diabetes mellitus with complication, with long-term current use of insulin (HC) Inject 18 units subcutaneous before bedtime. Product desired: LANTUS SOLOSTAR 3 mL 11 08/06/2023 Active omeprazole 20 mg tabletIndications:Ga stritis, presence of bleeding unspecified, unspecified chronicity, unspecified gastritis type Take 1 Tablet (20 mg) by mouth once daily before a meal. 90 Tablet 3 08/23/2023 Active Active Problems Problem Noted Date Diagnosed [...] Encounters Date Type Department Care Team Description 08/28/2023 2:00 PM CDT Office Visit [facility] [place] [address] [address] Daniel Franks MD Follow Up (6 months follow up on Syncope and falling ) 08/28/2023 Travel 08/23/2023 1:00 PM CDT Office Visit [facility] [place] [address] [address] Joi Zavala MD Follow Up (Seen urologist yesterday, PSA: .4, follow up in 6 months/Continues to have an upset stomach. Better after eating. States he has an ulcer./Still concerned about vein on left wrist sticking up./Walking a little better, used a cane.) 08/23/2023 Travel 08/10/2023 Telephone [facility] [address] [facility] [place] [address] Joi Zavala MD Lab (PSA) 08/06/2023 Refill [facility] [address] [facility] [place] [address] Joi Zavala MD Refill Request (Lantus Solostar 100 unit/ml ) 07/24/2023 1:50 PM ELECTRIC SHAVER MECHANIC Office Visit [facility] [address] [facility] [place] [address] Joi Zavala MD Nutrition (Has not ate [...] tremors, they have been minimal. ) 07/24/2023 Orders Only [facility] Scanner 1 scan: (1-Ord) ROXANA, CHEST 1V, 07/24/2023 07/24/2023 Travel 07/06/2023 10:05 AM ELECTRIC SHAVER MECHANIC Office Visit [facility] [address] [facility] [place] [address] Joi Zavala MD Derm Problem (Was red between shoulder blades on 07/03. Developed into a rash, itches a lot. Has started to spread down the back. No new soaps or detergent. Has 2 cat's do not get on Deejay.) 07/06/2023 Travel 07/06/2023 Telephone [facility] [address] [facility] [address] Joi Zavala MD Appointment Request (Dr Zavala ) 07/06/2023 Nurse Triage [facility] [address] [place] [address] [address] Joi Zavala MD Rash 06/21/2023 1:25 PM ELECTRIC SHAVER MECHANIC Office Visit [facility] [address] [facility] [address] Joi Zavala MD Follow Up (Lewy body dementia, Has notice more frequency with confusion. Place and time. Waking at night and thinking it is time to get up.); Diabetes (Has been doing good. Average BS has been 147./Has been in target range 80%); Gi Problem (Loose stools and passing mucus. Using imodium and Gas x) 06/21/2023 Travel from Last 3 Months Immunizations Name Administration Dates Next Due AMB Influenza, IIV3 (Age >=3 years)(Flu Clinic Only) 03/05/2013 AMB Influenza, IIV4 PF (=>6 mos Flulaval,Fluzone Fluarix)(Flu Clinic Only) 03/25/2018 COVID-19 Vaccine Spikevax (M oderna 50mcg/0.5mL) 12YO+ [id number] Formula PF 04/13/2023 COVID-19 vaccine (Moderna 100mcg/0.5mL) PF, MDV 08/05/2020,07/08/2020 COVID-19 vaccine (Pfizer-Bio NTech 30mcg/0.3mL) 12YO+ BEN-SUCROSE PF, MDV 09/09/2021 Influenza A (H1N1), Inactiva winston (Age >=3 Years) 05/20/2009 Influenza Virus, Unspecified 05/04/2011, 02/24/2010,04/17/2006,04/15,03/31/2004,04/10/2003 Influenza, High-dose Inactivated 04/13/2016,03/04,04/02/2014 Influenza, High-dose Quadriv alent Inactivated 04/02/2021,02/24/2020 Influenza, IIV3 (Age 6-35 mos) 05/04/2011,2009 Influenza, IIV3 (Age >=3 years) 03/14/20 12,05/04/2011,02/24/2010,04/02,04/04/2007 [...] Sign Reading Time Taken Comments Blood Pressure 114/79 08/28/2023 2:00 PM CDT Pulse 78 08/28/2023 2:00 PM CDT Temperature 37.1 ??C (98.8 ??F) 02/03/2022 12:20 PM C DT Respiratory Rate 18 01/18/2022 12:25 PM CDT Oxygen Saturation 85% 08/28/2023 2:00 PM CDT Inhaled Oxygen Concentration - - Weight 106.6 kg (235 lb) 08/28/2023 2:00 PM CDT last visit Height 170 cm (5' 6.93) 06/02/2022 9:00 AM ELECTRIC SHAVER MECHANIC Body Mass Index 36.88 06/02/2022 9:00 AM ELECTRIC SHAVER MECHANIC Plan of Treatment Upcoming Encounters Date Type Department Care Team (Late st Contact Info) Description 09/25/2023 1:50 PM CDT Office Visit [facility] [address] [place] [address] Joi Zavala MD [address] [place] [address] Health Maintenance Due Date Last Done Comments [...] 2023 04/13/2023, 03/01/2022, 09/09/2021, Additional history exists Influenza for age 65+ 02/03/2024 02/15/2023 , 03/31/2022, 04/02/2021, Additional history exists Tdap Completed 03/14/2012 Pneumococcal series for age 65+ Completed 5, 03/14/2012 Goals Goal Patient Goal Type Associated Problems Recent Progress Patient-Stated? Author BLOOD PRESSURE - Maintains BP less than 140/90 Blood Pressure No Florinda Rodriguez Procedures Procedure Name Priority Date/Time Associated Diagnosis Comments RED CELL MORPHOLOGY Routine 08/23/2023 1 2:47 PM CDT CLL (chronic lymphocytic leukemia) (HC) PLATELET ESTIMATE Routine 08/23/2023 12: 47 PM CDT CLL (chronic lymphocytic leukemia) (HC) MANUAL DIFFERENTIAL Routine 08/23/2023 1 2:47 PM CDT CLL (chronic lymphocytic leukemia) (HC) CBC WITH AUTO DIFFERENTIAL Routine 08/23/2023 12:47 PM CDT CLL (chronic lymphocytic leukemia) (HC) BASIC METABOLIC PANEL Routine 08/23/2023 12:47 PM CDT Type 2 diabetes mellitus with complication, with long-term current use of insulin (HC) PSA TOTAL (DIAGNOSTIC) Routine 08/23/2023 12:47 PM CDT Prostate cancer (HC) CBC WITH AUTO DIFFERENTIAL Routine 08/23/2023 12:47 PM CDT CLL (chronic lymphocytic leukemia) (HC) HEMOGLOBIN A1C Routine 08/23/2023 12:47 PM CDT Type 2 diabetes mellitus with stage 1 chronic kidney disease, with long-term current use of insulin (HC) SCAN-RADIOLOGY REPORT 07/24/2023 12:00 AM ELECTRIC SHAVER MECHANIC from Last 3 Months Results * (ABNORMAL) CBC WITH AUTO DIFFERENTIAL (08/23/2023 12:47 PM CDT) [facility] [address] WHITE BLOOD COUNT 9.4 4.5 - 11.0 thou/cu mm 08/23/2023 1:08 PM CDT [facility] RED BLOOD COUNT 4.47 4.30 - 5.90 mil/cu mm 08/23/2023 1:08 PM CDT [facility] HEMOGLOBIN 13.5 13.5 - 17.5 g/dL 08/23/2023 1:08 PM CDT [facility] HEMATOCRIT 41.5 37.0 - 53.0 % 08/23/2023 1:08 PM CDT [facility] MCV 93 80 - 100 fL 08/23/2023 1:08 PM CDT [facility] MCH 30.2 26.0 - 34.0 pg 08/23/2023 1:08 PM CDT [facility] MCHC 32.5 32.0 - 36.0 g/dL 08/23/2023 1:08 PM CDT [facility] RDW 14.8 11.5 - 15.5 % 08/23/2023 1:08 PM CDT [facility] PLATELET COUNT 208 140 - 440 thou/cu mm 08/23/2023 1:08 PM CDT [facility] MPV 11.4(H) 6.5 - 11.0 fL 08/23/2023 1:08 PM CDT [facility] Blood BLOOD SPECIMEN / Unknown Butterfly / Unknown 08/23/2023 12:47 PM CDT 08/23/2023 12:50 PM CDT Joi Zavala MD HEMATOLOGY Performing Organization Address City/State/[facility] Co de Phone Number [address] [address], * RED CELL MORPHOLOGY (08/23/2023 12:47 PM CDT) RBC COMMENT RBC morphology appears normal RBC morphology appears normal, RBC morphology within normal limits for newborns. 08/23/2023 1:08 PM CDT [facility] Blood BLOOD SPECIMEN / Unknown Butterfly / Unknown 08/23/2023 12:47 PM CDT 08/23/2023 12:50 PM CDT Joi Zavala MD HEMATOLOGY [facility] [address] [place] [address], [place] [phone] * PLATELET ESTIMATE (08/23/2023 12:47 PM CDT) PLATELET ESTIMATE Adequate Adequate, No estimate 08/23/2023 1:08 PM CDT [facility] Blood BLOOD SPECIMEN / Unknown Butterfly / Unknown 08/23/2023 12:47 PM CDT 08/23/2023 12:50 PM CDT Joi Zavala MD HEMATOLOGY Performing Organization Address City/[facility]/ZIP Co de Phone Number [facility] [address] [place] [address], * (ABNORMAL) MANUAL DIFFERENTIAL (08/23/2023 12:47 PM CDT) % NEUTROPHILS 54.0 % 08/23/2023 1:08 PM CDT [facility] % LYMPHOCYTES 36.0 % 08/23/2023 1:08 PM CDT [facility] % MONOCYTES 8.0 % 08/23/2023 1:08 PM CDT [facility] % EOSINOPHILS 2.0 % 08/23/2023 1:08 PM CDT [facility] % BASOPHILS 0.0 % 08/23/2023 1:08 PM CDT [facility] NEUTROPHILS ABSOLUTE 5.1 1.7 - 7.0 thou/cu mm 08/23/2023 1:08 PM CDT [facility] LYMPHOCYTES ABSOLUTE 3.4(H) 0.9 - 2.9 thou/cu mm 08/23/2023 1:08 PM CDT [facility] MONOCYTES ABSOLUTE 0.8 <0.9 thou/cu mm 08/23/2023 1:08 PM CDT [facility] EOSINOPHILS ABSOLUTE 0.2 <0.5 thou/cu mm 08/23/2023 1:08 PM CDT [facility] BASOPHILS ABSOLUTE 0.0 <0.3 thou/cu mm 08/23/2023 1:08 PM CDT [facility] Blood BLOOD SPECIMEN / Unknown Butterfly / Unknown 08/23/2023 12:47 PM CDT 08/23/2023 12:50 PM CDT Joi Zavala MD HEMATOLOGY [facility] [address] [place] [address], * PSA TOTAL (DIAGNOSTIC) (08/23/2023 12:47 PM CDT) PSA TOTAL (DIAGNOSTIC) 0.49 <4.00 ng/mL 08/23/2023 9:[address] [facility] Blood BLOOD SPECIMEN / Unknown Butterfly / Unknown 08/23/2023 12:47 PM CDT 08/23/2023 12:50 PM CDT Narrative [facility] - 08/23/2023 9:26 PM CDT The test method changed on 11/28/2022. If this test has been used for serial monitoring, rebaselining is recommended. Rebaselining consists of 2 measurements, collected 3-6 weeks apart. The Adore Elecsys total PSA assay is an electrochemiluminescence immunoassay ECLIA performed on the Adore Chuck e immunoassay analyzers. Values obtained with different assay methods may be different and cannot be used interchangeably. Joi Zavala MD CHEMISTRY [facility] [address] [place] [address], [place] * (ABNORMAL) HEMOGLOBIN A1C MONITORING (POCT) (08/23/2023 12:47 PM CDT) HEMOGLOBIN A1C MONITORING (POCT) 8.0(H) <=6.4 % 08/23/2023 12:59 PM CDT [facility] Blood BLOOD SPECIMEN / Unknown Butterfly / Unknown 08/23/2023 12:47 PM CDT 08/23/2023 12:50 PM CDT Narrative [facility] - 08/23/2023 12:59 PM CDT ? (<=6.9%) ? Indicates good control ? (7.0% to 7.9%) ? Indicates fair control ? (>=8.0%) ? Indicates poor control ?? NOTE: ??These thresholds are guidelines and ?individual targets may vary. Falsely low levels may be seen with: Recent Transfusion, Recent Significant Blood Loss, Hemolytic Diseases, or Falsely elevated levels may be seen with: Untreated Anemias, Splenectomy ? Joi Zavala MD CHEMISTRY [facility] [address] [place] [address], * (ABNORMAL) BASIC METABOLIC PANEL (08/23/2023 12:47 PM CDT) SODIUM 140 136 - 145 mmol/L 08/23/2023 9:26 PM CDT [facility] POTASSIUM 4.6 3.5 - 5.1 mmol/L 08/23/2023 9:26 PM CDT [facility] CHLORIDE 105 98 - 107 mmol/L 08/23/2023 9:26 PM CDT [facility] CO2,TOTAL 23 22 - 29 mmol/L 08/23/2023 9:26 PM CDT [facility] ANION GAP 12 5 - 18 08/23/2023 9:26 PM CDT [facility] GLUCOSE 208(H) 70 - 99 mg/dL 08/23/2023 9:26 PM CDT [facility] CALCIUM 8.5(L) 8.8 - 10.2 mg/dL 08/23/2023 9:26 PM CDT [facility] BUN 18 8 - 23 mg/dL 08/23/2023 9:26 PM CDT [facility] CREATININE 1.12 0.70 - 1.20 mg/dL 08/23/2023 9:26 PM CDT [facility] BUN/CREAT RATIO 16 10 - 20 9:26 PM CDT [facility] eGFR 66(L) >90 mL/min/1.7 3m2 08/23/2023 9:26 PM CDT [facility] Comment:As of 2021, eG FR is calculated by the CKD-EPI creatinine equation without race adjustment. ??eGFR can be influenced by muscle mass, exercise, and diet. ??The reported eGFR is an estimation only and is only applicable if the renal function is stable. Blood BLOOD SPECIMEN / Unknown Butterfly / Unknown 08/23/2023 12:47 PM CDT 08/23/2023 12:50 PM CDT Joi Zavala MD CHEMISTRY [facility] [address] [place] [address], * SCAN-RADIOLOGY REPORT (07/24/2023 12:00 AM ELECTRIC SHAVER MECHANIC) Anatomical Region Laterality Modality Other Scanner OTHER from Last 3 Months Advance Directives Documents on File Type Date Recorded Patient Production Superintendent Expl anation Healthcare Directive 09/14/2021 7:36 AM HE ALTH CARE DRECTIVE/ 09/14/2021 Care Teams Sampler First Relationship Specialty Start Date End Date Joi Zavala MD [address] [place] [address] [id number] PCP - General 03/08/05 Ruben Fernandez [place] [address] [place] [address] Sports Medicine 09/05/12
--- OUTSIDE RECORDS SUMMARY | 2023-09-16 14:23 | XMS_ITS | Clinical Summary ---
Author Name Unknown Organization [facility] Address [address] [place] [address] Care Team Providers Care Fish Hatchery Man Name Role Phone Unavailable Primary Care Provider [...]
[2023-09-16 14:57] LABS: PCR FLU A Negative PCR FLU A (Negative); PCR FLU B Negative PCR FLU B (Negative); PCR RSV POSITIVE PCR RSV (Negative); SARS PCR* Negative SARS-CoV-2 (Negative)
[2023-09-16 15:05] LABS: Appearance Urine Clear (Clear); Bilirubin Urine Negative (Negative); Blood Urine Negative (Negative); Color Urine Yellow (Yellow); Glucose Urine Negative (Negative); Ketones Urine Negative (Negative); Leukocyte Esterase Urine Negative (Negative); Nitrite Urine Negative (Negative); Protein Urine Negative (Negative); Specific Gravity Urine 1.015 (1.000-1.030); Urobilinogen Urine 0.2 (0.2-1.0)
--- NOTE | 2023-09-16 15:26 | P.IMHP_ITS ---
Hospitalist- H&P: HPI History of Present Illness Date Seen: 09/16/23 Chief complaint: Poss stroke Narrative: Bucky Turpin is a 82 year old male who was brought to the ED this morning by family for 2 distinct episodes this morning of mental status changes. Around 7:00 a.m., he had an acute change in his ability to speak. Patient was awake during the time and notes that he was not able to get words out. He did not have any other symptoms at that time, although noted he seemed to have generalized weakness. He sat down and rested and symptoms spontaneously resolved; similar episode happened around 11:00 a.m.. There was no syncope or presyncope, he was aware both episodes were happening. He did not have any chest pain or shortness of breath accompanying his symptoms. BG was checked during both incidents (wears a CGM), was in the 130s. Given recurrent systems, family was called and brought him to the hospital. ER course and findings: - no acute abnormalities on head CT or head/neck CTA - seen by Dr. Damon of Stroke Neurology during televisit; she recommends monitoring, MRI of head - reassuring labs, negative troponin, stable on RA - + RSV, reassuring UA Upon arrival to the floor, Bucky is feeling better, requesting lunch. He is able to describe his morning events without difficulty. Notably, he and had influenza A 8 weeks ago, recovered well and did not require hospitalization. Medical history updated below. Dr. Zavala at [facility] is PCP. Review of Systems Narrative: - no current complaints of chest pain or palpitations - no concerns of aspiration (often has liquids thickened a little at home, uses a straw for drinking) - uses walker/wheelchair at home, frequently falls [facility] Medical History (Updated 09/16/23 @ 18:31 by Madison Pizarro MD) Parkinsonism ?G20.C - Parkinsonism, unspecified (ICD-10) Weakness ?R53.1 - Weakness (ICD-10) Lewy body dementia ?G31.83 - Dementia with Lewy bodies (ICD-10) ?F02.80 - Dementia in other diseases classified elsewhere without behavioral disturbance (ICD-10) Lymphedema ?I89.0 - Lymphedema, not elsewhere classified (ICD-10) Pulmonary embolism ?I26.99 - Other pulmonary embolism without acute cor pulmonale (ICD-10) History of external beam radiation therapy ?Z92.3 - Personal history of irradiation (ICD-10) Insulin dependent type 2 diabetes mellitus ?E11.9 - Type 2 diabetes mellitus without complications (ICD-10) ?Z79.4 - correction (current) use of insulin (ICD-10) Prostate cancer ?C61 - Malignant neoplasm of prostate (ICD-10) CKD (chronic kidney disease) ?N18.9 - Chronic kidney disease, unspecified (ICD-10) MAYA (obstructive sleep apnea) ?G47.33 - Obstructive sleep apnea (adult) (pediatric) (ICD-10) Parkinson disease ?G20 - Parkinson's disease (ICD-10) Spinal stenosis ?M48.00 - Spinal stenosis, site unspecified (ICD-10) Reflux gastritis ?K29.60 - Other gastritis without bleeding (ICD-10) Diabetes ?E11.9 - Type 2 diabetes mellitus without complications (ICD-10) Hypercholesteremia ?E78.00 - Pure hypercholesterolemia, unspecified (ICD-10) Hypertension ?I10 - Essential (primary) hypertension (ICD-10) Surgical History History of cataract surgery ?Z98.49 - Cataract extraction status, unspecified eye (ICD-10) History of meniscectomy of left knee ?Z98.890 - Other specified postprocedural states (ICD-10) History of total left knee replacement ?Z96.652 - Presence of left artificial knee joint (ICD-10) History of lumbar discectomy ?Z98.890 - Other specified postprocedural states (ICD-10) History of transurethral resection of prostate ?Z98.890 - Other specified postprocedural states (ICD-10) ?Z90.79 - Acquired absence of other genital organ(s) (ICD-10) Family History Father Diabetes Cardiovascular disease Social History (Updated 09/16/23 @ 16:31 by Madison Pizarro MD) Narrative: He lives with his Phuong (medical decision maker if needed), in their own home near [place]. She is primary caregiver, does use help and family for occasional respite. Uses wheelchair and walker for ambulation, often falls at home. Nonsmoker. Rare ETOH. Requests DNR/DNI status. What is your current living situation?: I presently have a place to live Problems where you live: no known problems Problems where you live details: n/a In the past 12 months, utilities in danger of being shut off: no In past 12 months, lack of transportation kept you from medical appts, meetings, work, or getting things needed for daily living: no In the past 12 mos, have been you worried that your food would run out before you had money to buy more?: never true In the past 12 mos, the food you bought just didn't last and you didn't have money to buy more?: never true Highest level of school completed/degree received: 12th grade, no diploma Smoking Status: Former smoker Do you use any of these nicotine containing products: None Second hand tobacco smoke exposure: No How often do you have a drink containing alcohol: never How often do you have six or more drinks on one occasion: Never AUDIT-C Alcohol total score: 0 Non-prescribed substance use: marijuana (any form) Non-prescribed substance use details: Marijuana in liquid form orally Caffeine: Yes How often does anyone, including family, friends and others, physically hurt you : never How often does anyone, including family, friends and others, insult or talk down to you: never How often does anyone, including family, friends and others, threaten you with harm: never How often does anyone, including family, friends and others, scream or curse at you: never service: Yes ([employer]) Meds Home Medications and Allergies Home Medications Medication Instructions Recorded Confirmed Type carbidopa 25 mg-levodopa 100 mg 3 tab PO TID 01/01/22 09/16/23 History tablet clonazepam 0.5 mg tablet 0.5 mg PO HS 01/01/22 09/16/23 History donepezil 10 mg tablet 10 mg PO HS 01/01/22 09/16/23 History meclizine 25 mg tablet 25 mg PO BID PRN 01/01/22 07/24/23 History metformin 500 mg tablet 500 mg PO BIDWM PRN 01/01/22 09/16/23 History oxybutynin chloride 15 mg 15 mg PO DAILY PRN 01/01/22 09/16/23 History tablet,extended release 24 hr rosuvastatin 20 mg tablet 20 mg PO HS 01/01/22 09/16/23 History glycopyrrolate 1 mg tablet 1 mg PO DAILY 02/14/22 09/16/23 History Lactobacillus acidophilus 10 10 mg PO DAILY 02/15/22 09/16/23 History billion cell capsule (Probiotic) cyanocobalamin (vitamin B-12) 1,000 mcg PO DAILY 02/15/22 09/16/23 History 1,000 mcg tablet nystatin 100,000 unit/gram topical 1 applic topical BID 02/15/22 09/16/23 History ointment insulin aspart U-100 100 unit/mL 5 unit subcut DAILY@1200 12/31/22 09/16/23 History (3 mL) subcutaneous pen (Novolog FlexPen U-100 Insulin aspart) insulin aspart U-100 100 unit/mL 6 unit subcut DAILY@0800 12/31/22 09/16/23 History (3 mL) subcutaneous pen (Novolog FlexPen U-100 Insulin aspart) insulin glargine 100 unit/mL (3 12 unit subcut HS 01/01/23 09/16/23 History mL) subcutaneous pen (Lantus Solostar U-100 Insulin) omeprazole 20 mg capsule,delayed 20 mg PO DAILY 09/16/23 09/16/23 History release Allergies Allergy/AdvReac Type Severity Reaction Status Date / Time bacitracin Allergy Intermediate Verified 09/16/23 13:40 Exam Narrative: Exam Narrative: GEN: Alert and sitting comfortably in bedside chair. Appears sleepy, nontoxic. Intermittent dysarthria, baseline HEENT: R-sided facial droop (baseline), upper dentures. EOMIs bilaterally, no scleral icterus CV: RRR, No concerning murmurs R: LCTA bilaterally without concerning wheezing, air movement adequate Ext: Moving extremities appropriately for comorbidities Skin: Scattered bruising on extremities, small skin tear LUE, hemostatic Neuro: R facial droop and weakness (baseline per patient and family), no resting tremor, gait not observed Psych: Appropriate, no agitation Const: Vital Signs, click to edit/add: Vital Signs - 24 hr 09/16/23 13:25 09/16/23 13:57 09/16/23 13:58 Temperature 98.4 F Pulse Rate 84 54 L Pulse Rate [Right Pulse Oximeter] 87 Respiratory Rate 16 Blood Pressure 167/71 H Pulse Oximetry 98 91 98 [facility] 09/16/23 14:00 09/16/23 14:02 09/16/23 14:12 Temperature Pulse Rate 53 L 52 L 51 L Pulse Rate [Right Pulse Oximeter] Respiratory Rate Blood Pressure 164/78 H 170/79 H Pulse Oximetry 96 94 95 [facility] 09/16/23 14:15 09/16/23 14:30 09/16/23 14:33 Temperature Pulse Rate 50 L 52 L 52 L Pulse Rate [Right Pulse Oximeter] Respiratory Rate Blood Pressure 171/79 H Pulse Oximetry 95 95 94 [facility] 09/16/23 14:45 09/16/23 14:47 09/16/23 14:48 Temperature Pulse Rate 55 L 51 L 50 L Pulse Rate [Right Pulse Oximeter] Respiratory Rate Blood Pressure 197/87 H Pulse Oximetry 94 95 96 [facility] 09/16/23 15:00 09/16/23 15:03 Temperature Pulse Rate 50 L 56 L Pulse Rate [Right Pulse Oximeter] Respiratory Rate Blood Pressure 168/85 H Pulse Oximetry 94 91 [facility] Hospital[facility] - H&P: Result Labs Labs: Short CBC 09/16/23 Range/Units 13:41 WBC 9.59 (4.50-11.00) K/uL Hgb 13.6 (13.5-17.5) gm/dL Hct 42.9 (37.0-53.0) % Plt Count 234 (140-440) K/uL BMP 09/16/23 13:41 Sodium 138 Potassium 4.2 Chloride 107 Carbon Dioxide 28 BUN 22 Creatinine 1.0 Glucose 112 Calcium 8.6 Cardiac Enzymes 09/16/23 Range/Units 13:41 Troponin I < 0.01 L (0.01-0.04) ng/mL Liver Function 09/16/23 Range/Units 13:41 Total Bilirubin 0.6 (0.1-1.5) mg/dL Direct Bilirubin 0.2 (0.0-0.5) mg/dL AST 20 (12-35) U/L ALT 4 (4-50) U/L Alkaline Phosphatase 81 (40-150) U/L Albumin 3.8 (3.3-5.0) g/dL Assessment and Plan Assessment and plan (1) Difficulty speaking: Problem comment: - two distinct episodes on 09/15 in the morning - reassuring CT and CTA in ED on 09/15 - Stroke Neuro following; will obtain lipids, A1C, TTE - 81mg ASA recommended by Stroke Neuro; further recommendations pending MRI results Status: Acute (2) RSV infection: Problem comment: - incidentally noted on admission, stable on RA - supportive cares Status: Acute (3) Weakness: Problem comment: - history of weakness, noted during admission 09/15 - frequent falls at home; therapies ordered Status: Acute (4) Insulin dependent type 2 diabetes mellitus: Problem comment: - last A1C 8.0 08/2023 - has CGM - continue home medications + sliding scale insulin Status: Chronic (5) Parkinsonism: Problem comment: - on thrice daily Sinemet, will continue Status: Acute (6) Lewy body dementia: Problem comment: - no agitation Status: Acute Plan - per above - and daughter updated at bedside, questions answered - DNR/DNI status
[2023-09-16 15:44] LABS: RBC Urine 0-2 (0-2); Squamous Epithelial Cell Urine Few (None-Few); WBC Urine 0-2 (0-5)
[2023-09-16] MEDS: INSULIN ASPART 100 UNIT/ML 6 UNIT SUBCUT (18:57)
[2023-09-16] MEDS: INSULIN ASPART 100 UNIT/ML SUBCUT ×2 (18:59→20:34)
[2023-09-16] MEDS: SENNOSIDES/DOCUSATE TABLET 1 TAB PO (20:30)
[2023-09-16] MEDS: CARBIDOPA-LEVODOPA 25-100 TABLET 3 TAB PO (20:31)
[2023-09-16] MEDS: DONEPEZIL 10 MG TABLET PO (20:31)
[2023-09-16] MEDS: ROSUVASTATIN CALCIUM 10 MG TABLET 20 MG PO (20:31)
[2023-09-16] MEDS: clonazePAM 0.5 MG TABLET PO (20:31)
[2023-09-16] MEDS: ASPIRIN 81 MG TAB.CHEW PO (20:31)
[2023-09-16] MEDS: SODIUM CHLORIDE 0.9 % (FLUSH) 10 ML SYRINGE 5 ML IVF (20:35)
[2023-09-17] VITALS (8 sets, daily range): BP systolic 141–205; BP diastolic 71–105; PULSE 44–71; RESP 18–20; TEMP 35.9–36.6; O2SAT 90–96
--- NOTE | 2023-09-17 05:50 | PC.NURSE ---
End of shift report [id number]: Pleasant and cooperative with cares. Alert and oriented x 4. Patient is soft spoken and words are slurred and mumbled, per this is not his baseline. At 0300 patient stated that he had a nightmare and when play writer was in there obtaining vitals that he was unable to speak at that time. He was able to shake his head no when play writer questioned if he needed anything prior to leaving. At 0500 when play writer was in room patient was able to speak, volume was normal and speech was less mumbled. Patient at that time reported the episode at 0300 that he had a nightmare and was unable to tell play writer about it. Assisted with drinking water at 0500 and patient had an acute coughing episode with liquids. Per , patient has had a swallow evaluation but no recommendations other than soft food. When patient was sat on the bedside he was able to drink without coughing. Assist x 1 with transfers, patient does stand bedside to assist with brief changes. Incontinent of urine, patient verbalizes need to be changed. Dressing to left elbow skin tear intact.
[2023-09-17 06:32] LABS: Basophils Absolute Auto 0.02 K/uL (0.00-0.30); Basophils Percent Auto 0.2 % (0.0-3.0); Eosinophils Absolute Auto 0.18 K/uL (0.00-0.50); Eosinophils Percent Auto 2.1 % (0.0-7.0); Hematocrit 38.1 % (37.0-53.0); Hemoglobin* 12.3 gm/dL (13.5-17.5); Immature Granulocytes Abs Auto 0.01 K/uL (0.00-0.30); Immature Granulocytes Pct Auto 0.1 %; Lymphocytes Absolute Auto 3.03 K/uL (0.90-2.90); Lymphocytes Percent Auto 35.6 % (20-44); Mean Corpuscular HGB Conc 32 gm/dL (32-36); Mean Corpuscular Hemoglobin 30 pg (26-34); Mean Corpuscular Volume 92 fL (80-100); Monocytes Percent Auto 8.8 % (0.0-11.0); Neutrophils Absolute Auto 4.52 K/uL (1.7-7.0); Neutrophils Percent Auto 53.2 % (42.0-72.0); Platelet Count* 221 K/uL (140-440); RDW Coefficient of Variation % 13.8 % (11.5-15.5); Red Blood Count 4.14 m/uL (4.30-5.90); White Blood Count* 8.51 K/uL (4.50-11.00)
[2023-09-17 06:39] LABS: Slide Review Reflex No
[2023-09-17 06:42] LABS: Chloride* 108 mmol/L (96-114); Potassium* 3.9 mmol/L (3.6-5.1); Sodium* 137 mmol/L (135-149)
[2023-09-17 06:45] LABS: Anion Gap 3 mEq/L (7-15); Carbon Dioxide* 26 mmol/L (20-32); Cholesterol* 93 mg/dL (90-199); Est. Creatinine Clearance* 52.28; Estimated Glomerular Filt Rate 76 ml/min
[2023-09-17 06:46] LABS: Blood Urea Nitrogen* 21 mg/dL (7-30); Calcium* 8.3 mg/dL (8.4-10.6); Glucose* 142 mg/dL (60-115); HDL Cholesterol* 34 mg/dL (>=40); LDL Cholesterol Calculated 39 mg/dL (<100); Triglycerides* 100 mg/dL (40-149)
--- NOTE | 2023-09-17 08:02 | P.IMPN_ITS ---
Progress Note: A&P Assessment and plan (1) Difficulty speaking: Problem details: - two distinct episodes on 09/15 in the morning - reassuring CT and CTA in ED on 09/15 - Stroke Neuro following; will obtain lipids, A1C, TTE - 81mg ASA recommended by Stroke Neuro; further recommendations pending MRI results - I do wonder if this is all RSV causing a generalized weakness and AMS - seems to have cleared Status: Acute (2) RSV infection: Problem details: - incidentally noted on admission, stable on RA - supportive cares - updating CXR am of 09/16 Status: Acute (3) Weakness: Problem details: - history of weakness, noted during admission 09/15 - frequent falls at home; therapies ordered - lives at home with , attentive. Also has ART FRAMING MANAGER for twice a week. Status: Acute (4) Insulin dependent type 2 diabetes mellitus: Problem details: - last A1C 7.8 09/17/23 - has CGM - continue home medications + sliding scale insulin Status: Chronic (5) Parkinsonism: Problem details: - on thrice daily Sinemet, will continue Status: Acute (6) Lewy body dementia: Problem details: - no agitation Status: Acute Subjective Date Seen: 09/17/23 Interval history: Daily Progress Note - Hospital Medicine Day #: 2 CC: Episodes of garbled speech/confusion with history of dementia, rule out stroke. Incidental positive RSV OVERNIGHT UPDATES FROM STAFF & MED, LAB, IMAGING UPDATES patient interviewed and family was bedside. His speech is at times difficult to understand, seems purposeful. He then can blurt out a very clear few words - emotional and then smiling/laughing ( and daughter state this is not new). LBD x 7 years, oxygen dependent. mild Parkinsons. stable wrt to vitals, labs. It is a little difficult to sort out what is acute and what is baseline. MRI this morning. will update CXR. Afebrile overnight. 97.7? F T-max Blood pressures all over the place from 197/87 down to 119/57, current 141/71 Pulse low in the 50s Respiratory rate unlabored, 18 Weight 104 kg CBC reflects a normal white blood cell count. Hemoglobin 12.3, normal platelets Normal INR Normal electrolytes Normal renal function Glucose 142 CRP normal Troponin undetectable LDL 39 BNP 490 Urine clear POSITIVE RSV PCR No blood cultures were drawn at admission Urine cultures in progress A1C 8.0 in 08/25, has CGM. glucose since admission: 116, 153, 176 EKG revealed a sinus bradycardia with first-degree block, right bundle branch block Objective: mild disshelved; eyes rest closed and looks fatigued. on oxygen. Vitals: see above Lungs: Clear. no significant wheezing. Cardiac: S1S2. Disposition/Potential discharge - Likely to return to previous living situation. Today I spent 50minutes seeing the patient, reviewing Expanse and EPIC notes/diagnostics, discussing the care plan with our care time that includes social work, PT/OT, pharmacy, RT, long term and documenting my impressions and plan in the medical record. Exam Const: Vital Signs, click to edit/add: Vital Signs - 24 hr 09/16/23 13:25 09/16/23 13:57 09/16/23 13:58 Temperature 98.4 F Pulse Rate 84 54 L Pulse Rate [Pulse Oximeter] Pulse Rate [Right Pulse Oximeter] 87 Respiratory Rate 16 Blood Pressure 167/71 H Blood Pressure [Ri ght Arm] Pulse Oximetry 98 91 98 Oxygen Delivery Me thod Room Air Oxygen Flow Rate 09/16/23 14:00 09/16/23 14:02 09/16/23 14:12 Temperature Pulse Rate 53 L 52 L 51 L Pulse Rate [Pulse Oximeter] Pulse Rate [Right Pulse Oximeter] Respiratory Rate Blood Pressure 164/78 H 170/79 H Blood Pressure [Ri ght Arm] Pulse Oximetry 96 94 95 Oxygen Delivery Me thod Oxygen Flow Rate 09/16/23 14:15 09/16/23 14:30 09/16/23 14:33 Temperature Pulse Rate 50 L 52 L 52 L Pulse Rate [Pulse Oximeter] Pulse Rate [Right Pulse Oximeter] Respiratory Rate Blood Pressure 171/79 H Blood Pressure [Ri ght Arm] Pulse Oximetry 95 95 94 Oxygen Delivery Me thod Oxygen Flow Rate 09/16/23 14:45 09/16/23 14:47 09/16/23 14:48 Temperature Pulse Rate 55 L 51 L 50 L Pulse Rate [Pulse Oximeter] Pulse Rate [Right Pulse Oximeter] Respiratory Rate Blood Pressure 197/87 H Blood Pressure [Ri ght Arm] Pulse Oximetry 94 95 96 Oxygen Delivery Me thod Oxygen Flow Rate 09/16/23 15:00 09/16/23 15:03 09/16/23 16:09 Temperature 97.7 F Pulse Rate 50 L 56 L Pulse Rate [Pulse Oximeter] 61 Pulse Rate [Right Pulse Oximeter] Respiratory Rate 16 Blood Pressure 168/85 H Blood Pressure [Ri ght Arm] 181/77 H Pulse Oximetry 94 91 92 Oxygen Delivery Me thod Room Air Oxygen Flow Rate 09/16/23 16:09 09/16/23 19:00 09/16/23 22:23 Temperature 97.2 F L Pulse Rate 54 L Pulse Rate [Pulse Oximeter] 52 L Pulse Rate [Right Pulse Oximeter] Respiratory Rate 16 18 Blood Pressure Blood Pressure [Ri ght Arm] 136/64 Pulse Oximetry 92 92 Oxygen Delivery Me thod Room Air Room Air Oxygen Flow Rate 09/16/23 23:00 09/16/23 23:00 09/16/23 23:00 Temperature 97.2 F L Pulse Rate Pulse Rate [Pulse Oximeter] 52 L 56 L Pulse Rate [Right Pulse Oximeter] Respiratory Rate 18 18 20 Blood Pressure Blood Pressure [Ri ght Arm] 119/57 L Pulse Oximetry 92 92 Oxygen Delivery Me thod Room Air Nasal Cannula Oxygen Flow Rate 2 09/17/23 03:00 Temperature 97.2 F L Pulse Rate Pulse Rate [Pulse Oximeter] 56 L Pulse Rate [Right Pulse Oximeter] Respiratory Rate 20 Blood Pressure Blood Pressure [Ri ght Arm] 141/71 H Pulse Oximetry 92 Oxygen Delivery Me thod Nasal Cannula Oxygen Flow Rate 2 Labs Labs: Laboratory Results - last 24 hr 09/16/23 09/16/23 09/16/23 13:41 14:05 15:00 WBC 9.59 RBC 4.63 Hgb 13.6 Hct 42.9 MCV 93 MCH 29 MCHC 32 RDW Coeff of Jorge 13.7 Plt Count 234 Neut % (Auto) 56.1 Lymph % (Auto) 33.4 [place] % (Auto) 8.1 Eos % (Auto) 1.8 Baso % (Auto) 0.3 Neut # (Auto) 5.38 Lymph # (Auto) 3.20 H [place] # (Auto) 0.80 Eos # (Auto) 0.17 Baso # (Auto) 0.03 Abs Immat Gran (auto) 0.03 Imm/Tot Granulo (auto) 0.3 INR 0.97 APTT 27 Sodium 138 Potassium 4.2 Chloride 107 Carbon Dioxide 28 Anion Gap 3 L BUN 22 Creatinine 1.0 Estimated Creat Clear 56.05 Estimated GFR 76 Glucose 112 Calcium 8.6 Total Bilirubin 0.6 Direct Bilirubin 0.2 AST 20 ALT 4 Alkaline Phosphatase 81 Troponin I < 0.01 L C-Reactive Protein < 0.5 L NT-Pro-B Natriuret Pep 493 Total Protein 6.9 Albumin 3.8 Triglycerides Cholesterol LDL Cholesterol, Calc HDL Cholesterol Urine Color Yellow Urine Appearance Clear Urine pH 7.0 Ur Specific [place] 1.015 Urine Protein Negative Urine Glucose (UA) Negative Urine Ketones Negative Urine Blood Negative Urine Nitrite Negative Urine Bilirubin Negative Urine Urobilinogen 0.2 Ur Leukocyte Esterase Negative Urine RBC 0-2 Urine WBC 0-2 Ur Squamous Epith Cells Few Urine Bacteria None Ethyl Alcohol < 0.01 L SARS-CoV-2 (PCR) Negative SARS-CoV-2 Influenza Type A (PCR) Negative PCR FLU A Influenza Type B (PCR) Negative PCR FLU B RSV (PCR) POSITIVE PCR RSV A 09/17/23 05:47 WBC 8.51 RBC 4.14 L Hgb 12.3 L Hct 38.1 MCV 92 MCH 30 MCHC 32 RDW Coeff of Jorge 13.8 Plt Count 221 Neut % (Auto) 53.2 Lymph % (Auto) 35.6 [place] % (Auto) 8.8 Eos % (Auto) 2.1 Baso % (Auto) 0.2 Neut # (Auto) 4.52 Lymph # (Auto) 3.03 H [place] # (Auto) 0.70 Eos # (Auto) 0.18 Baso # (Auto) 0.02 Abs Immat Gran (auto) 0.01 Imm/Tot Granulo (auto) 0.1 INR APTT Sodium 137 Potassium 3.9 Chloride 108 Carbon Dioxide 26 Anion Gap 3 L BUN 21 Creatinine 1.0 Estimated Creat Clear 52.28 Estimated GFR 76 Glucose 142 H Calcium 8.3 L Total Bilirubin Direct Bilirubin AST ALT Alkaline Phosphatase Troponin I C-Reactive Protein NT-Pro-B Natriuret Pep Total Protein Albumin Triglycerides 100 Cholesterol 93 LDL Cholesterol, Calc 39 HDL Cholesterol 34 L Urine Color Urine Appearance Urine pH Ur Specific [place] Urine Protein Urine Glucose (UA) Urine Ketones Urine Blood Urine Nitrite Urine Bilirubin Urine Urobilinogen Ur Leukocyte Esterase Urine RBC Urine WBC Ur Squamous Epith Cells Urine Bacteria Ethyl Alcohol SARS-CoV-2 (PCR) Influenza Type A (PCR) Influenza Type B (PCR) RSV (PCR)
[2023-09-17] MEDS: OMEPRAZOLE 20 MG CAPSULE DR PO (08:24)
[2023-09-17] MEDS: SENNOSIDES/DOCUSATE TABLET 1 TAB PO ×2 (08:24→20:36)
[2023-09-17] MEDS: LACTOBACILLUS ACIDOPHILUS 1 TABLET 1 TAB PO (08:24)
[2023-09-17] MEDS: ASPIRIN 81 MG TAB.CHEW PO (08:25)
[2023-09-17] MEDS: SODIUM CHLORIDE 0.9 % (FLUSH) 10 ML SYRINGE 5 ML IVF ×2 (08:25→20:42)
[2023-09-17] MEDS: CARBIDOPA-LEVODOPA 25-100 TABLET 3 TAB PO ×3 (08:25→20:36)
[2023-09-17] MEDS: INSULIN ASPART 100 UNIT/ML 6 UNIT SUBCUT (08:26)
[2023-09-17 08:38] LABS: Hemoglobin A1C* 7.8 % (0-5.6)
--- NOTE | 2023-09-17 10:25 | XR_ITS ---
Patient: LEIDY GAYLE Facility:?[facility] Patient ID:?[id number] Site Patient ID:?[id number]. Site :?[id number] Study:?XRay-Chest 2 View-09/17/2023 12:36:19 PM Ordering Physician:Hannah Monique Final Report: INDICATION: Weakness. TECHNIQUE: Chest 1 views. COMPARISON: July 24, 2023. FINDINGS: Cardiovascular and mediastinum: Heart size and vasculature are normal in caliber and appearance. Lungs and pleural spaces: Low lung volumes. No sign of infiltrate or mass. No sign of pleural effusion. No pneumothorax. Bones and soft tissues: No significant findings. IMPRESSION: No acute findings and no significant changes from the prior exam. Dictated by Luke Quan MD @ 09/17/2023 12:53:21 PM Signed by:?Luke Quan MD @09/17/2023 12:53:21 PM (Electronic Signature)
[2023-09-17] MEDS: INSULIN ASPART 100 UNIT/ML SUBCUT ×2 (11:36→20:41)
[2023-09-17] MEDS: NYSTATIN POWDER 1 APPLIC TOPICAL ×2 (13:37→20:37)
[2023-09-17] MEDS: ASPIRIN EC 325 MG TABLET PO (13:37)
--- NOTE | 2023-09-17 14:07 | PC.NURSE ---
End of Shift Note: Patient has had a busy day. He went to MRI around 1130 return and then had a consult with the neurologist--via tele neuro. He then ambulate with assist of 1 to the BR had a large BM. Now OT is in his room. He is also awaiting an echo. His and daughter have been at bedside most of the day. His speech is garbled but if you listen closely you can tell what he is saying. So far he appears too tire to attempt lunch will continue to monitor.
--- NOTE | 2023-09-17 16:02 | PC.SOCIAL ---
Discharge planning: onyx chip terrazzo worker met with pt(he was asleep), pt's and pt's daughter to discuss discharge planning. Pt's family stated that they would really like to take the pt home when he is ready for discharge, but are open to looking at a SNF for short-term rehab if that is the recommendation. Pt's family is also open to Home Care if that is the recommendation. Pt will be evaluated again tomorrow. Some of the OT evaluations were not able to be completed today due to pt being too lethargic. Social work to follow-up as needed.
--- NOTE | 2023-09-17 16:32 | MR_ITS ---
Patient: LEIDY GAYLE Facility:?[facility] Patient ID:?[id number] Site Patient ID:?[id number]. Site :?[id number] Study:?MRI-Head WO-09/17/2023 12:17:19 PM Ordering Physician:TORI Final Report: Indication: CVA Technique: Multiplanar, multisequence MR images of the brain were obtained without the administration of IV contrast. Comparison: CT head September 16, 2023 Findings: On midline sagittal T1 images there are preserved flow voids within the sagittal sinuses. The corpus callosum is preserved in signal and contour. The pituitary gland is unremarkable without evidence of remodeling of the sella turcica. There is no significant cerebellar tonsillar ectopia. On diffusion-weighted sequences, there is demonstration of restricted diffusion within the left frontal lobe involving the precentral gyrus. Additional punctate cortical restriction in the left parietal lobe is appreciated. No evidence of large territorial infarct is appreciated. On blood sensitive sequences, there is minimal hemosiderin deposition within the left precentral gyrus. There is redemonstration of global cortical atrophy with sulcal widening and ex vacuo dilatation of the lateral ventricles. There is moderate chronic small vessel disease change within the subcortical and periventricular white matter. The remaining brain parenchyma is otherwise preserved in signal intensity. The flow voids at the skull base are unremarkable. The orbits and their contents are within normal limits. There is minimal chronic mucosal thickening within the paranasal sinuses with bubbly secretion in the right greater than left maxillary sinus. Extensive fluid within the bilateral mastoid air cells is appreciated. 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 No evidence of large, territorial infarct. Minimal likely evolving laminar cortical necrosis and hemosiderin deposition. Otherwise, moderate age-related and chronic small-vessel disease changes of the brain without additional acute intracranial abnormality. Fluid is seen within the maxillary sinuses likely representing acute on chronic sinus disease. Extensive fluid within the mastoid air cells is again seen consistent with likely sequela of mastoiditis changes. Dictated by Ryan Rebolledo MD @ 09/17/2023 12:43:46 PM Signed by:?Ryan Rebolledo MD @09/17/2023 12:43:46 PM (Electronic Signature)
[2023-09-17] MEDS: clonazePAM 0.5 MG TABLET PO (20:36)
[2023-09-17] MEDS: ROSUVASTATIN CALCIUM 10 MG TABLET 20 MG PO (20:36)
[2023-09-17] MEDS: DONEPEZIL 10 MG TABLET PO (20:36)
[2023-09-17] MEDS: NYSTATIN CREAM 30 GM 1 APPLIC TOPICAL (20:37)
[2023-09-18] VITALS (12 sets, daily range): BP systolic 103–182; BP diastolic 72–104; PULSE 51–106; RESP 16–20; TEMP 36.2–37.2; O2SAT 90–97
--- NOTE | 2023-09-18 08:59 | PM.IMPN1 ---
Progress Note: A&P Assessment and plan (1) Difficulty speaking: Problem details: - two distinct episodes on 09/15 in the morning - reassuring CT and CTA in ED on 09/15 - Stroke Neuro following; will obtain lipids, A1C, TTE - 81mg ASA recommended by Stroke Neuro; further recommendations pending MRI results - I do wonder if this is all RSV causing a generalized weakness and AMS - seems to have cleared Status: Deleted (2) RSV infection: Problem details: - incidentally noted on admission, stable on chronic oxygen - supportive cares - CXR wnl Status: Acute (3) Weakness: Problem details: - history of weakness, noted during admission 09/15 - frequent falls at home; therapies ordered - lives at home with , attentive. Also has DIRECTOR OF DISTRIBUTION for twice a week. Status: Deleted (4) Insulin dependent type 2 diabetes mellitus: Problem details: - last A1C 7.8 09/17/23 - has CGM - continue home medications + sliding scale insulin Status: Chronic (5) Parkinsonism: Problem details: - on thrice daily Sinemet, will continue Status: Acute (6) Lewy body dementia: Problem details: - no agitation Status: Acute Subjective Date Seen: 09/18/23 Interval history: Daily Progress Note - Hospital Medicine Day #: 3 CC: Episodes of garbled speech/confusion with history of dementia, rule out stroke. Incidental positive RSV OVERNIGHT UPDATES FROM STAFF & MED, LAB, IMAGING UPDATES stable wrt to vitals, labs. It is a little difficult to sort out what is acute and what is baseline. MRI this morning. will update CXR. Afebrile overnight. 97.7? F T-max Blood pressures all over the place from 197/87 down to 119/57, current 141/71 Pulse low in the 50s Respiratory rate unlabored, 18 Weight 104 kg CBC reflects a normal white blood cell count. Hemoglobin 12.3, normal platelets Normal INR Normal electrolytes Normal renal function Glucose 142 CRP normal Troponin undetectable LDL 39 BNP 490 Urine clear POSITIVE RSV PCR No blood cultures were drawn at admission Urine cultures in progress A1C 8.0 in 08/25, has CGM. glucose since admission: 116, 153, 176 EKG revealed a sinus bradycardia with first-degree block, right bundle branch block Objective: mild disshelved; eyes rest closed and looks fatigued. on oxygen. Vitals: see above Lungs: Clear. no significant wheezing. Cardiac: S1S2. Disposition/Potential discharge - Likely to return to previous living situation. Today I spent 50minutes seeing the patient, reviewing Expanse and EPIC notes/diagnostics, discussing the care plan with our care time that includes social work, PT/OT, pharmacy, RT, correction and documenting my impressions and plan in the medical record. Exam Const: Vital Signs, click to edit/add: Vital Signs - 24 hr 09/17/23 11:00 09/17/23 15:06 09/17/23 16:20 Temperature 97.8 F Pulse Rate 44 L Pulse Rate [Pulse Oximeter] 59 L Respiratory Rate 18 18 Blood Pressure [Ri ght Arm] 144/75 H Pulse Oximetry 90 90 Oxygen Delivery Me thod Room Air Room Air Oxygen Flow Rate 1 09/17/23 16:30 09/17/23 16:30 09/17/23 19:00 Temperature 96.7 F L 96.9 F L Pulse Rate Pulse Rate [Pulse Oximeter] 56 L 50 L 62 Respiratory Rate 18 18 18 Blood Pressure [Ri ght Arm] 205/94 H 184/105 H Pulse Oximetry 96 91 Oxygen Delivery Me thod Room Air Room Air Oxygen Flow Rate 1 09/17/23 23:00 09/18/23 03:00 09/18/23 07:07 Temperature 97.6 F Pulse Rate 96 Pulse Rate [Pulse Oximeter] 51 L Respiratory Rate 20 20 Blood Pressure [Ri ght Arm] 177/76 H Pulse Oximetry 96 93 Oxygen Delivery Me thod Nasal Cannula Nasal Cannula Oxygen Flow Rate 2 3
[2023-09-18] MEDS: INSULIN ASPART 100 UNIT/ML SUBCUT ×4 (09:04→17:48)
[2023-09-18] MEDS: INSULIN ASPART 100 UNIT/ML 6 UNIT SUBCUT ×2 (09:04→17:47)
[2023-09-18] MEDS: CARBIDOPA-LEVODOPA 25-100 TABLET 3 TAB PO ×3 (09:06→20:49)
[2023-09-18] MEDS: SENNOSIDES/DOCUSATE TABLET 1 TAB PO (09:06)
[2023-09-18] MEDS: LACTOBACILLUS ACIDOPHILUS 1 TABLET 1 TAB PO (09:06)
[2023-09-18] MEDS: NYSTATIN POWDER 1 APPLIC TOPICAL ×3 (09:07→20:49)
[2023-09-18] MEDS: OMEPRAZOLE 20 MG CAPSULE DR PO (09:07)
[2023-09-18] MEDS: ASPIRIN EC 325 MG TABLET PO (09:07)
[2023-09-18] MEDS: SODIUM CHLORIDE 0.9 % (FLUSH) 10 ML SYRINGE 5 ML IVF ×2 (09:07→20:50)
[2023-09-18] MEDS: NYSTATIN CREAM 30 GM 1 APPLIC TOPICAL ×2 (09:08→20:50)
[2023-09-18] MEDS: FLUCONAZOLE 100 MG TABLET 200 MG PO (09:49)
[2023-09-18 09:56] LABS: Appearance Urine Cloudy (Clear); Bilirubin Urine 1+ (Negative); Blood Urine 3+ (Negative); Color Urine Dark yellow (Yellow); Glucose Urine Negative (Negative); Ketones Urine 1+ (Negative); Leukocyte Esterase Urine 3+ (Negative); Nitrite Urine Negative (Negative); Protein Urine 3+ (Negative); Specific Gravity Urine 1.015 (1.000-1.030); pH Urine 8.5 (5.0-8.5)
[2023-09-18 10:09] LABS: Bacteria Urine Many; RBC Urine 50-100 (0-2); Squamous Epithelial Cell Urine Few (None-Few); WBC Urine >100 (0-5)
--- NOTE | 2023-09-18 10:47 | P.IMPN_ITS ---
Progress Note: A&P Assessment and plan (1) Acute CVA (cerebrovascular accident): Problem details: ischemic; L MCA territory. embolic NOS. echo reassuring. LDL 39 A1C 7.8 passive HTN noted blood sugars well managed: 214, 180, 159, 160 ECHO reviewed Sinus on Tele continue OT/PT - looking for rehab for 09/19 continue aspirin 325 mg daily appreciate stroke neuro eval 30 day cardiac monitoring recommended at discharge Status: Acute (2) RSV infection: Problem details: - incidentally noted on admission, stable on RA - supportive cares - updating CXR am of 09/16 Status: Acute (3) Insulin dependent type 2 diabetes mellitus: Problem details: - last A1C 7.8 09/17/23 - has CGM - continue home medications + sliding scale insulin Status: Chronic (4) Parkinsonism: Problem details: - on thrice daily Sinemet, will continue Status: Acute (5) Lewy body dementia: Problem details: - no agitation Status: Acute (6) Intertriginous dermatitis associated with moisture: Problem details: -continue nystatin topical care/zinc barrier -check UA -diflucan 200mg x 1 dose Status: Acute (7) Venous insufficiency of both lower extremities: Status: Acute (8) Stage 2 skin ulcer of sacral region: Status: Acute Subjective Date Seen: 09/18/23 Interval history: Daily Progress Note - Hospital Medicine Day #: 4 CC: Episodes of garbled speech/confusion --> left frontal, left precentral gyrus, lateral parietal. Incidental positive RSV OVERNIGHT UPDATES FROM STAFF & MED, LAB, IMAGING UPDATES birthday today! 83. appetite low. intermittently confused, saw cats in his room. weak, drooling on/off. spouse/daughter describe him as just off some from baseline. No new weakness, some mild facial asymmetry. MR Brain: Demonstration of evolving subacute infarct within the left frontal vertex involving the left precentral gyrus as well as the lateral parietal lobe. No evidence of large, territorial infarct. Minimal likely evolving laminar cortical necrosis and hemosiderin deposition. Otherwise, moderate age-related and chronic small-vessel disease changes of the brain without additional acute intracranial abnormality. Fluid is seen within the maxillary sinuses likely representing acute on chronic sinus disease. Extensive fluid within the mastoid air cells is again seen consistent with likely sequela of mastoiditis changes. Hypertensive response; noted pulse 80s afebrile stable chronic oxygen requirement CXR No acute findings and no significant changes from the prior exam. Afebrile overnight. 97.7? F T-max Weight 104 was bed weight; likely more like 98 on standing weight today. No new labs. POSITIVE RSV PCR - CXR IS NORMAL No blood cultures were drawn at admission Urine cultures in progress A1C 8.0 in 08/25, has CGM. glucose since admission: 116, 153, 176 EKG revealed a sinus bradycardia with first-degree block, right bundle branch block Objective: mild disshelved; eyes rest closed and looks fatigued. on oxygen. Vitals: see above Neuro: mild facial asymmetry. generally weak but no specific R>L weakness. tearful. Lungs: Clear. no significant wheezing. Cardiac: S1S2. Disposition/Potential discharge - Likely to need 24/ care at least initially in rehab. Sterling Score current 5. Today I spent 50minutes seeing the patient, reviewing Expanse and EPIC notes/diagnostics, discussing the care plan with our care time that includes social work, PT/OT, pharmacy, RT, jail and documenting my impressions and plan in the medical record. Exam Const: Vital Signs, click to edit/add: Vital Signs - 24 hr 09/17/23 11:00 09/17/23 15:06 09/17/23 16:20 Temperature 97.8 F Pulse Rate 44 L Pulse Rate [Pulse Oximeter] 59 L Respiratory Rate 18 18 Blood Pressure [Ri ght Arm] 144/75 H Pulse Oximetry 90 90 Oxygen Delivery Me thod Room Air Room Air Oxygen Flow Rate 1 09/17/23 16:30 09/17/23 16:30 09/17/23 19:00 Temperature 96.7 F L 96.9 F L Pulse Rate Pulse Rate [Pulse Oximeter] 56 L 50 L 62 Respiratory Rate 18 18 18 Blood Pressure [Ri ght Arm] 205/94 H 184/105 H Pulse Oximetry 96 91 Oxygen Delivery Me thod Room Air Room Air Oxygen Flow Rate 1 09/17/23 23:00 09/18/23 03:00 09/18/23 07:07 Temperature 97.6 F Pulse Rate 96 Pulse Rate [Pulse Oximeter] 51 L Respiratory Rate 20 20 Blood Pressure [Ri ght Arm] 177/76 H Pulse Oximetry 96 93 Oxygen Delivery Me thod Nasal Cannula Nasal Cannula Oxygen Flow Rate 2 3 09/18/23 08:00 09/18/23 08:00 09/18/23 08:00 Temperature 98.7 F Pulse Rate Pulse Rate [Pulse Oximeter] 86 86 Respiratory Rate 20 18 18 Blood Pressure [Ri ght Arm] 182/99 H Pulse Oximetry 93 97 Oxygen Delivery Me thod Nasal Cannula Nasal Cannula Oxygen Flow Rate 2 2 Labs Labs: Laboratory Results - last 24 hr 09/18/23 09:50 Urine Color Dark yellow Urine Appearance Cloudy A Urine pH 8.5 Ur Specific [place] 1.015 Urine Protein 3+ A Urine Glucose (UA) Negative Urine Ketones 1+ A Urine Blood 3+ A Urine Nitrite Negative Urine Bilirubin 1+ A Urine Urobilinogen 1.0 Ur Leukocyte Esterase 3+ A Urine RBC 50-100 A Urine WBC >100 A Ur Squamous Epith Cells Few Urine Bacteria Many A
--- NOTE | 2023-09-18 15:35 | PC.SOCIAL ---
Discharge planning: shut off worker met with pt, his and their daughter today to discuss discharge recommendations and planning. Pt and his family stated that they are still uncertain if they are okay with the pt going to a long term for short-term rehab, as that is the current recommendation from PT and the doctor on duty. OT will be seeing the pt later today. Pt and his family stated they would be open to looking at home care coming in possibly and plan to ask the doctor about it tomorrow. Social work to follow-up as needed.
[2023-09-18] MEDS: ACETAMINOPHEN 325 MG TABLET 975 MG PO (19:39)
[2023-09-18] MEDS: DONEPEZIL 10 MG TABLET PO (20:49)
[2023-09-18] MEDS: clonazePAM 0.5 MG TABLET PO (20:49)
[2023-09-18] MEDS: ROSUVASTATIN CALCIUM 10 MG TABLET 20 MG PO (20:49)
--- NOTE | 2023-09-18 23:02 | PC.NURSE ---
@ HS Pt BG was 169. After discussion with and concern that Pt did not eat much dinner decision was made not to recieve Sliding scale Nov.
[2023-09-19] VITALS (12 sets, daily range): BP systolic 113–174; BP diastolic 56–78; PULSE 45–66; RESP 16–22; TEMP 36.1–36.2; O2SAT 90–97
[2023-09-19] MEDS: NYSTATIN CREAM 30 GM 1 APPLIC TOPICAL ×2 (08:30→22:46)
[2023-09-19] MEDS: OMEPRAZOLE 20 MG CAPSULE DR PO (08:31)
[2023-09-19] MEDS: CARBIDOPA-LEVODOPA 25-100 TABLET 3 TAB PO ×3 (08:31→21:28)
[2023-09-19] MEDS: SENNOSIDES/DOCUSATE TABLET 1 TAB PO ×2 (08:31→21:28)
[2023-09-19] MEDS: NYSTATIN POWDER 1 APPLIC TOPICAL ×3 (08:31→22:46)
[2023-09-19] MEDS: LACTOBACILLUS ACIDOPHILUS 1 TABLET 1 TAB PO (08:31)
[2023-09-19] MEDS: ASPIRIN EC 325 MG TABLET PO (08:31)
[2023-09-19] MEDS: SODIUM CHLORIDE 0.9 % (FLUSH) 10 ML SYRINGE 5 ML IVF ×3 (08:32→21:30)
[2023-09-19] MEDS: INSULIN ASPART 100 UNIT/ML 6 UNIT SUBCUT ×2 (09:07→18:04)
--- NOTE | 2023-09-19 10:00 | PM.IMPN1 ---
Progress Note: A&P Assessment and plan (1) Acute CVA (cerebrovascular accident): Problem details: ischemic; L MCA territory. embolic NOS. LDL 39 A1C 7.8 passive HTN noted blood sugars well managed ECHO reviewed Sinus on Tele continue OT/PT - looking for rehab for 09/19 continue aspirin 325 mg daily appreciate stroke neuro eval 30 day cardiac monitoring recommended at discharge Status: Acute (2) UTI (urinary tract infection): Problem details: ua 09/17 - 3+ LE and odor/incontinence started with ceftriaxone 2 gram, cipro 250mg bid to follow and at discharge. 7 days of total therapy. Status: Acute (3) RSV infection: Problem details: - incidentally noted on admission, stable on chronic oxygen - supportive cares - CXR wnl Status: Acute (4) Insulin dependent type 2 diabetes mellitus: Problem details: - last A1C 7.8 09/17/23 - has CGM - continue home medications + sliding scale insulin Status: Chronic (5) Parkinsonism: Problem details: - on thrice daily Sinemet, will continue Status: Acute (6) Lewy body dementia: Problem details: - no agitation Status: Acute (7) Intertriginous dermatitis associated with moisture: Problem details: -continue nystatin topical care/zinc barrier -check UA -diflucan 200mg x 1 dose Status: Acute (8) Venous insufficiency of both lower extremities: Status: Acute (9) Stage 2 skin ulcer of sacral region: Status: Acute Subjective Date Seen: 09/19/23 Interval history: Daily Progress Note - Hospital Medicine Day #: 5 CC: Episodes of garbled speech/confusion --> left frontal, left precentral gyrus, lateral parietal acute CVA. Incidental positive RSV OVERNIGHT UPDATES FROM STAFF & MED, LAB, IMAGING UPDATES pt much improved as it regards speech, tone, attentiveness today. c/o of UTI, incontinence, perineal rash. MR Brain: Demonstration of evolving subacute infarct within the left frontal vertex involving the left precentral gyrus as well as the lateral parietal lobe. No evidence of large, territorial infarct. Minimal likely evolving laminar cortical necrosis and hemosiderin deposition. Otherwise, moderate age-related and chronic small-vessel disease changes of the brain without additional acute intracranial abnormality. Fluid is seen within the maxillary sinuses likely representing acute on chronic sinus disease. Extensive fluid within the mastoid air cells is again seen consistent with likely sequela of mastoiditis changes. Hypertensive response; noted - improving pulse 50-60s afebrile stable chronic oxygen requirement CXR No acute findings and no significant changes from the prior exam. Afebrile overnight. 97.7? F T-max Weight 100.7 standing weight No new labs. POSITIVE RSV PCR - CXR IS NORMAL No blood cultures were drawn at admission Urine cultures in progress - gram neg rods A1C 8.0 in 08/25, has CGM. glucose since admission: 169, 244, 211, 214, 180 EKG revealed a sinus bradycardia with first-degree block, right bundle branch block ECHO reviewed, no concerns wrt emobolic source of CVA Objective: mild disshelved; eyes rest closed and looks fatigued. on oxygen. Vitals: see above Neuro: mild facial asymmetry. generally weak but no specific R>L weakness. tearful. Lungs: Clear. no significant wheezing. Cardiac: S1S2. Disposition/Potential discharge - family has decided to discharge home; will do IV abx today for UTI and continued work with therapies. Today I spent 50minutes seeing the patient, reviewing Expanse and [facility] notes/diagnostics, discussing the care plan with our care time that includes social work, PT/OT, pharmacy, RT, detention and documenting my impressions and plan in the medical record. Exam Const: Vital Signs, click to edit/add: Vital Signs - 24 hr 09/18/23 12:24 09/18/23 15:22 09/18/23 15:45 Temperature 98.9 F Pulse Rate 106 H Pulse Rate [Pulse Oximeter] 78 Respiratory Rate 18 18 Blood Pressure [Ri ght Arm] 103/81 Pulse Oximetry 90 90 Oxygen Delivery Me thod Nasal Cannula Nasal Cannula Oxygen Flow Rate 2 2 09/18/23 15:45 09/18/23 16:56 09/18/23 19:45 Temperature 98.5 F 97.2 F L Pulse Rate Pulse Rate [Pulse Oximeter] 91 91 60 Respiratory Rate 18 18 16 Blood Pressure [Ri ght Arm] 124/86 158/104 H Pulse Oximetry 90 91 Oxygen Delivery Me thod Nasal Cannula Nasal Cannula Oxygen Flow Rate 2 2 09/18/23 21:19 09/18/23 22:04 09/18/23 22:51 Temperature 97.2 F L Pulse Rate 51 L Pulse Rate [Pulse Oximeter] 61 61 Respiratory Rate 16 16 Blood Pressure [Ri ght Arm] 128/72 Pulse Oximetry 93 Oxygen Delivery Me thod Nasal Cannula Oxygen Flow Rate 2 09/18/23 22:52 09/19/23 03:36 09/19/23 07:24 Temperature 97 F L Pulse Rate 45 L Pulse Rate [Pulse Oximeter] 47 L Respiratory Rate 16 16 Blood Pressure [Ri ght Arm] 174/76 H Pulse Oximetry 93 97 Oxygen Delivery Me thod Nasal Cannula Nasal Cannula Oxygen Flow Rate 2 2 09/19/23 08:36 09/19/23 08:40 Temperature 97.1 F L Pulse Rate Pulse Rate [Pulse Oximeter] 53 L Respiratory Rate 16 16 Blood Pressure [Ri ght Arm] 141/66 H Pulse Oximetry 92 92 Oxygen Delivery Me thod Room Air Room Air Oxygen Flow Rate 0 0 Labs Labs: Laboratory Results - last 24 hr 09/18/23 09:50 Urine Color Dark yellow Urine Appearance Cloudy A Urine pH 8.5 Ur Specific [place] 1.015 Urine Protein 3+ A Urine Glucose (UA) Negative Urine Ketones 1+ A Urine Blood 3+ A Urine Nitrite Negative Urine Bilirubin 1+ A Urine Urobilinogen 1.0 Ur Leukocyte Esterase 3+ A Urine RBC 50-100 A Urine WBC >100 A Ur Squamous Epith Cells Few Urine Bacteria Many A
[2023-09-19] MEDS: cefTRIAXone 2 GM in 0.9 % SODIUM CHLORIDE Mini-bag 100 ML IVPB (10:54)
--- NOTE | 2023-09-19 13:37 | PC.SOCIAL ---
Discharge planning: Pt is ready for discharge tomorrow. Pt and family spoke with the doctor on duty and have decided to discharge home with home care in place. They would like to go with [facility]. The provider filled out the face to face sheet and this worker checked with [facility] on openings. They cannot open the pt until Sunday the . shed workers supervisor informed the provider on duty that [facility] cannot open the pt until Sunday. The provider was okay with this and this worker also checked with the pt and family and they were fine with home care starting on Sunday, as well. They have family and caregiver support to help out, as needed, after the discharge. shed workers supervisor sent the face to face sheet to Iraj at [facility]. Social work to follow-up as needed.
[2023-09-19] MEDS: INSULIN ASPART 100 UNIT/ML SUBCUT ×2 (14:34→14:35)
--- NOTE | 2023-09-19 14:51 | PC.NURSE ---
Pt A/O, able to communicate needs. speech garbled at times and soft spoken. Buttock purple in color, blanchable - barrier cream applied. Nystatin cream/powder applied to groin folds - slight redness noted which is improvement from report. BG 149 and 219 today, see eMAR for insulin admin. IV to L ANTE re-dressed. New dose Ceftriaxone x1 given today for UTI, new order for Cipro. urinary incontinence with some blood noted in brief. bed soaked this AM- cleaned up and linens changed. foul odor to urine. BM x2. tele sinus christina. Pt suctioned PRN- wet intermittent cough. cont droplet precautions (RSV). Pt tolerated pills well CRUSHED IN APPLESAUCE. Spouse and daughter at bedside and very supportive.
[2023-09-19] MEDS: clonazePAM 0.5 MG TABLET PO (21:27)
[2023-09-19] MEDS: DONEPEZIL 10 MG TABLET PO (21:28)
[2023-09-19] MEDS: ROSUVASTATIN CALCIUM 10 MG TABLET 20 MG PO (21:29)
[2023-09-19] MEDS: CIPROFLOXACIN 250 MG TABLET PO (21:29)
[2023-09-20 02:01] VITALS: BP 147/65; PULSE 55; RESP 20; TEMP 36.1; O2SAT 94
--- NOTE | 2023-09-20 06:18 | PC.NURSE ---
Patient Continues on droplet precautions for RSV. Took medications crushed in applesauce.?Slept most of shift. Awakened to calling name. Blood sugar 70 at HS. Patient was given juice, ensure supplement and ? c fruit. Per initial recheck was 65, then increased to 91. SS Novolog held per parameters. Dr Rios updated and new orders given to decrease HS Levemir to 8 units and to recheck insulin at 0200. Recheck insulin was 169 at 0200. Pt awakened at approximately 0400 and attempted to sit at side of bed. Senior [employer] and redirected him to time of day. He declined to get up and use the bathroom at that time. Pt laid back down, was repositioned and given a warm blanket. Has denied pain all shift.? remained in room with patient through night.?
[2023-09-20 07:00] VITALS: PULSE 56; RESP 18; O2SAT 96
[2023-09-20] MEDS: OMEPRAZOLE 20 MG CAPSULE DR PO (07:37)
[2023-09-20] MEDS: CARBIDOPA-LEVODOPA 25-100 TABLET 3 TAB PO (07:37)
[2023-09-20 07:43] VITALS: BP 190/87; PULSE 51; RESP 18; TEMP 36.5; O2SAT 96
[2023-09-20] MEDS: INSULIN ASPART 100 UNIT/ML 6 UNIT SUBCUT (08:27)
[2023-09-20] MEDS: INSULIN ASPART 100 UNIT/ML SUBCUT (08:29)
[2023-09-20] MEDS: ASPIRIN EC 325 MG TABLET PO (09:24)
[2023-09-20] MEDS: NYSTATIN CREAM 30 GM 1 APPLIC TOPICAL (09:24)
[2023-09-20] MEDS: NYSTATIN POWDER 1 APPLIC TOPICAL (09:24)
[2023-09-20] MEDS: CIPROFLOXACIN 250 MG TABLET PO (09:24)
[2023-09-20] MEDS: LACTOBACILLUS ACIDOPHILUS 1 TABLET 1 TAB PO (09:24)
[2023-09-20] MEDS: SENNOSIDES/DOCUSATE TABLET 1 TAB PO (09:24)
--- NOTE | 2023-09-20 09:59 | PM.DS1 ---
DS: Providers Provider Date Seen: 09/20/23 Date of admission: 09/17/23 13:00 Primary care physician: Joi Zavala MD Admitting Clinician: Kell Obrien MD Consults: 09/16/23 16:50 Consult to Occupational Therapy [CONS] Routine Comment: Reason(s) for OT Consult:: Evaluate and Treat Any Restrictions?:: No Restrictions Consult to Physical Therapy [CONS] Routine Comment: Reason(s) for PT Consult:: Evaluate and Treat Any Restrictions?:: No Restrictions 09/16/23 16:54 Consult to Physical Therapy [CONS] Routine Comment: Reason(s) for PT Consult:: Evaluate and Treat Any Restrictions?:: No Restrictions Consult to Nurse Practitioner Home Assessments [CONS] Routine Comment: Reason for Consult:: Discharge Planning Needs 09/16/23 16:59 Consult to Occupational Therapy [CONS] Routine Comment: Reason(s) for OT Consult:: Evaluate and Treat Any Restrictions?:: No Restrictions Attending Physician on discharge: Kell Obrien MD Date of Discharge: 09/20/23 DS: Diagnosis Discharge Diagnosis (1) Acute CVA (cerebrovascular accident): Status: Acute Problem details: ischemic; L MCA territory. embolic NOS. LDL 39 A1C 7.8 passive HTN noted blood sugars well managed ECHO reviewed Sinus on Tele continue OT/PT - discharging 09/19 with family and home health continue aspirin 325 mg daily appreciate stroke neuro eval 30 day cardiac monitoring recommended at discharge (made recommendation to PCP for ZioPatch (2) UTI (urinary tract infection): Status: Acute Problem details: ua 09/17 - 3+ LE and odor/incontinence started with ceftriaxone 2 gram on 09/18, cipro 250mg bid to follow and at discharge. 7 days of total therapy. (3) Lewy body dementia: Status: Acute Problem details: - no agitation (4) RSV infection: Status: Acute Problem details: - incidentally noted on admission, stable on chronic oxygen - supportive cares - CXR wnl (5) Parkinsonism: Status: Acute Problem details: - on thrice daily Sinemet, will continue (6) Intertriginous dermatitis associated with moisture: Status: Acute Problem details: -continue nystatin topical care/zinc barrier -check UA -diflucan 200mg x 1 dose (7) Venous insufficiency of both lower extremities: Status: Acute (8) Stage 2 skin ulcer of sacral region: Status: Acute (9) Insulin dependent type 2 diabetes mellitus: Status: Chronic Problem details: - last A1C 7.8 09/17/23 - has CGM - continue home medications + sliding scale insulin DS: Summary Hospital Course Hospital Course: FINAL DIAGNOSIS/FOLLOW UP ISSUES: 1. Acute embolic CVA, left sided frontal lobe, left lateral parietal lobe. Weakness generalized but greater on the right. Aspirin 325 mg daily. Outpatient follow-up. 2. Acute cystitis; Cipro on discharge BRIEF HOSPITAL COURSE: Patient was admitted for 5 days. Synopsis of acute inpatient issues are outlined above. Chronic medical conditions with notable findings outlined above. Essentially the patient came in with a history of new, acute garbled speech episodes, weakness. He also had a positive RSV. Initial workup did not reveal a stroke. However the MRI the following morning did show a left-sided frontal and parietal lobe MCA territory embolic stroke. Stroke neuro was helpful in their consultation. They recommended 325 mg aspirin daily. Echocardiogram. Routine labs. These were all completed and reassuring. Outpatient cardiac monitoring was also recommended. This will be provided by the PCP order at their follow-up which is in 5 days. Zio patch is recommended for 30 days. Only other medication change be side aspirin was the additional doses of ciprofloxacin needed for his acute UTI. At discharge the patient mentally was back to baseline, physically he was suffering from some mild right-sided weakness. Some mild right-sided facial asymmetry. The option of going to rehab for detention, OT and PT was discussed. The family decided to take him home with home health support. DISCHARGE MEDICATIONS: See Reconciled list - SIGNIFICANT CHANGES: Aspirin 325 mg daily Ciprofloxacin 250 mg p.o. b.i.d. for 12 doses Specific instructions to the patient and follow-up are outlined below. REVIEW OF SYSTEMS No new chest pain or dyspnea Pain controlled No voiding difficulties Tolerating diet challenge PHYSICAL EXAM: CONSTITUTIONAL: Alert, aware. Voice is still slurred at times. However this is not new. VITAL SIGNS: see record. HEENT: Normocephalic, atraumatic. PERRL, EOMI, conjunctivae pink, no scleral icterus. Ears and nose externally normal. Pharynx normal. NECK: No JVD. No carotid bruit, no thyromegaly, no adenopathy. CHEST: Clear to auscultation bilaterally. HEART: S1 and S2 normal. Edema ABDOMEN: Soft, nontender. Normal bowel sounds. MUSCULOSKELETAL: No gross joint deformity or swelling. NEURO: Cranial nerves intact. Grossly intact. Some mild weakness is noted along the right upper and lower extremity. There is some mild right-sided facial asymmetry. No new changes in the last 48 hours. SKIN: No rashes, petechiae, concerning changes PSYCHIATRIC: Mood euthymic. DISPOSITION: Home with family Time spent on discharge 37 minutes. Time spent discussing smoking cessation with patient: more than 10 minutes Status at Discharge Functional status at discharge: uses cane/walker Overall status at discharge: patient is progressing back to baseline Time Spent with Patient Time attestation: Total time spent providing and/or coordinating discharge services: Time spent: Greater than 30 minutes Exam Const: Vital Signs, click to edit/add: Vital Signs - 24 hr 09/19/23 12:13 09/19/23 15:00 09/19/23 15:00 Temperature 96.9 F L 97.0 F L Pulse Rate Pulse Rate [Pulse Oximeter] 66 59 L Respiratory Rate 16 16 16 Blood Pressure [Ri ght Arm] 120/61 113/56 L Pulse Oximetry 94 90 90 Oxygen Delivery Me thod Nasal Cannula Nasal Cannula Nasal Cannula Oxygen Flow Rate 2 2 2 09/19/23 16:15 09/19/23 19:00 09/19/23 22:50 Temperature 97.0 F L 97.1 F L Pulse Rate 62 Pulse Rate [Pulse Oximeter] 49 L 49 L Respiratory Rate 16 22 Blood Pressure [Ri ght Arm] 161/78 H 122/60 Pulse Oximetry 93 91 Oxygen Delivery Me thod Nasal Cannula Nasal Cannula Oxygen Flow Rate 1.5 2 09/19/23 22:55 09/19/23 23:00 09/20/23 02:01 Temperature 97.0 F L Pulse Rate 53 L Pulse Rate [Pulse Oximeter] 55 L Respiratory Rate 22 20 Blood Pressure [Ri ght Arm] 147/65 H Pulse Oximetry 91 94 Oxygen Delivery Me thod Nasal Cannula Nasal Cannula Oxygen Flow Rate 2 2 09/20/23 07:43 Temperature 97.7 F Pulse Rate Pulse Rate [Pulse Oximeter] 51 L Respiratory Rate 18 Blood Pressure [Ri ght Arm] 190/87 H Pulse Oximetry 96 Oxygen Delivery Me thod Nasal Cannula Oxygen Flow Rate 2 Discharge Plan Discharge Disposition: Home w/ Parent or Adult Date of Admission: 09/17/23 13:00 Attending Provider on Discharge: Hannah Rocha Primary Care Provider: Joi Zavala Anticipated Discharge Date/Time: 09/20/23 09:52 Discharge Medications: New ciprofloxacin HCl 250 mg Tablet 250 mg PO BID Qty: 12 0RF aspirin 325 mg Tablet,Delayed Release (Dr/Ec) 325 mg PO DAILY Qty: 90 0RF Continued glycopyrrolate 1 mg tablet 1 mg PO DAILY cyanocobalamin (vitamin B-12) 1,000 mcg tablet 1,000 mcg PO DAILY Probiotic 10 billion cell capsule 10 mg PO DAILY insulin aspart U-100 [Novolog FlexPen U-100 Insulin] 100 unit/mL (3 mL) Insulin Pen See Rx Instructions .ROUTE .COMPLEX Qty: 15 0RF Rx Instructions: Blood Glucose 150 or less No coverage Blood Glucose 151-200 1 unit Blood Glucose 201-250 2 units Blood Glucose 251-300 3 units Blood Glucose 301-350 4 units Blood Glucose 351 to 400 5 units Blood Glucose 401 and greater 6 units and recheck in 2 hours nystatin 100,000 unit/gram Powder 1 applic topical TID Qty: 15 0RF insulin aspart U-100 [Novolog FlexPen U-100 Insulin] 100 unit/mL (3 mL) Insulin Pen 6 unit subcut DAILY@1200 insulin aspart U-100 [Novolog FlexPen U-100 Insulin] 100 unit/mL (3 mL) Insulin Pen 8 unit subcut DAILY@0800 insulin glargine [Lantus Solostar U-100 Insulin] 100 unit/mL (3 mL) insulin pen 18 unit subcut HS omeprazole 20 mg capsule,delayed release(DR/EC) 20 mg PO DAILY nystatin 100,000 unit/gram cream 1 applic topical BID sennosides-docusate sodium [Stool Softener-Laxative] 8.6-50 mg Tablet 1 tab PO BID PRN (Reason: constipation) insulin aspart U-100 [Novolog FlexPen U-100 Insulin] 100 unit/mL (3 mL) Insulin Pen 8 unit subcut DAILY@1800 oxybutynin chloride 15 mg tablet extended release 24hr 15 mg PO DAILY PRN donepezil 10 mg tablet 10 mg PO HS clonazepam 0.5 mg tablet 0.5 mg PO HS meclizine 25 mg tablet 25 mg PO BID PRN carbidopa-levodopa 25-100 mg tablet 3 tab PO TID rosuvastatin 20 mg tablet 20 mg PO HS Discharge Orders: Discharge Order (Routine); Ordered 09/20/23 Ordered By: Hannah Rocha Additional Instructions: 1. Full dose aspirin everyday 2. Finish six days (12 doses) of Cipro for your UTI 3. Home Health to begin 09/23 4. At the follow-up with Dr Tamez - ask about a ZioPatch 30 day property assessment monitor and if a stroke neuro appt is needed. I suspect her f/u and f/u with Alok will suffice. 5. Watch the blood sugars carefully (I'd recommend checking every 8-12 hours but varying the times) as we reduced his insulin while inpatient. If his appetite is more normal, less concern but as you know if he doesn't eat well, he may not need the full dose of insulin. Activity Level: Activity as Tolerated Discharge Diet: Regular Follow Up Appointments: Joi Zavala MD [Primary Care Provider] - (Pt has an already scheduled appt for 09/24) Forms: [employer] Info Instructions
--- NOTE | 2023-09-20 10:24 | PC.SOCIAL ---
Discharge planning: direct care worker provided pt and his with The Important Message from Medicare form. Pt and family are pleased with his discharge plan. [facility] will open pt on Sunday at 1:00pm for services. Pt and family were informed of this time. Social work to follow-up as needed.
--- NOTE | 2023-09-20 13:51 | PC.NURSE ---
shift note: pt up 1/walker/GB. weakness in lt eye noted. Pt using suction yankuer to assist with oral secretions. LS dim. pt on chronic O2 @ 2L pnc. pt incont x2 moderate amounts of urirne. groin folds slightly red. area washed and nystantin cream & powder applied. IV dc'd intact lt AC. tele removed. Reviewed dc'd instructions and copies sent with pt at pa. Belongings sent with pt at pa.
== END 2023-09-20 11:15 | disposition home or self-care (01) | DRG 65 ==
LOC: ED 14:24 → MEDSURG 15:15
PROVIDERS: Family Medicine; Admitting Provider Family Medicine; Emergency Provider Family Medicine; PCP Family Medicine; Visit Provider Family Medicine
DX: I63.89 Other cerebral infarction (principal); N30.00 Acute cystitis without hematuria; Z16.24 Resistance to multiple antibiotics; R47.89 Other speech disturbances; J22 Unspecified acute lower respiratory infection; B97.4 Respiratory syncytial virus as the cause of diseases classified elsewhere; E11.22 Type 2 diabetes mellitus with diabetic chronic kidney disease; I12.9 Hypertensive chronic kidney disease with stage 1 through stage 4 chronic kidney disease, or unspecified chronic kidney disease; N18.9 Chronic kidney disease, unspecified; G20.A1 Parkinson's disease without dyskinesia, without mention of fluctuations; G31.83 Neurocognitive disorder with Lewy bodies; F02.80 Dementia in other diseases classified elsewhere, unspecified severity, without behavioral disturbance, psychotic disturbance, mood disturbance, and anxiety; I87.2 Venous insufficiency (chronic) (peripheral); L89.152 Pressure ulcer of sacral region, stage 2; Z79.4 Long term (current) use of insulin; Z79.84 Long term (current) use of oral hypoglycemic drugs; I89.0 Lymphedema, not elsewhere classified; G47.33 Obstructive sleep apnea (adult) (pediatric); B96.4 Proteus (mirabilis) (morganii) as the cause of diseases classified elsewhere; Z99.81 Dependence on supplemental oxygen; L30.4 Erythema intertrigo; I45.10 Unspecified right bundle-branch block; I44.0 Atrioventricular block, first degree; R29.810 Facial weakness; Z86.711 Personal history of pulmonary embolism; E78.00 Pure hypercholesterolemia, unspecified
CPT/HCPCS: 36415; 70450; 70496; 70498; 70551; 71045; 80048; 80061; 80076; 81001; 82077; 82962; 83036; 83880; 84484; 85025; 85610; 85730; 86140; 87086; 87186; 87631; 93005; 93306; 94761; 97110; 97112; 97116; 97162; 97165; 97530; 97535; 99285; G0378; A9270; J0696; J7030; Q9967

== ENCOUNTER 2023-10-08 09:14 | Emergency (ER) | payer MEDICARE, SELFPAY ==
[2023-10-08] VITALS (12 sets, daily range): BP systolic 153–168; BP diastolic 70–84; PULSE 50–60; RESP 18; TEMP 36.2; O2SAT 96–99
[2023-10-08 10:12] LABS: Basophils Absolute Auto 0.02 K/uL (0.00-0.30); Basophils Percent Auto 0.2 % (0.0-3.0); Eosinophils Absolute Auto 0.08 K/uL (0.00-0.50); Eosinophils Percent Auto 0.8 % (0.0-7.0); Hemoglobin* 13.8 gm/dL (13.5-17.5); Immature Granulocytes Abs Auto 0.01 K/uL (0.00-0.30); Immature Granulocytes Pct Auto 0.1 %; Lymphocytes Absolute Auto 3.36 K/uL (0.90-2.90); Lymphocytes Percent Auto 34.4 % (20-44); Mean Corpuscular HGB Conc 32 gm/dL (32-36); Mean Corpuscular Hemoglobin 29 pg (26-34); Mean Corpuscular Volume 92 fL (80-100); Monocytes Percent Auto 7.6 % (0.0-11.0); Neutrophils Absolute Auto 5.56 K/uL (1.7-7.0); Neutrophils Percent Auto 56.9 % (42.0-72.0); Platelet Count* 200 K/uL (140-440); Red Blood Count 4.69 m/uL (4.30-5.90); White Blood Count* 9.77 K/uL (4.50-11.00)
[2023-10-08 10:13] LABS: Slide Review Reflex No
--- NOTE | 2023-10-08 10:13 | ED_ITS ---
HPI - General Adult General Chief complaint: Syncope/Fainted Stated complaint: fainted Time Seen by Provider: 10/08/23 10:11 History of Present Illness HPI narrative: This 83-year-old male comes in with his who reports an episode of decreased level of consciousness this morning. She states that she had difficulty getting him to respond this morning. She attempted to place an oximeter on his finger and he resisted this and then later the grabbed her hands. He did not have any lightheadedness or sign of syncope. The patient states that he remembers this. He does have Parkinson's with Lewy body dementia and a hallucinations. He states to me that she he might have been dreaming at the time. He does have a history of stroke with some right-sided residual deficits. He arrives here with normal vital signs. Related Data Home Medications Medication Instructions Recorded Confirmed carbidopa 25 mg-levodopa 100 mg 3 tab PO TID 01/01/22 09/16/23 tablet clonazepam 0.5 mg tablet 0.5 mg PO HS 01/01/22 09/16/23 donepezil 10 mg tablet 10 mg PO HS 01/01/22 09/16/23 meclizine 25 mg tablet 25 mg PO BID PRN 01/01/22 09/17/23 oxybutynin chloride 15 mg 15 mg PO DAILY PRN 01/01/22 09/16/23 tablet,extended release 24 hr rosuvastatin 20 mg tablet 20 mg PO 01/01/22 09/16/23 glycopyrrolate 1 mg tablet 1 mg PO DAILY 02/14/22 09/16/23 Lactobacillus acidophilus 10 10 mg PO DAILY 02/15/22 09/16/23 billion cell capsule (Probiotic) cyanocobalamin (vitamin B-12) 1,000 mcg PO DAILY 02/15/22 09/16/23 1,000 mcg tablet insulin aspart U-100 100 unit/mL 6 unit subcut DAILY@1200 12/31/22 09/17/23 (3 mL) subcutaneous pen (Novolog FlexPen U-100 Insulin aspart) insulin aspart U-100 100 unit/mL 8 unit subcut DAILY@0800 12/31/22 09/17/23 (3 mL) subcutaneous pen (Novolog FlexPen U-100 Insulin aspart) insulin glargine 100 unit/mL (3 18 unit subcut HS 01/01/23 09/17/23 mL) subcutaneous pen (Lantus Solostar U-100 Insulin) omeprazole 20 mg capsule,delayed 20 mg PO DAILY 09/16/23 09/16/23 release insulin aspart U-100 100 unit/mL 8 unit subcut DAILY@1800 09/17/23 09/17/23 (3 mL) subcutaneous pen (Novolog FlexPen U-100 Insulin aspart) nystatin 100,000 unit/gram topical 1 applic topical BID 09/17/23 09/17/23 cream sennosides 8.6 mg-docusate sodium 1 tab PO BID PRN constipation 09/17/23 09/17/23 50 mg tablet (Stool Softener-Laxative) Previous Rx's Medication Instructions Recorded insulin aspart U-100 100 unit/mL See Rx Instructions .Route 02/21/22 (3 mL) subcutaneous pen (Novolog .COMPLEX #15 mL FlexPen U-100 Insulin aspart) nystatin 100,000 unit/gram topical 1 applic topical TID #15 grams 02/21/22 powder aspirin 325 mg tablet,delayed 325 mg PO DAILY #90 tabs 09/20/23 release ciprofloxacin HCl 250 mg tablet 250 mg PO BID #12 tabs 09/20/23 Allergies Allergy/AdvReac Type Severity Reaction Status Date / Time bacitracin Allergy Unknown Rash Unverified 09/24/23 08:33 Review of Systems Status of ROS: Reports: 10 or more systems reviewed and unremarkable except as noted in History and below Narrative: Review of systems is limited due to patient's mental status. [facility] Medical History (Updated 10/08/23 @ 11:27 by Rashard Hartman MD) Pressure-induced deep tissue damage of left heel ?L89.626 - Pressure-induced deep tissue damage of left heel (ICD-10) Pressure-induced deep tissue damage of right heel ?L89.616 - Pressure-induced deep tissue damage of right heel (ICD-10) Parkinsonism ?G20.C - Parkinsonism, unspecified (ICD-10) Lewy body dementia ?G31.83 - Dementia with Lewy bodies (ICD-10) ?F02.80 - Dementia in other diseases classified elsewhere without behavioral disturbance (ICD-10) Lymphedema ?I89.0 - Lymphedema, not elsewhere classified (ICD-10) Pulmonary embolism ?I26.99 - Other pulmonary embolism without acute cor pulmonale (ICD-10) History of external beam radiation therapy ?Z92.3 - Personal history of irradiation (ICD-10) Insulin dependent type 2 diabetes mellitus ?E11.9 - Type 2 diabetes mellitus without complications (ICD-10) ?Z79.4 - technician terminal and repeater (current) use of insulin (ICD-10) Prostate cancer ?C61 - Malignant neoplasm of prostate (ICD-10) CKD (chronic kidney disease) ?N18.9 - Chronic kidney disease, unspecified (ICD-10) MAYA (obstructive sleep apnea) ?G47.33 - Obstructive sleep apnea (adult) (pediatric) (ICD-10) Parkinson disease ?G20 - Parkinson's disease (ICD-10) Spinal stenosis ?M48.00 - Spinal stenosis, site unspecified (ICD-10) Reflux gastritis ?K29.60 - Other gastritis without bleeding (ICD-10) Diabetes ?E11.9 - Type 2 diabetes mellitus without complications (ICD-10) Hypercholesteremia ?E78.00 - Pure hypercholesterolemia, unspecified (ICD-10) Hypertension ?I10 - Essential (primary) hypertension (ICD-10) Surgical History History of cataract surgery ?Z98.49 - Cataract extraction status, unspecified eye (ICD-10) History of meniscectomy of left knee ?Z98.890 - Other specified postprocedural states (ICD-10) History of total left knee replacement ?Z96.652 - Presence of left artificial knee joint (ICD-10) History of lumbar discectomy ?Z98.890 - Other specified postprocedural states (ICD-10) History of transurethral resection of prostate ?Z98.890 - Other specified postprocedural states (ICD-10) ?Z90.79 - Acquired absence of other genital organ(s) (ICD-10) Family History Father Diabetes Cardiovascular disease Social History (Updated 09/16/23 @ 16:31 by Madison Pizarro MD) Narrative: He lives with his Phuong (medical decision maker if needed), in their own home near [place]. She is primary caregiver, does use help and family for occasional respite. Uses wheelchair and walker for ambulation, often falls at home. Nonsmoker. Rare ETOH. Requests DNR/DNI status. What is your current living situation?: I presently have a place to live Problems where you live: no known problems Problems where you live details: n/a In the past 12 months, utilities in danger of being shut off: no In past 12 months, lack of transportation kept you from medical appts, meetings, work, or getting things needed for daily living: no In the past 12 mos, have been you worried that your food would run out before you had money to buy more?: never true In the past 12 mos, the food you bought just didn't last and you didn't have money to buy more?: never true Highest level of school completed/degree received: 12th grade, no diploma Smoking Status: Former smoker Do you use any of these nicotine containing products: None Second hand tobacco smoke exposure: No How often do you have a drink containing alcohol: never How often do you have six or more drinks on one occasion: Never AUDIT-C Alcohol total score: 0 Non-prescribed substance use: marijuana (any form) Non-prescribed substance use details: Marijuana in liquid form orally Caffeine: Yes How often does anyone, including family, friends and others, physically hurt you : never How often does anyone, including family, friends and others, insult or talk down to you: never How often does anyone, including family, friends and others, threaten you with harm: never How often does anyone, including family, friends and others, scream or curse at you: never service: Yes ([employer]) Exam Narrative: Exam Narrative: Constitutional: Well-developed, well-nourished, no acute distress. HEENT: Normocephalic, atraumatic. Neck: Normal range of motion. Nontender. Supple. Heart: Regular. No murmurs. Normal rate. Intact distal pulses. Lungs: Clear to auscultation. No chest discomfort. No wheezes, rhonchi, or rales. Abdomen: Normal bowel sounds. Nontender. No rebound tenderness. Genitalia: Deferred. Back: No midline tenderness. Normal range of motion. Extremities: Normal range of motion. No injury. Skin: Intact. No rash. Warm. No erythema or pallor. Neurologic: Residual right-sided deficits from a previous stroke. Speech is somewhat slurred but normal for him. Psychiatric: No suicidality. No anxiety or depression. No insomnia. Nursing notes and vitals signs are reviewed. Const: Vital Signs, click to edit/add: Vital Signs - 24 hr 10/08/23 09:24 10/08/23 10:33 10/08/23 10:34 Temperature 97.1 F L Pulse Rate 51 L 51 L Pulse Rate [Right Pulse Oximeter] 51 L Respiratory Rate 18 Blood Pressure 165/72 H Blood Pressure [Ri ght Upper Arm] 153/70 H Pulse Oximetry 96 99 97 Oxygen Delivery Me thod Room Air 10/08/23 10:45 10/08/23 11:00 10/08/23 11:01 Temperature Pulse Rate 53 L 58 L 55 L Pulse Rate [Right Pulse Oximeter] Respiratory Rate Blood Pressure 168/84 H Blood Pressure [Ri ght Upper Arm] Pulse Oximetry 98 99 98 Oxygen Delivery Me thod Course Vital Signs Vital signs: Initial Vital Signs Temperature 97.1 F L 10/08/23 09:24 Temperature Source Temporal Artery Scan 10/08/23 09:24 Pulse Rate 51 L 10/08/23 09:24 Respiratory Rate 18 10/08/23 09:24 Blood Pressure 153/70 H 10/08/23 09:24 Blood Pressure Mean 97 10/08/23 09:24 Pulse Oximetry 96 10/08/23 09:24 Oxygen Delivery Method Room Air 10/08/23 09:24 Vital Signs Temperature 97.1 F L 10/08/23 09:24 Pulse Rate 51 L 10/08/23 09:24 Respiratory Rate 18 10/08/23 09:24 Blood Pressure 153/70 H 10/08/23 09:24 Pulse Oximetry 96 10/08/23 09:24 Oxygen Delivery Method Room Air 10/08/23 09:24 Temperature 97.1 F L 10/08/23 09:24 Pulse Rate 55 L 10/08/23 11:01 Respiratory Rate 18 10/08/23 09:24 Blood Pressure 168/84 H 10/08/23 11:01 Pulse Oximetry 98 10/08/23 11:01 Oxygen Delivery Method Room Air 10/08/23 09:24 Medical Decision Making MDM Narrative Medical decision making narrative: This patient is brought in by family members to have him checked out after an episode that occurred this morning as described above. Family members are rather certain that it may be related to his Lewy body dementia of with occasions of hallucinations. This seems likely to be the case. His EKG and lab results along with vital signs and exam are all reassuring. He is okay to be discharged home to resume current plans. Lab Data Labs: Lab Results 10/08/23 Range/Units 10:02 WBC 9.77 (4.50-11.00) K/uL RBC 4.69 (4.30-5.90) m/uL Hgb 13.8 (13.5-17.5) gm/dL Hct 43.0 (37.0-53.0) % MCV 92 (80-100) fL MCH 29 (26-34) pg MCHC 32 (32-36) gm/dL RDW Coeff of Jorge 14.0 (11.5-15.5) % Plt Count 200 (140-440) K/uL Neut % (Auto) 56.9 (42.0-72.0) % Lymph % (Auto) 34.4 (20-44) % Zavala % (Auto) 7.6 (0.0-11.0) % Eos % (Auto) 0.8 (0.0-7.0) % Baso % (Auto) 0.2 (0.0-3.0) % Neut # (Auto) 5.56 (1.7-7.0) K/uL Lymph # (Auto) 3.36 H (0.90-2.90) K/uL Zavala # (Auto) 0.70 (0.00-0.90) K/UL Eos # (Auto) 0.08 (0.00-0.50) K/uL Baso # (Auto) 0.02 (0.00-0.30) K/uL Abs Immat Gran (auto) 0.01 (0.00-0.30) K/uL Imm/Tot Granulo (auto) 0.1 % Sodium 140 (135-149) mmol/L Potassium 4.0 (3.6-5.1) mmol/L Chloride 106 (96-114) mmol/L Carbon Dioxide 29 (20-32) mmol/L Anion Gap 5 L (7-15) mEq/L BUN 22 (7-30) mg/dL Creatinine 1.1 (0.5-1.5) mg/dL Estimated GFR 67 ml/min Glucose 141 H (60-115) mg/dL Calcium 8.5 (8.4-10.6) mg/dL ECG Data Interpretation: Sinus bradycardia with first-degree AV block. Rate is 49 beats per minute. There are no specific ST or T-wave abnormalities. Discharge Plan Discharge Clinical Impression: Lewy body dementia with psychotic disturbance, Altered level of consciousness Patient Disposition: Home w/ Parent or Adult Condition: Stable Additional Instructions: Continue current plans. Follow up with MD or return if symptoms are worsening. Prescriptions: No Action glycopyrrolate 1 mg tablet 1 mg PO DAILY cyanocobalamin (vitamin B-12) 1,000 mcg tablet 1,000 mcg PO DAILY Probiotic 10 billion cell capsule 10 mg PO DAILY insulin aspart U-100 [Novolog FlexPen U-100 Insulin] 100 unit/mL (3 mL) Insulin Pen See Rx Instructions .ROUTE .COMPLEX Qty: 15 0RF Rx Instructions: Blood Glucose 150 or less No coverage Blood Glucose 151-200 1 unit Blood Glucose 201-250 2 units Blood Glucose 251-300 3 units Blood Glucose 301-350 4 units Blood Glucose 351 to 400 5 units Blood Glucose 401 and greater 6 units and recheck in 2 hours nystatin 100,000 unit/gram Powder 1 applic topical TID Qty: 15 0RF insulin aspart U-100 [Novolog FlexPen U-100 Insulin] 100 unit/mL (3 mL) Insulin Pen 6 unit subcut DAILY@1200 insulin aspart U-100 [Novolog FlexPen U-100 Insulin] 100 unit/mL (3 mL) Insulin Pen 8 unit subcut DAILY@0800 insulin glargine [Lantus Solostar U-100 Insulin] 100 unit/mL (3 mL) insulin pen 18 unit subcut HS omeprazole 20 mg capsule,delayed release(DR/EC) 20 mg PO DAILY nystatin 100,000 unit/gram cream 1 applic topical BID sennosides-docusate sodium [Stool Softener-Laxative] 8.6-50 mg Tablet 1 tab PO BID PRN (Reason: constipation) insulin aspart U-100 [Novolog FlexPen U-100 Insulin] 100 unit/mL (3 mL) Insulin Pen 8 unit subcut DAILY@1800 ciprofloxacin HCl 250 mg Tablet 250 mg PO BID Qty: 12 0RF aspirin 325 mg Tablet,Delayed Release (Dr/Ec) 325 mg PO DAILY Qty: 90 0RF oxybutynin chloride 15 mg tablet extended release 24hr 15 mg PO DAILY PRN donepezil 10 mg tablet 10 mg PO HS clonazepam 0.5 mg tablet 0.5 mg PO HS meclizine 25 mg tablet 25 mg PO BID PRN carbidopa-levodopa 25-100 mg tablet 3 tab PO TID rosuvastatin 20 mg tablet 20 mg PO HS Follow Up/Referrals: Joi Zavala MD [Primary Care Provider] - Stand Alone Forms: [facility] Info Instructions
[2023-10-08 10:26] LABS: Chloride* 106 mmol/L (96-114); Sodium* 140 mmol/L (135-149)
[2023-10-08 10:28] LABS: Creatinine* 1.1 mg/dL (0.5-1.5); Estimated Glomerular Filt Rate 67 ml/min
[2023-10-08 10:29] LABS: Anion Gap 5 mEq/L (7-15); Blood Urea Nitrogen* 22 mg/dL (7-30); Calcium* 8.5 mg/dL (8.4-10.6); Carbon Dioxide* 29 mmol/L (20-32); Glucose* 141 mg/dL (60-115)
--- OUTSIDE RECORDS SUMMARY | 2023-10-08 10:30 | XMS_ITS | Continuity of Care Document ---
Author Name Unknown Organization [facility] Address [address] [place] [address] Phone Care Team Providers Care Endoscope Technician Name Role Phone Judy FERREIRA, PhD, [...] Available - Active Procedures Procedure Date Office/Outpatient Visit,[facility] 2018 Advance Directives Directive Yes / No Effective Date File Name No Information Encounters Encounter Description Practice Location Reason(s) For Visit Diagnoses Date Provider Providers Copied on Encounter [facility], [address], [place], [place], [id number], [place] tel:[phone] [facility] No Information 9 Judy Coker. [facility], [address], [place], [address], [place]. [phone] Office/Outpa tient Visit,New, Mod [facility], [address], [place], [place], [id number], [place] tel:[phone] [facility] [place] [facility] [place] Spinal stenosis, lumbar region with neurogenic claudication 9 Lit Richards. [facility], [address] [place] [address] [address], [place], [place], [id number] , [place]. [phone] Referring Provider: Robbi Martin, [facility] [address] [facility] [address], [place], [address]. [phone] [facility], [address], [place], [place], [id number], [place] [phone] [facility] [place] [facility] [place] Radiculopathy , lumbar region 9 Judy Coker. [facility], [address] [place] [address] [address], [place], [address], [place]. tel: [phone] [facility], [address] [place], [place] [address], [place], [address], [place] [phone] [facility] [place] [facility] [place] Diabetes Mellitus Type 2, Uncomplicated Hypercholeste rolemia 3 Mehbod Amir. [facility], [address] [place] [address] [address], [place], [place], [id number] , [place]. [phone] Family History Family Member Type Diagnosis Age [...]
--- OUTSIDE RECORDS SUMMARY | 2023-10-08 10:30 | XMS_ITS | Continuity of Care Document ---
Author Name Unknown Address [address] [place] [address] Phone [phone] Organization [facility] Address [address] [place] [address] Care Team Providers Care Baby Attendant Name Role Phone [facility] Primary Care Pro vider Assessment No assessment recorded. Plan of Treatment Reminders Order Date Submit Date Provider Last Modified By Organization Details Last Modified Time Details Appointments None recorded . Lab PSA, serum or plasma 024 08/22/19 24 [id number] 30 [facility], [address], [place], [address], 4 16:07:10 PSA, total, serum or plasma 024 08/22/19 24 daniela [facility], [address], [place], [address], 4 08:04:34 Referral None recorded . Procedures [...] Not Available [facility] [address], [place], [address], 08/22/2023 16:00:20 Result Notes None recorded. Procedures Surgical History Date Name Laterality Status Provider Name and Address Organization Details Recorded Time 4 [employer]/blood draw completed Rob Cai MD [address] [place] [address],[address], [place], [address], [facility] 08/22/2023 16:00:16 4 Bladder Scan completed Rob Cai MD [address] [place] [address],[address], [place], [address], [facility] 08/22/2023 16:00:10 3 [facility] 14:03:04 procedure on back completed Rob Cai MD [address] [place] [address],[address], [address], [facility] 02/19/2023 14:01:06 procedure on knee completed Rob Cai MD [address] [place] [address],[address], [place], [address], [facility] 02/19/2023 14:01:12 Imaging Results None recorded. Procedure Notes None recorded. Medical Equipment None Reported. Allergies Allergen ID Allergen Name Allergen Category Reaction Reaction Severity Criticality Documentation Date Start Date Code Code System Note Provider Name and Address Organization Details Recorded Time [id number] bacitraci n medicatio n Not available Not available Not available 02/19/2023 1291 RxNorm Rob Cai MD [address] [place] [address],[address] [place] [address], [phone], [facility] 3 13:59:39 Medications Name Sig Start Date [...] Available No t Available [employer] [place] [address] [place] active Not Available Not Available Not Available Vitals Date Recorded Body height Body mass index (BMI) Body weight Provider Name and Address Organization Details Last Updated DateTime 08/22/2023 167.64 cm 36.3 kg/m2 683499.28 g Rob Cai MD [address] [place] [address],[address], [address], [facility] 08/22/2023 15:59:45 Social History Question Answer Notes LastModified by Organizat ion Details LastModified Time Tobacco Smoking Status Former Smoker Rob Cai MD [address] [place] [address],[address], [address], [facility] 02/19/2023 14:00:27 What Is Your Level Of [...] history of cancer Medical History Condition Response Diabetes Y Sexually Transmitted Infection N Bleeding Disorder Y High Blood Pressure N Kidney Stones N Cancer N Depression N Lung Disease N High Cholesterol N GERD/Acid Reflux N Heart Disease N Immunizations Vaccine Type Date Status Provider Name and Address Organization Details Recorded Time influenza, trivalent, adjuvanted 02/23/2017 completed Rob Cai MD [address] [place] [address], [address], [facility] 02/19/2023 13:59:27 influenza, trivalent, adjuvanted 05/23/2019 completed Rob Cai MD [address] [place] [address],[address], [address], [facility] 02/19/2023 13:59:27 influenza, high-dose, quadrivalent 02/24/2020 completed Rob Cai MD [address] [place] [address], [address], [facility] 02/19/2023 13:59:27 influenza, high-dose, quadrivalent 04/02/2021 completed Rob Cai MD [address] [place] [address],[address], [address], [facility] 02/19/2023 13:59:27 Influenza vaccine, quadrivalent, adjuvanted 02/15/2023 completed Rob Cai MD [address] [place] [address],[address], [address], [facility] 02/19/2023 13:59:27 Influenza vaccine, quadrivalent, adjuvanted 03/31/2022 completed Rob Cai MD [address] [place] [address],[address], [place], [address], [facility] 02/19/2023 13:59:27 COVID-19, mRNA, LNP-S, PF, 100 mcg/0.5mL dose or 50 mcg/0.25mL dose 07/08/2020 completed Rob Cai MD [address] [place] [address],[address], [place], [address], [facility] 02/19/2023 13:59:27 COVID-19, mRNA, LNP-S, PF, 100 mcg/0.5mL dose or 50 mcg/0.25mL dose 08/05/2020 completed Rob Cai MD [address] [place] [address],[address], [place], [address], [facility] 02/19/2023 13:59:27 COVID-19, mRNA, LNP-S, PF, 100 mcg/0.5mL dose or 50 mcg/0.25mL dose 04/02/2021 completed Rob Cai MD [address] [place] [address],[address], [place], [address], [facility] 02/19/2023 13:59:27 COVID-19, mRNA, LNP-S, PF, 30 mcg/0.3 mL dose, keo-sucrose 09/09/2021 completed Rob Cai MD [address] [place] [address],[address], [place], [address], [facility] 02/19/2023 13:59:27 COVID-19, mRNA, LNP-S, bivalent, PF, 30 mcg/0.3 mL dose 03/01/2022 completed Rob Cia MD [address] [place] [address],[address], [place], [address], [facility] 02/19/2023 13:59:27 pneumococcal polysaccharide PPV23 03/14/2012 completed Rob Cai MD [address] [place] [address],[address], [place], [address], [facility] 02/19/2023 13:59:27 Tdap 03/14/2012 completed Rob Cai MD [address] [place] [address],[address], [place], [address], [facility] 02/19/2023 13:59:27 Novel [id number], all formulations 05/20/2009 completed Rob Cai MD [address] [facility],[address], [place], [address], [facility] 02/19/2023 13:59:27 Pneumococcal conjugate PCV 13 05/04/2015 completed Rob Cai MD [address] [place] [address],[address], [place], [address], [facility] 02/19/2023 13:59:27 zoster live 04/04/2007 completed Rob Cai MD [address] [place] [address],[address], [place], [address], [facility] 02/19/2023 13:59:27 Influenza, high dose seasonal 03/18/2015 completed Rob Cai MD [address] [place] [address],[address], [place], [address], [facility] 02/19/2023 13:59:27 Influenza, high dose seasonal 04/02/2014 completed Rob Cai MD [address] [place] [address],[address], [place], [address], [facility] 02/19/2023 13:59:27 Influenza, high dose seasonal 04/13/2016 completed Rob Cai MD [address] [place] [address],[address], [place], [address], [facility] 02/19/2023 13:59:27 Influenza, seasonal, injectable 03/05/2013 completed Rob Cai MD [address] [place] [address],[address] [place] [address], [address], [facility] 02/19/2023 13:59:27 Influenza, seasonal, injectable 03/14/2012 completed Rob Cai MD [address] [place] [address],[address] [place] [address], [address], [facility] 02/19/2023 13:59:27 Influenza, seasonal, injectable 03/31/2004 completed Rob Cai MD [address] [facility],[address], [place], [address], [facility] 02/19/2023 13:59:27 Influenza, seasonal, injectable 04/02/2008 completed Rob Cai MD [address] [place] [address],[address], [place], [address], [facility] 02/19/2023 13:59:27 Influenza, seasonal, injectable 04/04/2007 completed Rob Cai MD [address] [place] [address],[address], [place], [address], [facility] 02/19/2023 13:59:27 Influenza, seasonal, injectable 04/10/2003 completed Rob Cai MD [address] [place] [address],[address], [place], [address], [facility] 02/19/2023 13:59:27 Influenza, seasonal, injectable 04/15/2005 completed Rob Cai MD [address] [place] [address],[address] [place] [address], [address], [facility] 02/19/2023 13:59:27 Influenza, seasonal, injectable 04/17/2006 completed Rob Cai MD [address] [place] [address],[address] [place] [address], [address], [facility] 02/19/2023 13:59:27 Influenza, seasonal, injectable, preservative free 02/24/2010 completed Rob Cai MD [address] [place] [address],[address] [place] [address], [address], [facility] 02/19/2023 13:59:27 Influenza, seasonal, injectable, preservative free 05/04/2011 completed Rob Cai MD [address] [place] [address],[address], [address], [facility] 02/19/2023 13:59:27 influenza, injectable, quadrivalent, preservative free 03/25/2018 completed Rob Cai MD [address] [place] [address],[address] [place] [address], [address], [facility] 02/19/2023 13:59:27 Past Encounters Encounter ID Performer Location Encounter Start Date Encounter Closed Date Diagnosis/Indication Diagnosis SNOMED-CT Code [id number] Rob Cai MD [facility] [address] [place] [address] 08/22/2023 15:30:43 08/27/2023 11:33:01 Malignant tumor of prostate [id number] Urgent glenna toni to urinate [id number] Incomplete emptying of bladder [id number] Health Concerns Section Related Observation LastModified by Organization Detai ls LastModified Time None Recorded Concern Status LastModified by Organization Details LastModified Time None Recorded Payers Encounter Date Sequence Insurance Name Policy Number Policy Strange Covered Member ID Strange Member ID Guarantor Name 08/22/2023 1 [employer] - DOS ON OR AFTER 19 (MEDICARE REPLACEMENT/ ADVANTAGE - HMO) [id number] Bucky Turpin [id number] Bucky Turpin Notes Date Note Type Note [...] Left upper pole. Rob Cai MD [address] [facility],[address], [place], [address], [facility] 08/25/2023 17:47:01
--- OUTSIDE RECORDS SUMMARY | 2023-10-08 10:30 | XMS_ITS | Data Portability ---
Author Name Unknown Address [address] [place] [address] Phone [phone] Organization [facility], [facility] Address [address] [place] [address] Care Team Providers Care Terrapin Fisher Name Role Phone [facility] Primary Care Pro vider Assessment No assessment recorded. Plan of Treatment Reminders Order Date Submit Date Provider Last Modified By Organization Details Last Modified Time Details Appointments None recorded . Lab PSA, serum or plasma 024 08/22/19 24 [email or web address] 30 [facility], [address], [place], [address], 4 16:07:10 PSA, total, serum or plasma 024 08/22/19 24 rebbert [facility], [address], [place], [address], 4 08:04:34 PSA, total, serum or plasma 023 02/20/20 23 Not available 3 10:15:46 Referral None recorded [...] Not Available [facility] [address], [place], [address], 08/22/2023 16:00:20 12/09/19 20 11/03/2019 measu remen t of post- voidi ng resid ual urine and/o r bladd er capac ity (PROC ) No observ ation record ed. BARCODE Rob Cai MD [address], [place], [address], 12/09/2019 11:06:39 Result Notes None recorded. 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 completed Rob Cai MD [address] [place] [address], [phone], [facility] 08/22/2023 16:00:16 4 Bladder Scan completed Rob Cai MD [address] [place] [address], [phone], [facility] 08/22/2023 16:00:10 3 Bladder Scan completed Kirsty Li [facility] 02/19/2023 14:03:04 procedure on back completed Rob Cai MD [address] [place] [address], [address], [facility] 02/19/2023 14:01:06 procedure on knee completed Rob Cai MD [address] [place] [address], [address], [facility] 02/19/2023 14:01:12 Imaging Results Imaging Date Name Status LastModified by Organiz ation Details LastModified Time 11/03/2019 measurement of post-voiding residual urine and/or bladder capacity (PROC) completed BATSHEVA Cai MD [address], [place], [address], 12/09/2019 11:06:39 Procedure Notes None recorded. Medical Equipment None Reported. Allergies Allergen ID Allergen Name Allergen Category Reaction Reaction Severity Criticality Documentation Date Start Date Code Code System Note Provider Name and Address Organization Details Recorded Time [id number] bacitraci n medicatio n Not available Not available Not available 02/19/2023 1291 RxNorm Rob Cai MD [address] [facility],[place] [address], [place], [address], [facility] 3 13:59:39 Medications Name [...] Available No t Available FreeStyle Corry 2 [place] active Not Available Not Available Not Available Vitals Date Recorded Body height Body mass index (BMI) Body weight Provider Name and Address Organization Details Last Updated DateTime 02/19/2023 167.64 cm 36.3 kg/m2 302070.28 g Rob Cai MD [address] [place] [address],[address] [facility] 02/19/2023 13:59:20 Date Recorded Body height Body mass index (BMI) Body weight Provider Name and Address Organization Details Last Updated DateTime 08/22/2023 167.64 cm 36.3 kg/m2 890860.28 g Rob Cai MD [address] [place] [address] [facility] 08/22/2023 15:59:45 Social History Question Answer Notes LastModified by Organizat ion Details LastModified Time Tobacco Smoking Status Former Smoker Rob Cai MD [address] [place] [address] [facility] 02/19/2023 14:00:27 What Is Your Level [...] Pressure N Kidney Stones N Cancer N Lung Disease N Depression N High Cholesterol N GERD/Acid Reflux N Heart Disease N Immunizations Vaccine Type Date Status Provider Name and Address Organization Details Recorded Time influenza, trivalent, adjuvanted 02/23/2017 completed Rob Cai MD [address] [place] [address],[address] [place] [address], [phone], [facility] 02/19/2023 13:59:27 influenza, trivalent, adjuvanted 05/23/2019 completed Rob Cai MD [address] [place] [address],[address] [place] [address], [phone], [facility] 02/19/2023 13:59:27 influenza, high-dose, quadrivalent 02/24/2020 completed Rob Cai MD [address] [place] [address],[address], [address], [facility] 02/19/2023 13:59:27 influenza, high-dose, quadrivalent 04/02/2021 completed Rob Cai MD [address] [place] [address],[address], [address], [facility] 02/19/2023 13:59:27 Influenza vaccine, quadrivalent, adjuvanted 02/15/2023 completed Rob Cai MD [address] [place] [address],[address], [place], [address], [facility] 02/19/2023 13:59:27 Influenza vaccine, quadrivalent, adjuvanted 03/31/2022 completed Rob Cai MD [address] [place] [address],[address] [place] [address], [address], [facility] 02/19/2023 13:59:27 COVID-19, mRNA, LNP-S, PF, 100 mcg/0.5mL dose or 50 mcg/0.25mL dose 07/08/2020 completed Rob Cai MD [address] [place] [address],[address], [address], [facility] 02/19/2023 13:59:27 COVID-19, mRNA, LNP-S, PF, 100 mcg/0.5mL dose or 50 mcg/0.25mL dose 08/05/2020 completed Rob Cai MD [address] [place] [address],[address], [address], [facility] 02/19/2023 13:59:27 COVID-19, mRNA, LNP-S, PF, 100 mcg/0.5mL dose or 50 mcg/0.25mL dose 04/02/2021 completed Rob Cai MD [address] [place] [address],[address], [address], [facility] 02/19/2023 13:59:27 COVID-19, mRNA, LNP-S, PF, 30 mcg/0.3 mL dose, keo-sucrose 09/09/2021 completed Rob Cai MD [address] [place] [address],[address], [place], [address], [facility] 02/19/2023 13:59:27 COVID-19, mRNA, LNP-S, bivalent, PF, 30 mcg/0.3 mL dose 03/01/2022 completed Rob Cai MD [address] [place] [address],[address], [address], [facility] 02/19/2023 13:59:27 pneumococcal polysaccharide PPV23 03/14/2012 completed Rob Cai MD [address] [place] [address],[address], [address], [facility] 02/19/2023 13:59:27 Tdap 03/14/2012 completed Rob Cai MD [address] [place] [address],[address], [address], [facility] 02/19/2023 13:59:27 Novel Gqagyrahx-D0V1-90, all formulations 05/20/2009 completed Rob Cai MD [address] [place] [address],[address], [address], [facility] 02/19/2023 13:59:27 Pneumococcal conjugate PCV 13 05/04/2015 completed Rob Cai MD [address] [place] [address],[address], [address], [facility] 02/19/2023 13:59:27 zoster live 04/04/2007 completed Rob Cai MD [address] [place] [address],[address], [address], [facility] 02/19/2023 13:59:27 Influenza, high dose seasonal 03/18/2015 completed Rob Cai MD [address] [place] [address],[address] [place] [address], [address], [facility] 02/19/2023 13:59:27 Influenza, high dose seasonal 04/02/2014 completed Rob Cai MD [address] [place] [address],[address], [place], [address], [facility] 02/19/2023 13:59:27 Influenza, high dose seasonal 04/13/2016 completed Rob Cai MD [address] [place] [address],[address], [place], [address], [facility] 02/19/2023 13:59:27 Influenza, seasonal, injectable 03/05/2013 completed Rob Cai MD [address] [place] [address],[address], [address], [facility] 02/19/2023 13:59:27 Influenza, seasonal, injectable 03/14/2012 completed Rob Cai MD [address] [place] [address],[address], [address], [facility] 02/19/2023 13:59:27 Influenza, seasonal, injectable 03/31/2004 completed Rob Cai MD [address] [place] [address],[address], [place], [address], [facility] 02/19/2023 13:59:27 Influenza, seasonal, injectable 04/02/2008 completed Rob Cai MD [address] [place] [address],[address], [address], [facility] 02/19/2023 13:59:27 Influenza, seasonal, injectable 04/04/2007 completed Rob Cai MD [address] [place] [address],[address], [place], [address], [facility] 02/19/2023 13:59:27 Influenza, seasonal, injectable 04/10/2003 completed Rob Cai MD [address] [place] [address],[address] [place] [address], [address], [facility] 02/19/2023 13:59:27 Influenza, seasonal, injectable 04/15/2005 completed Rob Cai MD [address] [place] [address],[address], [place], [address], [facility] 02/19/2023 13:59:27 Influenza, seasonal, injectable 04/17/2006 completed Rob Cai MD [address] [facility],[address], [place], [address], [facility] 02/19/2023 13:59:27 Influenza, seasonal, injectable, preservative free 02/24/2010 completed Rob Cai MD [address] [facility],[address], [place], [address], [facility] 02/19/2023 13:59:27 Influenza, seasonal, injectable, preservative free 05/04/2011 completed Rob Cai MD [address] [facility],[address], [place], [address], [facility] 02/19/2023 13:59:27 influenza, injectable, quadrivalent, preservative free 03/25/2018 completed Rob Cai MD [address] [facility],[address], [place], [address], [facility] 02/19/2023 13:59:27 Past Encounters Encounter ID Performer Location Encounter Start Date Encounter Closed Date Diagnosis/Indication Diagnosis SNOMED-CT Code [id number] MD ANGEL Carlos_Renetta [address] [place] [address] 02/19/2023 13:36:45 02/28/2023 13:12:17 Malignant tumor of prostate 904517085 Urgent glenna toni to urinate 53562640 Incomplete emptying of bladder [id number] MD ANGEL Carlos_Renetta [address] [place] [address] 08/22/2023 15:30:43 08/27/2023 11:33:01 Malignant tumor of prostate 709277046 Urgent glenna toni to urinate 19463281 Incomplete emptying of bladder [id number] Health Concerns Section Related Observation LastModified by Organization Detai ls LastModified Time None Recorded Concern Status LastModified by Organization Details LastModified Time None Recorded Advance Directives Directive None Recorded Payers Encounter Date Sequence Insurance Name Policy Number Policy Strange Covered Member ID Strange Member ID Guarantor Name 08/22/2023 1 [employer] - DOS ON OR AFTER 19 (MEDICARE REPLACEMENT/ ADVANTAGE - HMO) [id number] 2 Bucky Turpin [id number] Bucky Turpin 02/19/2023 1 [facility] - DOS ON OR AFTER 19 (MEDICARE REPLACEMENT/ ADVANTAGE - HMO) [id number] Matteo Olson [id number] Bucky Turpin Notes Date Note Type Note Provider Name and Address Organization Details Recorded Time 02/19/2023 text/html HPI Notes: 82 yo male with Lewy body dementia, HTN, DM (type 2), CLL, CKD (stage 3), and MAYA - diagnosed with prostate cancer - T1c - [place] 4+4 = 8 - (dx 02/06/17) - [...] Left upper pole. Rob Cai MD [address] [facility],[address], [place], [address], [facility] 02/19/2023 14:50:28 08/22/2023 text/html HPI Notes: 82 yo male with Lewy body dementia, HTN, DM (type 2), CLL, CKD (stage 3), and MAYA - diagnosed with prostate cancer - T1c - [place] 4+4 = 8 - (dx 02/06/17) - [...] in Left upper pole. Rob Cai MD [address] [place] [address],[address], [place], [address], [facility] 08/25/2023 17:47:01
--- OUTSIDE RECORDS SUMMARY | 2023-10-08 10:31 | XMS_ITS | Clinical Summary ---
Author Name Unknown Organization [facility] Address [address] [place] [address] Care Team Providers Care Proposal Consultant Name Role Phone Unavailable Primary Care Provider [...] Vaccine ( season) 2023 08/05/2020, 07/08/2020 Influenza (Season Ended) 2024 020, 05/23/2019, 03/25/2018, Additional history exists Pneumococcal 65+ Yrs [...]
--- OUTSIDE RECORDS SUMMARY | 2023-10-08 10:31 | XMS_ITS ---
Author Name Unknown Organization [facility] Address [address] [place] [address] Care Team Providers Care Manager Publishing Name Role Phone Unavailable Unavailable Unavailable Surgery Details Not on file Complications Check Surgery Details section. Procedure Estimated Blood Loss Check Surgery Details section. Procedure Findings Check Surgery Details section. Procedure Specimens Taken Check Surgery Details section.
--- OUTSIDE RECORDS SUMMARY | 2023-10-08 10:31 | XMS_ITS | Clinical Summary ---
Author Name Unknown Organization [facility] Address [address] [place] [address] Care Team Providers Care Jig Hand Name Role Phone Unavailable Primary Care Provider Unavailabl e Source Comments Patient records contain information from all sites at [facility]. For routine questions regarding patient records, call [phone] during business hours, M-F 8:00 AM - 5:00 PM Central Time. Record requests for emergency care only can be directed to [phone] at any time.[facility] Allergies Active Allergy Reactions Criticality Noted Date [...] Test 2-3 times/day. 05/30/2017 Active blood-glucose meter [facility] Dispense glucose meter, test strips and lancets covered by the patient insurance. Test 3-4 times per day DX E11.9 09/19/2016 Active clotrimazole-betame thasone (for_LOTRISONE) 1-0.05 % cream Apply 1 application topically 2 (two) times a day. 03/01/2017 Active miscellaneous medical supply [facility] Autotitration cpap 4-20cm of H2O, with accessories dx327.23, he will need oxygen 2 liters bled into it 05/25/2008 Active miscellaneous medical supply [facility] As directed. Diabetic shoes diagnosis 250.00, 1 [...] Apply topically. 01/05/2020 Active diabetic supplies, [facility]. [facility] Dispense glucose meter, test strips and lancets covered by patient insurance. Test 3-4 times per day. 02/27/2018 Active donepeziL (ARICEPT) 5 mg tablet Take 5 mg by mouth. 02/08/2021 Acti ve ferrous gluconate (FERGON) 324 mg (38 mg iron) tablet Take 1 tablet by mouth. 12/13/2018 Active FreeStyle Corry 14 Day Paul [facility] 03/10/2021 Active furosemide (LASIX) 40 mg tablet [...] Comments Blood Pressure 169/94 07/17/2022 1:43 PM CELLO TEACHER Pulse 57 07/17/2022 1:43 PM CELLO TEACHER Temperature 36.2 ??C (97.2 ??F) 07/17/2022 1 :43 PM CELLO TEACHER Respiratory Rate 16 07/21/2015 4:13 PM CELLO TEACHER Oxygen Saturation - - Inhaled Oxygen Concentration - - Weight 105 kg (230 lb 9.6 oz) 07/17/2022 1:43 PM CELLO TEACHER Height 171 cm (5' 7.32) 03/01/2017 8:4 [...] PHQ-2) 06/04/2023 Fall Risk Screen (Annual) 06/04/2023 COVID-19 Vaccine (2022-2 4 season) 2023 04/13/2023, 03/01/2022, 09/09/2021, Additional history exists Pneumococcal vaccine (65+ years) Completed 05/04/20 15, 03/14/2012 Influenza Vaccine Completed 02/15/2023, , 04/02/2021, Additional history exists
--- OUTSIDE RECORDS SUMMARY | 2023-10-08 10:31 | XMS_ITS | Clinical Summary ---
Author Name Unknown Organization [employer] [facility] Address [place], [place] [address] Care Team Providers Care Revenue Coordinator Name Role Phone Joi Zavala MD Primary Care Provide r Ruben Fernandez MD Unavailable Allergies Active Allergy Reactions Criticality Noted Date [...] 02/24/2010 Active MISCELLANEOUS MEDICAL SUPPLY (GRADUATED COMPRESSION STOCKINGS)Indicatio ns:Pedal edema,Cellulitis and abscess of unspecified site For personal use. Length: calf Strength: 16-20 mmHg Circumference in cm: 2 Packet 2 02/26/2012 Active insulin needles, disposable, (ULTICARE) 31 X 10/17 Indications:Type II or unspecified type diabetes mellitus without mention of complication, not stated as uncontrolled For administering insulin at home. 400 Each 3 07/20/2014 Active Insulin Severance, Disposable, (PEN NEEDLE) 29 gauge x 1/2Indications:IDD M (insulin dependent diabetes mellitus) For administering insulin at home. 400 box 3 05/30/2015 Active miscellaneous medical supply miscIndications:Spi nal stenosis [...] 400 Each 02/27/2018 Active lancets (ONETOUCH ULTRASOFT LANCETS)Indications :Type 2 diabetes mellitus with complication, with long-term current use of insulin (HC) Dispense item covered by pt ins. E11.65 IDDM type II, uncontrolled - Test 3 - 4 times/day. Reason: High A1C 400 Each 02/27/2018 Active diabetic supplies, miscellan.Indicatio ns:Type 2 diabetes mellitus with complication, with long-term current use of insulin (HC) Dispense glucose meter, test strips and lancets covered by patient insurance. Test 3-4 times per day. 1 Kit 02/27/2018 Active cyanocobalamin (VITAMIN B-12) 1,000 mcg tabletIndications:B 12 deficiency Take 1 tablet by mouth once daily. 90 tablet 3 10/04/2018 Active medication order composerIndications :Left ischial pressure sore, stage I Donut pillow for home use 1 unit 1 01/01/2019 Active flash glucose scanning reader (FreeStyle Corry 2 [place]) miscIndications:Ins ulin dependent type 2 diabetes mellitus (HC) As directed. 1 Each 08/17/2020 Active oxygen-air delivery systems (HOME OXYGEN)Indications: Hypoxia,Pickwickian syndrome (HC) Portable conserving oxygen device, POC-Concentrator. Liters per minute: 2 per nasal cannula. Frequency of use: Continuous. Length of need: 99 Months. 1 Each 09/15/2021 Active Diabetic ShoeIndications:Typ e 2 diabetes mellitus with complication, with long-term current use of insulin (HC) As directed. 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 Active albuterol (PROVENTIL) 0.083 % neb solution Inhale 2.5 mg via a nebulizer every 4 hours if needed. Active durable medical equipment (DME)Indications:SO B (shortness of breath) Nebulizer and supply kit as covered by insurance 1 Each 03/16/2022 Active nystatin powder (MYCOSTATIN) powderIndications:I ntertrigo APPLY 1 STRIP TOPICALLY TO AFFECTED AREA(S) THREE TIMES DAILY 60 g 3 03/23/2022 Active iwvlozmfu-SR-KS-jeffrey taminophen ([place] Plus Cold/CoughFm) 2-5-10-325 mg cap Take 1 Capsule by mouth 2 times daily if needed (for congestion). 0 03/23/2022 Active novofine autocover 30 gauge x 1/3 needleIndications:T ype 2 diabetes mellitus with complication, with long-term current use of insulin (HC) USE DIRECTED WITH INSULIN PENS 400 Each 3 03/29/2022 Active nystatin (MYCOSTATIN) creamIndications:In tertrigo Apply topically to affected area(s) two times daily. 60 g 3 03/28/2022 Active sennosides-docusate (SENOKOT S) (8.6-50 mg) tablet 1 tablet twice daily as needed for constipation 0 03/31/2022 Active glycopyrrolate (ROBINUL) 1 mg tabletIndications:D rooling Take 1 tablet by mouth daily 90 Tablet 3 04/12/2022 Active FreeStyle Corry 2 ReaderIndications:T ype 2 diabetes mellitus with complication, with long-term current use of insulin (HC) To be used to read blood sugars per continuous improvement director's directions. 1 Each 05/22/2022 Active Shower ChairIndications:Le wy body dementia without behavioral disturbance, psychotic disturbance, mood disturbance, or anxiety, unspecified dementia severity (HC) For home use. Shower chair with arms 1 Each 06/02/2022 Active tacrolimus 0.1% (PROTOPIC) 0.1 % ointmentIndications :Seborrheic dermatitis Apply topically to affected area(s) two times daily. For eyebrows 60 g 1 11/07/2022 Active carbidopa-levodopa, 25-100 mg, (SINEMET 25-100) 25-100 mg tabletIndications:L ewy body dementia with behavioral disturbance (HC) Take 3 tablet by mouth three times a day. 270 Tablet 3 01/02/2023 Active rosuvastatin (CRESTOR) 20 mg tabletIndications:H yperlipidemia, unspecified hyperlipidemia type Take 1 Tablet (20 mg) by mouth at bedtime. 90 Tablet 3 01/11/2023 Active oxybutynin (DITROPAN XL) 15 mg CR tabletIndications:U rinary urgency TAKE ONE TABLET BY MOUTH ONCE EVERY DAY NEEDED FOR FREQUENT URINATION. 60 Tablet 3 04/10/2023 Active FreeStyle Corry 2 SensorIndications:T ype 2 diabetes mellitus with complication, with long-term current use of insulin (HC) TO BE USED TO READ BLOOD SUGARS PER ACOUSTICAL ENGINEER'S DIRECTIONS. 6 Each 3 04/11/2023 Active FreeStyle Corry 14 Day SensorIndications:T ype 2 diabetes mellitus with complication, with long-term current use of insulin (HC) To be used to read blood sugars per continuous improvement director's directions. FreeStyle Corry 14 day / FreeStyle Corry 2 CGM sensor 6 boxes is 84 day supply 6 Each 3 04/13/2023 Active meclizine (ANTIVERT) 25 mg tabletIndications:V ertigo [...] 5 06/19/2023 Active donepeziL (ARICEPT) 5 mg tabletIndications:M tree [...] mL 11 08/06/2023 Active omeprazole 20 mg tabletIndications:G astritis, presence of bleeding unspecified, unspecified chronicity, unspecified gastritis type Take 1 Tablet (20 mg) by mouth once daily before a meal. 90 Tablet 3 08/23/2023 Active aspirin 325 mg cap Take 325 mg ampicillin by mouth once daily. 09/20/2023 Active ciprofloxacin HCl (CIPRO) 250 mg tablet Take 250 mg by mouth two times daily. 09/20/2023 Active Problems Problem Noted Date Diagnosed Date [...] Encounters Date Type Department Care Team Description 10/01/2023 Orders Only [facility] Scanner 1 scan: (1-Ord) [facility] [place], 10/01/2023 09/25/2023 1:50 PM CDT Office Visit [facility] [address] [place] [address] Joi Zavala MD Hospital F/U (Taking 325 asa daily now/On Cipro/O2 needs to be updated. [employer] [facility] call [phone]/Needs 3 readings/With O2/Without O2 /With exercise ); Serious Illness Conversation 09/25/2023 Travel 2023 11:00 AM CDT Ancillary Procedure [facility] [address] [place] [address] 2023 Orders Only [facility] Scanner 1 scan: (1-Ord) [facility], XRAY CHEST 1 VIEW, 2023 2023 Orders Only [facility] Scanner 1 scan: (1-Ord) [facility], MR HEAD/BRAIN WO CON, 2023 2023 Office Visit [facility] [address] [place] [address] Wade Treviño MD 09/16/2023 Orders Only [facility] Scanner 1 scan: (1-Ord) [facility], CT ANGIO HEAD AND NECK , 09/16/2023 09/16/2023 Orders Only [facility] Scanner 1 scan: (1-Ord) [place], ANGIO NECK, 09/16/2023 09/16/2023 Orders Only [facility] Scanner 1 scan: (1-Ord) [place], HEAD, 09/16/2023 09/16/2023 Office Visit [facility] [address] [place] [address] Nithya Damon DO Telehealth (Telestroke encounter, [place] ) 08/28/2023 2:00 PM CDT Office Visit [facility] [address] [facility] [place] [address] Daniel Franks MD Follow Up (6 months follow up on Syncope and falling ) 08/28/2023 Travel 08/23/2023 1:00 PM CDT Office Visit [facility] [address] [place] [address] Joi Zavala MD Follow Up (Seen urologist yesterday, PSA: .4, follow up in 6 months/Continues to have an upset stomach. Better after eating. States he has an ulcer./Still concerned about vein on left wrist sticking up./Walking a little better, used a cane.) 08/23/2023 Travel 08/10/2023 Telephone [facility] [address] [place] [address] Joi Zavala MD Lab (PSA) 08/06/2023 Refill [facility] [address] [place] [address] Joi Zavala MD Refill Request (Lantus Solostar 100 unit/ml ) 07/24/2023 1:50 PM [employer] Office Visit [facility] [address] [place] [address] Joi Zavala MD Nutrition (Has not ate [...] have been minimal. ) 07/24/2023 Orders Only [facility] Scanner 1 scan: (1-Ord) [place], CHEST 1V, 07/24/2023 07/24/2023 Travel from Last 3 Months Immunizations Name Administration Dates Next Due AMB Influenza, IIV3 (Age >=3 years)(Flu Clinic Only) 03/05/2013 AMB Influenza, IIV4 PF (=>6 mos Flulaval,Fluzone Fluarix)(Flu Clinic Only) 03/25/2018 COVID-19 Vaccine Spikevax (M oderna 50mcg/0.5mL) 12YO+ [id number] Formula PF 04/13/2023 COVID-19 vaccine (Moderna 100mcg/0.5mL) [...] Sign Reading Time Taken Comments Blood Pressure 141/78 09/25/2023 2:20 PM CDT Pulse 69 09/25/2023 2:20 PM CDT Temperature 37.1 ??C (98.8 ??F) 02/03/2022 12:20 PM C DT Respiratory Rate 18 01/18/2022 12:25 PM CDT Oxygen Saturation 96% 09/25/2023 2:20 PM CDT 2.5 litres Inhaled Oxygen Concentration - - Weight 106.6 kg (235 lb) 08/28/2023 2:00 PM CDT last visit Height 170 cm (5' 6.93) 06/02/2022 9:00 AM [employer] Body Mass Index 36.88 06/02/2022 9:00 AM [employer] Plan of Treatment Upcoming Encounters Date Type Department Care Team (Late st Contact Info) Description 10/30/2023 1:50 PM CDT Office Visit [facility] [address] [place] [address] Joi Zavala MD [address] [place] [address] Health Maintenance Due Date Last Done Comments [...] Procedure Name Priority Date/Time Associated Diagnosis Comments SCAN-EYE EXAM 10/01/2023 12:00 AM CDT ECHO TTE COMPLETE WO CONTRAST Routine 2023 4:20 PM CDT CVA (cerebral vascular accident) (HC) SCAN-RADIOLOGY REPORT 2023 12:00 AM CDT SCAN-MRI INTERPRETATION 2023 12:00 AM CDT SCAN-ANGIOGRAM 09/16/2023 12:00 AM CDT SCAN-CT INTERPRETATION 12:00 AM CDT SCAN-CT INTERPRETATION 12:00 AM CDT RED CELL MORPHOLOGY Routine 08/23/2023 1 2:47 [...] of insulin (HC) PSA TOTAL (DIAGNOSTIC) Routine 12:47 PM CDT Prostate cancer (HC) CBC WITH AUTO DIFFERENTIAL Routine 08/23/2023 12:47 PM CDT CLL (chronic lymphocytic leukemia) (HC) HEMOGLOBIN A1C Routine 08/23/2023 12:47 PM CDT Type 2 diabetes mellitus with stage 1 chronic kidney disease, with long-term current use of insulin (HC) SCAN-RADIOLOGY REPORT 07/24/2023 12:00 AM EVALUATOR [employer]SF[employer]UDENTS from Last 3 Months Results * SCAN-EYE EXAM (10/01/2023 12:00 AM CDT) Scanner OTHER * ECHO TTE COMPLETE WO CONTRAST (2023 4:20 PM CDT) AORTIC VALVE MEAN PG 4 mmHg EJECTION FRACTION 65 % PEAK TR VELOCITY 2.9 m/s LVEDD 4.5 cm Anatomical Region Laterality Modality Ultrasound 2023 3:43 PM CDT Narrative 09/18/2023 8:35 AM CDT ECHOCARDIOGRAM LEIDY GAYLE ? Accession#: ?? [id number] : ?1940 82 years Study Date: ?? 2023 3:43:54 PM Gender: M ?BP: ? 157/78 mmHg Height: 168.00 cm ?BSA: ?2.11 m? ? ? Weight: 103.00 kg ?Tech: ? MCK ? Referring MD: GRISEL NEWMAN Site: ? [facility] Reading Location: [facility] Patient Location: Outpatient. Procedure: 2D, Color Doppler and Spectral Doppler. Indication for study: CVA Cardiac Rhythm: Irregular.Study quality: Fair. Imaging limitations: This study was subject to imaging limitations due to body habitus and a prominent lung artifact. Final Impressions: 1. Normal left ventricular size, moderately increased wall thickness, normal global systolic function, calculated EF of 65 %. 2. The aortic sinus is dilated with a maximal diameter of 4.1 cm. Chamber Sizes and Function Normal left ventricular size, moderately increased wall thickness, normal global systolic function, calculated EF of 65 %. Left atrial size is normal. Right ventricular cavity size is normal, global systolic RV function is normal. RV wall thickness is normal. The right atrium is normal. Right atrial volume index is 12 ml/m? ? ?. Right atrial area is 14 cm? ? ?. The pulmonary artery is not well visualized. The sinus of Valsalva is dilated. The ascending aorta is normal sized. Valves, RV Pressures and Diastolic Function The aortic valve is trileaflet, no stenosis and no regurgitation. The mitral valve is normal in structure, no mitral regurgitation. Normal diastolic function. The tricuspid valve is normal in structure. Tricuspid regurgitation is mild regurgitation. The tricuspid regurgitant velocity is 2.9 m/s, the estimated right ventricular systolic pressure is 34 mmHg plus right atrial pressure. There is borderline increased estimated pulmonary pressure by tricuspid regurgitation velocity and right atrial pressure. The pulmonic valve is not well visualized. No pulmonary regurgitation. Masses, Effusion, Shunts There is no pericardial effusion. The inferior vena cava is not well visualized, respiratory size variation not well visualized. Interatrial septum is not well visualized. MEASUREMENTS AND CALCULATIONS 2-D Measurements and LV Function: LVID (d) 4.5 cm Planimetered EF 65 % LVID (s) 2.6 cm LV FS% (2D) ? 43 % IVS (d) ??1.4 cm LVOT diameter ?? 2.3 cm LVPW (d) 1.4 cm HR ?60 bpm Ao Sinus 4.1 cm LA Vol index ?20 ml/m2 Asc Ao ?? 3.6 cm RA Vol index ?12 ml/m2 LA ? 4.7 cm RA area ? 14 cm?RV Max 4C (d) ?? 4.0 cm Diastology: Mitral ?Tissue Doppler E Peak 1.0 m/s ??e', Septum ? 0.07 m/s A Peak 1.2 m/s ??e', Lateral ?0.09 m/s E/A ?0.8 ?E/e' Average ?? 12.38 DT ? 297 msec Aortic Valve: Vmax ? 1.4 m/s ??ALYSSIA (V) ?? 2.91 cm? ? ? VTI ?0.34 m ?? ALYSSIA (I) ?? 2.55 cm? ? ? LVOT V max 1.0 m/s ??Max PG ?8 mmHg LVOT VTI ?? 0.21 m ?? Mean PG ?? 4 mmHg SV ? 87 ml ?Dim Index 0.61 SV index ?? 41 ml/m? ? ? CO ?5.2 l/min ?CI ?2.5 l/min/m? ? ? Mitral Valve: MVA ?2.6 cm? ? ? MV P 1/2 86 msec Tricuspid Valve and estimated PA pressures: TR Vmax 2.9 m/s TAPSE 2.8 cm TR maxG 34 mmHg . This study was interpreted by an [facility] accredited facility. CC: HIM (med records) [facility], Med/Surg - IP [facility]. ??Final ?? Procedure Note Eyal Andujar MD - 09/18/2023 ECHOCARDIOGRAM LEIDY GAYLE : 1940 82 years Study Date: 2023 3:43:54 PM Gender: M BP: 157/78 mmHg Height: 168.00 cm BSA: 2.11 m? ? ? Weight: 103.00 kg Tech: KALLIE Referring MD: GRISEL NEWMAN Site: [facility] Reading Location: [facility] Patient Location: Outpatient. Procedure: 2D, Color Doppler and Spectral Doppler. Indication for study: CVA Cardiac Rhythm: Irregular.Study quality: Fair. Imaging limitations: This study was subject to imaging limitations due tobody habitus and a prominent lung artifact. Final Impressions: 1. Normal left ventricular size, moderately increased wall thickness,normal global systolic function, calculated EF of 65 %. 2. The aortic sinus is dilated with a maximal diameter of 4.1 cm. Chamber Sizes and Function Normal left ventricular size, moderately increased wall thickness, normalglobal systolic function, calculated EF of 65 %. Left atrial size isnormal. Right ventricular cavity size is normal, global systolic RVfunction is normal. RV wall thickness is normal. The right atrium isnormal. Right atrial volume index is 12 ml/m? ? ?. Right atrial area is 14cm? ? ?. The pulmonary artery is not well visualized. The sinus of Valsalvais dilated. The ascending aorta is normal sized. Valves, RV Pressures and Diastolic Function The aortic valve is trileaflet, no stenosis and no regurgitation. Themitral valve is normal in structure, no mitral regurgitation. Normaldiastolic function. The tricuspid valve is normal in structure. Tricuspidregurgitation is mild regurgitation. The tricuspid regurgitant velocity is2.9 m/s, the estimated right ventricular systolic pressure is 34 mmHg plusright atrial pressure. There is borderline increased estimated pulmonarypressure by tricuspid regurgitation velocity and right atrial pressure.The pulmonic valve is not well visualized. No pulmonary regurgitation. Masses, Effusion, Shunts There is no pericardial effusion. The inferior vena cava is not wellvisualized, respiratory size variation not well visualized. Interatrialseptum is not well visualized. MEASUREMENTS AND CALCULATIONS 2-D Measurements and LV Function: LVID (d) 4.5 cm Planimetered EF 65 % LVID (s) 2.6 cm LV FS% (2D) 43 % IVS (d) 1.4 cm LVOT diameter 2.3 cm LVPW (d) 1.4 cm HR 60 bpm Ao Sinus 4.1 cm LA Vol index 20 ml/m2 Asc Ao 3.6 cm RA Vol index 12 ml/m2 LA 4.7 cm RA area 14 cm? ? ? RV Max 4C (d) 4.0 cm Diastology: Mitral Tissue Doppler E Peak 1.0 m/s e', Septum 0.07 m/s A Peak 1.2 m/s e', Lateral 0.09 m/s E/A 0.8 E/e' Average 12.38 DT 297 msec Aortic Valve: Vmax 1.4 m/s ALYSSIA (V) 2.91 cm? ? ? VTI 0.34 m ALYSSIA (I) 2.55 cm? ? ? LVOT V max 1.0 m/s Max PG 8 mmHg LVOT VTI 0.21 m Mean PG 4 mmHg SV 87 ml Dim Index 0.61 SV index 41 ml/m? ? ? CO 5.2 l/min CI 2.5 l/min/m? ? ? Mitral Valve: MVA 2.6 cm? ? ? MV P 1/2 86 msec Tricuspid Valve and estimated PA pressures: TR Vmax 2.9 m/s TAPSE 2.8 cm TR maxG 34 mmHg . This study was interpreted by an [facility] accredited facility. CC: HIM (med records) [facility], Med/Surg - IP [facility]. Final Grisel Newman MD ECHO ORD * SCAN-RADIOLOGY REPORT (2023 12:00 AM CDT) Only the most recent of2 resultswithin the time period is included. Anatomical Region Laterality Modality Other Scanner OTHER * SCAN-MRI INTERPRETATION (2023 12:00 AM CDT) Anatomical Region Laterality Modality Other Scanner OTHER * SCAN-ANGIOGRAM (09/16/2023 12:00 AM CDT) Anatomical Region Laterality Modality Other Scanner OTHER * SCAN-CT INTERPRETATION (09/16/2023 12:00 AM CDT) Only the most recent of2 resultswithin the time period is included. Anatomical Region Laterality Modality Other Scanner OTHER * (ABNORMAL) CBC WITH AUTO DIFFERENTIAL (08/23/2023 12:47 PM CDT) WHITE BLOOD COUNT 9.4 4.5 - 11.0 thou/cu mm 08/23/2023 1:08 PM CDT [facility] RED BLOOD COUNT 4.47 4.30 - 5.90 mil/cu mm 08/23/2023 1:08 PM CDT [facility] HEMOGLOBIN 13.5 13.5 - 17.5 g/dL 08/23/2023 1:08 PM CDT [facility] HEMATOCRIT 41.5 37.0 - 53.0 % 08/23/2023 1:08 PM CDT [facility] MCV 93 80 - 100 fL 08/23/2023 1:08 PM CDT [facility] MCH 30.2 26.0 - 34.0 pg 08/23/2023 1:08 PM CDT [facility] MCHC 32.5 32.0 - 36.0 g/dL 08/23/2023 1:08 PM CDT [facility] RDW 14.8 11.5 - 15.5 % 08/23/2023 1:08 PM CDT [facility] PLATELET COUNT 208 140 - 440 thou/cu mm 08/23/2023 1:08 PM CDT [facility] MPV 11.4(H) 6.5 - 11.0 fL 08/23/2023 1:08 PM CDT [facility] Blood BLOOD SPECIMEN / Unknown Butterfly / Unknown 08/23/2023 12:47 PM CDT 08/23/2023 12:50 PM CDT Joi Zavala MD HEMATOLOGY Performing Organization Address [facility]/ZIP Co de Phone Number [facility] [address] [place] [address], * RED CELL MORPHOLOGY (08/23/2023 12:47 PM CDT) RBC COMMENT RBC morphology appears normal RBC morphology appears normal, RBC morphology within normal limits for newborns. 08/23/2023 1:08 PM CDT [facility] Blood BLOOD SPECIMEN / Unknown Butterfly / Unknown 08/23/2023 12:47 PM CDT 08/23/2023 12:50 PM CDT Joi Zavala MD HEMATOLOGY Performing Organization Address [facility] Co de Phone Number [facility] [address] [place] [address], * PLATELET ESTIMATE (08/23/2023 12:47 PM CDT) PLATELET ESTIMATE Adequate Adequate, No estimate 08/23/2023 1:08 PM CDT [facility] Blood BLOOD SPECIMEN / Unknown Butterfly / Unknown 08/23/2023 12:47 PM CDT 08/23/2023 12:50 PM CDT Joi Zavala MD HEMATOLOGY Performing Organization Address [facility] Co de Phone Number [facility] [address] [place] [address], * (ABNORMAL) MANUAL DIFFERENTIAL (08/23/2023 12:47 PM CDT) % NEUTROPHILS 54.0 % 08/23/2023 1:08 PM CDT [facility] % LYMPHOCYTES 36.0 % 08/23/2023 1:08 PM CDT [facility] % MONOCYTES 8.0 % 08/23/2023 1:08 PM CDT [facility] % EOSINOPHILS 2.0 % 08/23/2023 1:08 PM CDT [facility] % BASOPHILS 0.0 % 08/23/2023 1:08 PM CDT [facility] NEUTROPHILS ABSOLUTE 5.1 1.7 - 7.0 thou/cu mm 08/23/2023 1:08 PM CDT [facility] LYMPHOCYTES ABSOLUTE 3.4(H) 0.9 - 2.9 thou/cu mm 08/23/2023 1:08 PM CDT [facility] MONOCYTES ABSOLUTE 0.8 <0.9 thou/cu mm 08/23/2023 1:08 PM CDT [facility] EOSINOPHILS ABSOLUTE 0.2 <0.5 thou/cu mm 08/23/2023 1:08 PM CDT [facility] BASOPHILS ABSOLUTE 0.0 <0.3 thou/cu mm 08/23/2023 1:08 PM CDT [facility] Blood BLOOD SPECIMEN / Unknown Butterfly / Unknown 08/23/2023 12:47 PM CDT 08/23/2023 12:50 PM CDT Joi Zavala MD HEMATOLOGY [facility] [address] [place] [address], * PSA TOTAL (DIAGNOSTIC) (08/23/2023 12:47 PM CDT) PSA TOTAL (DIAGNOSTIC) 0.49 <4.00 ng/mL 08/23/2023 9:26 PM CDT [facility] Blood BLOOD SPECIMEN / Unknown Butterfly / Unknown 08/23/2023 12:47 PM CDT 08/23/2023 12:50 PM CDT Narrative [facility] - 08/23/2023 9:26 PM CDT The [...] be used interchangeably. Joi Zavala MD CHEMISTRY Performing Organization Address [facility]/ZIP Co de Phone Number [facility] [address] [place] [address], [place] * (ABNORMAL) HEMOGLOBIN A1C MONITORING (POCT) (08/23/2023 12:47 PM CDT) HEMOGLOBIN A1C MONITORING (POCT) 8.0(H) <=6.4 % 08/23/2023 12:59 PM CDT [facility] Blood BLOOD SPECIMEN / Unknown Butterfly / Unknown 08/23/2023 12:47 PM CDT 08/23/2023 12:50 PM CDT Narrative [facility] - 08/23/2023 12:59 PM CDT ? (<=6.9%) [...] Anemias, Splenectomy ? Joi Zavala MD CHEMISTRY Performing Organization Address [facility] Co de Phone Number [facility] [address] [place] [address], [place] [phone] * (ABNORMAL) BASIC METABOLIC PANEL (08/23/2023 12:47 PM CDT) SODIUM 140 136 - 145 mmol/L 08/23/2023 9:26 PM CDT [facility] POTASSIUM 4.6 3.5 - 5.1 mmol/L 08/23/2023 9:26 PM CDT [facility] CHLORIDE 105 98 - 107 mmol/L 08/23/2023 9:26 PM CDT [facility] CO2,TOTAL 23 22 - 29 mmol/L 08/23/2023 9:26 PM CDT [facility] ANION GAP 12 5 - 18 08/23/2023 9:26 PM CDT [facility] GLUCOSE 208(H) 70 - 99 mg/dL 08/23/2023 9:26 PM CDT [facility] CALCIUM 8.5(L) 8.8 - 10.2 mg/dL 08/23/2023 9:26 PM CDT [facility] BUN 18 8 - 23 mg/dL 08/23/2023 9:26 PM T [facility] CREATININE 1.12 0.70 - 1.20 mg/dL 08/23/2023 9:26 PM T [facility] BUN/CREAT RATIO 16 10 - 20 9:26 PM T [facility] eGFR 66(L) >90 mL/min/1.7 3m2 08/23/2023 9:26 PM T [facility] Comment:As of 2021, eG FR [...] 12:50 PM CDT Joi Zavala MD CHEMISTRY [facility] [address] [place], [place] [id number], from Last 3 Months Advance Directives Documents on File Type Date Recorded Patient Manager Risk Expl anation POLST 09/25/2023 Healthcare Directive 09/14/2021 7:36 AM HE ALTH CARE DRECTIVE/ 09/14/2021 Care Teams Revenue Coordinator Relationship Specialty Start Date End Date Joi Zavala MD [address] [place] [address] PCP - General 03/08/05 Ruben Fernandez MD [address] [place] [address] Sports Medicine 09/05/12
--- OUTSIDE RECORDS SUMMARY | 2023-10-08 10:31 | XMS_ITS | Encounter Summary ---
Author Name Unknown Organization [facility] Address [address] [place] [address] Care Team Providers Care Catering Coordinator Name Role Phone Unavailable Primary Care Provider [...] Patient states has glaucoma and treated in [place], [place]. Tearing; right eye; x 1 year; [...] abrasion OD CDM Reports - EYEGEN Id: [id number] Status: Fnl documented in this encounter Plan of Treatment Not on file documented as of this encounter Visit Diagnoses Not on filedocumented in this encounter
--- OUTSIDE RECORDS SUMMARY | 2023-10-08 10:31 | XMS_ITS | Referral Summary ---
Author Name Unknown Organization [facility] Address [address] [place] [address] Care Team Providers Care Laborer Syrup Machine Name Role Phone Unavailable Primary Care Provider Unavailabl e Source Comments Patient records contain information from all sites at [facility]. For routine questions regarding patient records, call [phone] during business hours, M-F 8:00 AM - 5:00 PM Central Time. Record requests for emergency care only can be directed to [phone] at any time.[facility] Allergies Active Allergy Reactions Criticality Noted Date [...] Test 2-3 times/day. 05/30/2017 Active blood-glucose [place] [facility] [place]pense glucose meter, test strips and lancets covered by the patient insurance. Test 3-4 times per day DX E11.9 09/19/2016 Active clotrimazole-betame thasone (for_LOTRISONE) 1-0.05 % cream Apply 1 application topically 2 (two) times a day. 03/01/2017 Active miscellaneous medical supply [facility] Autotitration cpap 4-20cm of H2O, with accessories dx327.23, he will need oxygen 2 liters bled into it 05/25/2008 Active miscellaneous medical supply [facility] As directed. Diabetic shoes diagnosis 250.00, 1 [...] Apply topically. 01/05/2020 Active diabetic supplies, [place]. [facility] Dispense glucose meter, test strips and lancets covered by patient insurance. Test 3-4 times per day. 02/27/2018 Active donepeziL (ARICEPT) 5 mg tablet Take 5 mg by mouth. 02/08/2021 Acti ve ferrous gluconate (FERGON) 324 mg (38 mg iron) tablet Take 1 tablet by mouth. 12/13/2018 Active FreeStyle [place] 03/10/2021 Active furosemide (LASIX) 40 mg tablet [...] Comments Blood Pressure 169/94 07/17/2022 1:43 PM IT PROJECT MANAGER Pulse 57 07/17/2022 1:43 PM IT PROJECT MANAGER Temperature 36.2 ??C (97.2 ??F) 07/17/2022 1 :43 PM IT PROJECT MANAGER Respiratory Rate 16 07/21/2015 4:13 PM IT PROJECT MANAGER Oxygen Saturation - - Inhaled Oxygen Concentration - - Weight 105 kg (230 lb 9.6 oz) 07/17/2022 1:43 PM IT PROJECT MANAGER Height 171 cm (5' 7.32) 03/01/2017 8:4 4 AM CDT Vital sign result from Clinical Notes. Body Mass Index 35.77 03/01/2017 8:44 AM CDT Plan of Treatment Not on file
== END 2023-10-08 12:03 | disposition home or self-care (01) ==
PROVIDERS: Emergency Provider Emergency Medicine Emergency Medical Services; PCP Family Medicine
DX: G31.83 Neurocognitive disorder with Lewy bodies (principal); F02.82 Dementia in other diseases classified elsewhere, unspecified severity, with psychotic disturbance; R41.82 Altered mental status, unspecified
CPT/HCPCS: 36415; 80048; 85025; 93005; 99284

== ENCOUNTER 2023-11-20 10:45 | Emergency (ER) | payer MEDICARE, SELFPAY ==
[2023-11-20] VITALS (17 sets, daily range): BP systolic 110–157; BP diastolic 63–78; PULSE 48–74; RESP 18; TEMP 36.5; O2SAT 85–99; BMI 36.3
--- NOTE | 2023-11-20 11:30 | CRLHL7_ITS ---
For Patients: As a result of the Century Cures Act, medical imaging exams and procedure reports are released immediately into your electronic medical record. You may view this report before your referring provider. If you have questions, please contact your health care provider. Indication: Shortness of breath, trouble breathing Technique: Chest 1 view Comparison: Chest x-ray 09/17/2023 Findings/Impression: Cardiovascular and mediastinum: Cardiomegaly with mild aortic tortuosity. Lungs and pleural space: Low lung volumes without pleural effusion or pneumothorax. Minimal bibasilar opacities, likely atelectasis. Bones and soft tissues: No acute findings. Dictated by John Beal MD @ 11/20/2023 12:31:26 PM (Electronically Signed)
--- NOTE | 2023-11-20 11:32 | ED.GENADULT ---
HPI - General Adult General Chief complaint: Shortness of Breath/Dyspnea Stated complaint: trouble breathing Time Seen by Provider: 11/20/23 11:19 History of Present Illness HPI narrative: c/o SOB x 2 hours. does use 02 occ at home. noted 02 sats to be in mid?upper 80's. denies chest pain 83-year-old man presenting to the emergency department with concern of shortness of breath appears to been relatively transient. History complicated by Lewy body dementia/Parkinson's. This morning at rest was complaining of shortness of breath. Is normally on 2 L nasal cannula oxygen. Spouse suctioned and removed dentition but still was complaining of some shortness of breath. There is no chest pain though daughter later reports that may have been experiencing some chest pressure as well. Spouse acknowledges that might have been related to anxiety. And no fever. No cough. Had been noted to be just generally weak complaining of weakness generally in his legs. Quite tired today. Spouse notes how he tends to be a mouth breather which is why she removed dentition and did the oral suctioning. I would note that it is quite humid and warm today. Related Data Home Medications ?Medication ?Instructions ?Recorded ?Confirmed carbidopa 25 mg-levodopa 100 mg 3 tab PO TID 01/01/22 09/16/23 tablet clonazepam 0.5 mg tablet 0.5 mg PO HS 01/01/22 12/11/23 donepezil 10 mg tablet 10 mg PO HS 01/01/22 12/11/23 meclizine 25 mg tablet 25 mg PO BID PRN 01/01/22 12/11/23 oxybutynin chloride 15 mg 15 mg PO DAILY PRN 01/01/22 12/11/23 tablet,extended release 24 hr rosuvastatin 20 mg tablet 20 mg PO HS 01/01/22 12/11/23 glycopyrrolate 1 mg tablet 1 mg PO DAILY 02/14/22 12/11/23 Lactobacillus acidophilus 10 10 mg PO DAILY 02/15/22 12/11/23 billion cell capsule (Probiotic) cyanocobalamin (vitamin B-12) 1,000 mcg PO DAILY 02/15/22 12/11/23 1,000 mcg tablet insulin aspart U-100 100 unit/mL 6 unit subcut DAILY@1200 12/31/22 12/11/23 (3 mL) subcutaneous pen (Novolog FlexPen U-100 Insulin aspart) insulin aspart U-100 100 unit/mL 8 unit subcut DAILY@0800 12/31/22 12/11/23 (3 mL) subcutaneous pen (Novolog FlexPen U-100 Insulin aspart) insulin glargine 100 unit/mL (3 18 unit subcut HS 01/01/23 12/11/23 mL) subcutaneous pen (Lantus Solostar U-100 Insulin) omeprazole 20 mg capsule,delayed 20 mg PO DAILY 09/16/23 12/11/23 release insulin aspart U-100 100 unit/mL 8 unit subcut DAILY@1800 09/17/23 12/11/23 (3 mL) subcutaneous pen (Novolog FlexPen U-100 Insulin aspart) nystatin 100,000 unit/gram topical 1 applic topical BID 09/17/23 12/11/23 cream sennosides 8.6 mg-docusate sodium 1 tab PO BID PRN constipation 09/17/23 12/11/23 50 mg tablet (Stool Softener-Laxative) Previous Rx's ?Medication ?Instructions ?Recorded insulin aspart U-100 100 unit/mL See Rx Instructions .Route 02/21/22 (3 mL) subcutaneous pen (Novolog .COMPLEX #15 mL FlexPen U-100 Insulin aspart) nystatin 100,000 unit/gram topical 1 applic topical TID #15 grams 02/21/22 powder aspirin 325 mg tablet,delayed 325 mg PO DAILY #90 tabs 09/20/23 release ciprofloxacin HCl 250 mg tablet 250 mg PO BID #12 tabs 09/20/23 Allergies Allergy/AdvReac Type Severity Reaction Status Date / Time bacitracin Allergy Unknown Rash Verified 12/11/23 11:11 Review of Systems Status of ROS: Reports: 6 or more systems reviewed and unremarkable except as noted in History and below (Primarily obtained from daughter and spouse.) [facility] Medical History Pressure-induced deep tissue damage of left heel ?L89.626 - Pressure-induced deep tissue damage of left heel (ICD-10) Pressure-induced deep tissue damage of right heel ?L89.616 - Pressure-induced deep tissue damage of right heel (ICD-10) Parkinsonism ?G20.C - Parkinsonism, unspecified (ICD-10) Lewy body dementia ?G31.83 - Dementia with Lewy bodies (ICD-10) ?F02.80 - Dementia in other diseases classified elsewhere without behavioral disturbance (ICD-10) Lymphedema ?I89.0 - Lymphedema, not elsewhere classified (ICD-10) Pulmonary embolism ?I26.99 - Other pulmonary embolism without acute cor pulmonale (ICD-10) History of external beam radiation therapy ?Z92.3 - Personal history of irradiation (ICD-10) Insulin dependent type 2 diabetes mellitus ?E11.9 - Type 2 diabetes mellitus without complications (ICD-10) ?Z79.4 - penitentiary (current) use of insulin (ICD-10) Prostate cancer ?C61 - Malignant neoplasm of prostate (ICD-10) CKD (chronic kidney disease) ?N18.9 - Chronic kidney disease, unspecified (ICD-10) MAYA (obstructive sleep apnea) ?G47.33 - Obstructive sleep apnea (adult) (pediatric) (ICD-10) Parkinson disease ?G20 - Parkinson's disease (ICD-10) Spinal stenosis ?M48.00 - Spinal stenosis, site unspecified (ICD-10) Reflux gastritis ?K29.60 - Other gastritis without bleeding (ICD-10) Diabetes ?E11.9 - Type 2 diabetes mellitus without complications (ICD-10) Hypercholesteremia ?E78.00 - Pure hypercholesterolemia, unspecified (ICD-10) Hypertension ?I10 - Essential (primary) hypertension (ICD-10) Surgical History History of cataract surgery ?Z98.49 - Cataract extraction status, unspecified eye (ICD-10) History of meniscectomy of left knee ?Z98.890 - Other specified postprocedural states (ICD-10) History of total left knee replacement ?Z96.652 - Presence of left artificial knee joint (ICD-10) History of lumbar discectomy ?Z98.890 - Other specified postprocedural states (ICD-10) History of transurethral resection of prostate ?Z98.890 - Other specified postprocedural states (ICD-10) ?Z90.79 - Acquired absence of other genital organ(s) (ICD-10) Family History Father Diabetes Cardiovascular disease Social History Narrative: He lives with his Phuong (medical decision maker if needed), in their own home near [place]. She is primary caregiver, does use help and family for occasional respite. Uses wheelchair and walker for ambulation, often falls at home. Nonsmoker. Rare ETOH. Requests DNR/DNI status. What is your current living situation?: I presently have a place to live Problems where you live: no known problems Problems where you live details: n/a In the past 12 months, utilities in danger of being shut off: no In past 12 months, lack of transportation kept you from medical appts, meetings, work, or getting things needed for daily living: no In the past 12 mos, have been you worried that your food would run out before you had money to buy more?: never true In the past 12 mos, the food you bought just didn't last and you didn't have money to buy more?: never true Highest level of school completed/degree received: 12th grade, no diploma Smoking Status: Former smoker Do you use any of these nicotine containing products: None Second hand tobacco smoke exposure: No How often do you have a drink containing alcohol: never How often do you have six or more drinks on one occasion: Never AUDIT-C Alcohol total score: 0 Non-prescribed substance use: marijuana (any form) Non-prescribed substance use details: Marijuana in liquid form orally Caffeine: Yes How often does anyone, including family, friends and others, physically hurt you: never How often does anyone, including family, friends and others, insult or talk down to you: never How often does anyone, including family, friends and others, threaten you with harm: never How often does anyone, including family, friends and others, scream or curse at you: never service: Yes ([employer]) Exam Narrative: Exam Narrative: NAD. Cranial nerves 2-12 look to be intact. Oropharynx is edentulous. He has been placed on a non-rebreather. Does not appear to be struggling to breathe at this time. Lungs appear to be clear with breath sounds throughout. Appears generally sleepy. Does wake when prompted but otherwise seems to drift off to sleep. Const: Vital Signs, click to edit/add: Vital Signs - 24 hr 11/20/23 10:55 11/20/23 11:13 11/20/23 11:30 Temperature 97.7 F Pulse Rate 67 Pulse Rate [Right Pulse Oximeter] 74 Respiratory Rate 18 Blood Pressure Blood Pressure [Ri ght Upper Arm] 110/74 Pulse Oximetry 85 L 91 96 Oxygen Delivery Me thod Room Air OxyMask Oxygen Flow Rate 3 11/20/23 11:30 11/20/23 12:00 11/20/23 12:30 Temperature Pulse Rate 64 63 60 Pulse Rate [Right Pulse Oximeter] Respiratory Rate Blood Pressure Blood Pressure [Ri ght Upper Arm] Pulse Oximetry 92 94 97 Oxygen Delivery Me thod OxyMask OxyMask OxyMask Oxygen Flow Rate 3 3 3 11/20/23 13:00 11/20/23 13:30 11/20/23 14:00 Temperature Pulse Rate 55 L 57 L 58 L Pulse Rate [Right Pulse Oximeter] Respiratory Rate Blood Pressure Blood Pressure [Ri ght Upper Arm] Pulse Oximetry 95 92 92 Oxygen Delivery Me thod OxyMask Nasal Cannula Nasal Cannula Oxygen Flow Rate 3 1 1 11/20/23 14:19 11/20/23 14:30 11/20/23 15:01 Temperature Pulse Rate 56 L 53 L 50 L Pulse Rate [Right Pulse Oximeter] Respiratory Rate Blood Pressure 117/63 Blood Pressure [Ri ght Upper Arm] Pulse Oximetry 93 97 95 Oxygen Delivery Me thod Oxygen Flow Rate 11/20/23 15:25 11/20/23 15:30 11/20/23 15:43 Temperature Pulse Rate 48 L 51 L Pulse Rate [Right Pulse Oximeter] Respiratory Rate 18 Blood Pressure Blood Pressure [Ri ght Upper Arm] Pulse Oximetry 99 97 Oxygen Delivery Me thod Oxygen Flow Rate 11/20/23 15:44 11/20/23 15:55 11/20/23 16:00 Temperature Pulse Rate 51 L 49 L 51 L Pulse Rate [Right Pulse Oximeter] Respiratory Rate Blood Pressure 157/78 H Blood Pressure [Ri ght Upper Arm] Pulse Oximetry 96 95 92 Oxygen Delivery Me thod Oxygen Flow Rate Documenting provider has reviewed patient's vital signs: yes Course Vital Signs Vital signs: Initial Vital Signs Temperature 97.7 F 11/20/23 10:55 Temperature Source Temporal Artery Scan 11/20/23 10:55 Pulse Rate 74 11/20/23 10:55 Respiratory Rate 18 11/20/23 10:55 Blood Pressure 110/74 11/20/23 10:55 Blood Pressure Mean 86 11/20/23 10:55 Blood Pressure Position Sitting 11/20/23 10:55 Pulse Oximetry 85 L 11/20/23 10:55 Oxygen Delivery Method Room Air 11/20/23 10:55 Vital Signs Temperature 97.7 F 11/20/23 10:55 Pulse Rate 74 11/20/23 10:55 Respiratory Rate 18 11/20/23 10:55 Blood Pressure 110/74 11/20/23 10:55 Pulse Oximetry 85 L 11/20/23 10:55 Oxygen Delivery Method Room Air 11/20/23 10:55 Temperature 97.7 F 11/20/23 10:55 Pulse Rate 51 L 11/20/23 16:00 Respiratory Rate 18 11/20/23 15:25 Blood Pressure 157/78 H 11/20/23 15:55 Pulse Oximetry 92 11/20/23 16:00 Oxygen Delivery Method Nasal Cannula 11/20/23 14:00 Oxygen Flow Rate 1 11/20/23 14:00 Medications Administered Medications: Discontinued Medications Generic Name Dose Route Start Last Admin Trade Name Freq PRN Reason Stop Dose Admin Sodium Chloride 1,000 mls @ 1,000 mls/hr 11/20/23 14:03 11/20/23 15:30 0.9 % Sodium Chloride 1000 Ml IV 11/20/23 15:02 Infused .Q1H ONE Infusion Ceftriaxone Sodium 1 gm/ 100 mls @ 200 mls/hr 11/20/23 15:21 11/20/23 15:59 Sodium Chloride IVPB 11/20/23 15:22 Infused ONCE ONE Infusion Medical Decision Making MDM Narrative Medical decision making narrative: This would appear to be some transient air hunger event possibly related to Parkinson's. Related anxiety. Does not appear to being preceding infectious etiology. May have been related to dentition as he does mention in conversation a few times something about his teeth. Is very difficult to understand and due to being edentulous and with inability generally I think to articulate or recall. Will evaluate for potential cardiovascular event or dysrhythmia and pneumonia. Chest x-ray reviewed by me complicated by rather poor lung volumes. Think this is contributing bibasilar atelectasis. Think this is more likely than infiltrate. No pneumothorax apparent. Procedure(s): XR chest 1V portable Accession Number(s): [id number] cc: Bucky Saeed M.D.; Joi Zavala M.D.~ For Patients: As a result of the Cures Act, medical imaging exams and procedure reports are released immediately into your electronic medical record. You may view this report before your referring provider. If you have questions, please contact your health care provider. Indication: Shortness of breath, trouble breathing Technique: Chest 1 view Comparison: Chest x-ray 09/17/2023 Findings/Impression: Cardiovascular and mediastinum: Cardiomegaly with mild aortic tortuosity. Lungs and pleural space: Low lung volumes without pleural effusion or pneumothorax. Minimal bibasilar opacities, likely atelectasis. Bones and soft tissues: No acute findings. Pending labs. return to nasal cannula. White count and CRP are elevated. Urinalysis unremarkable in the end. Think would be prudent to initiate course of antibiotics in this patient. Ordered for Rocephin. Given dose of normal saline. May have been some suctioning issue to/mucous plugging contributing here as well. Oxygen need diminished over time in the ER. See patient discharge plan for further discussion Medical Records Medical records reviewed: Yes I reviewed the patient's medical records Lab Data Lab results reviewed: Yes I reviewed the patient's lab results Labs: Lab Results 11/20/23 11/20/23 11/20/23 Range/Units 11:56 12:13 13:11 WBC 14.29 H (4.50-11.00) K/uL RBC 4.32 (4.30-5.90) m/uL Hgb 12.8 L (13.5-17.5) gm/dL Hct 39.7 (37.0-53.0) % MCV 92 (80-100) fL MCH 30 (26-34) pg MCHC 32 (32-36) gm/dL RDW Coeff of Jorge 14.5 (11.5-15.5) % Plt Count 183 (140-440) K/uL Neut % (Auto) 73.9 H (42.0-72.0) % Lymph % (Auto) 19.4 L (20-44) % [place] % (Auto) 6.2 (0.0-11.0) % Eos % (Auto) 0.2 (0.0-7.0) % Baso % (Auto) 0.2 (0.0-3.0) % Neut # (Auto) 10.60 H (1.7-7.0) K/uL Lymph # (Auto) 2.80 (0.90-2.90) K/uL Thurston # (Auto) 0.90 (0.00-0.90) K/UL Eos # (Auto) 0.00 (0.00-0.50) K/uL Baso # (Auto) 0.00 (0.00-0.30) K/uL Abs Immat Gran (auto) 0.00 (0.00-0.30) K/uL Imm/Tot Granulo (auto) 0.1 % Sodium 137 (135-149) mmol/L Potassium 4.2 (3.6-5.1) mmol/L Chloride 106 (96-114) mmol/L Carbon Dioxide 22 (20-32) mmol/L Anion Gap 9 (7-15) mEq/L BUN 28 (7-30) mg/dL Creatinine 1.2 (0.5-1.5) mg/dL Estimated Creat Clear 42.83 Estimated GFR 60 ml/min Glucose 242 H (60-115) mg/dL Calcium 8.0 L (8.4-10.6) mg/dL Troponin I < 0.01 L (0.01-0.04) ng/mL C-Reactive Protein 3.7 H (0.5-1.0) mg/dL Urine Color (Yellow) Urine Appearance (Clear) Urine pH (5.0-8.5) Ur Specific [place] (1.000-1.030) Urine Protein (Negative) Urine Glucose (UA) (Negative) Urine Ketones (Negative) Urine Blood (Negative) Urine Nitrite (Negative) Urine Bilirubin (Negative) Urine Urobilinogen (0.2-1.0) Ur Leukocyte Esterase (Negative) Urine RBC (0-2) Urine WBC (0-5) Ur Squamous Epith Cells (None-Few) Urine Bacteria (None) SARS-CoV-2 (PCR) (Negative) Influenza Type A (PCR) (Negative) Influenza Type B (PCR) (Negative) RSV (PCR) (Negative) Lab Acknowledgement Test Added POC Troponin I 0.02 (0.01-0.04) ng/ml 11/20/23 11/20/23 Range/Units 13:22 14:08 WBC (4.50-11.00) K/uL RBC (4.30-5.90) m/uL Hgb (13.5-17.5) gm/dL Hct (37.0-53.0) % MCV (80-100) fL MCH (26-34) pg MCHC (32-36) gm/dL RDW Coeff of Jorge (11.5-15.5) % Plt Count (140-440) K/uL Neut % (Auto) (42.0-72.0) % Lymph % (Auto) (20-44) % [place] % (Auto) (0.0-11.0) % Eos % (Auto) (0.0-7.0) % Baso % (Auto) (0.0-3.0) % Neut # (Auto) (1.7-7.0) K/uL Lymph # (Auto) (0.90-2.90) K/uL [place] # (Auto) (0.00-0.90) K/UL Eos # (Auto) (0.00-0.50) K/uL Baso # (Auto) (0.00-0.30) K/uL Abs Immat Gran (auto) (0.00-0.30) K/uL Imm/Tot Granulo (auto) % Sodium (135-149) mmol/L Potassium (3.6-5.1) mmol/L Chloride (96-114) mmol/L Carbon Dioxide (20-32) mmol/L Anion Gap (7-15) mEq/L BUN (7-30) mg/dL Creatinine (0.5-1.5) mg/dL Estimated Creat Clear Estimated GFR ml/min Glucose (60-115) mg/dL Calcium (8.4-10.6) mg/dL Troponin I (0.01-0.04) ng/mL C-Reactive Protein (0.5-1.0) mg/dL Urine Color Dark yellow (Yellow) Urine Appearance Clear (Clear) Urine pH 6.0 (5.0-8.5) Ur Specific [place] 1.025 (1.000-1.030) Urine Protein Negative (Negative) Urine Glucose (UA) Negative (Negative) Urine Ketones Negative (Negative) Urine Blood Negative (Negative) Urine Nitrite Negative (Negative) Urine Bilirubin Negative (Negative) Urine Urobilinogen 0.2 (0.2-1.0) Ur Leukocyte Esterase Negative (Negative) Urine RBC 0-2 (0-2) Urine WBC 0-2 (0-5) Ur Squamous Epith Cells Few (None-Few) Urine Bacteria Few A (None) SARS-CoV-2 (PCR) Negative SARS-CoV-2 (Negative) Influenza Type A (PCR) Negative PCR FLU A (Negative) Influenza Type B (PCR) Negative PCR FLU B (Negative) RSV (PCR) Negative PCR RSV (Negative) Lab Acknowledgement POC Troponin I (0.01-0.04) ng/ml ECG Data Attestation: I personally reviewed and interpreted this ECG as follows: (Sinus bradycardia. First-degree AV block. Right bundle, partial. Rate of 57) Discharge Plan Discharge Clinical Impression: Hypoxia, Weakness, Pneumonia Patient Disposition: Home w/ Parent or Adult Condition: Improved Additional Instructions: Focus on hydration. Be seen for persistent increased rate and work of breathing, worsening fatigue, increasing fever. Your labs suggest infection. The x-rays are equivocal for lower lung infection versus atelectasis/compression of lungs. You received a gram of Rocephin in your IV. Doxycycline from [facility]. Was a pleasure caring for you. Prescriptions: No Action glycopyrrolate 1 mg tablet 1 mg PO DAILY cyanocobalamin (vitamin B-12) 1,000 mcg tablet 1,000 mcg PO DAILY Probiotic 10 billion cell capsule 10 mg PO DAILY insulin aspart U-100 [Novolog FlexPen U-100 Insulin] 100 unit/mL (3 mL) Insulin Pen See Rx Instructions .ROUTE .COMPLEX Qty: 15 0RF Rx Instructions: Blood Glucose 150 or less No coverage Blood Glucose 151-200 1 unit Blood Glucose 201-250 2 units Blood Glucose 251-300 3 units Blood Glucose 301-350 4 units Blood Glucose 351 to 400 5 units Blood Glucose 401 and greater 6 units and recheck in 2 hours nystatin 100,000 unit/gram Powder 1 applic topical TID Qty: 15 0RF insulin aspart U-100 [Novolog FlexPen U-100 Insulin] 100 unit/mL (3 mL) Insulin Pen 6 unit subcut DAILY@1200 insulin aspart U-100 [Novolog FlexPen U-100 Insulin] 100 unit/mL (3 mL) Insulin Pen 8 unit subcut DAILY@0800 insulin glargine [Lantus Solostar U-100 Insulin] 100 unit/mL (3 mL) insulin pen 18 unit subcut HS omeprazole 20 mg capsule,delayed release(DR/EC) 20 mg PO DAILY nystatin 100,000 unit/gram cream 1 applic topical BID sennosides-docusate sodium [Stool Softener-Laxative] 8.6-50 mg Tablet 1 tab PO BID PRN (Reason: constipation) insulin aspart U-100 [Novolog FlexPen U-100 Insulin] 100 unit/mL (3 mL) Insulin Pen 8 unit subcut DAILY@1800 ciprofloxacin HCl 250 mg Tablet 250 mg PO BID Qty: 12 0RF aspirin 325 mg Tablet,Delayed Release (Dr/Ec) 325 mg PO DAILY Qty: 90 0RF oxybutynin chloride 15 mg tablet extended release 24hr 15 mg PO DAILY PRN donepezil 10 mg tablet 10 mg PO HS clonazepam 0.5 mg tablet 0.5 mg PO HS meclizine 25 mg tablet 25 mg PO BID PRN carbidopa-levodopa 25-100 mg tablet 3 tab PO TID rosuvastatin 20 mg tablet 20 mg PO HS Follow Up/Referrals: Joi Zavala MD [Primary Care Provider] - Stand Alone Forms: [facility] Info Instructions
--- OUTSIDE RECORDS SUMMARY | 2023-11-20 11:38 | XMS_ITS | Continuity of Care Document ---
Author Organization [facility], [facility] Address [address] 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 Plan of Treatment Reminders Order Date Submit Date Provider Last Modified By Organization Details Last Modified Time Details Appointments ESTABLISH ED 10 2023 01:40P Domingo Cai MD Not available Not available Not available Lab PSA, serum or plasma 2023 024 0 [facility], [address], [place], [address], 08/22/2023 16:07:10 PSA, total, serum or plasma 2023 024 [email or web address] [facility], [address], [place], [address], 10/23/2023 17:20:02 Referral None recorded. Procedures None recorded. Surgeries [...] Not Available [facility] [address], [place], [address], 08/22/2023 16:00:20 Result Notes None recorded. Procedures Surgical History Date Name Laterality Status Provider Name and Address Organization Details Recorded Time 4 GUINEA PIG BREEDER/blood draw completed Rob Cai MD [address] [place] [address],[address], [place], [address], [facility] 08/22/2023 16:00:16 4 Bladder Scan completed Rob Cai MD [address] [place] [address],[address], [address], [facility] 08/22/2023 16:00:10 3 [facility] 14:03:04 procedure on back completed Rob Cai MD [address] [place] [address],[address] [place] [address], [phone], [facility] 02/19/2023 14:01:06 procedure on knee completed Rob Cai MD [address] [place] [address],[address], [place], [address], [facility] 02/19/2023 14:01:12 Imaging Results None recorded. Procedure Notes None recorded. Medical Equipment None Reported. Allergies Allergen ID Allergen Name Allergen Category Reaction Reaction Severity Criticality Documentation Date Start Date Code Code System Note Provider Name and Address Organization Details Recorded Time 060042 bacitraci n medicatio n Not available Not available Not available 02/19/2023 1291 RxNorm Rob Cai MD [address] [place] [address],[address] [place] [address], [phone], [facility] 3 13:59:39 Medications Name Sig Start [...] Available No t Available FreeStyle Corry 2 [place] active Not Available Not Available Not Available Vitals Date Recorded Body height Body mass index (BMI) Body weight Provider Name and Address Organization Details Last Updated DateTime 08/22/2023 167.64 cm 36.3 kg/m2 054730.28 g Rob Cai MD [address] [place] [address],[address], [address], [facility] 08/22/2023 15:59:45 Social History Question Answer Notes LastModified by Organizat ion Details LastModified Time Tobacco Smoking Status Former Smoker Rob Cai MD [address] [place] [address],[address], [address], [facility] 02/19/2023 14:00:27 What Is Your Level [...] Resolved Age Notes Mother Family history of malignant neoplasm Medical History Condition Response High Blood Pressure N Kidney Stones N Depression N Sexually Transmitted Infection N Cancer N Bleeding Disorder Y Lung Disease N GERD/Acid Reflux N High Cholesterol N Diabetes Y Heart Disease N Immunizations Vaccine Type Date Status Provider Name and Address Organization Details Recorded Time Influenza, adjuvanted, trivalent, PF 02/23/2017 completed Rob Cai MD [address] [place], [place] [phone], [facility] 02/19/2023 13:59:27 Influenza, adjuvanted, trivalent, PF 05/23/2019 completed Rob Cai MD [address] [place] [address],[place] [phone], [facility] 02/19/2023 13:59:27 Influenza, high-dose, quadrivalent, PF 02/24/2020 completed Rob Cai MD [address] [place] [address],[address] [address], [facility] 02/19/2023 13:59:27 Influenza, high-dose, quadrivalent, PF 04/02/2021 completed Rob Cai MD [address] [place] [address],[address] [address], [facility] 02/19/2023 13:59:27 Influenza, adjuvanted, quadrivalent, PF 02/15/2023 completed Rob Cai MD [address] [place] [address],[address] [address], [facility] 02/19/2023 13:59:27 Influenza, adjuvanted, quadrivalent, PF 03/31/2022 completed Rob Cai MD [address] [place] [address],[address], [place], [address], [facility] 02/19/2023 13:59:27 COVID-19, mRNA, LNP-S, PF, 100 mcg/0.5mL dose or 50 mcg/0.25mL dose 07/08/2020 completed Rob Cai MD [address] [place] [address],[address], [address], [facility] 02/19/2023 13:59:27 COVID-19, mRNA, LNP-S, PF, 100 mcg/0.5mL dose or 50 mcg/0.25mL dose 08/05/2020 completed Rob Cai MD [address] [place] [address],[address], [place], [address], [facility] 02/19/2023 13:59:27 COVID-19, mRNA, LNP-S, PF, 100 mcg/0.5mL dose or 50 mcg/0.25mL dose 04/02/2021 completed Rob Cai MD [address] [place] [address],[address], [place], [address], [facility] 02/19/2023 13:59:27 COVID-19, mRNA, LNP-S, PF, 30 mcg/0.3 mL dose, keo-sucrose 09/09/2021 completed Rob Cai MD [address] [place] [address],[address], [address], [facility] 02/19/2023 13:59:27 COVID-19, mRNA, LNP-S, bivalent, PF, 30 mcg/0.3 mL dose 03/01/2022 completed Rob Cai MD [address] [place] [address],[address], [address], [facility] 02/19/2023 13:59:27 pneumococcal polysaccharide PPV23 03/14/2012 completed Rob Cai MD [address] [place] [address],[address], [place], [address], [facility] 02/19/2023 13:59:27 Tdap 03/14/2012 completed Rob Cai MD [address] [place] [address],[address], [address], [facility] 02/19/2023 13:59:27 Novel [id number], all formulations 05/20/2009 completed Rob Cai MD [address] [place] [address],[address], [place], [address], [facility] 02/19/2023 13:59:27 Pneumococcal conjugate PCV 13 05/04/2015 completed Rob Cai MD [address] [place] [address],[address], [place], [address], [facility] 02/19/2023 13:59:27 zoster live 04/04/2007 completed Rob Cai MD [address] [place] [address],[address] [place] [address], [address], [facility] 02/19/2023 13:59:27 Influenza, high-dose, trivalent, PF 03/18/2015 completed Rob Cai MD [address] [place] [address],[address] [place] [address], [address], [facility] 02/19/2023 13:59:27 Influenza, high-dose, trivalent, PF 04/02/2014 completed Rob Cai MD [address] [place] [address],[address] [place] [address], [address], [facility] 02/19/2023 13:59:27 Influenza, high-dose, trivalent, PF 04/13/2016 completed Rob Cai MD [address] [place] [address],[address] [place] [address], [address], [facility] 02/19/2023 13:59:27 Influenza, split virus, trivalent, preservative 03/05/2013 completed Rob Cai MD [address] [place] [address],[address] [place] [address], [address], [facility] 02/19/2023 13:59:27 Influenza, split virus, trivalent, preservative 03/14/2012 completed Rob Cai MD [address] [facility],[address], [address], [facility] 02/19/2023 13:59:27 Influenza, split virus, trivalent, preservative 03/31/2004 completed Rob Cai MD [address] [place] [address],[address], [place], [address], [facility] 02/19/2023 13:59:27 Influenza, split virus, trivalent, preservative 04/02/2008 completed Rob Cai MD [address] [place] [address],[address], [address], [facility] 02/19/2023 13:59:27 Influenza, split virus, trivalent, preservative 04/04/2007 completed Rob Cai MD [address] [place] [address],[address], [address], [facility] 02/19/2023 13:59:27 Influenza, split virus, trivalent, preservative 04/10/2003 completed Rob Cai MD [address] [place] [address],[address] [place] [address], [address], [facility] 02/19/2023 13:59:27 Influenza, split virus, trivalent, preservative 04/15/2005 completed Rob Cai MD [address] [place] [address],[address] [place] [address], [address], [facility] 02/19/2023 13:59:27 Influenza, split virus, trivalent, preservative 04/17/2006 completed Rob Cai MD [address] [place] [address],[address] [place] [address], [address], [facility] 02/19/2023 13:59:27 Influenza, split virus, trivalent, PF 02/24/2010 completed Rob Cai MD [address] [place] [address],[address] [place] [address], [address], [facility] 02/19/2023 13:59:27 Influenza, split virus, trivalent, PF 05/04/2011 completed Rob Cai MD [address] [place] [address],[place] [address], [facility] 02/19/2023 13:59:27 Influenza, split virus, quadrivalent, PF 03/25/2018 completed Rob Cai MD [address] [place] [address],[address] [place], [place] [phone], [facility] 02/19/2023 13:59:27 Past Encounters Encounter ID Performer Location Encounter Start Date Encounter Closed Date Diagnosis/Indication Diagnosis SNOMED-CT Code [id number] Rob Cai MD [facility] [address] [place] [address] 08/22/2023 15:30:43 08/27/2023 11:33:01 Malignant tumor of prostate [id number] Urgent glenna toni to urinate [id number] Incomplete emptying of urinary bladder 562288005 Health Concerns Section Related Observation LastModified by Organization Detai ls LastModified Time None Recorded Concern Status LastModified by Organization Details LastModified Time None Recorded Payers Encounter Date Sequence Insurance Name Policy Number Policy Strange Covered Member ID Strange Member ID Guarantor Name 08/22/2023 1 [employer] - DOS ON OR AFTER 19 (MEDICARE REPLACEMENT/ ADVANTAGE - HMO) [id number] Bucky Turpin [id number] Bucky Turpin Notes Date Note Type Note [...] in Left upper pole. Rob Cai MD [address] [facility],[address], [place], [address], [facility] 08/25/2023 17:47:01
--- OUTSIDE RECORDS SUMMARY | 2023-11-20 11:39 | XMS_ITS | Clinical Summary ---
Author Organization [facility] Address [address] [place] [address] Care Team Providers Care Jacker Name Role Phone Unavailable Primary Care Provider [...] for each transition of care or referral. [facility] Social History Tobacco Use Types Packs/Day Years [...]
--- OUTSIDE RECORDS SUMMARY | 2023-11-20 11:39 | XMS_ITS | Encounter Summary ---
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 Tearing; right eye; x 1 year; [...] abrasion OD CDM Reports - EYEGEN Id: [id number] Status: Fnl documented in this encounter Plan of Treatment Not on file documented as of this encounter Visit Diagnoses Not on filedocumented in this encounter
--- OUTSIDE RECORDS SUMMARY | 2023-11-20 11:39 | XMS_ITS | Continuity of Care Document ---
Author Organization [facility] Address [address] [place] [address] Phone Care Team Providers Care Electronic Train Control Technician Name Role Phone Judy FERREIRA, PhD, [...] Available - Active Procedures Procedure Date Office/Outpatient Visit[place] [place] Advance Directives Directive Yes / No Effective Date File Name No Information Encounters Encounter Description Practice Location Reason(s) For Visit Diagnoses Date Provider Providers Copied on Encounter [facility], [address], [place], [place], [id number], [place] tel:[phone] [facility] No Information 9 Judy Coker. [facility], [address], [place], [address], [place]. [phone] Office/Outpa tient Visit,New, Mod [facility], [address], [place], [place], [id number], [place] [phone] [facility] [place] Spinal stenosis, lumbar region with neurogenic claudication 9 Lit Richards. [facility], [address] [place] [address] [address], [place], [place], [id number] , [place]. [phone] Referring Provider: Robbi Martin, [facility] [address] [facility] [address], [place], [address]. [phone] [facility], [address], [place], [place], [id number], [place] [phone] [facility] [place] Radiculopathy , lumbar region 9 Judy Coker. [facility], [address] [place] [address] [address], [place], [address], [place]. [phone] Z [facility], [address] [place], [place] [address], [place], [address], [place] tel:[phone] [facility] [place] Diabetes Mellitus Type 2, Uncomplicated Hypercholeste rolemia 3 Mehbod Amir. [facility], [address] [place] [address] [address], [place], [place], [id number] , [place]. [phone] Family History Family Member Type Diagnosis Age [...]
--- OUTSIDE RECORDS SUMMARY | 2023-11-20 11:39 | XMS_ITS ---
Author Organization [facility] Address [address] [place] [address] Care Team Providers Care Pan Reclaim Processor Name Role Phone Unavailable Unavailable Unavailable Surgery Details Not on file Complications Check Surgery Details section. Procedure Estimated Blood Loss Check Surgery Details section. Procedure Findings Check Surgery Details section. Procedure Specimens Taken Check Surgery Details section.
--- OUTSIDE RECORDS SUMMARY | 2023-11-20 11:39 | XMS_ITS | Clinical Summary ---
Author Organization [facility] Address [place], [place] [address] Care Team Providers Care Acid Pump Operator Name Role Phone Joi Zavala MD Primary [...] miscellaneous medical supply (DIGITAL BP MONITOR CUFF) MiscIndications:Ty pe II or unspecified type diabetes mellitus without mention of complication, not stated as uncontrolled,Edema As directed. Automatic blood pressure cuff Large arm cuff Diagnosis: Hypertension,401. 1, diabetes mellitus 250.00 1 Each 0 02/25/20 10 Active MISCELLANEOUS MEDICAL SUPPLY (GRADUATED COMPRESSION STOCKINGS)Indicati ons:Pedal edema,Cellulitis and abscess of unspecified site For personal use. Length: calf Strength: 16-20 mmHg Circumference in cm: 2 Packet 2 02/26/20 12 Active insulin needles, disposable, (ULTICARE) 31 X 10/17 Indications:Type II or unspecified type diabetes mellitus without mention of complication, not stated as uncontrolled For administering insulin at home. 400 Each 3 07/20/19 15 Active Insulin Heartwell, Disposable, (PEN NEEDLE) 29 gauge x 1/2Indications:ID DM (insulin dependent diabetes mellitus) For administering insulin at home. 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 Bariatric commode . (Patient weight 300lb.). Patient has poor mobility due to knee arthritis, obesity, prostate cancer, lumbar spinal stenosis 1 Each 11/30/19 18 Active Insulin Syringe-Needle U-100 (LITE TOUCH INSULIN SYRINGE) 0.5 mL 31 gauge x 10/17Indications:In sulin dependent diabetes mellitus As directed. For administering insulin at home. Relion brand syringe 1 box 12/28/19 Active blood sugar diagnostic (ONETOUCH ULTRA BLUE TEST STRIP) stripIndications:T ype 2 diabetes mellitus with complication, with long-term current use of insulin (HC) Dispense item covered by pt ins. E11.65 IDDM type II, uncontrolled - Test 3 - 4 times/day. Reason: High A1C 400 Each 02/28/20 18 Active lancets (ONETOUCH ULTRASOFT LANCETS)Indication s:Type 2 diabetes mellitus with complication, with long-term current use of insulin (HC) Dispense item covered by pt ins. E11.65 IDDM type II, uncontrolled - Test 3 - 4 times/day. Reason: High A1C 400 Each 02/28/20 18 Active diabetic supplies, miscellan.Indicati ons:Type 2 diabetes mellitus with complication, with long-term current use of insulin (HC) Dispense glucose meter, test strips and lancets covered by patient insurance. Test 3-4 times per day. 1 Kit 02/28/20 18 Active cyanocobalamin (VITAMIN B-12) 1,000 mcg tabletIndications: B12 deficiency Take 1 tablet by mouth once daily. 90 tablet 3 10/05/19 Active medication order composerIndication s:Left ischial pressure sore, stage I Donut pillow for home use 1 unit 1 01/02/20 19 Active flash glucose scanning reader (FreeStyle Corry 2 [place]) miscIndications:In sulin dependent type 2 diabetes mellitus (HC) As directed. 1 Each 08/18/19 21 Active Diabetic ShoeIndications:Ty pe 2 diabetes mellitus with complication, with long-term current use of insulin (HC) As directed. 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 Active albuterol (PROVENTIL) 0.083 % neb solution Inhale 2.5 mg via a nebulizer every 4 hours if needed. Active durable medical equipment (DME)Indications:S OB (shortness of breath) Nebulizer and supply kit as covered by insurance 1 Each 03/16/20 22 Active nystatin powder (MYCOSTATIN) powderIndications: Intertrigo APPLY 1 STRIP TOPICALLY TO AFFECTED AREA(S) THREE TIMES DAILY 60 g 3 03/23/20 22 Active memcjaczy-AK-TH-ac etaminophen (Raissa-Westbrook Plus Cold/CoughFm) 2-5-10-325 mg cap Take 1 Capsule by mouth 2 times daily if needed (for congestion). 0 03/23/20 22 Active novofine autocover 30 gauge x 1/3 needleIndications: Type 2 diabetes mellitus with complication, with long-term current use of insulin (HC) USE DIRECTED WITH INSULIN PENS 400 Each 3 03/29/20 22 Active nystatin (MYCOSTATIN) creamIndications:I ntertrigo Apply topically to affected area(s) two times daily. 60 g 3 03/28/20 22 Active sennosides-docusat e (SENOKOT S) (8.6-50 mg) tablet 1 tablet twice daily as needed for constipation 0 03/31/20 22 Active glycopyrrolate (ROBINUL) 1 mg tabletIndications: Drooling Take 1 tablet by mouth daily 90 Tablet 3 04/12/20 22 Active FreeStyle Corry 2 ReaderIndications: Type 2 diabetes mellitus with complication, with long-term current use of insulin (HC) To be used to read blood sugars per gaggerman's directions. 1 Each 05/22/20 22 Active Shower ChairIndications:L ewy body dementia without behavioral disturbance, psychotic disturbance, mood disturbance, or anxiety, unspecified dementia severity (HC) For home use. Shower chair with arms 1 Each 06/02/20 22 Active tacrolimus 0.1% (PROTOPIC) 0.1 % ointmentIndication s:Seborrheic dermatitis Apply topically to affected area(s) two times daily. For eyebrows 60 g 1 11/08/19 23 Active carbidopa-levodopa , 25-100 mg, (SINEMET 25-100) 25-100 mg tabletIndications: Lewy body dementia with behavioral disturbance (HC) Take 3 tablet by mouth three times a day. 270 Tablet 3 01/03/20 23 Active rosuvastatin (CRESTOR) 20 mg tabletIndications: Hyperlipidemia, unspecified hyperlipidemia type Take 1 Tablet (20 mg) by mouth at bedtime. 90 Tablet 3 01/12/20 23 Active oxybutynin (DITROPAN XL) 15 mg CR tabletIndications: Urinary urgency TAKE ONE TABLET BY MOUTH ONCE EVERY DAY NEEDED FOR FREQUENT URINATION. 60 Tablet 3 04/10/20 23 Active FreeStyle Corry 2 SensorIndications: Type 2 diabetes mellitus with complication, with long-term current use of insulin (HC) TO BE USED TO READ BLOOD SUGARS PER QUALITY CHECKER'S DIRECTIONS. 6 Each 3 04/11/20 23 Active FreeStyle Corry 14 Day SensorIndications: Type 2 diabetes mellitus with complication, with long-term current use of insulin (HC) To be used to read blood sugars per gaggerman's directions. FreeStyle Corry 14 day / FreeStyle Corry 2 CGM sensor 6 boxes is 84 day supply 6 Each 3 04/13/20 23 Active clonazePAM (KLONOPIN) 1 mg tablet Take 0.5 mg by mouth at bedtime. Active insulin aspart, U-100, (NOVOLOG FLEXPEN) 100 unit/mL (3 mL) penIndications:Typ e 2 diabetes mellitus without complication, with long-term current use of insulin (HC) INJECT 8 UNITS UNDER THE SKIN AT BREAKFAST, INJECT 6 UNITS AT LUNCH AND INJECT 8 UNITS AT SUPPER. HOLD FOR LESS THAN 150. GIVE AN ADDITIONAL 2 UNITS FOR EVERY 50 UNITS OVER 200 (MAX DOSE 25 UNITS PER DAY) 30 mL 5 06/19/19 24 Active donepeziL (ARICEPT) 5 mg tabletIndications: Memory problem Take 2 Tablets (10 mg) by mouth at bedtime. 07/06/19 24 Active triamcinolone 0.1% TOPICAL (KENALOG) 0.1 % lotionIndications: Rash Apply topically to affected area(s) three times daily. 60 mL 2 07/06/19 24 Active ketoconazole 2% shampoo (NIZORAL) 2 % shampooIndications :Seborrheic dermatitis Shampoo the hair thoroughly once a week 120 mL 3 07/24/19 24 Active omeprazole 20 mg tabletIndications: Gastritis, presence of bleeding unspecified, unspecified chronicity, unspecified gastritis type Take 1 Tablet (20 mg) by mouth once daily before a meal. 90 Tablet 3 08/23/19 24 Active meclizine (ANTIVERT) 25 mg tabletIndications: Vertigo TAKE ONE TABLET BY MOUTH TWICE DAILY NEEDED 180 Tablet 10/25/19 24 Active clopidogreL (PLAVIX) 75 mg tablet Take 75 mg by mouth once daily. Active Lantus Solostar U-100 Insulin 100 unit/mL (3 mL) penIndications:Typ e 2 diabetes mellitus with complication, with long-term current use of insulin (HC) Inject 16 units subcutaneous before bedtime. Product desired: LANTUS SOLOSTAR 10/30/19 24 Active oxygen-air delivery systems (HOME OXYGEN)Indications :Hypoxia,Pickwicki an syndrome (HC),Chronic respiratory failure with hypoxia (HC) Portable conserving oxygen device, POC-Concentrator. Liters per minute: 2 per nasal cannula. Frequency of use: Continuous. Length of need: 99 Months. Chronic oxygen use for hypoxia. Oxygen saturation on room air 88%. 1 Each 10/30/19 24 Active oxygen-air delivery systems (HOME OXYGEN)Indications :Hypoxia,Pickwicki an syndrome (HC) Portable conserving oxygen device, POC-Concentrator. Liters per minute: 2 per nasal cannula. Frequency of use: Continuous. Length of need: 99 Months. 1 Each 09/16/19 22 024 Discontinued(Re order (E-cancel not sent)) meclizine (ANTIVERT) 25 mg tabletIndications: Vertigo TAKE ONE TABLET BY MOUTH TWICE DAILY NEEDED 180 Tablet 1 05/15/20 23 024 Discontinued Lantus Solostar U-100 Insulin 100 unit/mL (3 mL) penIndications:Typ e 2 diabetes mellitus with complication, with long-term current use of insulin (HC) Inject 18 units subcutaneous before bedtime. Product desired: LANTUS SOLOSTAR 3 mL 11 08/06/19 24 024 Discontinued(Re order (E-cancel not sent)) aspirin 325 mg cap Take 325 mg ampicillin by mouth once daily. 09/20/19 24 024 Discontinued(*P atient states no longer taking) Active Problems Problem Noted Date Diagnosed Date Acute septic pulmonary embolism without acute co r pulmonale 06/21/2023 Other acute pulmonary embolism with acute cor pu lmonale 06/21/2023 Type 2 diabetes mellitus wit h stage 1 chronic kidney disease, with long-term current use of insulin 05/18/2023 Skin ulcer of sacrum, unspecified ulcer stage Depression, major, single episode, moderate 0208/2022 Chronic respiratory failure with hypoxia 023 Pickwickian [...] Encounters Date Type Department Care Team Description 10/30/2023 1:50 PM CDT Office Visit [facility] [address] [place] [address] Joi Zavala MD Follow Up (monthly appt-lab work?) 10/30/2023 Travel 10/24/2023 Refill [facility] [address] [place] [address] Joi Zavala MD Refill Request (Meclizine) 10/23/2023 11:00 AM CDT Office Visit [facility] [address] [place] [address] Lesley Garcia MBBS CV General Cardiology Est (EPIFANIO F/U- /follow up of recurrent syncope, bradycardia on Zio patch Per Joi Zavala MD //PCP: Joi Zavala MD/) 10/23/2023 Travel 10/21/2023 Telephone [facility] [address] [place] [address] Joi Zavala MD Results; Referral; Returning call 10/09/2023 Telephone [facility] [address] [place] [address] Joi Zavala MD F/u 10/01/2023 Orders Only [facility] Scanner 1 scan: (1-Ord) [facility], 10/01/2023 09/25/2023 4:00 PM CDT Office Visit [address] [place] [address] 09/25/2023 1:50 PM CDT Office Visit [facility] [address] [place] [address] Joi Zavala MD [facility] F/U (Taking 325 asa daily now/On Cipro/O2 needs to be updated. [employer] call [phone]/Needs 3 readings/With O2/Without O2 /With exercise ); Serious Illness Conversation 09/25/2023 Travel 2023 11:00 AM CDT Ancillary Procedure [facility] [address] [place] [address] 2023 Orders Only [facility] Scanner 1 scan: (1-Ord) [facility], XRAY CHEST 1 VIEW, 2023 2023 Orders Only [facility] Scanner 1 scan: (1-Ord) [facility], MR HEAD/BRAIN WO CON, 2023 2023 Office Visit [facility] [address] [place] [address] Wade Treviño MD 09/16/2023 Orders Only [facility] Scanner 1 scan: (1-Ord) [facility], CT ANGIO HEAD AND NECK , 09/16/2023 09/16/2023 Orders Only [facility] Scanner 1 scan: (1-Ord) [place], ANGIO NECK, 09/16/2023 09/16/2023 Orders Only [facility] Scanner 1 scan: (1-Ord) [place], HEAD, 09/16/2023 09/16/2023 Office Visit [facility] [address] [facility] [address] [facility] [address] [place] [phone] Nithya Damon DO Telehealth (Telestroke encounter, [place] ) 08/28/2023 2:00 PM CDT Office Visit [facility] [address] [place] [phone] Daniel Franks MD Follow Up (6 months follow up on Syncope and falling ) 08/28/2023 Travel 08/23/2023 1:00 PM CDT Office Visit [facility] [address] [place] [address] Joi Zavala MD Follow Up (Seen urologist yesterday, PSA: .4, follow up in 6 months/Continues to have an upset stomach. Better after eating. States he has an ulcer./Still concerned about vein on left wrist sticking up./Walking a little better, used a cane.) 08/23/2023 Travel from Last 3 Months Immunizations Name Administration Dates Next Due AMB Influenza, IIV3 (Age >=3 years)(Flu Clinic Only) 03/05/2013 AMB Influenza, IIV4 PF (=>6 mos Flulaval,Fluzone Fluarix)(Flu Clinic Only) 03/25/2018 COVID-19 Vaccine Spikevax (M oderna 50mcg/0.5mL) 12YO+ [id number] Formula PF 04/13/2023 COVID-19 vaccine (Moderna 100mcg/0.5mL) [...] Sign Reading Time Taken Comments Blood Pressure 124/78 10/23/2023 10:54 AM CDT Pulse 70 10/30/2023 2:16 PM CDT Temperature 37.1 ??C (98.8 ??F) 02/03/2022 12:20 PM C DT Respiratory Rate 18 01/18/2022 12:25 PM CDT Oxygen Saturation 94% 10/30/2023 2:16 PM CDT Inhaled Oxygen Concentration - - Weight 102.1 kg (225 lb) 10/23/2023 10:54 AM CDT Height 170 cm (5' 6.93) 10/23/2023 10:54 AM CDT Body Mass Index 35.31 10/23/2023 10:54 AM CDT Plan of Treatment Upcoming Encounters Date Type Department Care Team (Late st Contact Info) Description 11/29/2023 11:45 AM CDT Orders Only [facility] [address] [place] [address] Lab, [place] 11/29/2023 12:10 PM CDT Office Visit [facility] [address] [facility] [place] [address] Joi Zavala MD [address] [place] [address] Health Maintenance Due Date Last Done Comments Zoster (shingles) series for age 50+ (1 of 2) 05/30/2007 04/04/2007 Tetanus booster 03/14/2022 03/14/2012, 03/04, 04/29/2002 Depression screening for age 12+ 06/02/2023 06/02/2022, 06/02/2022, 03/31/2021, Additional history exists Medicare Wellness for age 65+ 06/03/2023, 03/31/2021, 10/04/2018, Additional history exists COVID-19 vaccine series ( season) 2023 04/13/2023, 03/01/2022, 09/09/2021, Additional history exists Influenza for age 65+ 02/03/2024 02/15/2023 , 03/31/2022, 04/02/2021, Additional history exists BMI (ht and wt on same day) for age 18+ 10/22/2024 10/23/2023, 06/02/2022, 02/08/2021, Additional history exists Tdap Completed 03/14/2012 Pneumococcal series for age 65+ Completed 5, 03/14/2012 Goals Goal Patient Goal Type Associated Problems Recent Progress Patient-Stated? 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 (HC) SCAN-EYE EXAM 10/01/2023 12:00 AM CDT ECHO TTE COMPLETE WO CONTRAST Routine 2023 4:20 PM CDT CVA (cerebral vascular accident) (HC) SCAN-RADIOLOGY REPORT 2023 12:00 AM CDT SCAN-MRI INTERPRETATION 2023 12:00 AM CDT SCAN-ANGIOGRAM 09/16/2023 12:00 AM CDT SCAN-CT INTERPRETATION 4 12:00 AM CDT SCAN-CT INTERPRETATION 4 12:00 AM CDT RED CELL MORPHOLOGY Routine [...] with long-term current use of insulin (HC) from Last 3 Months Results * EKG 12 LEAD (10/23/2023 11:15 AM CDT) Interpretation Sinus bradycardia with 1st degree A-V block Left axis deviation Right bundle branch block Minimal voltage criteria for LVH, may be normal variant ( R in aVL ) Septal infarct , age undetermined Abnormal ECG Ventricular Rate 56 BPM Atrial Rate 56 BPM P-R Interval 210 ms QRS Duration 144 ms QT 456 ms QTc 440 ms P Washington -3 degrees R Washington -33 degrees T Washington 23 degrees 10/23/2023 11:1 5 AM CDT 10/23/2023 6:42 PM CDT Lesley STEWART EKG ORD * EXTENDED HOLTER (10/22/2023) Joi Zavala MD CARDIAC SERVI BENY ORD * SCAN-EYE EXAM (10/01/2023 12:00 AM CDT) Scanner OTHER * ECHO TTE COMPLETE WO CONTRAST (2023 4:20 PM CDT) AORTIC VALVE MEAN PG 4 mmHg EJECTION FRACTION 65 % PEAK TR VELOCITY 2.9 m/s LVEDD 4.5 cm Anatomical Region Laterality Modality Ultrasound 2023 3:43 PM CDT Narrative 09/18/2023 8:35 AM CDT ECHOCARDIOGRAM LEIDY GAYLE ? Accession#: ?? [id number] : ?1940 82 years Study Date: ?? 2023 3:43:54 PM Gender: M ?BP: ? 157/78 mmHg Height: 168.00 cm ?BSA: ?2.11 m? ? ? Weight: 103.00 kg ?Tech: ? MCK ? Referring MD: GRISEL NEWMAN Site: ? [facility] Reading Location: [facility] Patient Location: Outpatient. Procedure: 2D, [...] . This study was interpreted by an [facility] accredited facility. CC: HIM (med records) [facility], Med/Surg - IP [facility]. ??Final ?? Procedure Note Eyal Andujar MD - 09/18/2023 ECHOCARDIOGRAM LEIDY GAYLE : 1940 82 years Study Date: 2023 3:43:54 PM Gender: M BP: 157/78 mmHg Height: 168.00 cm BSA: 2.11 m? ? ? Weight: 103.00 kg Tech: KALLIE Referring MD: GRISEL NEWMAN Site: [facility] Reading Location: [facility] Patient Location: Outpatient. Procedure: 2D, Color [...] [facility] accredited facility. CC: HIM (med records) [facility], Med/Surg - IP [facility]. Final Grisel Newman MD ECHO ORD * SCAN-RADIOLOGY REPORT (2023 12:00 AM CDT) Anatomical Region Laterality [...] 11.0 thou/cu mm 08/23/2023 1:08 PM CDT [facility] RED BLOOD COUNT 4.47 4.30 - 5.90 mil/cu mm 08/23/2023 1:08 PM CDT [facility] HEMOGLOBIN 13.5 13.5 - 17.5 g/dL 08/23/2023 1:08 PM CDT [facility] HEMATOCRIT 41.5 37.0 - 53.0 % 08/23/2023 1:08 PM CDT [facility] MCV 93 80 - 100 fL 08/23/2023 1:08 PM CDT [facility] MCH 30.2 26.0 - 34.0 pg 08/23/2023 1:08 PM CDT [facility] MCHC 32.5 32.0 - 36.0 g/dL 08/23/2023 1:08 PM CDT [facility] RDW 14.8 11.5 - 15.5 % 08/23/2023 1:08 PM CDT [facility] PLATELET COUNT 208 140 - 440 thou/cu mm 08/23/2023 1:08 PM CDT [facility] MPV 11.4(H) 6.5 - 11.0 fL 08/23/2023 1:08 PM CDT [facility] Blood BLOOD SPECIMEN / Unknown Butterfly / Unknown 08/23/2023 12:47 PM CDT 08/23/2023 12:50 PM CDT Joi Zavala MD HEMATOLOGY Performing Organization Address [facility]/ZIP Co de Phone Number [facility] [address] [place] [address], [place] [phone] * RED CELL MORPHOLOGY (08/23/2023 12:47 PM CDT) RBC COMMENT RBC morphology appears normal RBC morphology appears normal, RBC morphology within normal limits for newborns. 08/23/2023 1:08 PM CDT [facility] Blood BLOOD SPECIMEN / Unknown Butterfly / Unknown 08/23/2023 12:47 PM CDT 08/23/2023 12:50 PM CDT Joi Zavala MD HEMATOLOGY Performing Organization Address City/[facility]/ZIP Co de Phone Number [facility] [address] [place] [address], [place] [phone] * PLATELET ESTIMATE (08/23/2023 12:47 PM CDT) PLATELET ESTIMATE Adequate Adequate, No estimate 08/23/2023 1:08 PM CDT [facility] Blood BLOOD SPECIMEN / Unknown Butterfly / Unknown 08/23/2023 12:47 PM CDT 08/23/2023 12:50 PM CDT Joi Zavala MD HEMATOLOGY [facility] [address] [place] [address], * (ABNORMAL) MANUAL DIFFERENTIAL (08/23/2023 12:47 PM CDT) % NEUTROPHILS 54.0 % 08/23/2023 1:08 PM CDT [facility] % LYMPHOCYTES 36.0 % 08/23/2023 1:08 PM CDT [facility] % MONOCYTES 8.0 % 08/23/2023 1:08 PM CDT [facility] % EOSINOPHILS 2.0 % 08/23/2023 1:08 PM CDT [facility] % BASOPHILS 0.0 % 08/23/2023 1:08 PM CDT [facility] NEUTROPHILS ABSOLUTE 5.1 1.7 - 7.0 thou/cu mm 08/23/2023 1:08 PM CDT [facility] LYMPHOCYTES ABSOLUTE 3.4(H) 0.9 - 2.9 thou/cu mm 08/23/2023 1:08 PM CDT [facility] MONOCYTES ABSOLUTE 0.8 <0.9 thou/cu mm 08/23/2023 1:08 PM CDT [facility] EOSINOPHILS ABSOLUTE 0.2 <0.5 thou/cu mm 08/23/2023 1:08 PM CDT [facility] BASOPHILS ABSOLUTE 0.0 <0.3 thou/cu mm 08/23/2023 1:08 PM CDT [facility] Blood BLOOD SPECIMEN / Unknown Butterfly / Unknown 08/23/2023 12:47 PM CDT 08/23/2023 12:50 PM CDT Joi Zavala MD HEMATOLOGY [facility] [address] [place] [address], * PSA TOTAL (DIAGNOSTIC) (08/23/2023 12:47 PM CDT) PSA TOTAL (DIAGNOSTIC) 0.49 <4.00 ng/mL 08/23/2023 9:26 PM CDT [facility] Blood BLOOD SPECIMEN / Unknown Butterfly / Unknown 08/23/2023 12:47 PM CDT 08/23/2023 12:50 PM CDT [facility] LABORATORY - 08/23/2023 9:26 PM CDT The [...] be used interchangeably. Joi Zavala MD CHEMISTRY [facility] [address] [place] [address], * (ABNORMAL) HEMOGLOBIN A1C MONITORING (POCT) (08/23/2023 12:47 PM CDT) HEMOGLOBIN A1C MONITORING (POCT) 8.0(H) <=6.4 % 08/23/2023 12:59 PM CDT [facility] Blood BLOOD SPECIMEN / Unknown Butterfly / Unknown 08/23/2023 12:47 PM CDT 08/23/2023 12:50 PM CDT [facility] - 08/23/2023 12:59 PM CDT ? (<=6.9%) [...] Anemias, Splenectomy ? Joi Zavala MD CHEMISTRY [facility] [address] [place] [address], * (ABNORMAL) BASIC METABOLIC PANEL (08/23/2023 12:47 PM CDT) SODIUM 140 136 - 145 mmol/L 08/23/2023 9:26 PM CDT [facility] POTASSIUM 4.6 3.5 - 5.1 mmol/L 08/23/2023 9:26 PM CDT [facility] CHLORIDE 105 98 - 107 mmol/L 08/23/2023 9:26 PM CDT [facility] CO2,TOTAL 23 22 - 29 mmol/L 08/23/2023 9:26 PM CDT [facility] ANION GAP 12 5 - 18 08/23/2023 9:26 PM CDT [facility] GLUCOSE 208(H) 70 - 99 mg/dL 08/23/2023 9:26 PM CDT [facility] CALCIUM 8.5(L) 8.8 - 10.2 mg/dL 08/23/2023 9:26 PM CDT [facility] BUN 18 8 - 23 mg/dL 08/23/2023 9:26 PM T [facility] CREATININE 1.12 0.70 - 1.20 mg/dL 08/23/2023 9:26 PM CDT [facility] BUN/CREAT RATIO 16 10 - 20 9:26 PM T [facility] eGFR 66(L) >90 mL/min/1.7 3m2 08/23/2023 9:26 PM CDT [facility] Comment:As of 2021, eG [...] 12:50 PM CDT Joi Zavala MD CHEMISTRY [facility] [address] [place] [address], from Last 3 Months Advance Directives Documents on File Type Date Recorded Patient Facility Manager Expl anation POLST 09/25/2023 Healthcare Directive 09/14/2021 7:36 AM HE [facility]TH CARE DRECTIVE/ 09/14/2021 Care Teams Acid Pump Operator Relationship Specialty Start Date End Date Joi Zavala MD [address] [place] [address] PCP - General 03/08/05 Ruben Fernandez MD [address] [place] [address] Sports Medicine 09/05/12
--- OUTSIDE RECORDS SUMMARY | 2023-11-20 11:39 | XMS_ITS | Referral Summary ---
Author Organization [facility] Address [address] [place] [address] Care Team Providers Care Quality Assurance Associate Name Role Phone Unavailable Primary Care Provider Unavailabl e Source Comments Patient records contain information from all sites at [facility]. For routine questions regarding patient records, call [phone] during business hours, M-F 8:00 AM - 5:00 PM Central Time. Record requests for emergency care only can be directed to [phone] at any time.[facility] Allergies Active Allergy Reactions Criticality Noted [...] Test 2-3 times/day. 05/30/2017 Active blood-glucose meter [facility] Dispense glucose meter, test strips and lancets covered by the patient insurance. Test 3-4 times per day DX E11.9 09/19/2016 Active clotrimazole-betame thasone (for_LOTRISONE) 1-0.05 % cream Apply 1 application topically 2 (two) times a day. 03/01/2017 Active miscellaneous medical supply [facility] Autotitration cpap 4-20cm of H2O, with accessories dx327.23, he will need oxygen 2 liters bled into it 05/25/2008 Active miscellaneous medical supply [facility] As directed. Diabetic shoes diagnosis 250.00, 1 [...] 16-20 mmHg 02/26/2012 Active [facility] As directed. Automatic blood pressure cuff Large [...] Apply topically. 01/05/2020 Active diabetic supplies, [place]. [facility] [place]pense glucose meter, test strips and lancets covered by patient insurance. Test 3-4 times per day. 02/27/2018 Active donepeziL (ARICEPT) 5 mg tablet Take 5 mg by mouth. 02/08/2021 Acti ve ferrous gluconate (FERGON) 324 mg (38 mg iron) tablet Take 1 tablet by mouth. 12/13/2018 Active FreeStyle Corry 14 Day [place] misc 03/10/2021 Active furosemide (LASIX) 40 mg tablet [...] Comments Blood Pressure 169/94 07/17/2022 1:43 PM EPIC RADIANT ANALYST Pulse 57 07/17/2022 1:43 PM EPIC RADIANT ANALYST Temperature 36.2 ??C (97.2 ??F) 07/17/2022 1 :43 PM EPIC RADIANT ANALYST Respiratory Rate 16 07/21/2015 4:13 PM EPIC RADIANT ANALYST Oxygen Saturation - - Inhaled Oxygen Concentration - - Weight 105 kg (230 lb 9.6 oz) 07/17/2022 1:43 PM EPIC RADIANT ANALYST Height 171 cm (5' 7.32) 03/01/2017 8:4 4 AM CDT Vital sign result from Clinical Notes. Body Mass Index 35.77 03/01/2017 8:44 AM CDT Plan of Treatment Not on file
--- OUTSIDE RECORDS SUMMARY | 2023-11-20 11:39 | XMS_ITS | Clinical Summary ---
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 For routine questions regarding patient records, call [phone] during business hours, M-F 8:00 AM - 5:00 PM Central Time. Record requests for emergency care only can be directed to [phone] at any time.[facility] Allergies Active Allergy Reactions Criticality Noted Date [...] Test 2-3 times/day. 05/30/2017 Active blood-glucose meter [facility] Dispense glucose meter, test strips and lancets covered by the patient insurance. Test 3-4 times per day DX E11.9 09/19/2016 Active clotrimazole-betame thasone (for_LOTRISONE) 1-0.05 % cream Apply 1 application topically 2 (two) times a day. 03/01/2017 Active miscellaneous medical supply [facility] Autotitration cpap 4-20cm of H2O, with accessories dx327.23, he will need oxygen 2 liters bled into it 05/25/2008 Active miscellaneous medical supply [facility] As directed. Diabetic shoes diagnosis 250.00, 1 [...] 16-20 mmHg 02/26/2012 Active [facility] As directed. Automatic blood pressure cuff Large [...] Apply topically. 01/05/2020 Active diabetic supplies, [employer]. [facility] Dispense glucose meter, test strips and lancets covered by patient insurance. Test 3-4 times per day. 02/27/2018 Active donepeziL (ARICEPT) 5 mg tablet Take 5 mg by mouth. 02/08/2021 Acti ve ferrous gluconate (FERGON) 324 mg (38 mg iron) tablet Take 1 tablet by mouth. 12/13/2018 Active FreeStyle Corry 14 Day [place] misc 03/10/2021 Active furosemide (LASIX) 40 mg [...] Comments Blood Pressure 169/94 07/17/2022 1:43 PM SENIOR RESEARCH EXECUTIVE Pulse 57 07/17/2022 1:43 PM SENIOR RESEARCH EXECUTIVE Temperature 36.2 ??C (97.2 ??F) 07/17/2022 1 :43 PM SENIOR RESEARCH EXECUTIVE Respiratory Rate 16 07/21/2015 4:13 PM SENIOR RESEARCH EXECUTIVE Oxygen Saturation - - Inhaled Oxygen Concentration - - Weight 105 kg (230 lb 9.6 oz) 07/17/2022 1:43 PM SENIOR RESEARCH EXECUTIVE Height 171 cm (5' 7.32) 03/01/2017 8:4 [...] Fall Risk Screen (Annual) 06/04/2023 COVID-19 Vaccine (2022- 4 season) 2023 04/13/2023, 03/01/2022, 09/09/2021, Additional history exists Pneumococcal vaccine (65+ years) Completed 05/04/20 15, 03/14/2012 Influenza Vaccine Completed 02/15/2023, , 04/02/2021, Additional history exists
[2023-11-20 12:03] LABS: Basophils Percent Auto 0.2 % (0.0-3.0); Eosinophils Percent Auto 0.2 % (0.0-7.0); Hematocrit 39.7 % (37.0-53.0); Hemoglobin* 12.8 gm/dL (13.5-17.5); Immature Granulocytes Pct Auto 0.1 %; Lymphocytes Percent Auto 19.4 % (20-44); Mean Corpuscular HGB Conc 32 gm/dL (32-36); Mean Corpuscular Hemoglobin 30 pg (26-34); Mean Corpuscular Volume 92 fL (80-100); Monocytes Percent Auto 6.2 % (0.0-11.0); Neutrophils Percent Auto 73.9 % (42.0-72.0); Platelet Count* 183 K/uL (140-440); RDW Coefficient of Variation % 14.5 % (11.5-15.5); Red Blood Count 4.32 m/uL (4.30-5.90); White Blood Count* 14.29 K/uL (4.50-11.00)
[2023-11-20 12:06] LABS: Slide Review Reflex No
[2023-11-20 12:14] LABS: Troponin, Point-of-Care* 0.02 ng/ml (0.01-0.04)
[2023-11-20 12:45] LABS: Chloride* 106 mmol/L (96-114); Potassium* 4.2 mmol/L (3.6-5.1); Sodium* 137 mmol/L (135-149)
[2023-11-20 12:48] LABS: Anion Gap 9 mEq/L (7-15); Carbon Dioxide* 22 mmol/L (20-32); Creatinine* 1.2 mg/dL (0.5-1.5); Est. Creatinine Clearance* 42.83; Estimated Glomerular Filt Rate 60 ml/min
[2023-11-20 12:49] LABS: Blood Urea Nitrogen* 28 mg/dL (7-30); Glucose* 242 mg/dL (60-115)
[2023-11-20 13:01] LABS: Troponin I* < 0.01 ng/mL (0.01-0.04)
[2023-11-20 13:29] LABS: Appearance Urine Clear (Clear); Bilirubin Urine Negative (Negative); Blood Urine Negative (Negative); Color Urine Dark yellow (Yellow); Glucose Urine Negative (Negative); Ketones Urine Negative (Negative); Leukocyte Esterase Urine Negative (Negative); Nitrite Urine Negative (Negative); Protein Urine Negative (Negative); Specific Gravity Urine 1.025 (1.000-1.030); Urobilinogen Urine 0.2 (0.2-1.0)
[2023-11-20 13:29] LABS: C Reactive Protein* 3.7 mg/dL (0.5-1.0)
[2023-11-20 13:39] LABS: Bacteria Urine Few; RBC Urine 0-2 (0-2); Squamous Epithelial Cell Urine Few (None-Few); WBC Urine 0-2 (0-5)
[2023-11-20] MEDS: 0.9 % SODIUM CHLORIDE 1000 ml 1,000 ML IV (14:15)
--- NOTE | 2023-11-20 14:38 | CRLHL7_ITS ---
For Patients: As a result of the Century Cures Act, medical imaging exams and procedure reports are released immediately into your electronic medical record. You may view this report before your referring provider. If you have questions, please contact your health care provider. Indication: Hypoxia, leukocytosis and elevated CRP Technique: Chest 2 views Comparison: Chest x-ray 11/20/2023 Findings/Impression: Cardiovascular and mediastinum: Mild cardiomegaly with aortic tortuosity. Lungs and pleural spaces: Low lung volumes although slightly improved compared to the prior exam without pleural effusion or pneumothorax. Patchy right basilar airspace disease, atelectasis versus pneumonia. Bones and soft tissues: No significant findings. Dictated by John Beal MD @ 11/20/2023 3:13:53 PM (Electronically Signed)
[2023-11-20 14:55] LABS: PCR FLU A Negative PCR FLU A (Negative); PCR FLU B Negative PCR FLU B (Negative); PCR RSV Negative PCR RSV (Negative); SARS PCR* Negative SARS-CoV-2 (Negative)
[2023-11-20] MEDS: cefTRIAXone 1 GM in 0.9 % SODIUM CHLORIDE Mini-bag 100 ML IVPB (15:27)
== END 2023-11-20 16:17 | disposition home or self-care (01) ==
PROVIDERS: Emergency Provider Family Medicine; PCP Family Medicine
DX: R53.1 Weakness (principal); R09.02 Hypoxemia; J18.9 Pneumonia, unspecified organism
CPT/HCPCS: 36415; 71045; 71046; 80048; 81001; 84484; 85025; 86140; 87086; 87186; 87631; 93005; 94761; 96365; 99284; 99285; J0696; J7030

== ENCOUNTER 2023-12-11 10:51 | Emergency (ER) | payer MEDICARE, SELFPAY ==
[2023-12-11 10:59] VITALS: BP 127/86; PULSE 50; RESP 16; TEMP 35.8; O2SAT 92; BMI 35.1
--- NOTE | 2023-12-11 11:02 | ED_ITS ---
HPI - Fall General Time Seen by Provider: 11:02 Date Seen: 12/11/23 Chief Complaint: Fall/Minor Trauma Stated Complaint: Fall Time Seen by Provider: 12/11/23 11:01 Source: patient, family, EMS, RN notes reviewed and old records reviewed Mode of arrival: ambulatory Limitations: no limitations History of Present Illness HPI Narrative: 83-year-old male who comes in today after fall. Patient was in a barone to go to the bathroom, tripped on his feet and fell. Spouse who is with him and witnessed the fall reports that he hit the back of his head, also landed on his back. Patient self complains of some left mid back pain, denies loss of consciousness, no headache, no neck pain. Also some pain in the left elbow and some skin tears in this area. Denies any other injuries. Patient denies lightheadedness, chest pain, or palpitations preceding his fall and is not on blood thinners currently. Related Data Home Medications ?Medication ?Instructions ?Recorded ?Confirmed carbidopa 25 mg-levodopa 100 mg 3 tab PO TID 01/01/22 09/16/23 tablet clonazepam 0.5 mg tablet 0.5 mg PO HS 01/01/22 12/11/23 donepezil 10 mg tablet 10 mg PO HS 01/01/22 12/11/23 meclizine 25 mg tablet 25 mg PO BID PRN 01/01/22 12/11/23 oxybutynin chloride 15 mg 15 mg PO DAILY PRN 01/01/22 12/11/23 tablet,extended release 24 hr rosuvastatin 20 mg tablet 20 mg PO HS 01/01/22 12/11/23 glycopyrrolate 1 mg tablet 1 mg PO DAILY 02/14/22 12/11/23 Lactobacillus acidophilus 10 10 mg PO DAILY 02/15/22 12/11/23 billion cell capsule (Probiotic) cyanocobalamin (vitamin B-12) 1,000 mcg PO DAILY 02/15/22 12/11/23 1,000 mcg tablet insulin aspart U-100 100 unit/mL 6 unit subcut DAILY@1200 12/31/22 12/11/23 (3 mL) subcutaneous pen (Novolog FlexPen U-100 Insulin aspart) insulin aspart U-100 100 unit/mL 8 unit subcut DAILY@0800 12/31/22 12/11/23 (3 mL) subcutaneous pen (Novolog FlexPen U-100 Insulin aspart) insulin glargine 100 unit/mL (3 18 unit subcut HS 01/01/23 12/11/23 mL) subcutaneous pen (Lantus Solostar U-100 Insulin) omeprazole 20 mg capsule,delayed 20 mg PO DAILY 09/16/23 12/11/23 release insulin aspart U-100 100 unit/mL 8 unit subcut DAILY@1800 09/17/23 12/11/23 (3 mL) subcutaneous pen (Novolog FlexPen U-100 Insulin aspart) nystatin 100,000 unit/gram topical 1 applic topical BID 09/17/23 12/11/23 cream sennosides 8.6 mg-docusate sodium 1 tab PO BID PRN constipation 09/17/23 12/11/23 50 mg tablet (Stool Softener-Laxative) Previous Rx's ?Medication ?Instructions ?Recorded insulin aspart U-100 100 unit/mL See Rx Instructions .Route 02/21/22 (3 mL) subcutaneous pen (Novolog .COMPLEX #15 mL FlexPen U-100 Insulin aspart) nystatin 100,000 unit/gram topical 1 applic topical TID #15 grams 02/21/22 powder aspirin 325 mg tablet,delayed 325 mg PO DAILY #90 tabs 09/20/23 release ciprofloxacin HCl 250 mg tablet 250 mg PO BID #12 tabs 09/20/23 Allergies Allergy/AdvReac Type Severity Reaction Status Date / Time bacitracin Allergy Unknown Rash Verified 12/11/23 11:11 [facility] Medical History Pressure-induced deep tissue damage of left heel ?L89.626 - Pressure-induced deep tissue damage of left heel (ICD-10) Pressure-induced deep tissue damage of right heel ?L89.616 - Pressure-induced deep tissue damage of right heel (ICD-10) Parkinsonism ?G20.C - Parkinsonism, unspecified (ICD-10) Lewy body dementia ?G31.83 - Dementia with Lewy bodies (ICD-10) ?F02.80 - Dementia in other diseases classified elsewhere without behavioral disturbance (ICD-10) Lymphedema ?I89.0 - Lymphedema, not elsewhere classified (ICD-10) Pulmonary embolism ?I26.99 - Other pulmonary embolism without acute cor pulmonale (ICD-10) History of external beam radiation therapy ?Z92.3 - Personal history of irradiation (ICD-10) Insulin dependent type 2 diabetes mellitus ?E11.9 - Type 2 diabetes mellitus without complications (ICD-10) ?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 (ICD-10) Prostate cancer ?C61 - Malignant neoplasm of prostate (ICD-10) CKD (chronic kidney disease) ?N18.9 - Chronic kidney disease, unspecified (ICD-10) MAYA (obstructive sleep apnea) ?G47.33 - Obstructive sleep apnea (adult) (pediatric) (ICD-10) Parkinson disease ?G20 - Parkinson's disease (ICD-10) Spinal stenosis ?M48.00 - Spinal stenosis, site unspecified (ICD-10) Reflux gastritis ?K29.60 - Other gastritis without bleeding (ICD-10) Diabetes ?E11.9 - Type 2 diabetes mellitus without complications (ICD-10) Hypercholesteremia ?E78.00 - Pure hypercholesterolemia, unspecified (ICD-10) Hypertension ?I10 - Essential (primary) hypertension (ICD-10) Surgical History History of cataract surgery ?Z98.49 - Cataract extraction status, unspecified eye (ICD-10) History of meniscectomy of left knee ?Z98.890 - Other specified postprocedural states (ICD-10) History of total left knee replacement ?Z96.652 - Presence of left artificial knee joint (ICD-10) History of lumbar discectomy ?Z98.890 - Other specified postprocedural states (ICD-10) History of transurethral resection of prostate ?Z98.890 - Other specified postprocedural states (ICD-10) ?Z90.79 - Acquired absence of other genital organ(s) (ICD-10) Family History Father Diabetes Cardiovascular disease Social History Narrative: He lives with his Phuong (medical decision maker if needed), in their own home near [place]. She is primary caregiver, does use help and family for occasional respite. Uses wheelchair and walker for ambulation, often falls at home. Nonsmoker. Rare ETOH. Requests DNR/DNI status. What is your current living situation?: I presently have a place to live Problems where you live: no known problems Problems where you live details: n/a In the past 12 months, utilities in danger of being shut off: no In past 12 months, lack of transportation kept you from medical appts, meetings, work, or getting things needed for daily living: no In the past 12 mos, have been you worried that your food would run out before you had money to buy more?: never true In the past 12 mos, the food you bought just didn't last and you didn't have money to buy more?: never true Highest level of school completed/degree received: 12th grade, no diploma Smoking Status: Former smoker Do you use any of these nicotine containing products: None Second hand tobacco smoke exposure: No How often do you have a drink containing alcohol: never How often do you have six or more drinks on one occasion: Never AUDIT-C Alcohol total score: 0 Non-prescribed substance use: marijuana (any form) Non-prescribed substance use details: Marijuana in liquid form orally Caffeine: Yes How often does anyone, including family, friends and others, physically hurt you : never How often does anyone, including family, friends and others, insult or talk down to you: never How often does anyone, including family, friends and others, threaten you with harm: never How often does anyone, including family, friends and others, scream or curse at you: never service: Yes ([employer]) Exam Narrative: Exam Narrative: General: Well-developed and well-nourished, no acute distress Head: Atraumatic and normocephalic Eyes: Pupils are equal reactive, extraocular motions intact, conjunctiva clear ENT: External nose and ears are normal, posterior pharynx without erythema or exudate Neck: No midline cervical tenderness, full spontaneous range of motion the neck, trachea midline, no adenopathy Heart: Regular rate and rhythm no murmurs or thrills Lungs: Clear to auscultation bilaterally without wheezes or crackles Abdomen: Soft, nontender, nondistended with active bowel sounds Musculoskeletal: Mild tenderness of the left lower ribcage, no midline lumbar thoracic tenderness. Pain of the left elbow with movement Neurologic: Awake, alert, and oriented x3, no gross focal neurologic deficits, cranial nerves intact as tested Psych: Mood and affect are appropriate Skin: Skin tears- 4 cm curvilinear skin tear on the dorsum of the left hand, to 4 cm skin tears of the left elbow. Const: Vital Signs, click to edit/add: Vital Signs - 24 hr 12/11/23 10:59 12/11/23 11:30 12/11/23 12:20 Temperature 96.5 F L Pulse Rate [Pulse Oximeter] 50 L 50 L 47 L Respiratory Rate 16 16 18 Blood Pressure [Ri ght Upper Arm] 127/86 162/101 H 177/79 H Pulse Oximetry 92 93 99 Oxygen Delivery Me thod Room Air Nasal Cannula Nasal Cannula Oxygen Flow Rate 2 2 Course Course ED Course: Patient seen and examined, room mood most recent emergency department visit from November 19 when patient was seen with shortness of breath, patient is consistently on 2 L of oxygen, that time no definite etiology for his hypoxia was found patient remained with normal oxygen saturations throughout his time in the emergency department. Patient presents today after fall at home, did hit his head but no loss of consciousness, no external signs of acute injury but does have some bruising of the left parietal area due to a fall last week. CT scan of the head is ordered. Patient also complains of some mid back pain alth ough this more is in the left posterior rib area, CT scan will be ordered to evaluate lumbar and thoracic spine as well as ribs. X-ray of the left elbow although this appears to represent soft tissue injury. A wounds will be dressed in anticipate discharge if imaging does not demonstrate acute emergent pathology requiring more aggressive intervention. Reevaluation(s) Time of Reevaluation #1: 12:23 Reevaluation #1: X-ray of the left elbow independently interpreted by me negative for acute fracture. CT scan of the head independently interpreted by me does not demonstrate any acute intracranial pathology. Time of Reevaluation #2: 13:16 Reevaluation #2: Reviewed radiology interpretation of CT lumbar spine, thoracic spine, and chest all of which are negative for acute findings. Patient stable for discharge with outpatient follow-up, no medication changes today, should continue his aspirin 325 mg daily as well as his carbidopa levodopa 3 tablets t.i.d.. Vital Signs Vital signs: Initial Vital Signs Temperature 96.5 F L 12/11/23 10:59 Temperature Source Temporal Artery Scan 12/11/23 10:59 Pulse Rate 50 L 12/11/23 10:59 Respiratory Rate 16 12/11/23 10:59 Blood Pressure 127/86 12/11/23 10:59 Blood Pressure Mean 99 12/11/23 10:59 Blood Pressure Position Sitting 12/11/23 10:59 Pulse Oximetry 92 12/11/23 10:59 Oxygen Delivery Method Room Air 12/11/23 10:59 Vital Signs Temperature 96.5 F L 12/11/23 10:59 Pulse Rate 50 L 12/11/23 10:59 Respiratory Rate 16 12/11/23 10:59 Blood Pressure 127/86 12/11/23 10:59 Pulse Oximetry 92 12/11/23 10:59 Oxygen Delivery Method Room Air 12/11/23 10:59 Temperature 96.5 F L 12/11/23 10:59 Pulse Rate 47 L 12/11/23 12:20 Respiratory Rate 18 12/11/23 12:20 Blood Pressure 177/79 H 12/11/23 12:20 Pulse Oximetry 99 12/11/23 12:20 Oxygen Delivery Method Nasal Cannula 12/11/23 12:20 Oxygen Flow Rate 2 12/11/23 12:20 Discharge Plan Discharge Clinical Impression: Skin tear of left elbow without complication, Tear of skin of left wrist, Contusion of flank, Frequent falls Patient Disposition: Home w/ Parent or Adult Condition: Stable Instructions: Contusion in Adults (ED), Skin Avulsion (ED) Activity Level: Activity as Tolerated Discharge Diet: Regular Prescriptions: No Action glycopyrrolate 1 mg tablet 1 mg PO DAILY cyanocobalamin (vitamin B-12) 1,000 mcg tablet 1,000 mcg PO DAILY Probiotic 10 billion cell capsule 10 mg PO DAILY insulin aspart U-100 [Novolog FlexPen U-100 Insulin] 100 unit/mL (3 mL) Insulin Pen See Rx Instructions .ROUTE .COMPLEX Qty: 15 0RF Rx Instructions: Blood Glucose 150 or less No coverage Blood Glucose 151-200 1 unit Blood Glucose 201-250 2 units Blood Glucose 251-300 3 units Blood Glucose 301-350 4 units Blood Glucose 351 to 400 5 units Blood Glucose 401 and greater 6 units and recheck in 2 hours nystatin 100,000 unit/gram Powder 1 applic topical TID Qty: 15 0RF insulin aspart U-100 [Novolog FlexPen U-100 Insulin] 100 unit/mL (3 mL) Insulin Pen 6 unit subcut DAILY@1200 insulin aspart U-100 [Novolog FlexPen U-100 Insulin] 100 unit/mL (3 mL) Insulin Pen 8 unit subcut DAILY@0800 insulin glargine [Lantus Solostar U-100 Insulin] 100 unit/mL (3 mL) insulin pen 18 unit subcut HS omeprazole 20 mg capsule,delayed release(DR/EC) 20 mg PO DAILY nystatin 100,000 unit/gram cream 1 applic topical BID sennosides-docusate sodium [Stool Softener-Laxative] 8.6-50 mg Tablet 1 tab PO BID PRN (Reason: constipation) insulin aspart U-100 [Novolog FlexPen U-100 Insulin] 100 unit/mL (3 mL) Insulin Pen 8 unit subcut DAILY@1800 ciprofloxacin HCl 250 mg Tablet 250 mg PO BID Qty: 12 0RF aspirin 325 mg Tablet,Delayed Release (Dr/Ec) 325 mg PO DAILY Qty: 90 0RF oxybutynin chloride 15 mg tablet extended release 24hr 15 mg PO DAILY PRN donepezil 10 mg tablet 10 mg PO HS clonazepam 0.5 mg tablet 0.5 mg PO HS meclizine 25 mg tablet 25 mg PO BID PRN carbidopa-levodopa 25-100 mg tablet 3 tab PO TID rosuvastatin 20 mg tablet 20 mg PO HS Follow Up/Referrals: Joi Zavala MD [Primary Care Provider] - Stand Alone Forms: [facility] Info Instructions
--- NOTE | 2023-12-11 11:16 | CRLHL7_ITS ---
For Patients: As a result of the Cures Act, medical imaging exams and procedure reports are released immediately into your electronic medical record. You may view this report before your referring provider. If you have questions, please contact your health care provider. Indication: FALL, ELBOW PAIN AND SKIN TEARS Technique: Three views of the left elbow. Comparison: None. Findings: No acute displaced fracture or malalignment. No significant elbow joint effusion. Impression: No acute displaced fracture or malalignment. Dictated by Chris Henry MD @ 12/11/2023 12:39:12 PM (Electronically Signed)
--- NOTE | 2023-12-11 11:16 | CRLHL7_ITS ---
For Patients: As a result of the Century Cures Act, medical imaging exams and procedure reports are released immediately into your electronic medical record. You may view this report before your referring provider. If you have questions, please contact your health care provider. INDICATION: FALL. HEAD INJURY TECHNIQUE: CT of the head was performed without IV contrast. COMPARISON: 09/17/2023. FINDINGS: Parenchyma: No acute hemorrhage. Peripheral hypoattenuation measuring 1.4 x 1.3 centimeter is seen in the left cerebellum (2/20). Moderate scattered periventricular white matter hypoattenuation is nonspecific and is favored to represent chronic small vessel ischemic disease. Ventricles and extra-axial spaces: Mild involutional changes. Visualized paranasal sinuses: Mucosal thickening of the right maxillary sinus. Debris is seen in the right sphenoid sinus. Mastoid air cells: Partially opacified bilaterally. Bones: No focal abnormality. Additional comment: Bilateral lens surgery. IMPRESSION: 1. No acute hemorrhage. 2. Peripheral hypoattenuation measuring 1.4 x 1.3 centimeter is seen in the left cerebellum, which is new since prior examination 09/17/2023. 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 Consider MRI for further evaluation. Please note that all CT scans at this facility use dose modulation, iterative reconstruction, and/or weight-based dosing when appropriate to reduce radiation dose to as low as reasonably achievable. Dictated by Chris Henry MD @ 12/11/2023 12:46:59 PM (Electronically Signed)
--- NOTE | 2023-12-11 11:16 | CRLHL7_ITS ---
For Patients: As a result of the Century Cures Act, medical imaging exams and procedure reports are released immediately into your electronic medical record. You may view this report before your referring provider. If you have questions, please contact your health care provider. INDICATION: FALL. BACK PAIN TECHNIQUE: CT of the thoracic spine was performed without intravenous contrast. COMPARISON: 11/27/2021 FINDINGS: Alignment: Normal. Vertebrae: Vertebral bodies and posterior elements are intact without acute fracture. Moderate multilevel degenerative changes of the visualized spine. Extra-vertebral soft tissues: Normal. Visualized lungs: Please see separately dictated same day CT of the chest. Additional comment: None. IMPRESSION: No acute displaced fracture or malalignment of the thoracic spine. Please note that all CT scans at this facility use dose modulation, iterative reconstruction, and/or weight-based dosing when appropriate to reduce radiation dose to as low as reasonably achievable. Dictated by Chris Henry MD @ 12/11/2023 1:07:08 PM (Electronically Signed)
--- NOTE | 2023-12-11 11:16 | CRLHL7_ITS ---
For Patients: As a result of the Century Cures Act, medical imaging exams and procedure reports are released immediately into your electronic medical record. You may view this report before your referring provider. If you have questions, please contact your health care provider. INDICATION: FALL. BACK PAIN TECHNIQUE: CT of the lumbar spine was performed without intravenous contrast. COMPARISON: 11/27/2021. FINDINGS: Alignment: Normal. Vertebrae: Osteopenia. Vertebral bodies and posterior elements are intact without acute fracture. Moderate multilevel degenerative changes of the visualized spine. Healed chronic posterior right 11th rib fracture deformity. Extra-vertebral soft tissues: Normal. Visualized abdomen/pelvis: Partial visualization of right renal cysts. Moderate vascular calcification. Additional comment: None. IMPRESSION: No acute displaced fracture or malalignment of the lumbar spine. Healed chronic posterior right 11th rib fracture deformity. Please note that all CT scans at this facility use dose modulation, iterative reconstruction, and/or weight-based dosing when appropriate to reduce radiation dose to as low as reasonably achievable. Dictated by Chris Henry MD @ 12/11/2023 1:13:32 PM (Electronically Signed)
--- NOTE | 2023-12-11 11:16 | CRLHL7_ITS ---
For Patients: As a result of the Century Cures Act, medical imaging exams and procedure reports are released immediately into your electronic medical record. You may view this report before your referring provider. If you have questions, please contact your health care provider. INDICATION: FALL. RIB PAIN TECHNIQUE: CT of the chest was performed without intravenous contrast. Please note that all CT scans at this facility use dose modulation, iterative reconstruction, and/or weight-based dosing when appropriate to reduce radiation dose to as low as reasonably achievable. COMPARISON: 11/27/2021 FINDINGS: Medical devices: None. Thyroid: 1.6 centimeter right thyroid nodule (3/16). Recommend further evaluation with ultrasound for a thyroid nodule measuring <= 1.5 cm in a patient <= 35 years of age, as is appropriate taking into consideration the patient???s comorbidities and life expectancy. Adapted from Consensus Recommendations, J Am Giselle Radiol 2015;12:143???150. Lymph nodes: Limited evaluation without IV contrast. No supraclavicular, axillary, mediastinal, or hilar lymphadenopathy. Vasculature: Limited evaluation without IV contrast. Aorta and main pulmonary artery diameters are within normal range. Mild aortic calcification. Heart: Moderate coronary artery calcification. No pericardial effusion. Other mediastinal structures: No significant abnormality. Lung parenchyma: Pmbz-id-pcowqunb bilateral dependent atelectasis. 4 millimeter right upper lobe pulmonary nodule (6/23). Redemonstration of 4 millimeter left upper lobe pulmonary nodule (6/37). Airways: Mild bronchial wall thickening. Pleura: No significant abnormality. Chest wall: No significant abnormality. Upper abdomen: No significant abnormality. Musculoskeletal: Right humeral head suture anchors. Osteopenia. Minimal chronic appearing right-sided rib deformities. IMPRESSION: 1. No acute displaced rib fractures. 2. Mild bronchial wall thickening may represent areas of infection or inflammation. 3. 4 millimeter bilateral upper lobe pulmonary nodules. Consensus guidelines for single or multiple solid lung nodules less than 6 mm, not applicable if known malignancy or immunocompromise: Low risk: No routine follow-up. High risk without suspicious morphology AND not in upper lobe: Consider CT at 12 months. High risk AND nodule(s) with suspicious morphology OR in upper lobe: Strongly consider CT at 12 months. (Frank, et al. Radiology 2017) Please note that all CT scans at this facility use dose modulation, iterative reconstruction, and/or weight-based dosing when appropriate to reduce radiation dose to as low as reasonably achievable. Dictated by Chris Henry MD @ 12/11/2023 1:01:34 PM (Electronically Signed)
--- OUTSIDE RECORDS SUMMARY | 2023-12-11 11:25 | XMS_ITS | Data Portability ---
Author Organization [place] [facility] Address [address] [place] [address] Care Team Providers Care Instrument Mechanic Weapons System Name Role Phone [facility] Primary Care Pro vider Assessment No assessment recorded. Plan of Treatment Reminders Order Date Submit Date Provider Last Modified By Organization Details Last Modified Time Details Appointments ESTABLISH ED 10 2023 01:40P Domingo Cai MD Not available Not available Not available Lab PSA, total, serum or plasma 2022 023 [email or web address] Not available 02/23/2023 10:15:46 PSA, serum or plasma 2023 024 [email or web address] [id number] [facility], [address], [place], [address], 08/22/2023 16:07:10 PSA, total, serum or plasma 2023 024 [email or web address] [facility], [address], [place], [address], 10/23/2023 17:20:02 Referral None recorded. Procedures None [...] Not Available [facility] [address], [place], [address], 08/22/2023 16:00:20 Result Notes None recorded. Procedures Surgical History Date Name Laterality Status Provider Name and Address Organization Details Recorded Time 4 CHRONIC CARE NURSE/blood draw completed Rob Cai MD [address] [place] [address],SUITE [facility], [place], [address], [facility] 08/22/2023 16:00:16 4 Bladder Scan completed Rob Cai MD [address] [place] [address],[place] [address], [place], [address], [facility] 08/22/2023 16:00:10 3 [facility] 14:03:04 procedure on back completed Rob Cai MD [address] [place] [address],[address], [address], [facility] 02/19/2023 14:01:06 procedure on knee completed Rob Cai MD [address] [place] [address],[address], [place], [address], [facility] 02/19/2023 14:01:12 Imaging Results None recorded. Procedure Notes None recorded. Medical Equipment None Reported. Allergies Allergen ID Allergen Name Allergen Category Reaction Reaction Severity Criticality Documentation Date Start Date Code Code System Note Provider Name and Address Organization Details Recorded Time [id number] bacitraci n medicatio n Not available Not available Not available 02/19/2023 1291 RxNorm Rob Cai MD [address] [place] [address],[address] [place] [address], [phone], [facility] 3 13:59:39 Medications Name Sig Start Date [...] Available No t Available FreeStyle Corry 2 [place] active Not Available Not Available Not Available Vitals Date Recorded Body height Body mass index (BMI) Body weight Provider Name and Address Organization Details Last Updated DateTime 02/19/2023 167.64 cm 36.3 kg/m2 905950.28 g Rob Cai MD [address] [facility],[address], [address], [place] [facility] 02/19/2023 13:59:20 Date Recorded Body height Body mass index (BMI) Body weight Provider Name and Address Organization Details Last Updated DateTime 08/22/2023 167.64 cm 36.3 kg/m2 911530.28 g Rob Cai MD [address] [place] [address],[place] [address] [place] [address] [facility] 08/22/2023 15:59:45 Social History Question Answer Notes LastModified by Organizat ion Details LastModified Time Tobacco Smoking Status Former Smoker Rob Cai MD [address] [place] [address],[address], [address], [facility] 02/19/2023 14:00:27 What Is Your Level Of Alcohol Consumption? None Information not available 02/19/2023 What Is Your Level Of Caffeine Consumption? Occasional Information not available 02/19/2023 When Did You Quit Smoking? 17+yearssincela paigejohann Information not available 02/19/2023 What Was The Date Of Your Most Recent Tobacco Screening? 08/22/2023 Information not available 08/22/2023 Sex: Unknown Functional Status None recorded. Mental Status None recorded. Family History Relationship Description Onset Age of this Age Resolved Age Notes Mother Family history of malignant neoplasm Medical History Condition Response Sexually Transmitted Infection N Diabetes Y Bleeding Disorder Y High Blood Pressure N Kidney Stones N Cancer N Depression N Lung Disease N High Cholesterol N GERD/Acid Reflux N Heart Disease N Immunizations Vaccine Type Date Status Provider Name and Address Organization Details Recorded Time Influenza, adjuvanted, trivalent, PF 02/23/2017 completed Rob Cai MD [address] [place] [address], [address], [facility] 02/19/2023 13:59:27 Influenza, adjuvanted, trivalent, PF 05/23/2019 completed Rob Cai MD [address] [place] [address],[address] [address], [facility] 02/19/2023 13:59:27 Influenza, high-dose, quadrivalent, PF 02/24/2020 completed Rob Cai MD [address] [place] [address],[address] [address], [facility] 02/19/2023 13:59:27 Influenza, high-dose, quadrivalent, PF 04/02/2021 completed Rob Cai MD [address] [place] [address],[address], [place], [address], [facility] 02/19/2023 13:59:27 Influenza, adjuvanted, quadrivalent, PF 02/15/2023 completed Rob Cai MD [address] [place] [address],[address], [place], [address], [facility] 02/19/2023 13:59:27 Influenza, adjuvanted, quadrivalent, PF 03/31/2022 completed Rob Cai MD [address] [place] [address],[address], [place], [address], [facility] 02/19/2023 13:59:27 COVID-19, mRNA, LNP-S, PF, 100 mcg/0.5mL dose or 50 mcg/0.25mL dose 07/08/2020 completed Rob Cai MD [address] [place] [address],[address], [place], [address], [facility] 02/19/2023 13:59:27 COVID-19, mRNA, LNP-S, PF, 100 mcg/0.5mL dose or 50 mcg/0.25mL dose 08/05/2020 completed Rob Cai MD [address] [place] [address],[address], [place], [address], [facility] 02/19/2023 13:59:27 COVID-19, mRNA, LNP-S, PF, 100 mcg/0.5mL dose or 50 mcg/0.25mL dose 04/02/2021 completed Rob Cai MD [address] [place] [address],[address], [place], [address], [facility] 02/19/2023 13:59:27 COVID-19, mRNA, LNP-S, PF, 30 mcg/0.3 mL dose, keo-sucrose 09/09/2021 completed Rob Cai MD [address] [place] [address],[address], [place], [address], [facility] 02/19/2023 13:59:27 COVID-19, mRNA, LNP-S, bivalent, PF, 30 mcg/0.3 mL dose 03/01/2022 completed Rob Cai MD [address] [place] [address],[address], [place], [address], [facility] 02/19/2023 13:59:27 pneumococcal polysaccharide PPV23 03/14/2012 completed Rob Cai MD [address] [place] [address],[address], [place], [address], [facility] 02/19/2023 13:59:27 Tdap 03/14/2012 completed Rob Cai MD [address] [place] [address],[address], [place], [address], [facility] 02/19/2023 13:59:27 Novel [id number], all formulations 05/20/2009 completed Rob Cai MD [address] [place] [address],[address], [place], [address], [facility] 02/19/2023 13:59:27 Pneumococcal conjugate PCV 13 05/04/2015 completed Rob Cai MD [address] [place] [address],[address], [place], [address], [facility] 02/19/2023 13:59:27 zoster live 04/04/2007 completed Rob Cai MD [address] [place] [address],[address] [place] [address], [address], [facility] 02/19/2023 13:59:27 Influenza, high-dose, trivalent, PF 03/18/2015 completed Rob Cai MD [address] [place] [address],[address] [facility], [place], [address], [facility] 02/19/2023 13:59:27 Influenza, high-dose, trivalent, PF 04/02/2014 completed Rob Cai MD [address] [place] [address],[address] [place] [address], [address], [facility] 02/19/2023 13:59:27 Influenza, high-dose, trivalent, PF 04/13/2016 completed Rob Cai MD [address] [place] [address],[address], [place], [address], [facility] 02/19/2023 13:59:27 Influenza, split virus, trivalent, preservative 03/05/2013 completed Rob Cai MD [address] [place] [address],[address], [place], [address], [facility] 02/19/2023 13:59:27 Influenza, split virus, trivalent, preservative 03/14/2012 completed Rob Cai MD [address] [place] [address],[address], [place], [address], [facility] 02/19/2023 13:59:27 Influenza, split virus, trivalent, preservative 03/31/2004 completed Rob Cai MD [address] [place] [address],[address], [place], [address], [facility] 02/19/2023 13:59:27 Influenza, split virus, trivalent, preservative 04/02/2008 completed Rob Cia MD [address] [place] [address],[address], [place], [address], [facility] 02/19/2023 13:59:27 Influenza, split virus, trivalent, preservative 04/04/2007 completed Rob Cai MD [address] [place] [address],[address], [place], [address], [facility] 02/19/2023 13:59:27 Influenza, split virus, trivalent, preservative 04/10/2003 completed Rob Cai MD [address] [place] [address],[address], [place], [address], [facility] 02/19/2023 13:59:27 Influenza, split virus, trivalent, preservative 04/15/2005 completed Rob Cai MD [address] [place] [address],[address] [place] [address], [address], [facility] 02/19/2023 13:59:27 Influenza, split virus, trivalent, preservative 04/17/2006 completed Rob Cai MD [address] [place] [address],[address] [place] [address], [address], [facility] 02/19/2023 13:59:27 Influenza, split virus, trivalent, PF 02/24/2010 completed Rob Cai MD [address] [place] [address],[address] [place] [address], [address], [facility] 02/19/2023 13:59:27 Influenza, split virus, trivalent, PF 05/04/2011 completed Rob Cai MD [address] [place] [address],[address], [address], [facility] 02/19/2023 13:59:27 Influenza, split virus, quadrivalent, PF 03/25/2018 completed Rob Cai MD [address] [place] [address],[address] [address], [facility] 02/19/2023 13:59:27 Past Encounters Encounter ID Performer Location Encounter Start Date Encounter Closed Date Diagnosis/Indication Diagnosis SNOMED-CT Code [id number] MD ANGEL Carlos_Renetta [address] [place] [address] 02/19/2023 13:36:45 02/28/2023 13:12:17 Malignant tumor of prostate [id number] Urgent glenna toni to urinate 74577859 Incomplete emptying of urinary bladder 170175242 [id number] MD ANGEL Carlos_Renetta [address] [place] [address] 08/22/2023 15:30:43 08/27/2023 11:33:01 Malignant tumor of prostate 408989242 Urgent glenna toni to urinate 17193369 Incomplete emptying of urinary bladder [id number] Health Concerns Section Related Observation LastModified by Organization Detai ls LastModified Time None Recorded Concern Status LastModified by Organization Details LastModified Time None Recorded Advance Directives Directive None Recorded Payers Encounter Date Sequence Insurance Name Policy Number Policy Strange Covered Member ID Strange Member ID Guarantor Name 02/19/2023 1 [employer] - DOS ON OR AFTER 19 (MEDICARE REPLACEMENT/ ADVANTAGE - HMO) [id number] Bucky Turpin [id number] Bucky Turpin 08/22/2023 1 [employer] - DOS ON OR AFTER 19 (MEDICARE REPLACEMENT/ ADVANTAGE - HMO) [id number] Bucky Turpin [id number] Bucky Turpin Notes Date Note Type Note Provider Name and Address Organization Details Recorded Time 02/19/2023 text/html HPI Notes: 82 yo male with Lewy body dementia, HTN, DM (type 2), CLL, CKD (stage 3), and MAYA - diagnosed with prostate cancer - T1c - [place] 4+4 = 8 - (dx 02/06/17) - [...] in Left upper pole. Rob Cai MD [address] [facility],[address], [place], [address], [facility] 02/19/2023 14:50:28 08/22/2023 text/html HPI Notes: [...] in Left upper pole. Rob Cai MD [address] [facility],[address], [place], [address], [facility] 08/25/2023 17:47:01
--- OUTSIDE RECORDS SUMMARY | 2023-12-11 11:25 | XMS_ITS | Clinical Summary ---
Author Organization [facility] Address [address] [place] [address] Care Team Providers Care Mule Packer Name Role Phone Unavailable Primary Care Provider Unavailabl e Source Comments Patient records contain information from all sites at [facility]. For routine questions regarding patient records, call [phone] during business hours, M-F 8:00 AM - 5:00 PM Central Time. Record requests for emergency care only can be directed to [phone] at any time.[facility] Allergies Active Allergy Reactions Criticality Noted [...] 16-20 mmHg 02/26/2012 Active [facility] As directed. Automatic blood pressure cuff Large [...] mouth. 12/13/2018 Active FreeStyle Corry 14 Day [place] misc 03/10/2021 Active furosemide (LASIX) 40 mg [...] Comments Blood Pressure 169/94 07/17/2022 1:43 PM FEEDER WORKER POWER UNIT OPERATOR Pulse 57 07/17/2022 1:43 PM FEEDER WORKER POWER UNIT OPERATOR Temperature 36.2 ??C (97.2 ??F) 07/17/2022 1 :43 PM FEEDER WORKER POWER UNIT OPERATOR Respiratory Rate 16 07/21/2015 4:13 PM FEEDER WORKER POWER UNIT OPERATOR Oxygen Saturation - - Inhaled Oxygen Concentration - - Weight 105 kg (230 lb 9.6 oz) 07/17/2022 1:43 PM FEEDER WORKER POWER UNIT OPERATOR Height 171 cm (5' 7.32) 03/01/2017 8:4 [...] 04/13/2023, 03/01/2022, 09/09/2021, Additional history exists Influenza Vaccine (#1) 2024 3, 03/31/2022, 04/02/2021, Additional history exists Pneumococcal vaccine (65+ years) Completed 05/04/20 15, 03/14/2012
--- OUTSIDE RECORDS SUMMARY | 2023-12-11 11:25 | XMS_ITS ---
Author Organization [facility] Address [address] [place] [address] Care Team Providers Care Soil Scientist Name Role Phone Unavailable Unavailable Unavailable Surgery Details Not on file Complications Check Surgery Details section. Procedure Estimated Blood Loss Check Surgery Details section. Procedure Findings Check Surgery Details section. Procedure Specimens Taken Check Surgery Details section.
--- OUTSIDE RECORDS SUMMARY | 2023-12-11 11:25 | XMS_ITS | Continuity of Care Document ---
Author Organization [facility] Address [address] [place] [address] Phone Care Team Providers Care Green Ware Caster Name Role Phone Judy FERREIRA, PhD, John [...] Available - Active Procedures Procedure Date Office/Outpatient Visit,[facility], [facility] 2018 Advance Directives Directive Yes / No Effective Date File Name No Information Encounters Encounter Description Practice Location Reason(s) For Visit Diagnoses Date Provider Providers Copied on Encounter [facility], [address], [place], [place], [id number], [place] tel:[phone] [facility] No Information 9 Judy Coker. [facility] [place], [address], [place], [address], [place]. [phone] Office/Outpa tient Visit,New, Mod [facility], [address], [place], [place], [id number], [place] [phone] [facility] [place] Spinal stenosis, lumbar region with neurogenic claudication 9 Lit Richards. [facility] [place], [address] [place] [address] [address], [place], [place], [id number] , [place]. [phone] Referring Provider: Robbi Martin, [facility] [address] [facility] [address], [place], [address]. [phone] [facility], [address], [place], [place], [id number], [place] [phone] [facility] [place] Radiculopathy , lumbar region 9 Judy Coker. [facility] [place], [address] [place] [address] [address], [place], [address], [place]. [phone] Z [facility] [place], [address] [place], [place] [address], [place], [address], [place] tel:[phone] [facility] [place] Diabetes Mellitus Type 2, Uncomplicated Hypercholeste rolemia 3 Mehbod Amir. [facility] [place], [address] [place] [address] [address], [place], [place], [id number] , [place]. [phone] Family History Family Member Type Diagnosis Age [...]
--- OUTSIDE RECORDS SUMMARY | 2023-12-11 11:25 | XMS_ITS | Encounter Summary ---
Author Organization [facility] Address [address] [place] [address] Care Team Providers Care Compliance Intern Name Role Phone Unavailable Primary Care Provider [...] Patient states has glaucoma and treated in [place], [place]. Tearing; right eye; x 1 year; [...] abrasion OD CDM Reports - EYEGEN Id: [id number] Status: Fnl documented in this encounter Plan of Treatment Not on file documented as of this encounter Visit Diagnoses Not on filedocumented in this encounter
--- OUTSIDE RECORDS SUMMARY | 2023-12-11 11:25 | XMS_ITS | Referral Summary ---
Author Organization [facility] Address [address] [place] [address] Care Team Providers Care Physician Practice Consultant Name Role Phone Unavailable Primary Care Provider Unavailabl e Source Comments Patient records contain information from all sites at [facility]. For routine questions regarding patient records, call [phone] during business hours, M-F 8:00 AM - 5:00 PM Central Time. Record requests for emergency care only can be directed to [phone] at any time.[facility] Allergies Active Allergy Reactions Criticality Noted [...] Test 2-3 times/day. 05/30/2017 Active blood-glucose meter [facility] Dispense glucose meter, test strips and lancets covered by the patient insurance. Test 3-4 times per day DX E11.9 09/19/2016 Active clotrimazole-betame thasone (for_LOTRISONE) 1-0.05 % cream Apply 1 application topically 2 (two) times a day. 03/01/2017 Active miscellaneous medical supply [facility] Autotitration cpap 4-20cm of H2O, with accessories dx327.23, he will need oxygen 2 liters bled into it 05/25/2008 Active miscellaneous medical supply [facility] As directed. Diabetic shoes diagnosis 250.00, 1 [...] 16-20 mmHg 02/26/2012 Active [facility] As directed. Automatic blood pressure cuff [...] Apply topically. 01/05/2020 Active diabetic supplies, [place]. [facility] Dispense glucose meter, test strips and lancets covered by patient insurance. Test 3-4 times per day. 02/27/2018 Active donepeziL (ARICEPT) 5 mg tablet Take 5 mg by mouth. 02/08/2021 Acti ve ferrous gluconate (FERGON) 324 mg (38 mg iron) tablet Take 1 tablet by mouth. 12/13/2018 Active FreeStyle Corry 14 Day [place] misc 03/10/2021 Active furosemide (LASIX) 40 mg [...] Comments Blood Pressure 169/94 07/17/2022 1:43 PM DEMOLITIONIST Pulse 57 07/17/2022 1:43 PM DEMOLITIONIST Temperature 36.2 ??C (97.2 ??F) 07/17/2022 1 :43 PM DEMOLITIONIST Respiratory Rate 16 07/21/2015 4:13 PM DEMOLITIONIST Oxygen Saturation - - Inhaled Oxygen Concentration - - Weight 105 kg (230 lb 9.6 oz) 07/17/2022 1:43 PM DEMOLITIONIST Height 171 cm (5' 7.32) 03/01/2017 8:4 4 AM CDT Vital sign result from Clinical Notes. Body Mass Index 35.77 03/01/2017 8:44 AM CDT Plan of Treatment Not on file
--- OUTSIDE RECORDS SUMMARY | 2023-12-11 11:26 | XMS_ITS | Clinical Summary ---
Author Organization [facility] Address [address] [place] [address] Care Team Providers Care Director Of Enterprise Applications Name Role Phone Unavailable Primary Care Provider [...] for each transition of care or referral. [facility] Social History Tobacco Use Types [...] ( season) 2023 08/05/2020, 07/08/2020 Influenza (#1) 2024 02/24/2020, 05/05, 03/25/2018, Additional history exists Pneumococcal [...]
--- OUTSIDE RECORDS SUMMARY | 2023-12-11 11:26 | XMS_ITS | Clinical Summary ---
Author Organization [facility] Address [place], [place] [address] Care Team Providers Care Orthotic And Prosthetic Technician Name Role Phone Joi Zavala MD Primary [...] 400 Each 3 07/20/19 15 Active Insulin [place], Disposable, (PEN NEEDLE) 29 gauge x 1/2Indications:ID DM (insulin dependent diabetes mellitus) For administering insulin at home. 400 box 3 05/30/20 15 Active miscellaneous medical supply miscIndications:Sp inal stenosis [...] home. Relion brand syringe 1 box 12/28/19 18 Active blood sugar diagnostic (ONETOUCH ULTRA BLUE [...] mouth once daily. 90 tablet 3 10/05/19 19 Active medication order composerIndication s:Left ischial pressure sore, stage I Donut pillow for home use 1 unit 1 01/02/20 19 Active flash glucose scanning reader (FreeStyle Corry 2 [place]) miscIndications:In sulin dependent type 2 diabetes mellitus [...] DAILY 60 g 3 03/23/20 22 Active nqcjrscqx-CZ-LI-ac etaminophen (Raissa-Plover Plus Cold/CoughFm) 2-5-10-325 mg cap Take 1 [...] needed for constipation 0 03/31/20 22 Active Shower ChairIndications:L ewy body dementia [...] bedtime. 90 Tablet 3 01/12/20 23 Active FreeStyle Corry 2 SensorIndications: Type 2 diabetes mellitus with complication, with long-term current use of insulin (HC) TO BE USED TO READ BLOOD SUGARS PER [employer] F[employer] MANAGER'S DIRECTIONS. 6 Each 3 04/11/20 23 Active clonazePAM (KLONOPIN) 1 mg tablet [...] DAY) 30 mL 5 06/19/19 24 Active triamcinolone 0.1% TOPICAL (KENALOG) 0.1 [...] 16 units subcutaneous before bedtime. Product desired: TONY PLUNKETT 10/30/19 Active oxygen-air delivery systems (HOME OXYGEN)Indications :Hypoxia,Pickwicki an syndrome (HC),Chronic respiratory failure with hypoxia (HC) Portable conserving oxygen device, POC-Concentrator. Liters per minute: 2 per nasal cannula. Frequency of use: Continuous. Length of need: 99 Months. Chronic oxygen use for hypoxia. Oxygen saturation on room air 88%. 1 Each 10/30/19 24 Active sodium chloride 3% nebulization 3 % nebulizer solutionIndication s:Continuous salivary secretion Inhale 4 mL via a nebulizer 3 times daily if needed for Wheezing. 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 10 Tablet 11/30/19 24 Active oxybutynin (DITROPAN XL) 15 mg CR tabletIndications: Urinary urgency TAKE ONE TABLET BY MOUTH ONCE EVERY DAY NEEDED FOR FREQUENT URINATION 60 Tablet 12/04/19 24 Active FreeStyle Corry 2 ReaderIndications: Type 2 diabetes mellitus with complication, with long-term current use of insulin (HC) To be used to read blood sugars per offset press assistant's directions. 1 Each 12/10/19 24 Active FreeStyle Corry 14 Day SensorIndications: Type 2 diabetes mellitus with complication, with long-term current use of insulin (HC) To be used to read blood sugars per offset press assistant's directions. FreeStyle Corry 14 day / FreeStyle Corry 2 CGM sensor 6 boxes is 84 day supply 6 Each 3 12/10/19 24 Active glycopyrrolate (ROBINUL) 1 mg tabletIndications: Drooling Take 1 tablet by mouth daily 90 Tablet 3 04/12/20 22 024 Discontinued(*M edication adjustment) FreeStyle Corry 2 ReaderIndications: Type 2 diabetes mellitus with complication, with long-term current use of insulin (HC) To be used to read blood sugars per offset press assistant's directions. 1 Each 05/22/20 22 024 Discontinued(Re order (E-cancel not sent)) oxybutynin (DITROPAN XL) 15 mg CR tabletIndications: Urinary urgency TAKE ONE TABLET BY MOUTH ONCE EVERY DAY NEEDED FOR FREQUENT URINATION. 60 Tablet 3 04/10/20 23 024 Discontinued FreeStyle Corry 14 Day SensorIndications: Type 2 diabetes mellitus with complication, with long-term current use of insulin (HC) To be used to read blood sugars per offset press assistant's directions. FreeStyle Corry 14 day / FreeStyle Corry 2 CGM sensor 6 boxes is 84 day supply 6 Each 3 04/13/20 23 024 Discontinued(*A vailability/For mulary change/Cost of medication) donepeziL (ARICEPT) 5 mg tabletIndications: Memory problem Take 2 Tablets (10 mg) by mouth at bedtime. 07/06/19 24 024 Discontinued(*M ed complete/Regime n complete/Level of care change) sodium chloride 3% nebulization 3 % nebulizer solutionIndication s:Continuous salivary secretion Inhale 4 mL via a nebulizer 3 times daily if needed for Wheezing. 10 mL 3 11/29/19 24 024 Discontinued(Re order (E-cancel not sent)) glycopyrrolate (RobinuL) 1 mg tabletIndications: Continuous salivary secretion Take 1 Tablet (1 mg) by mouth three times daily. 90 Tablet 3 11/29/19 24 024 Discontinued(*M edication adjustment) Hospital, Clinic, or Other Facility Administered Medication Ordered Dose Route Frequency Start Date End Date Status albuterol 0.083% (2.5 mg/3 mL) neb solution 2.5 mgIndications:Continuous salivary secretion,Lewy body dementia with behavioral disturbance (HC),Respiratory distress 2.5 mg NEB ONE TIME 11/29/2023 11/29/2023 Ended Active Problems Problem Noted Date Diagnosed Date [...] Encounters Date Type Department Care Team Description 12/11/2023 [facility]phone [facility] [place] [address] [address] Joi Zavala MD Prior Authorization (FreeStyle Corry 14 Day Sensor) 12/04/2023 Telephone [facility] [address] [place] [address] [address] Joi Zavala MD Referral (Hospice) 12/03/2023 [facility] [address] Joi Zavala MD Refill Request (Oxybutynin) 11/29/2023 12:10 PM CDT Office [facility] [place] [address] [address] Joi Zavala MD Medicare ANNUAL (subsequent) Visit (83 yo Male /O2 at rest room air is 87%. O2 with oxygen 3 Liters 92-95%/Not feeling the best. Was in the hospital 1 week ago. He is on antibiotics, Doxycycline. Infection, elevated white count. Was having trouble breathing and could not stand.) 11/29/2023 [facility] [address] [place] [address] [address] Joi Zavala MD Refill Request (sodium chloride 3% nebulization 3 % nebulizer solution/) 11/29/2023 Travel 11/20/2023 Orders Only [facility] Scanner 1 scan: (1-Ord) ROXANA, XR CHEST 2V, 11/20/2023 11/20/2023 Orders Only [facility] Scanner 1 scan: (1-Ord) ROXANA, XR CHEST 1V PORTABLE, 11/20/2023 10/30/2023 1:50 PM CDT [facility] [address] [place] [address] [address] Joi Zavala MD Follow Up (monthly appt-lab work?) 10/30/2023 Travel 10/24/2023 [facility] [address] [place] [address] Joi Zavala MD Refill Request (Meclizine) 10/23/2023 11:00 AM CDT Office Visit [facility] [address] [facility] [address] [place] [address] Lesley Garcia MBBS CV General Cardiology Est (EPIFANIO F/U- /follow up of recurrent syncope, bradycardia on Zio patch Per Joi Zavala MD //PCP: Joi Zavala MD/) 10/23/2023 Travel 10/21/2023 Telephone [facility] [address] [place] [address] Joi Zavala MD Results; Referral; Returning call 10/09/2023 Telephone [facility] [address] [place] [address] Joi Zavala MD Ed F/u 10/01/2023 Orders Only [facility] Scanner 1 scan: (1-Ord) [facility], 10/01/2023 09/25/2023 4:00 PM CDT Office Visit [address] [place] [address] 09/25/2023 1:50 PM CDT [facility] [address] [place] [address] Joi Zavala MD Hospital F/U (Taking 325 asa daily now/On Cipro/O2 needs to be updated. [facility] call [phone]/Needs 3 readings/With O2/Without O2 /With exercise ); Serious Illness Conversation 09/25/2023 Travel 2023 11:00 AM CDT Ancillary Procedure [facility] [address] [place] [address] 2023 Orders Only [facility] Scanner 1 scan: (1-Ord) [facility], XRAY CHEST 1 VIEW, 2023 2023 Orders Only [facility] Scanner 1 scan: (1-Ord) [facility], MR HEAD/BRAIN WO CON, 2023 2023 Office Visit [facility] [address] [place] [address] Wade Treviño MD 09/16/2023 Orders Only [facility] Scanner 1 scan: (1-Ord) [facility], CT ANGIO HEAD AND NECK , 09/16/2023 09/16/2023 Orders Only [facility] Scanner 1 scan: (1-Ord) [place], ANGIO NECK, 09/16/2023 09/16/2023 Orders Only [facility] Scanner 1 scan: (1-Ord) [place], HEAD, 09/16/2023 09/16/2023 Office Visit [facility] [address] [facility] [address] [facility] [address] [place] [phone] Nithya Damon DO Telehealth (Telestroke encounter, [place] ) from Last 3 Months Immunizations Name Administration Dates Next Due AMB Influenza, IIV3 (Age >=3 years)(Flu Clinic Only) 03/05/2013 AMB Influenza, IIV4 PF (=>6 mos Flulaval,Fluzone Fluarix)(Flu Clinic Only) 03/25/2018 COVID-19 Vaccine Spikevax (M oderna 50mcg/0.5mL) 12YO+ [id number] Formula PF 04/13/2023 COVID-19 vaccine (Moderna 100mcg/0.5mL) [...] Answer Date Recorded PHQ-2 TOTAL SCORE 2 11/29/2023 Social Connections Answer Date Recorded Frequency of Communication with Friends and Fami ly Not on file 12/09/2023 Financial Resource Strain Answer Date R ecorded [...] Sign Reading Time Taken Comments Blood Pressure 167/108 11/29/2023 12:22 PM CDT Pulse 60 11/29/2023 12:22 PM CDT Temperature 36.4 ??C (97.6 ??F) 11/29/2023 12:22 PM C DT Respiratory Rate 18 01/18/2022 12:25 PM CDT Oxygen Saturation 92% 11/29/2023 12:22 PM CDT Inhaled Oxygen Concentration - - Weight 102.1 kg (225 lb) 10/23/2023 10:54 AM CDT Height 170 cm (5' 6.93) 10/23/2023 10:54 AM CDT Body Mass Index 35.31 10/23/2023 10:54 AM CDT Plan of Treatment Upcoming Encounters Date Type Department Care Team (Late st Contact Info) Description 12/13/2023 4:45 AM CDT Home Care Visit [facility] [address] [place] [phone] Shavonne Matthews RN Goals Goal Patient Goal Type Associated Problems Recent Progress Patient-Stated? Author BLOOD PRESSURE - Maintains BP less than 140/90 Blood Pressure No Florinda Rodriguez Procedures Procedure Name Priority Date/Time Associated Diagnosis Comments RED CELL MORPHOLOGY Routine 11/29/2023 1 1:57 AM CDT Pneumonia of right lower lobe due to infectious organism PLATELET ESTIMATE Routine 11/29/2023 11: 57 AM CDT Pneumonia of right lower lobe due to infectious organism MANUAL DIFFERENTIAL Routine 11/29/2023 1 1:57 AM CDT Pneumonia of right lower lobe due to infectious organism CBC WITH AUTO DIFFERENTIAL Add On 11/29/2023 11:57 AM CDT Pneumonia of right lower lobe due to infectious organism CBC WITH AUTO DIFFERENTIAL Add On 11/29/2023 11:57 AM CDT Pneumonia of right lower lobe due to infectious organism BASIC METABOLIC PANEL Routine 11/29/2023 11:57 AM CDT Type 2 diabetes mellitus with complication, with long-term current use of insulin (HC) HEMOGLOBIN A1C Routine 11/29/2023 11:57 AM CDT Type 2 diabetes mellitus with complication, with long-term current use of insulin (HC) SCAN-RADIOLOGY REPORT 11/20/2023 12:00 AM CDT SCAN-RADIOLOGY REPORT 11/20/2023 12:00 AM CDT EKG 12 LEAD Routine 10/23/2023 11:15 AM [...] CDT SCAN-CT INTERPRETATION 4 12:00 AM CDT from Last 3 Months Results * (ABNORMAL) CBC WITH AUTO DIFFERENTIAL (11/29/2023 11:57 AM CDT) [facility] WHITE BLOOD COUNT 11.7(H) 4.5 - 11.0 thou/cu mm 11/29/2023 2:02 PM CDT [facility] RED BLOOD COUNT 4.58 4.30 - 5.90 mil/cu mm 11/29/2023 2:02 PM CDT [facility] HEMOGLOBIN 13.8 13.5 - 17.5 g/dL 11/29/2023 2:02 PM CDT [facility] HEMATOCRIT 42.0 37.0 - 53.0 % 11/29/2023 2:02 PM CDT [facility] MCV 92 80 - 100 fL 11/29/2023 2:02 PM CDT [facility] MCH 30.1 26.0 - 34.0 pg 11/29/2023 2:02 PM CDT [facility] MCHC 32.9 32.0 - 36.0 g/dL 11/29/2023 2:02 PM CDT [facility] RDW 15.2 11.5 - 15.5 % 11/29/2023 2:02 PM CDT [facility] PLATELET COUNT 208 140 - 440 thou/cu mm 11/29/2023 2:02 PM CDT [facility] MPV 11.6(H) 6.5 - 11.0 fL 11/29/2023 2:02 PM CDT [facility] Blood BLOOD SPECIMEN / Unknown Venipuncture / Unknown 11/29/2023 11:57 AM CDT 11/29/2023 11:58 AM CDT Joi Zavala MD HEMATOLOGY [facility] [address] [place] [address], * RED CELL MORPHOLOGY (11/29/2023 11:57 AM CDT) RBC COMMENT RBC morphology appears normal RBC morphology appears normal, RBC morphology within normal limits for newborns. 11/29/2023 2:01 PM CDT [facility] LARGE PLATELETS Present 11/29/2023 2:01 PM CDT [facility] WBC SMUDGE CELLS Present 11/29/2023 2:01 PM CDT [facility] Blood BLOOD SPECIMEN / Unknown Venipuncture / Unknown 11/29/2023 11:57 AM CDT 11/29/2023 11:58 AM CDT Joi Zavala MD HEMATOLOGY Performing Organization Address City/[facility]/ZIP Co de Phone Number [facility] [address] [place] [address], * PLATELET ESTIMATE (11/29/2023 11:57 AM CDT) PLATELET ESTIMATE Adequate Adequate, No estimate 11/29/2023 2:01 PM CDT [facility] Blood BLOOD SPECIMEN / Unknown Venipuncture / Unknown 11/29/2023 11:57 AM CDT 11/29/2023 11:58 AM CDT Joi Zavala MD HEMATOLOGY Performing Organization Address [facility] Co de Phone Number [facility] [address] [place] [address], * (ABNORMAL) MANUAL DIFFERENTIAL (11/29/2023 11:57 AM CDT) % NEUTROPHILS 69.0 % 11/29/2023 2:01 PM CDT [facility] % LYMPHOCYTES 26.0 % 11/29/2023 2:01 PM CDT [facility] % MONOCYTES 5.0 % 11/29/2023 2:01 PM CDT [facility] % EOSINOPHILS 0.0 % 11/29/2023 2:01 PM CDT [facility] % BASOPHILS 0.0 % 11/29/2023 2:01 PM CDT [facility] NEUTROPHILS ABSOLUTE 8.1(H) 1.7 - 7.0 thou/cu mm 11/29/2023 2:01 PM CDT [facility] LYMPHOCYTES ABSOLUTE 3.0(H) 0.9 - 2.9 thou/cu mm 11/29/2023 2:01 PM CDT [facility] MONOCYTES ABSOLUTE 0.6 <0.9 thou/cu mm 11/29/2023 2:01 PM CDT [facility] EOSINOPHILS ABSOLUTE 0.0 <0.5 thou/cu mm 11/29/2023 2:01 PM CDT [facility] BASOPHILS ABSOLUTE 0.0 <0.3 thou/cu mm 11/29/2023 2:01 PM CDT [facility] Blood BLOOD SPECIMEN / Unknown Venipuncture / Unknown 11/29/2023 11:57 AM CDT 11/29/2023 11:58 AM CDT Joi Zavala MD HEMATOLOGY Performing Organization Address [facility] de Phone Number [facility] [address] [place] [address], * (ABNORMAL) HEMOGLOBIN A1C MONITORING (POCT) (11/29/2023 11:57 AM CDT) [facility] HEMOGLOBIN A1C MONITORING (POCT) 8.0(H) <=6.4 % 11/29/2023 12:07 PM CDT [facility] Blood BLOOD SPECIMEN / Unknown Venipuncture / Unknown 11/29/2023 11:57 AM CDT 11/29/2023 11:58 AM CDT Narrative [facility] - 11/29/2023 12:07 PM CDT ? (<=6.9%) ? Indicates good [...] MD CHEMISTRY Performing Organization Address [facility] de Phone Number [facility] [address] [place] [address], * (ABNORMAL) BASIC METABOLIC PANEL (11/29/2023 11:57 AM CDT) SODIUM 138 136 - 145 mmol/L 11/30/2023 3:29 AM T [facility] POTASSIUM 4.5 3.5 - 5.1 mmol/L 11/30/2023 3:29 AM T [facility] CHLORIDE 105 98 - 107 mmol/L 11/30/2023 3:29 AM T [facility] CO2,TOTAL 23 22 - 29 mmol/L 11/30/2023 3:29 AM T [facility] ANION GAP 10 5 - 18 11/30/2023 3:29 AM T [facility] GLUCOSE 217(H) 70 - 99 mg/dL 11/30/2023 3:29 AM T [facility] CALCIUM 8.5(L) 8.8 - 10.2 mg/dL 11/30/2023 3:29 AM T [facility] BUN 23 8 - 23 mg/dL 11/30/2023 3:29 AM T [facility] CREATININE 1.19 0.70 - 1.20 mg/dL 11/30/2023 3:29 AM T [facility] BUN/CREAT RATIO 19 10 - 20 3:29 AM T [facility] eGFR 61(L) >90 mL/min/1.7 3m2 11/30/2023 3:29 AM T [facility] Comment:As of 2021, eG FR is calculated by the CKD-EPI creatinine equation without race adjustment. ??eGFR can be influenced by muscle mass, exercise, and diet. ??The reported eGFR is an estimation only and is only applicable if the renal function is stable. Blood BLOOD SPECIMEN / Unknown Venipuncture / Unknown 11/29/2023 11:57 AM CDT 11/29/2023 11:58 AM CDT Joi Zavala MD CHEMISTRY [facility] [address] [place] [address], * SCAN-RADIOLOGY REPORT (11/20/2023 12:00 AM CDT) Only the most recent of3 resultswithin the time period is included. Anatomical Region Laterality Modality Other Scanner OTHER * EKG 12 LEAD (10/23/2023 11:15 AM [...] QT 456 ms QTc 440 ms P [place] -3 degrees R [place] -33 degrees T [place] 23 degrees 10/23/2023 11:1 5 AM CDT 10/23/2023 6:42 PM CDT Lesley WALDRON EKG ORD * EXTENDED HOLTER (10/22/2023) Joi [...] CDT ECHOCARDIOGRAM LEIDY GAYLE ? Accession#: ?? [id number] : ?1940 82 years Study Date: ?? 2023 3:43:54 PM Gender: M ?BP: ? 157/78 mmHg Height: 168.00 cm ?BSA: ?2.11 m? ? ? Weight: 103.00 kg ?Tech: ? MCK ? Referring MD: GRISEL NEWMAN Site: ? [facility] Reading Location: [facility] Patient Location: Outpatient. Procedure: 2D, Color Doppler [...] . This study was interpreted by an [facility] accredited facility. CC: HIM (med records) [facility], Med/Surg - IP [facility]. ??Final ?? Procedure Note Eyal Andujar MD - 09/18/2023 ECHOCARDIOGRAM LEIDY GAYLE : 1940 82 years Study Date: 2023 3:43:54 PM Gender: M BP: 157/78 mmHg Height: 168.00 cm BSA: 2.11 m? ? ? Weight: 103.00 kg Tech: [facility] Referring MD: GRISEL NEWMAN Site: [facility] Reading Location: [facility] Patient Location: Outpatient. Procedure: 2D, Color Doppler [...] . This study was interpreted by an [facility] accredited facility. CC: HIM (med records) [facility], Med/Surg - IP [facility]. Final Grisel Newman MD ECHO ORD * SCAN-MRI INTERPRETATION (2023 12:00 AM CDT) [...] Documents on File Type Date Recorded Patient Management Planner Expl anation POLST 09/25/2023 Healthcare Directive 09/14/2021 7:36 AM HE ALTH CARE DRECTIVE/ 09/14/2021 Care Teams Orthotic And Prosthetic Technician Relationship Specialty Start Date End Date Joi Zavala MD [address] [place] [address] PCP - General 03/08/05 Ruben Fernandez MD [address] [place] [address] Sports Medicine 09/05/12
[2023-12-11 11:30] VITALS: BP 162/101; PULSE 50; RESP 16; O2SAT 93
[2023-12-11 12:20] VITALS: BP 177/79; PULSE 47; RESP 18; O2SAT 99
== END 2023-12-11 13:40 | disposition home or self-care (01) ==
PROVIDERS: Emergency Provider Family Medicine; PCP Family Medicine
DX: S09.90XA Unspecified injury of head, initial encounter (principal); S51.012A Laceration without foreign body of left elbow, initial encounter; S61.412A Laceration without foreign body of left hand, initial encounter; W01.10XA Fall on same level from slipping, tripping and stumbling with subsequent striking against unspecified object, initial encounter
CPT/HCPCS: 70450; 71250; 72128; 72131; 73080; 99284